=== PATIENT | male | born 1975 | race Caucasian/White ===

== ENCOUNTER 2020-03-13 11:15 | Outpatient (REF) | payer OTHER, SELFPAY ==
[2020-03-13 12:20] LABS: Estimated Average Glucose 298 mg/dL; Glucose Fasting 272 mg/dL (60-99)
== END 2020-03-13 11:16 | disposition home or self-care (01) ==
LOC: HO.LAB 11:15
PROVIDERS: PCP Internal Medicine; Visit Provider Internal Medicine
DX: E11.29 Type 2 diabetes mellitus with other diabetic kidney complication (principal)
CPT/HCPCS: 36415; 82947; 83036

== ENCOUNTER 2020-04-24 10:44 | Outpatient (REF) | payer OTHER, SELFPAY ==
[2020-04-24 11:50] LABS: MANUAL DIFF FLAG NO
[2020-04-24 12:09] LABS: Basophils Percent Auto 0.6 % (0-2); Eosinophils Absolute Auto 0.2 X10*3/uL (0.0-0.4); Eosinophils Percent Auto 3.1 % (0-4); Hematocrit 42.3 % (42-52); Imm Gran Abs Auto 0.04 X10*3/uL (0.00-0.03); Imm Gran Pct Auto 0.6 % (0.0-0.4); Lymphocytes Absolute Auto 2.4 X10*3/uL (1.2-4.9); Lymphocytes Percent Auto 34.5 % (20-40); Mean Corpuscular HGB Conc 33.1 g/dl (31.0-36.0); Mean Corpuscular Hemoglobin 29.4 pg (27.0-33.0); Mean Corpuscular Volume 88.9 fL (80-98); Mean Platelet Volume 11.9 fL (9.4-12.4); Monocytes Absolute Auto 0.5 X10*3/uL (0.1-1.2); Monocytes Percent Auto 7.2 % (2-11); Neutrophils Absolute Auto 3.7 X10*3/uL (2.0-8.3); Platelet Count 185 X10*3/uL (160-400); Red Blood Count 4.76 X10*6/uL (4.60-5.80); Red Cell Distribution Width 12.9 % (11.0-16.0); White Blood Count 6.8 X10*3/uL (4.8-10.8)
[2020-04-24 12:20] LABS: Glucose Urine UA >=1000 MG/DL (NEG); Leukocyte Esterase Urine NEG (NEG); Nitrite Urine NEG (NEG); Specific Gravity - Urine >= 1.030 (1.005-1.025); Urine Blood 1+ (NEG); Urine Ketones NEG (NEG); Urine Protein 2+ MG/DL (NEG-TRACE)
[2020-04-24 12:23] LABS: Appearance Urine CLEAR; Color Urine YELLOW
[2020-04-24 12:38] LABS: Mucus Urine TRACE /LPF; Squamous Epithelial Cell Urine TRACE /LPF; WBC Urine 0-2 /HPF (0-4)
[2020-04-24 12:47] LABS: Creatinine Urine 119.62 mg/dL
[2020-04-24 12:52] LABS: Alanine Aminotransferase 25 U/L (0-40); Alkaline Phosphatase 109 U/L (39-117); Anion Gap 12 (12-20); Aspartate Amino Transferase 19 U/L (5-37); Bilirubin Total 0.3 mg/dL (0.0-1.0); Blood Urea Nitrogen 25 mg/dL (9-16); Calcium 8.5 mg/dL (8.4-10.2); Carbon Dioxide 26 mmol/L (22-29); Chloride 104 mmol/L (96-108); Cholesterol 194 mg/dL; Estimated Glomerular Filt Rate > 60; Glucose Fasting 196 mg/dL (60-99); HDL Cholesterol 38 mg/dL; LDL Cholesterol Calculated 109 mg/dl; Potassium 4.1 mmol/L (3.3-5.1); Sodium 138 mmol/L (135-145); Triglycerides 239 mg/dL
[2020-04-24 13:02] LABS: Microalbum/Creatinine Ratio Ur 797.5 ug/mg cr
[2020-04-24 13:16] LABS: PSA,Total (Free>4and<10) 0.33 ng/mL (0.00-4.00); TSH reflex Free T4 16.88 uIU/mL (0.32-4.0)
[2020-04-24 13:24] LABS: Estimated Average Glucose 303 mg/dL; Hemoglobin A1c % 12.2 %
[2020-04-24 14:14] LABS: Free T4 (Free Thyroxine) 0.72 ng/dL (0.71-1.85)
[2020-04-24 15:06] LABS: Reflex LDLD? No
== END 2020-04-24 10:45 | disposition home or self-care (01) ==
LOC: HO.LNP 10:44
PROVIDERS: Visit Provider Internal Medicine
DX: E11.40 Type 2 diabetes mellitus with diabetic neuropathy, unspecified (principal); E78.2 Mixed hyperlipidemia; E03.9 Hypothyroidism, unspecified
CPT/HCPCS: 80053; 80061; 81001; 81003; 82043; 83036; 84153; 84439; 84443; 85025

== ENCOUNTER 2020-06-15 14:41 | Emergency (ER) | payer OTHER, SELFPAY ==
[2020-06-15 15:09] VITALS: BP 135/76; PULSE 90; RESP 18; TEMP 37; O2SAT 100; BMI 32.5
--- NOTE | 2020-06-15 16:07 | PC.NURSE ---
Pt calm and cooperative at this time denies SI but describes a recent SI episode with attempt at ending his life.
[2020-06-15 16:13] LABS: Amphetamine Screen Urine Not Detected (Not Detect); Barbiturates, Urine Not Detected (Not Detect); Benzodiazepines Screen Urine Not Detected (Not Detect); Cannabinoid Screen Urine Not Detected (Not Detect); Cocaine Screen Urine Not Detected (Not Detect); Opiate Screen Urine Not Detected (Not Detect); Phencyclidine Screen Urine Not Detected (Not Detect)
--- NOTE | 2020-06-15 17:20 | PC.NURSE ---
Pt tranbsferred from main ED to the unit, given brief orientation to unit. Pt alert, affect guarded, pt currently being seen by pharmacy to complete medication reconciliation.
[2020-06-15 17:57] LABS: MANUAL DIFF FLAG NO
[2020-06-15 17:59] LABS: Basophils Percent Auto 0.4 % (0-2); Eosinophils Absolute Auto 0.2 X10*3/uL (0.0-0.4); Eosinophils Percent Auto 2.5 % (0-4); Hematocrit 41.9 % (42-52); Hemoglobin 13.9 g/dl (14.0-18.0); Imm Gran Abs Auto 0.03 X10*3/uL (0.00-0.03); Imm Gran Pct Auto 0.4 % (0.0-0.4); Lymphocytes Absolute Auto 2.6 X10*3/uL (1.2-4.9); Lymphocytes Percent Auto 30.7 % (20-40); Mean Corpuscular HGB Conc 33.2 g/dl (31.0-36.0); Mean Corpuscular Hemoglobin 28.8 pg (27.0-33.0); Mean Corpuscular Volume 86.9 fL (80-98); Mean Platelet Volume 10.7 fL (9.4-12.4); Monocytes Absolute Auto 0.6 X10*3/uL (0.1-1.2); Monocytes Percent Auto 6.7 % (2-11); Neutrophils Percent Auto 59.3 % (45-73); Platelet Count 200 X10*3/uL (160-400); Red Blood Count 4.82 X10*6/uL (4.60-5.80); Red Cell Distribution Width 12.7 % (11.0-16.0); White Blood Count 8.4 X10*3/uL (4.8-10.8)
--- NOTE | 2020-06-15 18:10 | PC.NURSE ---
Pt labs drawn. Pt reports hx attempt to commit suicide approx 1 week ago, took extra insulin, POC in AM was 43, pt recognized that he was in trouble and ate some chocolate, called MD who encouraged him to seek help in ED. Pt recognizes that he needs help, reports hx depression, grieving over loss of father. Pt denies SI currently.
[2020-06-15 18:13] LABS: COVID-19 Test Negative (Negative); IDNOW Serial# 9DD0AD1C
[2020-06-15] MEDS: Nicotine 21 MG PATCH.TD24 TRANSDERMA (18:15)
[2020-06-15 18:30] LABS: Anion Gap 14 (12-20); Blood Urea Nitrogen 22 mg/dL (9-16); Calcium 9.3 mg/dL (8.4-10.2); Carbon Dioxide 25 mmol/L (22-29); Chloride 105 mmol/L (96-108); Creatinine Clr Calc Pharmacy 116.6; Estimated Glomerular Filt Rate > 60; Glucose Random 203 mg/dL (60-115); Potassium 4.3 mmol/L (3.3-5.1); Sodium 140 mmol/L (135-145)
[2020-06-15 18:32] LABS: Alanine Aminotransferase 20 U/L (0-40); Albumin Level 4.2 g/dL (3.5-5.0); Alkaline Phosphatase 109 U/L (39-117); Aspartate Amino Transferase 14 U/L (5-37); Bilirubin Direct < 0.2 mg/dL (0.0-0.5); Bilirubin Total 0.3 mg/dL (0.0-1.0); Total Protein 7.3 g/dL (6.5-8.0)
--- NOTE | 2020-06-15 18:47 | ED_ITS ---
HPI - Psych General Chief Complaint: Psychiatric Symptoms Stated Complaint: crisis Time Seen by Provider: 06/15/20 16:21 Source: patient Mode of arrival: ambulatory Limitations: no limitations History of Present Illness HPI Narrative: 44 yo male with past medical history of IDDM, HLD, hypothyroidism here with complaints of SI. Patient tells me he took 2 vials of insulin 2 weeks ago in an attempt to kill himself. No HI, hallucinations. Feeling depressed, no substance use. No physical complaints. Related Data Home Medications Medication Instructions Recorded Confirmed atorvastatin 1 tab PO DAILY 06/15/20 06/15/20 insulin glargine [Lantus Solostar 180 unit SUBCUT DAILY 06/15/20 06/15/20 U-100 Insulin] levothyroxine 1 tab PO QAM 06/15/20 06/15/20 sertraline 1 tab PO DAILY 06/15/20 06/15/20 Allergies Allergy/AdvReac Type Severity Reaction Status Date / Time No Known Allergies Allergy Unverified 11/17/19 17:58 [No Known Allergies*] Review of Systems Review of Systems: Yes all other systems are reviewed and are negative Constitutional: Constitutional: Reports no additional constitutional complaints, Denies body ache(s), Denies chills, Denies fever(s), Denies headache(s) and Denies weakness Eyes: Eyes: Reports no additional eye complaints and Denies change in vision ENT: Reports system reviewed and no additional complaints, except as documented, Denies dizziness, Denies headache(s), Denies nasal congestion, Denies nasal discharge and Denies neck pain Cardiovascular: Cardiovascular: Reports no additional cardiovascular complaint s, Denies chest pain, Denies leg edema and Denies dyspnea Respiratory: Respiratory: Reports no additional respiratory complaints, Denies cough and Denies dyspnea Gastrointestinal: Gastrointestinal: Reports no additional gastrointestinal complaints, Denies abdominal pain, Denies diarrhea, Denies nausea and Denies vomiting Genitourinary: Genitourinary: Denies urinary incontinence Musculoskeletal: Musculoskeletal: Reports no additional musculoskeletal complaints, Denies back pain, Denies arthralgias, Denies joint swelling, Denies neck pain, Denies numbness and Denies tingling Integumentary/Breasts: Skin/Breast: Reports system reviewed and no additional complaints, except as docu and Denies rash Neurologic: Reports system reviewed and no additional complaints, except as documented, Denies Abnormal speech present, Denies dizziness, Denies headache(s), Denies numbness, Denies tingling and Denies weakness PMFSH Past Medical History Medical History Anxiety Asthma Depression Diabetes HTN (hypertension) Surgical History H/O elbow surgery History of cholecystectomy Social History Social History Alcohol intake: never Smoking Status: Current every day smoker Use of substances other than those prescribed or required for medical reasons: No Advance Directives: No Advance Directives Information Provided: Yes Physical Exam Vital Signs: Vital Signs: Last Vital Signs Temp 98.6 F 06/15/20 15:09 Pulse 90 06/15/20 15:09 Resp 18 06/15/20 15:09 BP 135/76 06/15/20 15:09 Pulse Ox 100 06/15/20 15:09 Body Mass Index 32.5 Const: General: cooperative, healthy appearing, comfortable and no acute distress Orientation/consciousness: patient oriented x3 Limitations: no limitations HENMT: Head: Yes normal to inspection Ears: hearing grossly normal bilaterally General nose exam: Normal external nose present Face and sinus: Yes normal facial exam Mouth: Normal oral and palatal mucosa present Throat: Yes posterior oropharynx normal Eyes: General: appearance normal, both eyes and all related structures Pupils: Equal, round and reactive pupils present Neck: Neck: Yes normal visual inspection Chest: Chest palpation & inspection: normal inspection of the chest Resp: Effort & Inspection: normal respiratory effort Auscultation: clear to auscultation bilaterally Cardio: Rate: regular rate Rhythm: regular rhythm Peripheral pulses: Peripheral pulses 2+ throughout GI: Inspection: Yes normal to inspection Palpation (GI): Soft to palpation and nontender Auscultation: normal bowel sounds Back/Spine/Pelvis: Thoracic/Lumbar Spine: thoracic and lumbar spine normal to inspection Skin: General skin exam: no rashes or lesions noted Neuro: General: patient oriented x3, no focal motor deficits and normal sensation to monofilament Cranial nerves: Yes Equal, round and reactive pupils present Cognition (Neuro): normal cognition Speech: No Abnormal speech present Gait exam (Neuro): Normal gait present Motor exam (neuro): 5/5 motor strength present throughout Sensory Exam: Normal double simultaneous stimulation for sensation Extrem: General: Yes normal to inspection Course Course Course Narrative: 44 yo male here with SI, attempt 2 weeks ago. No physical complaints. Will need labs, LOPEZ, COVID screen and BHN evaluation. 2100-Confirmed with pharmacy that patient takes 180units of lantus daily. Pt pending BHN. At this time patient placed in physician observation pending a crisis evaluation. Sign out to night team pending above. MDM - Psych Medical Records Attestation: I reviewed the patient's medical records. Lab Data Attestation: I reviewed the patient's lab results. Result diagrams: 06/15/20 17:47 06/15/20 17:47 Labs: Lab Results 06/15/20 06/15/20 06/15/20 Range/Units 15:34 17:47 17:47 WBC 8.4 (4.8-10.8) X10*3/uL RBC 4.82 (4.60-5.80) X10*6/uL Hgb 13.9 L (14.0-18.0) g/dl Hct 41.9 L (42-52) % MCV 86.9 (80-98) fL MCH 28.8 (27.0-33.0) pg MCHC 33.2 (31.0-36.0) g/dl RDW 12.7 (11.0-16.0) % Plt Count 200 (160-400) X10*3/uL MPV 10.7 (9.4-12.4) fL Immature Gran % (Auto) 0.4 (0.0-0.4) % Neut % (Auto) 59.3 (45-73) % Lymph % (Auto) 30.7 (20-40) % [place] % (Auto) 6.7 (2-11) % Eos % (Auto) 2.5 (0-4) % Baso % (Auto) 0.4 (0-2) % Lymph # (Auto) 2.6 (1.2-4.9) X10*3/uL [place] # (Auto) 0.6 (0.1-1.2) X10*3/uL Eos # (Auto) 0.2 (0.0-0.4) X10*3/uL Baso # (Auto) 0.0 (0.0-0.2) X10*3/uL Abs Immat Gran (auto) 0.03 (0.00-0.03) X10*3/uL Absolute Neuts (auto) 5.0 (2.0-8.3) X10*3/uL Absolute Nucleated RBC 0.000 (0.0-0.012) X10*3/uL Nucleated RBC % (auto) 0.0 (0.0-0.2) /100WBC Sodium 140 (135-145) mmol/L Potassium 4.3 (3.3-5.1) mmol/L Chloride 105 (96-108) mmol/L Carbon Dioxide 25 (22-29) mmol/L Anion Gap 14 (12-20) BUN 22 H (9-16) mg/dL Creatinine 1.03 (0.5-1.4) mg/dL Estim Creat Clear Calc 116.6 Estimated GFR > 60 Random Glucose 203 H (60-115) mg/dL Calcium 9.3 D (8.4-10.2) mg/dL Total Bilirubin (0.0-1.0) mg/dL Direct Bilirubin (0.0-0.5) mg/dL AST (5-37) U/L ALT (0-40) U/L Alkaline Phosphatase (39-117) U/L Total Protein (6.5-8.0) g/dL Albumin (3.5-5.0) g/dL Urine Opiates Screen Not Detected (Not Detect) Ur Barbiturates Screen Not Detected (Not Detect) Ur Phencyclidine Scrn Not Detected (Not Detect) Ur Amphetamines Screen Not Detected (Not Detect) U Benzodiazepines Scrn Not Detected (Not Detect) Urine Cocaine Screen Not Detected (Not Detect) U Marijuana (THC) Screen Not Detected (Not Detect) COVID-19 (GEOVANNY) (Negative) COVID-19 Clin Com 06/15/20 06/15/20 Range/Units 17:47 17:47 WBC (4.8-10.8) X10*3/uL RBC (4.60-5.80) X10*6/uL Hgb (14.0-18.0) g/dl Hct (42-52) % MCV (80-98) fL MCH (27.0-33.0) pg MCHC (31.0-36.0) g/dl RDW (11.0-16.0) % Plt Count (160-400) X10*3/uL MPV (9.4-12.4) fL Immature Gran % (Auto) (0.0-0.4) % Neut % (Auto) (45-73) % Lymph % (Auto) (20-40) % [place] % (Auto) (2-11) % Eos % (Auto) (0-4) % Baso % (Auto) (0-2) % Lymph # (Auto) (1.2-4.9) X10*3/uL [place] # (Auto) (0.1-1.2) X10*3/uL Eos # (Auto) (0.0-0.4) X10*3/uL Baso # (Auto) (0.0-0.2) X10*3/uL Abs Immat Gran (auto) (0.00-0.03) X10*3/uL Absolute Neuts (auto) (2.0-8.3) X10*3/uL Absolute Nucleated RBC (0.0-0.012) X10*3/uL Nucleated RBC % (auto) (0.0-0.2) /100WBC Sodium (135-145) mmol/L Potassium (3.3-5.1) mmol/L Chloride (96-108) mmol/L Carbon Dioxide (22-29) mmol/L Anion Gap (12-20) BUN (9-16) mg/dL Creatinine (0.5-1.4) mg/dL Estim Creat Clear Calc Estimated GFR Random Glucose (60-115) mg/dL Calcium (8.4-10.2) mg/dL Total Bilirubin 0.3 (0.0-1.0) mg/dL Direct Bilirubin < 0.2 (0.0-0.5) mg/dL AST 14 (5-37) U/L ALT 20 (0-40) U/L Alkaline Phosphatase 109 (39-117) U/L Total Protein 7.3 (6.5-8.0) g/dL Albumin 4.2 (3.5-5.0) g/dL Urine Opiates Screen (Not Detect) Ur Barbiturates Screen (Not Detect) Ur Phencyclidine Scrn (Not Detect) Ur Amphetamines Screen (Not Detect) U Benzodiazepines Scrn (Not Detect) Urine Cocaine Screen (Not Detect) U Marijuana (THC) Screen (Not Detect) COVID-19 (GEOVANNY) Negative (Negative) COVID-19 Clin Com See Note Discharge Plan Discharge Clinical Impression: Suicidal ideation Prescriptions: No Action atorvastatin 40 mg tablet 1 tab PO DAILY RF: 0 levothyroxine 175 mcg tablet 1 tab PO QAM RF: 0 sertraline 50 mg tablet 1 tab PO DAILY RF: 0 Lantus Solostar U-100 Insulin 100 unit/mL (3 mL) insulin pen 180 unit subcut DAILY RF: 0
--- NOTE | 2020-06-15 19:05 | PC.NURSE ---
Report received. PT is resting quietly in bed. Calm and cooperative. PT is waiting for crisis consult.
--- NOTE | 2020-06-15 19:54 | PC.NURSE ---
DEANNA faxed and called.
--- NOTE | 2020-06-16 02:03 | MHC.CARE ---
CARE Team attempts to take over case from [facility] crisis services due to wait time. CARE Team and [facility] attempt to contact insurance without success. Plan is for [facility] crisis to see pt, and for CARE Team to again attempt to take over case/contact insurance tomorrow during the day if possible. [facility] [phone]. CARE Team checks in with pt, provides support, and explains the crisis process. Pt is anxious that his girlfriend will be worried about him, as he was not anticipating to spend the night. CARE Team supports pt in reaching out to girlfriend. Pt requests psych consult, as this is what his PCP directed pt to ED for. Devorah Auguste NP agrees to place psych consult.
[2020-06-16 02:15] VITALS: BP 138/96; PULSE 75; RESP 16; O2SAT 99
--- NOTE | 2020-06-16 07:11 | PC.NURSE ---
Report received. PT currently eating breakfast, calm and cooperative. Pt waiting to be seen by N.
[2020-06-16 07:42] LABS: Glucose, Whole Blood 112 mg/dL (60-115)
[2020-06-16] MEDS: Insulin Glargine,Hum.rec.anlog 100 UNIT/ML 10 ML VIAL 90 UNIT SUBCUT (08:21)
[2020-06-16] MEDS: Sertraline HCL 50 MG TABLET PO (08:42)
[2020-06-16] MEDS: Levothyroxine Sodium 175 MCG TABLET PO (08:42)
[2020-06-16 09:03] VITALS: BP 107/72; PULSE 79; RESP 16; TEMP 36.9; O2SAT 97
--- NOTE | 2020-06-16 09:47 | PC.NURSE ---
Care team at bedside for eval
== END 2020-06-16 11:33 | disposition home or self-care (01) ==
PROVIDERS: Nurse Practitioner Family; Emergency Provider Internal Medicine; PCP Internal Medicine
DX: F33.1 Major depressive disorder, recurrent, moderate (principal); R45.851 Suicidal ideations; E11.9 Type 2 diabetes mellitus without complications; Z20.822 Contact with and (suspected) exposure to COVID-19; Z79.899 Other long term (current) drug therapy; F17.200 Nicotine dependence, unspecified, uncomplicated; Z71.6 Tobacco abuse counseling; Z79.4 Long term (current) use of insulin
CPT/HCPCS: 36415; 80048; 80076; 80307; 82947; 85025; 87635; 99285

== ENCOUNTER 2020-07-03 09:00 | Outpatient (RCR) | payer OTHER, SELFPAY ==
[2020-06-22 11:57] VITALS: BMI 31.8
--- NOTE | 2020-06-22 12:27 | PC.ADMIT ---
Patient was referred to [facility] by [facility] Care Team who evaluated patient d/t depression, anxiety, and patient reports of intentional overdose with insulin 2 weeks prior. Patient has IDDM and reports that he took 200 units of Lantus insulin, instead of 180 units which he usually takes in the morning, and immediately regretted this decision thus texted his girlfriend afterwards and started eating chocolate to counteract the insulin. Patient also was continuously monitoring his blood sugars. Patient stated it was a, stupid thing I did . Reports stresses include his girlfriend whom he lives with along with her children and recently his girlfriends mother who has stage 4 cancer. Patient reports his girlfriends mother reminds him of his father who a few years ago. Patient denied current SI or thoughts to harm himself. Patient is alert and oriented x4. Calm and cooperative. Denied current SI or thoughts to harm himself. Regrets Suicide attempt few weeks ago. Patient gave verbal permission to email him a copy of his safety plan. Asked if he was feeling unsafe who could he call/contact and he stated the suicide prevention line, [facility] staff, or his close friend. Medication reconciled with patient and patient's pharmacy. Patient reports taking medication as prescribed however did not have time to take his Lantus this morning d/t new schedule and plans on taking today. Medication education provided.
--- NOTE | 2020-06-22 12:28 | P.HPPSP_ITS ---
HPI Chief Complaint: MDD Sources of Information: patient interviewed and chart reviewed HPI Narrative: The patient is a 44 year old male, single, with no children, living with his girlfriend, employed as a [employer] 20-22h per week, highly functional at baseline, with good social support. The pateitn was referred to PHP by the ED a few weeks ago, after he presented with the history of overdosing with INH in s auicidal attempt. He was assessed by crisis and since he was able to contract for safety and he was future oriented, he was referred to [facility]. The patient complaiend of depressive symptoms for the last year and half after his father after a cardioversion. He complained of depressed mood, anhedonia, lack of energy, feelings of hopelesness, feelings of worhtlesness and recently sucidal thoughts. He also compalined of poor sleep and poor appetite. During the intake interview, he reported a prior episode of depression 15 or 20 years ago after the of her mother and he was treated by his PCP with Zoloft with fair improvement. He has DM and he uses INH as part of his treatment. He admantly denies psychotic symptoms, lexie or other psychiatric sympotoms. We discussed his diagnosis, treatment options and prognosis and he agreed to increase Zoloft that was strarted by his [facility]. Past Psychiatric History: No prior admissions, he had a first depressive episode 15 or 20 years ago after the of his mother, succesfully treated with Zoloft. Medical Evaluation Reviewed: Yes [facility] Medical History Anxiety Asthma Depression Diabetes HTN (hypertension) Hypothyroidism Surgical History H/O elbow surgery History of cholecystectomy Family History: The patient is the youngest of 2 siblings, his milestones were achieved at expected age, he was raised by his parents, and he attended regular school. He had a good childhood and after graduation, he has always worked. Social History: Single, living with , no children, employed as a [employer], highly functional at baseline Substance History: Tobacco, 1 pack and a half a day Trauma History: Denies Diagnostics Vital Signs (24Hr): Body Mass Index 31.8 Meds/Allergies Allergies Allergies Allergy/AdvReac Type Severity Reaction Status Date / Time No Known Allergies Allergy Unverified 11/17/19 17:58 [No Known Allergies*] Mental Status Exam Mental Status Exam Patient Appearance: Well Grooomed Patient Orientation: Person, Place, Time and Situation Level of Consciousness: Awake and Appropriate Patient Behavior: Appropriate Mood Description: Calm and Withdrawn Affect Description: Appropriate and Constricted Patient Cognition Impaired: No Ability to Follow Directions: Good Speech Pattern: Clear Memory Description: Intact Hallucinations: None Delusions: Not Present Thought Process: Goal Oriented Thought Content: positive for Intact Judgement: Fair Assessment & Plan Assessment & Plan (1) Major depressive disorder: Status: Acute Code(s): F32.9 - Major depressive disorder, single episode, unspecified Assessment and Plan: The patient is an adult male with MDD, who nearly OD on INH in a sucidal attempt. He is highly functional at baseline and he is willing to continue treatment. Plan: 1. Increase Zoloft up to 100 mg po qhs. 2. Gather collateral information. 3. F/U next week. Certification I certify that partial hospital treatment is medically necessary due to the symptoms and problems resulting from the patient's mental illness and the failure to treat the patient at the partial hospital level of care would likely result in the patient requiring inpatient psychiatric care which could not be prevented at a less intensive level of care. Telehealth Telehealth Location of provider rendering services: practice address Location of patient: address on file Patient Identification confirmed using: Name, : No Telehealth method: video Patient verbally consented to treatment: Yes Patient verbally consented to billing insurance company: Yes Patient informed of any privacy concerns related to visit: No Time spent with patient (mins): 45
--- NOTE | 2020-06-26 14:21 | HO.PHPPROGNO ---
Subjective Subjective Date of Service: 06/26/20 Reason For Visit: MDD Interim History: The patient reported no side effects with the increase of Zoloft, no improve of his mood but it is day 3rd. No safety issues. Medication Compliance: Yes Side effects from medications: No Attending Groups: Yes Review of Systems Review of Systems Yes all other systems are reviewed and are negative Mental Status Exam Mental Status Exam Patient Appearance: Well Grooomed Patient Orientation: Person, Place, Time and Situation Level of Consciousness: Awake Patient Behavior: Appropriate Mood Description: Calm Affect Description: Withdrawn Patient Cognition Impaired: No Ability to Follow Directions: Good Speech Pattern: Clear Memory Description: Intact Hallucinations: None Delusions: Not Present Thought Process: Goal Oriented Thought Content: positive for Intact Judgement: Fair Diagnostics Vital Signs (24Hr): Body Mass Index 31.8 Assessment & Plan Assessment & Plan (1) Major depressive disorder: Status: Acute Code(s): F32.9 - Major depressive disorder, single episode, unspecified Assessment and Plan: The patient is an adult male with MDD, highly functional at baseline who had depressive symptoms that lead him to the ED. Currently, started on Zoloft, recently titrated up to 100mg with no major changes but no side effects. Plan: Keep same treatment Certification I certify that partial hospital treatment is medically necessary due to the symptoms and problems resulting from the patient's mental illness and the failure to treat the patient at the partial hospital level of care would likely result in the patient requiring inpatient psychiatric care which could not be prevented at a less intensive level of care. Greater than 50% of the session was spent on counseling and/or coordination of care Discharge Plan Discharge Attending provider: Sathish Todd Primary Care Provider: Arden Zamora Medications: New sertraline [Zoloft] 100 mg tablet 100 mg PO DAILY Qty: 14 RF: 0 Discontinued sertraline 50 mg tablet 1 tab PO DAILY RF: 0 No Action atorvastatin 40 mg tablet 1 tab PO DAILY RF: 0 levothyroxine 175 mcg tablet 1 tab PO QAM RF: 0 Lantus Solostar U-100 Insulin 100 unit/mL (3 mL) insulin pen 90 unit subcut BID RF: 0 Referrals: Arden Zamora MD [Primary Care Provider] - 1 Week Telehealth Telehealth Location of provider rendering services: practice address Location of patient: address on file Patient Identification confirmed using: Name, : Yes Telehealth method: video Patient verbally consented to treatment: Yes Patient verbally consented to billing insurance company: Yes Patient informed of any privacy concerns related to visit: No Time spent with patient (mins): 15
--- NOTE | 2020-06-28 14:29 | PC.NURSE ---
I called [facility] and made a referral for therapist and prescriber. Jennifer will get back to me with appointment times.
--- NOTE | 2020-07-02 13:51 | P.PNPSP_ITS ---
Subjective Subjective Date of Service: 07/02/20 Reason For Visit: MDD Interim History: The patient reported improvement of his mood, less dysphoria since his Zoloft was increased. Medication Compliance: Yes Side effects from medications: No Attending Groups: Yes Review of Systems Acute medical concerns: No Medical Review of Systems: unchanged Mental Status Exam Mental Status Exam Patient Appearance: Well Grooomed Patient Orientation: Person, Place, Time and Situation Level of Consciousness: Awake Patient Behavior: Appropriate and Cooperative Mood Description: Calm Affect Description: Appropriate Patient Cognition Impaired: No Ability to Follow Directions: Good Speech Pattern: Clear Memory Description: Intact Hallucinations: None Delusions: Not Present Thought Process: Goal Oriented Thought Content: positive for Intact Judgement: Fair Diagnostics Vital Signs (24Hr): Body Mass Index 31.8 Assessment & Plan Assessment & Plan (1) Major depressive disorder: Status: Acute Code(s): F32.9 - Major depressive disorder, single episode, unspecified Assessment and Plan: The julian is an adult Caucasina male with prior episodes of depression that now presented with a new episode with suicidal thoughts, referred to [facility] for continuation of treatment. So far, he has improved with the increase of Zoloft. Plan: Keep same treatment Certification I certify that partial hospital treatment is medically necessary due to the symptoms and problems resulting from the patient's mental illness and the failure to treat the patient at the partial hospital level of care would likely result in the patient requiring inpatient psychiatric care which could not be prevented at a less intensive level of care. Greater than 50% of the session was spent on counseling and/or coordination of care Discharge Plan Discharge Attending provider: Sathish Todd Primary Care Provider: Arden Zamora Medications: New sertraline [Zoloft] 100 mg tablet 100 mg PO DAILY Qty: 14 RF: 0 Discontinued sertraline 50 mg tablet 1 tab PO DAILY RF: 0 No Action atorvastatin 40 mg tablet 1 tab PO DAILY RF: 0 levothyroxine 175 mcg tablet 1 tab PO QAM RF: 0 Lantus Solostar U-100 Insulin 100 unit/mL (3 mL) insulin pen 90 unit subcut BID RF: 0 Referrals: Arden Zamora MD [Primary Care Provider] - 1 Week Telehealth Telehealth Location of provider rendering services: practice address Location of patient: address on file Patient Identification confirmed using: Name, : No Telehealth method: video Patient verbally consented to treatment: Yes Patient verbally consented to billing insurance company: Yes Patient informed of any privacy concerns related to visit: No Time spent with patient (mins): 15
--- NOTE | 2020-07-03 13:56 | PC.NURSE ---
Reviewed patient discharge medications with patient. Patient appeared to know what he is taking and what the medication is for.
== END 2020-07-04 09:04 | disposition home or self-care (01) ==
LOC: HO.PHPA 09:00
PROVIDERS: PCP Internal Medicine; Visit Provider Psychiatry & Neurology Psychiatry
DX: F32.9 Major depressive disorder, single episode, unspecified (principal); Z79.899 Other long term (current) drug therapy
CPT/HCPCS: 90791; 90853

== ENCOUNTER 2020-07-05 10:47 | Outpatient (REF) | payer OTHER, SELFPAY ==
[2020-07-05 12:30] LABS: Free T4 (Free Thyroxine) 0.91 ng/dL (0.71-1.85)
== END 2020-07-05 10:48 | disposition home or self-care (01) ==
LOC: HO.LNP 10:47
PROVIDERS: Visit Provider Internal Medicine
DX: E03.9 Hypothyroidism, unspecified (principal)
CPT/HCPCS: 84439; 84443

== ENCOUNTER 2020-10-23 15:13 | Outpatient (REF) | payer OTHER, SELFPAY ==
[2020-10-23 16:11] LABS: TSH reflex Free T4 1.81 uIU/mL (0.32-4.0)
== END 2020-10-23 15:14 | disposition home or self-care (01) ==
LOC: HO.LNP 15:13
PROVIDERS: Visit Provider Internal Medicine
DX: E03.9 Hypothyroidism, unspecified (principal)
CPT/HCPCS: 84443

== ENCOUNTER 2021-05-10 10:24 | Outpatient (REF) | payer OTHER, SELFPAY ==
[2021-05-10 10:28] LABS: MANUAL DIFF FLAG NO
[2021-05-10 10:52] LABS: Appearance Urine CLEAR; Color Urine YELLOW; Glucose Urine UA >=1000 MG/DL (NEG); Leukocyte Esterase Urine NEG (NEG); Nitrite Urine NEG (NEG); Specific Gravity - Urine 1.025 (1.005-1.025); Urine Blood 2+ (NEG); Urine Ketones NEG (NEG); Urine Protein 2+ MG/DL (NEG-TRACE)
[2021-05-10 10:59] LABS: Basophils Percent Auto 0.5 % (0-2); Eosinophils Absolute Auto 0.3 X10*3/uL (0.0-0.4); Eosinophils Percent Auto 3.3 % (0-4); Hematocrit 40.1 % (42.0-52.0); Hemoglobin 13.1 g/dl (14.0-18.0); Imm Gran Abs Auto 0.07 X10*3/uL (0.00-0.03); Imm Gran Pct Auto 0.9 % (0.0-0.4); Lymphocytes Absolute Auto 2.4 X10*3/uL (1.2-4.9); Lymphocytes Percent Auto 30.6 % (20-40); Mean Corpuscular HGB Conc 32.7 g/dl (31.0-36.0); Mean Corpuscular Hemoglobin 28.7 pg (27.0-33.0); Mean Corpuscular Volume 87.7 fL (80.0-98.0); Mean Platelet Volume 11.3 fL (9.4-12.4); Monocytes Absolute Auto 0.6 X10*3/uL (0.1-1.2); Monocytes Percent Auto 7.7 % (2-11); Neutrophils Absolute Auto 4.4 x10*3/uL (2.0-8.3); Platelet Count 201 X10*3/uL (160-400); Red Blood Count 4.57 X10*6/uL (4.60-5.80); Red Cell Distribution Width 13.6 % (11.0-16.0); White Blood Count 7.8 X10*3/uL (4.8-10.8)
[2021-05-10 11:18] LABS: Estimated Average Glucose 301 mg/dL; Hemoglobin A1c % 12.1 %; Squamous Epithelial Cell Urine 1+ /LPF
[2021-05-10 11:19] LABS: Bacteria Urine TRACE /LPF; WBC Urine 0-2 /HPF (0-4)
[2021-05-10 12:38] LABS: Alanine Aminotransferase 17 U/L (0-40); Albumin Level 3.9 g/dL (3.5-5.0); Alkaline Phosphatase 146 U/L (39-117); Anion Gap 13 (12-20); Aspartate Amino Transferase 15 U/L (5-37); Bilirubin Total 0.4 mg/dL (0.0-1.0); Blood Urea Nitrogen 25 mg/dL (9-16); Calcium 9.1 mg/dL (8.4-10.2); Carbon Dioxide 26 mmol/L (22-29); Chloride 102 mmol/L (96-108); Cholesterol 214 mg/dL; Estimated Glomerular Filt Rate > 60; Glucose Fasting 258 mg/dL (60-99); HDL Cholesterol 36 mg/dL; LDL Cholesterol Calculated 102 mg/dl; Potassium 4.2 mmol/L (3.3-5.1); Sodium 137 mmol/L (135-145); Triglycerides 380 mg/dL
[2021-05-10 12:42] LABS: PSA,Total (Free>4and<10) 0.26 ng/mL (0.00-4.00); TSH reflex Free T4 15.89 uIU/mL (0.32-4.0)
[2021-05-10 12:46] LABS: Creatinine Urine 68.39 mg/dL
[2021-05-10 13:22] LABS: Free T4 (Free Thyroxine) 0.77 ng/dL (0.71-1.85)
== END 2021-05-10 10:25 | disposition home or self-care (01) ==
LOC: HO.LNP 10:24
PROVIDERS: Visit Provider Internal Medicine
DX: Z00.00 Encounter for general adult medical examination without abnormal findings (principal); I10 Essential (primary) hypertension; E03.9 Hypothyroidism, unspecified; E11.40 Type 2 diabetes mellitus with diabetic neuropathy, unspecified; E78.2 Mixed hyperlipidemia
CPT/HCPCS: 80053; 80061; 81001; 82043; 83036; 84153; 84439; 84443; 85025

== ENCOUNTER 2021-08-18 23:38 | Emergency (ER) | payer OTHER, SELFPAY ==
[2021-08-18 23:49] VITALS: BP 162/94; PULSE 82; RESP 18; TEMP 36.7; O2SAT 97; BMI 32.8
--- NOTE | 2021-08-19 00:10 | ED_ITS ---
HPI - URI/Sore Throat General Chief Complaint: Upper Respiratory Symptoms Stated Complaint: sharp pain on R side of nose, congestion Time Seen by Provider: 08/18/21 23:59 Source: patient Mode of arrival: ambulatory Limitations: no limitations History of Present Illness HPI Narrative: Patient comes to the emergency room complaining of sinus pressure on his right side of the cheek. Patient states that the week prior, he had congestion, cough. Patient denies fever chills. No nasal drainage, no ear pain, no sore throat. Related Data Home Medications Medication Instructions Recorded Confirmed atorvastatin 40 mg tablet 1 tab PO DAILY 06/15/20 06/22/20 insulin glargine 100 unit/mL (3 90 unit subcut BID 06/15/20 06/22/20 mL) subcutaneous pen (Lantus Solostar U-100 Insulin) levothyroxine 175 mcg tablet 1 tab PO QAM 06/15/20 06/22/20 Previous Rx's Medication Instructions Recorded sertraline 100 mg tablet (Zoloft) 100 mg PO DAILY 30 days #30 tabs 07/05/20 doxycycline hyclate 100 mg capsule 100 mg PO BID #13 caps 08/19/21 fluticasone propionate 50 1 spray intranasal Q12H #16 grams 08/19/21 mcg/actuation nasal spray,suspension (Flonase Allergy Relief) Allergies Allergy/AdvReac Type Severity Reaction Status Date / Time No Known Allergies Allergy Unverified 11/17/19 17:58 [No Known Allergies*] Review of Systems Review of Systems: Constitutional : No Weight loss, No Fever, No Chills, No Night Sweats, No Fatigue, No Malaise ENT/Mouth : No Hearing loss, No Ear Pain, No Nasal Congestion, right maxillary Sinus Pain, No Hoarseness, No sore throat, No Rhinorrhea, No Swallowing Difficulty Eyes: No Eye Pain, No Swelling, No Redness, No Foreign Body, No Discharge, No Vision Changes Cardiovascular : No Chest Pain, No SOB, No Dyspnea on Exertion, No Orthopnea, No Edema, No Palpitations Respiratory : No Cough, No Sputum, No Wheezing, No Smoke Exposure, No Dyspnea Gastrointestinal : No Nausea, No Vomiting, No Diarrhea, No Constipation, No abdominal Pain, No Hematochezia, No Melena Genitourinary : no irregular bleeding, No Dysuria, No Urinary Frequency, No Hematuria, No Urinary Incontinence, No Urgency, No Flank Pain, No Urinary Flow Changes, No Hesitancy Musculoskeletal : No joint pain, No Myalgias, No Joint Swelling Skin : No Skin Lesions, No rash Neuro : No Weakness, No Numbness, No Paresthesias, No Loss of Consciousness, No Dizziness, No Headache Psych : No Anxiety/Panic, No Depression, No SI/HI/AH/VH, No Social Issues, Heme/Lymph: No Bruising, No Bleeding,No Lymphadenopathy Endocrine : No Polyuria, No Polydipsia, No Temperature Intolerance [facility] Past Medical History Medical History Anxiety Asthma Depression Diabetes HTN (hypertension) Hyperlipemia Hypothyroidism Neuropathy associated with endocrine disorder Surgical History H/O elbow surgery History of cholecystectomy Social History Social History Household Members: Significant Other and Children Household Members Other:: Mother and brother of girlfriend Alcohol intake: never Cigarette Packs Per Day: 1.5 Cigarettes Per Day: 30 Advance Directives: No Advance Directives Information Provided: Yes Physical Exam Vital Signs: Vital Signs: Last Vital Signs Temp 98.1 F 08/18/21 23:49 Pulse 82 08/18/21 23:49 Resp 18 08/18/21 23:49 BP 162/94 H 08/18/21 23:49 Pulse Ox 97 08/18/21 23:49 O2 Del Method 08/18/21 23:49 BMI result Body Mass Index 32.8 Const: Other: Appearance: Alert. Oriented X3. No acute distress. Eyes: Pupils equal, round and reactive to light. ENT: Pharynx normal. Seems congested, pain to palpation over the right maxillary sinus Neck: Normal inspection. Neck supple. No lymph nodes noted. No crepitus CVS: Normal heart rate and rhythm. Pulses normal. Normal S1 and S2 Respiratory: No respiratory distress. Breath sounds normal. No Wheezing. No rales Abdomen: Soft and nontender. No rigidity. No distention. Skin: Skin warm and dry. Normal skin color. Normal skin turgor. Extremities: No lower extremity edema. No Lacerations. No Rash Neuro: Oriented X 3. No motor deficit. No sensory deficit. Moving all extremities. No slurred speech. CN 2 through 12 grossly intact Psych: calm, cooperative, normal affect Course Course Course Narrative: Patient likely has sinusitis. It has been a week, not getting better. Patient was given the 1st dose of doxycycline in the emergency room. Discharge Plan Discharge Clinical Impression: Sinusitis Patient Disposition: Home, Self-Care Instructions: Sinusitis (ED) Additional Instructions: Please follow-up with your primary care physician tomorrow. If you have any worsening or new symptoms, please return to the emergency room or call 911 Prescriptions: New doxycycline hyclate 100 mg capsule 100 mg PO BID Qty: 13 0RF fluticasone propionate [Flonase Allergy Relief] 50 mcg/actuation spray,suspension 1 spray intranasal Q12H Qty: 16 0RF Rx Instructions: administer into each nostril No Action atorvastatin 40 mg tablet 1 tab PO DAILY levothyroxine 175 mcg tablet 1 tab PO QAM Lantus Solostar U-100 Insulin 100 unit/mL (3 mL) insulin pen 90 unit subcut BID Label Comments: Patient stated he forgets to take at HS so his doctor told him to take it all in the am. Patient also stated it also depends on his morning blood sugar. Medication is prescribed 90 units BID sertraline [Zoloft] 100 mg tablet 100 mg PO DAILY 30 Days Qty: 30 0RF
[2021-08-19 00:32] LABS: COVID-19 Test Negative (Negative); IDNOW Serial# 16C4AD1C; Influenza A Negative (Negative); Influenza B2 Negative (Negative)
== END 2021-08-19 00:21 | disposition home or self-care (01) ==
PROVIDERS: Emergency Provider Emergency Medicine; PCP Internal Medicine
DX: J01.90 Acute sinusitis, unspecified (principal); R09.81 Nasal congestion; Z20.822 Contact with and (suspected) exposure to COVID-19; Z79.899 Other long term (current) drug therapy
CPT/HCPCS: 87502; 87635; 99282

== ENCOUNTER 2021-09-03 10:51 | Outpatient (REF) | payer OTHER, SELFPAY ==
[2021-09-03 12:33] LABS: Blood Urea Nitrogen 26 mg/dL (9-16); Estimated Glomerular Filt Rate > 60
== END 2021-09-03 10:52 | disposition home or self-care (01) ==
LOC: HO.LNP 10:51
PROVIDERS: PCP Internal Medicine; Visit Provider Internal Medicine
DX: R79.9 Abnormal finding of blood chemistry, unspecified (principal)
CPT/HCPCS: 82565; 84520

== ENCOUNTER 2021-12-16 10:23 | Outpatient (REF) | payer OTHER, SELFPAY ==
[2021-12-16 11:15] LABS: Alanine Aminotransferase 13 U/L (0-40); Albumin Level 3.9 g/dL (3.5-5.0); Alkaline Phosphatase 127 U/L (39-117); Aspartate Amino Transferase 16 U/L (5-37); Bilirubin Direct < 0.2 mg/dL (0.0-0.5); Bilirubin Total 0.4 mg/dL (0.0-1.0); Blood Urea Nitrogen 18 mg/dL (9-16); Cholesterol 222 mg/dL; Estimated Glomerular Filt Rate > 60; Glucose Fasting 199 mg/dL (60-99); HDL Cholesterol 40 mg/dL; LDL Cholesterol Calculated 121 mg/dl; Total Protein 7.1 g/dL (6.5-8.0); Triglycerides 309 mg/dL
[2021-12-16 11:51] LABS: Reflex LDLD? No
== END 2021-12-16 10:24 | disposition home or self-care (01) ==
LOC: HO.LNP 10:23
PROVIDERS: Visit Provider Internal Medicine
DX: R79.9 Abnormal finding of blood chemistry, unspecified (principal); E11.40 Type 2 diabetes mellitus with diabetic neuropathy, unspecified; E78.2 Mixed hyperlipidemia
CPT/HCPCS: 80061; 80076; 82565; 82947; 84520

== ENCOUNTER 2022-01-13 09:28 | Day surgery (SDC) | payer OTHER, SELFPAY ==
--- NOTE | 2022-01-10 08:02 | HO.ANESPROP2 ---
Documented by User: Kathleen To NP 01/10/22 08:03 HPI - Anesthesia Eval Consult details Narrative: 46yo M for Colonoscopy PMFSH Active Problems Active Problems: All Active Problems (Updated 08/20/21 @ 00:01 by Background Daemon) Major depressive disorder (Acute) Past Medical History Medical History (Updated 08/20/21 @ 00:01 by Background Daemon) Anxiety Asthma Depression Diabetes HTN (hypertension) Hyperlipemia Hypothyroidism Neuropathy associated with endocrine disorder Surgical History Surgical History (Updated 01/10/22 @ 07:55 by Promise Ventura RN) H/O elbow surgery History of cholecystectomy Hx of umbilical hernia repair Social History Social History (Updated 01/13/22 @ 10:41 by Sherry Garcia MD) Household Members: Significant Other and Children Household Members Other:: Mother and brother of girlfriend Alcohol intake: never Patient Tobacco Use Status: Current everyday Tobacco user Tobacco use type: Cigarette Cigarette Packs Per Day: 1.5 Cigarettes Per Day: 30 Years Smoked: 30 Smoked in Last 30 Days: Yes Use of substances other than those prescribed or required for medical reasons: No Are you DNR?: No Advance Directives: No Advance Directives Information Provided: Yes Meds Allergies Allergy/AdvReac Type Severity Reaction Status Date / Time No Known Allergies Allergy Unverified 11/17/19 17:58 [No Known Allergies*] Home Medications Medication Instructions Recorded Confirmed Last Taken Type atorvastatin 40 mg tablet 1 tab PO DAILY 06/15/20 06/22/20 06/22/20 08:30 History insulin glargine 100 unit/mL (3 90 unit subcut BID 06/15/20 06/22/20 06/21/20 History mL) subcutaneous pen (Lantus Solostar U-100 Insulin) levothyroxine 175 mcg tablet 1 tab PO QAM 06/15/20 06/22/20 06/22/20 08:30 History Exam Exam Date and Time: January 10, [id number] Pertinent Lab Results Pertinent Lab Results: Laboratory Tests 05/10/21 05/10/21 12/16/21 07:30 07:30 07:15 WBC 7.8 Hgb 13.1 L Hct 40.1 L Plt Count 201 Sodium 137 Potassium 4.2 Chloride 102 Carbon Dioxide 26 BUN 18 H Creatinine 0.93 Assessment and Plan Assessment Anesthesia Assessment: Chart Reviewed Documented by User: Sherry Garcia MD 01/13/22 10:43 PMFSH Active Problems Active Problems: All Active Problems (Updated 08/20/21 @ 00:01 by Background Daemon) Major depressive disorder (Acute) DARREN. Never tested but has symptoms. No CPAP Past Medical History Medical History (Updated 08/20/21 @ 00:01 by Background Daemon) Anxiety Asthma Depression Diabetes HTN (hypertension) Hyperlipemia Hypothyroidism Neuropathy associated with endocrine disorder Family History Family history of problems with anesthesia: No Surgical History Surgical History (Updated 01/10/22 @ 07:55 by Promise Ventura RN) H/O elbow surgery History of cholecystectomy Hx of umbilical hernia repair History of Problems with Anesthesia: No Social History Social History (Updated 01/13/22 @ 10:41 by Sherry Garcia MD) Household Members: Significant Other and Children Household Members Other:: Mother and brother of girlfriend Alcohol intake: never Patient Tobacco Use Status: Current everyday Tobacco user Tobacco use type: Cigarette Cigarette Packs Per Day: 1.5 Cigarettes Per Day: 30 Years Smoked: 30 Smoked in Last 30 Days: Yes Use of substances other than those prescribed or required for medical reasons: No Are you DNR?: No Advance Directives: No Advance Directives Information Provided: Yes Meds Allergies Allergy/AdvReac Type Severity Reaction Status Date / Time No Known Allergies Allergy Unverified 11/17/19 17:58 [No Known Allergies*] Home Medications Medication Instructions Recorded Confirmed Last Taken Type atorvastatin 40 mg tablet 1 tab PO DAILY 06/15/20 06/22/20 06/22/20 08:30 History insulin glargine 100 unit/mL (3 90 unit subcut BID 06/15/20 06/22/20 06/21/20 History mL) subcutaneous pen (Lantus Solostar U-100 Insulin) levothyroxine 175 mcg tablet 1 tab PO QAM 06/15/20 06/22/20 06/22/20 08:30 History Exam Height,Weight and Vital Signs: Height 6 ft Weight 127.006 kg Vital Signs Temp Pulse Resp BP Pulse Ox O2 Del Method 01/13/22 09:53 97 F 81 18 133/93 H 100 Room Air Pertinent Lab Results Pertinent Lab Results: Laboratory Tests 05/10/21 05/10/21 12/16/21 07:30 07:30 07:15 WBC 7.8 Hgb 13.1 L Hct 40.1 L Plt Count 201 Sodium 137 Potassium 4.2 Chloride 102 Carbon Dioxide 26 BUN 18 H Creatinine 0.93 Lab Results 01/13/22 Range/Units 09:58 POC Glucose 108 (60-115) mg/dL Airway Mallampati Class: III TM Dist: >3cm Neck ROM: Full Loose/Missing/Broken Teeth: Yes (Many broken, missing. States none loose) Heart: RRR Lungs: CTAB Assessment and Plan Assessment Anesthesia Assessment: Anesthesia Plan Discussed Final Anesthetic Review Family History of Problems with Anesthesia: No History of Problems with Anesthesia: No NPO: Yes ASA Class: III Final Preanesthetic Review: No Changes in Pt Med Stat, Meds/Allgs Chart Reviewed, Consent Obtained/Reviewed and Anes Risks/Benef Reviewed Patient Risk: Intermediate Procedure Risk: Low Assessment/Block/Sedation in SS: Assess/Block/Sedation-SS Anesthetic Plan Anesthetic Plan: MAC: Disposition: Standard PACU
[2022-01-13 09:39] VITALS: BMI 38.0
[2022-01-13 09:53] VITALS: BP 133/93; PULSE 81; RESP 18; TEMP 36.1; O2SAT 100
[2022-01-13 10:01] LABS: Glucose, Whole Blood 108 mg/dL (60-115)
[2022-01-13] MEDS: Lactated Ringers 1,000 ML 100 ML IVCONT (10:16)
[2022-01-13 11:21] VITALS: BP 95/62; PULSE 80; RESP 16; TEMP 36.4; O2SAT 95
--- NOTE | 2022-01-13 11:24 | P.BOP_ITS ---
Brief Operative Note Date of Service: 01/13/22 Pre-op diagnosis: Screening Post-op diagnosis: other (Colon polyps) Procedure: Colonoscopy to the cecum with hot snare polypectomy x 5, and cold snare polypectomy x 1 Surgeon: Nicanor Conner Anesthesia: MAC Was an Quarantine Officer used for this Procedure?: No Estimated blood loss (mL): 2.0 Pathology: other (A. Polyps at 20cm B. Polyp at 60cm C. Rectal polyp) Condition: stable Disposition: PACU
[2022-01-13 11:36] VITALS: BP 109/70; PULSE 76; RESP 16; O2SAT 94
[2022-01-13 11:51] VITALS: BP 119/75; PULSE 77; RESP 16; TEMP 36.4; O2SAT 95
--- NOTE | 2022-01-13 22:12 | OP_ITS ---
SURGEON: Nicanor Conner MD INDICATIONS: The patient presents for evaluation of colorectal cancer screening. Full consent was obtained from him for this, including risks of bleeding and perforation. PREOPERATIVE DIAGNOSIS: Colorectal cancer screening. POSTOPERATIVE DIAGNOSIS: PROCEDURE PERFORMED: Colonoscopy to the cecum with hot snare polypectomy and cold snare polypectomy. ESTIMATED BLOOD LOSS: COMPLICATIONS: ANESTHESIA: Medication used; monitored anesthesia care. ASSISTANTS: SPECIMENS: POSTOPERATIVE DIAGNOSES: Colorectal cancer screening, colon polyps, internal hemorrhoids. DESCRIPTION OF PROCEDURE: The patient was placed in the left lateral decubitus position. The digital rectal exam revealed no abnormalities. The Olympus video pediatric colonoscope was entered into the rectum and advanced to the cecum. Advancement was somewhat difficult due to a somewhat limited prep with a lot of liquid stool. Once in the cecum, I did identify cecal pouch with appendiceal orifice and a normal-appearing ileocecal valve. The entire cecum was well visualized. In the cecum, was approximately 8-10 mm polyp, which was removed by hot snare polypectomy, but not recovered. The polypectomy site appeared clean, without any sign of residual polyp nor bleeding. The polyp appeared to be grossly adenomatous. The scope was then slowly withdrawn assessing all mucosal surfaces carefully. After copious irrigation and suction, the prep became quite good although there still remains some liquid stool. At 60 cm, were two approximately 8 mm polyps, which were each removed by hot snare polypectomy with 1 recovered by suction. The polypectomy sites appeared clean, without any sign of residual polyp nor bleeding. At 20 cm, were 2 polyps, one was approximately 4 mm in size and removed by cold snare polypectomy and recovered by suction. The polypectomy site appeared clean, without any sign of residual polyp nor significant bleeding. In the same area, was a larger approximately 10 mm polyp, which was removed by hot snare polypectomy and recovered by suction. The polypectomy site appeared clean, without any sign of residual polyp nor bleeding. In the rectum was an approximately 5 or 6 mm polyp, which was removed by hot snare polypectomy and recovered by suction. The polypectomy site appeared clean, without any sign of residual polyp nor bleeding. I did not visualize any other polyps, colitis, or angiodysplasia. There was a mild amount of sigmoid diverticulosis. In the rectum, scope was retroflexed visualizing internal hemorrhoids, but no other pathology. The rectal mucosa appeared normal. The scope was straightened and withdrawn from the patient. He tolerated the procedure well and was returned to recovery area in stable condition. IMPRESSION: 1. Colon polyps. 2. Occasional diverticulosis. 3. Internal hemorrhoids. PLAN: The results of the pathology will be checked. I would recommend a repeat colonoscopy in 1 year for further screening after a 2 day prep given today's somewhat limited prep in multiple polyps. He was advised not to use any aspirin and NSAIDs for 1 week. MD CHAVA Cole/BRENT / [id number]
== END 2022-01-13 12:12 | disposition home or self-care (01) ==
PROVIDERS: PCP Internal Medicine; Visit Provider Internal Medicine
PROC: 0DJD8ZZ Inspection of Lower Intestinal Tract, Via Natural or Artificial Opening Endoscopic (ICD-10-PCS; CPT 45378; principal; 2022-01-13 10:30)
DX: Z12.11 Encounter for screening for malignant neoplasm of colon (principal); D12.4 Benign neoplasm of descending colon; D12.5 Benign neoplasm of sigmoid colon; K62.1 Rectal polyp; K57.30 Diverticulosis of large intestine without perforation or abscess without bleeding; K59.00 Constipation, unspecified; I10 Essential (primary) hypertension; E78.5 Hyperlipidemia, unspecified; E03.9 Hypothyroidism, unspecified; F32.A Depression, unspecified; E11.9 Type 2 diabetes mellitus without complications; Z79.4 Long term (current) use of insulin; Z79.899 Other long term (current) drug therapy; F17.210 Nicotine dependence, cigarettes, uncomplicated
CPT/HCPCS: 45385; 82947; 88305

== ENCOUNTER 2022-03-21 15:49 | Outpatient (REF) | payer OTHER, SELFPAY ==
[2022-03-21 17:06] LABS: TSH reflex Free T4 4.17 uIU/mL (0.32-4.0)
[2022-03-21 17:44] LABS: Free T4 (Free Thyroxine) 0.96 ng/dL (0.71-1.85)
== END 2022-03-21 15:50 | disposition home or self-care (01) ==
LOC: HO.LNP 15:49
PROVIDERS: Visit Provider Internal Medicine
DX: E03.9 Hypothyroidism, unspecified (principal)
CPT/HCPCS: 84439; 84443

== ENCOUNTER 2022-06-05 10:32 | Outpatient (REF) | payer OTHER, SELFPAY ==
[2022-06-05 10:39] LABS: MANUAL DIFF FLAG NO
[2022-06-05 12:45] LABS: Basophils Absolute Auto 0.1 X10*3/uL (0.0-0.2); Basophils Percent Auto 0.9 % (0-2); Eosinophils Absolute Auto 0.3 X10*3/uL (0.0-0.4); Eosinophils Percent Auto 3.1 % (0-4); Hemoglobin 13.4 g/dl (14.0-18.0); Imm Gran Abs Auto 0.03 X10*3/uL (0.00-0.03); Imm Gran Pct Auto 0.4 % (0.0-0.4); Lymphocytes Absolute Auto 2.3 X10*3/uL (1.2-4.9); Lymphocytes Percent Auto 28.8 % (20-40); Mean Corpuscular HGB Conc 32.7 g/dl (31.0-36.0); Mean Corpuscular Hemoglobin 28.3 pg (27.0-33.0); Mean Corpuscular Volume 86.5 fL (80.0-98.0); Mean Platelet Volume 11.3 fL (9.4-12.4); Monocytes Absolute Auto 0.6 X10*3/uL (0.1-1.2); Monocytes Percent Auto 7.3 % (2-11); Neutrophils Absolute Auto 4.7 x10*3/uL (2.0-8.3); Neutrophils Percent Auto 59.5 % (45-73); Platelet Count 189 X10*3/uL (160-400); Red Blood Count 4.74 X10*6/uL (4.60-5.80); Red Cell Distribution Width 13.3 % (11.0-16.0)
[2022-06-05 13:05] LABS: Appearance Urine Clear; Color Urine Yellow; Glucose Urine UA 250 mg/dL (Negative); Leukocyte Esterase Urine Negative (Negative); Nitrite Urine Negative (Negative); Specific Gravity - Urine 1.015 (1.005-1.025); UMIC TRIGGER UACC YES; Urine Blood Small (1+) (Negative); Urine Ketones Negative (Negative); Urine Protein 300 (3+) mg/dL (Neg-Trace)
[2022-06-05 13:07] LABS: Estimated Average Glucose 186 mg/dL; Hemoglobin A1c % 8.1 %; Total Hemoglobin (HGBA1C) 3626.6132 umol/L
[2022-06-05 13:19] LABS: Alanine Aminotransferase 18 U/L (0-40); Albumin Level 3.8 g/dL (3.5-5.0); Alkaline Phosphatase 142 U/L (39-117); Anion Gap 13 (12-20); Aspartate Amino Transferase 18 U/L (5-37); Bilirubin Total 0.3 mg/dL (0.0-1.0); Blood Urea Nitrogen 27 mg/dL (9-16); Calcium 9.1 mg/dL (8.4-10.2); Carbon Dioxide 27 mmol/L (22-29); Chloride 104 mmol/L (96-108); Cholesterol 248 mg/dL; Estimated Glomerular Filt Rate > 60; Glucose Fasting 203 mg/dL (60-99); HDL Cholesterol 38 mg/dL; Potassium 4.5 mmol/L (3.3-5.1); Sodium 139 mmol/L (135-145); Triglycerides 453 mg/dL
[2022-06-05 13:24] LABS: Bacteria Urine None Seen (None Seen); Hyaline Casts Urine 0-2 /LPF (0-2); Squamous Epithelial Cell Urine 0-2 /HPF (0-2); WBC Urine 0-5 /HPF (0-5)
[2022-06-05 13:36] LABS: TSH reflex Free T4 11.52 uIU/mL (0.32-4.0)
[2022-06-05 13:45] LABS: Creatinine Urine 71.36 mg/dL; Microalbum/Creatinine Ratio Ur 1440.5 ug/mg cr
[2022-06-05 14:47] LABS: Free T4 (Free Thyroxine) 0.73 ng/dL (0.71-1.85)
[2022-06-07 02:34] LABS: LDL Cholesterol Direct 132 mg/dL (<100)
== END 2022-06-05 10:33 | disposition home or self-care (01) ==
LOC: HO.LNP 10:32
PROVIDERS: Visit Provider Internal Medicine
DX: Z00.00 Encounter for general adult medical examination without abnormal findings (principal); Z12.5 Encounter for screening for malignant neoplasm of prostate; E78.2 Mixed hyperlipidemia; I10 Essential (primary) hypertension; E03.9 Hypothyroidism, unspecified; E11.40 Type 2 diabetes mellitus with diabetic neuropathy, unspecified
CPT/HCPCS: 80053; 80061; 81001; 82043; 83036; 83721; 84153; 84439; 84443; 85025

== ENCOUNTER 2022-07-10 10:27 | Outpatient (REF) | payer OTHER, SELFPAY ==
[2022-07-10 11:24] LABS: Blood Urea Nitrogen 23 mg/dL (9-16)
== END 2022-07-10 10:28 | disposition home or self-care (01) ==
LOC: HO.LNP 10:27
PROVIDERS: Visit Provider Internal Medicine
DX: R79.9 Abnormal finding of blood chemistry, unspecified (principal)
CPT/HCPCS: 84520

== ENCOUNTER 2022-09-11 15:56 | Outpatient (REF) | payer OTHER, SELFPAY ==
[2022-09-11 16:48] LABS: TSH reflex Free T4 5.84 uIU/mL (0.32-4.0)
[2022-09-11 17:48] LABS: Free T4 (Free Thyroxine) 0.84 ng/dL (0.71-1.85)
== END 2022-09-11 15:57 | disposition home or self-care (01) ==
LOC: HO.LNP 15:56
PROVIDERS: Visit Provider Internal Medicine
DX: E03.9 Hypothyroidism, unspecified (principal)
CPT/HCPCS: 84439; 84443

== ENCOUNTER 2022-11-02 17:48 | Emergency (ER) | payer OTHER, SELFPAY ==
--- NOTE | ~2022-11-02 | CT_ITS ---
EXAMINATION: CT ABDOMEN AND PELVIS WITH CONTRAST CLINICAL INFORMATION: Perirectal abscess COMPARISON: CT scan abdomen and pelvis February 10, 2018 TECHNIQUE: Multidetector volumetric images were obtained from the superior aspect of the liver through the pubic symphysis following administration 85 mL of Omnipaque 350 intravenous contrast. Sagittal and coronal reformatted images were obtained on the technologist's workstation. Oral contrast: No This CT examination was performed using dose optimization techniques as appropriate, variously including the following: *Automated exposure control *Adjustment of mA and/or kV according to patient size (this includes techniques or standardized protocols for targeted exams where dose is matched to indication/reason for exam; i.e. extremities or head) *Use of iterative reconstruction technique DLP: 704 mGy-cm FINDINGS: LUNG BASES: The visualized lung bases are unremarkable. LIVER, GALLBLADDER, AND BILIARY TREE: The liver is normal in size, shape, and attenuation. No focal hepatic lesion or biliary ductal dilatation is present. Status post cholecystectomy PANCREAS: Unremarkable. SPLEEN: Spleen is mildly enlarged measuring 14.5 cm AP. ADRENAL GLANDS: Unremarkable. KIDNEYS AND URETERS: The kidneys are normal in size, shape, and attenuation. No hydronephrosis, hydroureter, or calculi seen. No perinephric stranding. BLADDER: Unremarkable. GASTROINTESTINAL TRACT: April There is a perirectal abscess to the perineum. This measures approximately 2.5 x 2.7 0.3 cm. There is surrounding induration. No acute abnormality.. There is no bowel obstruction. There is a moderate volume of stool in the colon. The appendix is normal . The small bowel loops are unremarkable. The stomach is normal. There is no hiatal hernia. ABDOMINAL WALL: Large ventral wall hernia containing fat. Defect of the wall measuring 4.5 cm superior-inferior. Herniated fat pocket measuring 9 x 5 x 6.5 cm. LYMPH NODES: Normal. VASCULAR: Vascular calcifications of aorta and iliac arteries. No aneurysm. PELVIC VISCERA: Unremarkable. OSSEOUS STRUCTURES: Multilevel degenerative spondylosis. CT/CT abdomen pelvis w IV con IMPRESSION: 1. Perirectal abscess. 2. Mild splenomegaly. 3. Large ventral wall hernia containing fat. 4. Status post cholecystectomy. Fleischner guidelines were followed.
--- NOTE | 2022-11-02 17:54 | ED.SKABFB ---
HPI - Skin/Abscess/Foreign Bdy General Chief complaint: Skin/Abscess/Foreign Body Stated complaint: cyst on buttocks Time Seen by Provider: 11/02/22 18:51 Source: patient, RN notes reviewed and old records reviewed Mode of arrival: ambulatory Limitations: no limitations History of Present Illness HPI narrative: 46-year-old male presents for evaluation of ?a cyst on my buttocks. ? Patient reports for the last 3 or 4 days he noticed a cyst on the left upper buttocks. The pain, redness and swelling is now spreading ?towards my rectum. ? He reports while in the shower earlier ?I checked and it felt like it went all way down into my rectum. He denies any subjective fevers or chills Patient is a diabetic and has a history of frequent abscesses in the area Related Data Home Medications Medication Instructions Recorded Confirmed atorvastatin 40 mg tablet 1 tab PO DAILY 06/15/20 06/22/20 insulin glargine 100 unit/mL (3 90 unit subcut BID 06/15/20 06/22/20 mL) subcutaneous pen (Lantus Solostar U-100 Insulin) levothyroxine 175 mcg tablet 1 tab PO QAM 06/15/20 06/22/20 Previous Rx's Medication Instructions Recorded sertraline 100 mg tablet (Zoloft) 100 mg PO DAILY 30 days #30 tabs 07/05/20 doxycycline hyclate 100 mg capsule 100 mg PO BID #13 caps 08/19/21 fluticasone propionate 50 1 spray intranasal Q12H #16 grams 08/19/21 mcg/actuation nasal spray,suspension (Flonase Allergy Relief) cephalexin 500 mg capsule 500 mg PO QID #28 caps 11/02/22 Allergies Allergy/AdvReac Type Severity Reaction Status Date / Time No Known Allergies Allergy Verified 11/02/22 17:54 [No Known Allergies*] Review of Systems Constitutional: Constitutional: Denies chills and Denies fever(s) Cardiovascular: Cardiovascular: Denies chest pain and Denies dyspnea Respiratory: Respiratory: Denies cough and Denies dyspnea Integumentary/Breasts: Skin/Breast: Reports erythema, Reports rash and Reports skin pain PMFSH Past Medical History Medical History (Updated 11/02/22 @ 23:37 by Rusty Warner) Anxiety Asthma Depression Diabetes HTN (hypertension) Hyperlipemia Hypothyroidism Neuropathy associated with endocrine disorder Surgical History (Updated 01/10/22 @ 07:55 by Promise Ventura RN) H/O elbow surgery History of cholecystectomy Hx of umbilical hernia repair Social History Social History (Updated 01/13/22 @ 10:41 by Sherry Garcia MD) Household Members: Significant Other and Children Household Members Other:: Mother and brother of girlfriend Alcohol intake: never Patient Tobacco Use Status: Current everyday Tobacco user Tobacco use type: Cigarette Cigarette Packs Per Day: 1.5 Cigarettes Per Day: 30 Years Smoked: 30 Smoked in Last 30 Days: Yes Use of substances other than those prescribed or required for medical reasons: No Advance Directives: No Advance Directives Information Provided: No Physical Exam Vital Signs: Vital Signs: Last Vital Signs Temp 99.6 F 11/02/22 19:41 Pulse 99 11/02/22 19:41 Resp 14 11/02/22 19:41 BP 120/79 11/02/22 19:41 Pulse Ox 98 11/02/22 17:55 O2 Del Method Room Air 11/02/22 17:55 BMI result Body Mass Index 31.1 Const: General: healthy appearing, comfortable, no acute distress, alert and awake Nutritional Appearance: well nourished Orientation/consciousness: patient oriented x3 HEENT: Head: Yes normocephalic and Yes atraumatic Eyes: Eyelids: Yes eyelids normal Conjunctivae: conjunctivae normal Sclerae: sclerae normal Corneas: corneas normal Pupils: Equal, round and reactive pupils present EOM: EOMs intact bilaterally Neck: Neck: Yes full ROM Skin: Other: The patient has an area of erythema to the left gluteal cleft and buttocks. There is induration, fluctuance erythema extending towards the rectum. This is still runner to palpation. It does not appear to extend towards the perineum General skin exam: elasticity normal Neuro: General: patient oriented x3 Cranial nerves: Yes Equal, round and reactive pupils present and Yes Bilaterally intact EOM present Cognition (Neuro): normal cognition Course Course Course Narrative: This is a rapid medical exam. Deferred additional HPI, ROS, PE to primary provider. 46 yo male with history of depression, IDDM here with complaints of abscess to the pilonidal area x 3-4 days. No fevers, chills. Unable to visualize in triage. VSS Reevaluation(s) Reevaluation #1: Patient's creatinine slightly elevated to 1.[address] scan will not injects with IV contrast. Will treat with IV fluids and reassess him level the feel the patient will benefit from IV contrast. We also addressed his elevated blood sugar with insulin in addition to the fluids Time: 20:59 Reevaluation #2: Patient's repeat creatinine was normal at 1.24. Blood sugar also coming down nicely. See procedure note for abscess incision and drainage Time: 23:35 Medications Administered Discontinued Medications Generic Name Dose Route Start Last Admin Trade Name Freq PRN Reason Stop Dose Admin Sodium Chloride 1,000 mls @ 999 mls/hr 11/02/22 20:00 11/02/22 21:22 Ns IV 11/02/22 21:00 Infused .Q1H1M LINDY Infusion Insulin Human Regular 10 unit 11/02/22 19:53 11/02/22 20:10 Insulin Regular, Human 100 Unit/Ml 3 Ml Vial IVPUSH 11/02/22 19:54 10 unit ONCE ONE Administration Iohexol 85 ml 11/02/22 22:40 11/02/22 22:40 Iohexol 350 Mg/Ml 75 Ml Infus..Btl IV 11/02/22 22:41 85 ml ONCE ONE Administration Medical Decision Making Medical Decision Making [facility] Narrative: 46-year-old male with history of diabetes presents for evaluation abscess is into his rectum. He denies any fevers or chills. However given that the abscess appears to be extending towards the rectum we will get a CT scan of the pelvis to see how deep it goes. Will check labs and blood cultures as well. Depending on imaging, we will consider bedside I&D versus surgical consultation Differential Diagnosis Differential Diagnoses: The differential diagnosis associated with the presentation includes Pilonidal abscess Pilonidal cyst Rectal abscess Sepsis Bacteremia Admission/Observation Consideration of admission/observation: Escalation of care including admission/observation considered Perirectal abscess, considered admission with surgical consult, however it did not appear to involve the sphincter was no 2.7 cm, so bedside I&D was done instead Lab Data [facility] Lab Attestation statement: I reviewed the patient's lab results. No leukocytosis, there is a mild anemia with a hemoglobin of 13.2 hematocrit 39.2. Platelet count of a 169 K. A pseudo hyponatremia of 134 which is normal when corrected for the elevated glucose of 456. Slight elevation of renal function with a creatinine of 1.65 and a BUN of 24. Lactic acid is within normal limits 11/02/22 19:28 11/02/22 19:28 Labs: Lab Results 11/02/22 11/02/22 11/02/22 Range/Units 19:28 19:28 19:28 WBC 10.7 (4.8-10.8) X10*3/uL RBC 4.61 (4.60-5.80) X10*6/uL Hgb 13.2 L (14.0-18.0) g/dl Hct 39.2 L (42.0-52.0) % MCV 85.0 (80.0-98.0) fL MCH 28.6 (27.0-33.0) pg MCHC 33.7 (31.0-36.0) g/dl RDW 12.5 (11.0-16.0) % Plt Count 169 (160-400) X10*3/uL MPV 11.5 (9.4-12.4) fL Immature Gran % (Auto) 0.5 H (0.0-0.4) % Neut % (Auto) 84.1 H (45-73) % Lymph % (Auto) 8.6 L (20-40) % [place] % (Auto) 5.8 (2-11) % Eos % (Auto) 0.8 (0-4) % Baso % (Auto) 0.2 (0-2) % Lymph # (Auto) 0.9 L (1.2-4.9) X10*3/uL [place] # (Auto) 0.6 (0.1-1.2) X10*3/uL Eos # (Auto) 0.1 (0.0-0.4) X10*3/uL Baso # (Auto) 0.0 (0.0-0.2) X10*3/uL Abs Immat Gran (auto) 0.05 H (0.00-0.03) X10*3/uL Absolute Neuts (auto) 9.0 H (2.0-8.3) x10*3/uL Absolute Nucleated RBC 0.000 (0.0-0.012) X10*3/uL Nucleated RBC % (auto) 0.0 (0.0-0.2) /100WBC Sodium 134 L (135-145) mmol/L Potassium 4.0 (3.3-5.1) mmol/L Chloride 99 (96-108) mmol/L Carbon Dioxide 23 (22-29) mmol/L Anion Gap 16 (12-20) BUN 24 H (9-16) mg/dL Creatinine 1.65 H (0.5-1.4) mg/dL Estim Creat Clear Calc 69.7 Estimated GFR 45 POC Glucose (60-115) mg/dL Random Glucose 456 H* (60-115) mg/dL Lactic Acid 1.8 (0.5-2.0) mmol/L Calcium 9.6 (8.4-10.2) mg/dL Total Bilirubin 0.4 (0.0-1.0) mg/dL AST 10 (5-37) U/L ALT 14 (0-40) U/L Alkaline Phosphatase 121 H (39-117) U/L Total Creatine Kinase 85 (38-174) U/L Total Protein 8.0 (6.5-8.0) g/dL Albumin 4.1 (3.5-5.0) g/dL 11/02/22 11/02/22 Range/Units 21:20 22:04 WBC (4.8-10.8) X10*3/uL RBC (4.60-5.80) X10*6/uL Hgb (14.0-18.0) g/dl Hct (42.0-52.0) % MCV (80.0-98.0) fL MCH (27.0-33.0) pg MCHC (31.0-36.0) g/dl RDW (11.0-16.0) % Plt Count (160-400) X10*3/uL MPV (9.4-12.4) fL Immature Gran % (Auto) (0.0-0.4) % Neut % (Auto) (45-73) % Lymph % (Auto) (20-40) % [place] % (Auto) (2-11) % Eos % (Auto) (0-4) % Baso % (Auto) (0-2) % Lymph # (Auto) (1.2-4.9) X10*3/uL [place] # (Auto) (0.1-1.2) X10*3/uL Eos # (Auto) (0.0-0.4) X10*3/uL Baso # (Auto) (0.0-0.2) X10*3/uL Abs Immat Gran (auto) (0.00-0.03) X10*3/uL Absolute Neuts (auto) (2.0-8.3) x10*3/uL Absolute Nucleated RBC (0.0-0.012) X10*3/uL Nucleated RBC % (auto) (0.0-0.2) /100WBC Sodium 138 (135-145) mmol/L Potassium 4.1 (3.3-5.1) mmol/L Chloride 105 (96-108) mmol/L Carbon Dioxide 25 (22-29) mmol/L Anion Gap 12 (12-20) BUN 22 H (9-16) mg/dL Creatinine 1.24 (0.5-1.4) mg/dL Estim Creat Clear Calc 92.7 Estimated GFR > 60 POC Glucose 244 H (60-115) mg/dL Random Glucose 243 H (60-115) mg/dL Lactic Acid (0.5-2.0) mmol/L Calcium 8.6 D (8.4-10.2) mg/dL Total Bilirubin (0.0-1.0) mg/dL AST (5-37) U/L ALT (0-40) U/L Alkaline Phosphatase (39-117) U/L Total Creatine Kinase (38-174) U/L Total Protein (6.5-8.0) g/dL Albumin (3.5-5.0) g/dL Radiology Impression Discussion of test interpretation with radiology: I have reviewed the radiologist's reading. Radiologist Impression: 2.7 cm perirectal abscess Chronic Conditions Patient?s care impacted by: Diabetes Procedures Abscess I/D Site: linus-rectal Side (if applicable): right Local Anesthetic: lidocaine 1% Amount of anesthesia used (mL): 4 Technique: incised with blade Amount of fluid expressed (mL): 6 Sent for culture/gram staining?: No Irrigation: Yes Packing used?: iodoform Complications: pain Discharge Plan Discharge Clinical Impression: Abscess, perirectal Patient Disposition: Home, Self-Care Instructions: Abscess (ED) Additional Instructions: It is important to take all of your antibiotics as prescribed. Return in 48-72 hours to have the gauze wick removed Use warm compresses every 4 hours to help facilitate drainage Follow-up with your primary doctor Return for new or worsening symptoms Prescriptions: New cephalexin 500 mg capsule 500 mg PO QID Qty: 28 0RF No Action atorvastatin 40 mg tablet 1 tab PO DAILY levothyroxine 175 mcg tablet 1 tab PO QAM Lantus Solostar U-100 Insulin 100 unit/mL (3 mL) insulin pen 90 unit subcut BID Patient Comments: Patient stated he forgets to take at HS so his doctor told him to take it all in the am. Patient also stated it also depends on his morning blood sugar. Medication is prescribed 90 units BID sertraline [Zoloft] 100 mg tablet 100 mg PO DAILY 30 Days Qty: 30 0RF doxycycline hyclate 100 mg capsule 100 mg PO BID Qty: 13 0RF fluticasone propionate [Flonase Allergy Relief] 50 mcg/actuation spray,suspension 1 spray intranasal Q12H Qty: 16 0RF Rx Instructions: administer into each nostril
[2022-11-02 17:55] VITALS: BP 118/73; PULSE 107; RESP 18; TEMP 36.6; O2SAT 98; BMI 31.1
[2022-11-02 19:34] LABS: MANUAL DIFF FLAG NO
[2022-11-02 19:35] LABS: Basophils Percent Auto 0.2 % (0-2); Eosinophils Absolute Auto 0.1 X10*3/uL (0.0-0.4); Eosinophils Percent Auto 0.8 % (0-4); Hematocrit 39.2 % (42.0-52.0); Hemoglobin 13.2 g/dl (14.0-18.0); Imm Gran Abs Auto 0.05 X10*3/uL (0.00-0.03); Imm Gran Pct Auto 0.5 % (0.0-0.4); Lymphocytes Absolute Auto 0.9 X10*3/uL (1.2-4.9); Lymphocytes Percent Auto 8.6 % (20-40); Mean Corpuscular HGB Conc 33.7 g/dl (31.0-36.0); Mean Corpuscular Hemoglobin 28.6 pg (27.0-33.0); Mean Platelet Volume 11.5 fL (9.4-12.4); Monocytes Absolute Auto 0.6 X10*3/uL (0.1-1.2); Monocytes Percent Auto 5.8 % (2-11); Neutrophils Percent Auto 84.1 % (45-73); Platelet Count 169 X10*3/uL (160-400); Red Blood Count 4.61 X10*6/uL (4.60-5.80); Red Cell Distribution Width 12.5 % (11.0-16.0); White Blood Count 10.7 X10*3/uL (4.8-10.8)
--- NOTE | 2022-11-02 19:36 | PC.NURSE ---
Pt aox4 resting at the bedside. 20G IV line placed on the L FA. Labs drawn and sent. Pending ct scan. Pt aware of plan of care.
[2022-11-02 19:41] VITALS: BP 120/79; PULSE 99; RESP 14; TEMP 37.6
[2022-11-02 19:45] LABS: Lactic Acid 1.8 mmol/L (0.5-2.0)
[2022-11-02 19:53] LABS: Alanine Aminotransferase 14 U/L (0-40); Albumin Level 4.1 g/dL (3.5-5.0); Alkaline Phosphatase 121 U/L (39-117); Anion Gap 16 (12-20); Aspartate Amino Transferase 10 U/L (5-37); Bilirubin Total 0.4 mg/dL (0.0-1.0); Blood Urea Nitrogen 24 mg/dL (9-16); Calcium 9.6 mg/dL (8.4-10.2); Carbon Dioxide 23 mmol/L (22-29); Chloride 99 mmol/L (96-108); Creatinine Clr Calc Pharmacy 69.7; Estimated Glomerular Filt Rate 45; Glucose Random 456 mg/dL (60-115); Sodium 134 mmol/L (135-145)
[2022-11-02] MEDS: Insulin Regular, Human 100 UNIT/ML 3 ML VIAL 10 UNIT IVPUSH (20:10)
[2022-11-02] MEDS: 0.9 % Sodium Chloride 1,000 ML 999 ML IV (20:12)
[2022-11-02 21:25] LABS: Glucose, Whole Blood 244 mg/dL (60-115)
[2022-11-02 22:22] LABS: Anion Gap 12 (12-20); Blood Urea Nitrogen 22 mg/dL (9-16); Calcium 8.6 mg/dL (8.4-10.2); Carbon Dioxide 25 mmol/L (22-29); Chloride 105 mmol/L (96-108); Creatinine Clr Calc Pharmacy 92.7; Estimated Glomerular Filt Rate > 60; Glucose Random 243 mg/dL (60-115); Potassium 4.1 mmol/L (3.3-5.1); Sodium 138 mmol/L (135-145)
[2022-11-02] MEDS: iohexoL 350 MG/ML 75 ML INFUS..BTL 85 ML IV (22:40)
[2022-11-02] MEDS: cephALEXin 500 MG CAPSULE PO (23:55)
[2022-11-03] VITALS: BP 117/70; PULSE 88; RESP 12
--- NOTE | 2022-11-03 00:01 | PC.NURSE ---
Dressing applied to the buttocks area. Pt tolerated well.
== END 2022-11-03 00:03 | disposition home or self-care (01) ==
PROVIDERS: Physician Assistant; Emergency Provider Internal Medicine; PCP Internal Medicine
DX: K61.1 Rectal abscess (principal); F17.210 Nicotine dependence, cigarettes, uncomplicated; Z71.6 Tobacco abuse counseling; Z79.899 Other long term (current) drug therapy
CPT/HCPCS: 36415; 46040; 74177; 80048; 80053; 82550; 82947; 83605; 85025; 87040; 96361; 96374; 99284; Q9967

== ENCOUNTER 2022-12-12 10:34 | Outpatient (REF) | payer OTHER, SELFPAY ==
[2022-12-12 11:31] LABS: Estimated Average Glucose 235 mg/dL; Hemoglobin A1c % 9.8 % (<6.0)
[2022-12-12 11:33] LABS: Cholesterol 193 mg/dL (<200); HDL Cholesterol 37 mg/dL (>40); LDL Cholesterol Calculated 100 mg/dL (<100); Triglycerides 281 mg/dL (<150)
[2022-12-12 11:41] LABS: Alanine Aminotransferase 11 U/L (0-40); Albumin Level 4.1 g/dL (3.5-5.0); Alkaline Phosphatase 122 U/L (39-117); Aspartate Amino Transferase 11 U/L (5-37); Bilirubin Direct 0.1 mg/dL (0.0-0.5); Bilirubin Total 0.3 mg/dL (0.0-1.0); Glucose Fasting 287 mg/dL (60-99); Total Protein 7.4 g/dL (6.5-8.0)
[2022-12-12 11:56] LABS: TSH reflex Free T4 1.06 uIU/mL (0.32-4.0)
[2022-12-12 14:58] LABS: Reflex LDLD? No
== END 2022-12-12 10:35 | disposition home or self-care (01) ==
LOC: HO.LNP 10:34
PROVIDERS: Visit Provider Internal Medicine
DX: E03.9 Hypothyroidism, unspecified (principal); E11.40 Type 2 diabetes mellitus with diabetic neuropathy, unspecified; E78.2 Mixed hyperlipidemia
CPT/HCPCS: 80061; 80076; 82947; 83036; 84443

== ENCOUNTER 2023-02-16 08:39 | Outpatient (REF) | payer OTHER, SELFPAY ==
--- NOTE | ~2023-02-16 | XR_ITS ---
EXAMINATION: XR TOES, RIGHT CLINICAL INFORMATION: Osteomyelitis, great toe, right. COMPARISON: None available. TECHNIQUE: 3 views of the right first toe were obtained. FINDINGS: Mild degenerative changes at the interphalangeal joint of the great toe. Mild degenerative changes at the first metatarsophalangeal joint with mild hypertrophic change. Faint soft tissue calcifications adjacent to the base of the first and second metatarsals are indeterminate, possibly vascular. Curvilinear soft tissue calcification along the lateral aspect of the great toe, possibly related to the toenail. XR/XR toe RT min 2V IMPRESSION: 1. Mild degenerative changes first metatarsophalangeal joint. 2. Faint soft tissue calcifications adjacent to the base of the first and second metatarsals are indeterminate, possibly vascular. Curvilinear soft tissue calcification along the lateral aspect of the great toe, possibly related to the toenail. Correlation with clinical exam recommended to determine further management. If there is concern for osteomyelitis, fracture or other underlying pathology, MRI could be obtained for further evaluation.
== END 2023-02-16 08:40 | disposition home or self-care (01) ==
LOC: HO.XRAY 08:39
PROVIDERS: PCP Internal Medicine; Visit Provider Internal Medicine
DX: M86.9 Osteomyelitis, unspecified (principal); E11.621 Type 2 diabetes mellitus with foot ulcer; L97.509 Non-pressure chronic ulcer of other part of unspecified foot with unspecified severity
CPT/HCPCS: 73660; 99202

== ENCOUNTER 2023-02-16 13:27 | Outpatient (AMB) | payer BC, OTHER, SELFPAY ==
--- NOTE | 2023-02-16 13:28 | MHC.OFFVIS ---
Intake Vital Signs 02/16/23 13:37 Height 6 ft BP 100/63 Blood Pressure Location Rt brachial Position Standing Pulse 92 Intake Visit Reasons: Ulcer of toe, infected *diabetic* Intake Note: This patient presents for an assessment for ulcer of toe, infected. *diabetic* Pt c/o; Onset 2 1/2 months, reports started off as a callus and he picked at it then it turned into a hole, reports occasional drainage, reports no redness at this time but did have redness a few weeks ago, reports completed one round of abx and was prescribed another round by PCP. [employer] Required: No Accompanied by: Self / Same As Patient Allergies No Known Allergies [No Known Allergies*] Allergy (Verified 02/16/23 13:40) Medication List - Last Reconciled 02/16/23 by Raza Ibarra MD atorvastatin 1 tab PO DAILY cephalexin 500 mg PO QID doxycycline hyclate 100 mg PO BID fluticasone propionate 50 mcg/actuation (Flonase Allergy Relief) 1 spray intranasal Q12H insulin glargine (Lantus Solostar U-100 Insulin) 90 units subcut BID levothyroxine 1 tab PO QAM sertraline (Zoloft) 100 mg PO DAILY 30 days HPI Ulcer of toe, infected *diabetic* HPI Details 47-year-old male referred for toe ulcer. He is a known diabetic. He had noticed this ulcer on the bottom of his right big toe for about 2-3 months now. He occasionally sees some scanty drainage He says he has history of an ulcer on a different toe in the past. He is hemoglobin A1c was 11. He denies any pain on the area. [facility] Medical History (Updated 02/16/23 @ 13:47 by Raza Ibarra MD) Diabetic ulcer of toe Toe ulcer, right Hyperlipemia Neuropathy associated with endocrine disorder Hypothyroidism HTN (hypertension) Diabetes Anxiety Asthma Depression Surgical History Hx of umbilical hernia repair History of cholecystectomy H/O elbow surgery Social History Household Members: Significant Other and Children Household Members Other:: Mother and brother of girlfriend Alcohol intake: never Patient Tobacco Use Status: Current everyday Tobacco user Tobacco use type: Cigarette Cigarette Packs Per Day: 1.5 Cigarettes Per Day: 30 Years Smoked: 30 Review of Systems Const Denies chills and Denies fever(s) Card Denies chest pain, Denies dyspnea and Denies dyspnea on exertion Resp Denies cough, Denies dyspnea and Denies dyspnea on exertion GI Denies hematochezia and Denies change in bowel habits Denies hematuria and Denies difficulty urinating Musc Denies back pain and Denies limited range of motion Neuro Denies focal weakness and Denies convulsions Psych Denies depression and Denies mood swings Physical Exam Vital Signs: Last Vital Signs Pulse 92 02/16/23 13:37 BP 100/63 02/16/23 13:37 Const General: comfortable and no acute distress Orientation/consciousness: patient oriented x3 Neck Neck: Yes no lymphadenopathy Resp Auscultation: clear to auscultation bilaterally Cardio Rhythm: regular rhythm GI Palpation (GI): Soft to palpation, nontender and no guarding Neuro General: patient oriented x3 Extrem Other: Right big toe, plantar aspect on the distal phalanx - ulcer, about 0.5 cm in diameter, deep and seems to be tunneling in the subcutaneous layer, no discharge at this time, no cellulitis Assessment & Plan Assessment & Plan (1) Diabetic ulcer of toe: Code(s): E11.621 - Type 2 diabetes mellitus with foot ulcer; L97.509 - Non-pressure chronic ulcer of other part of unspecified foot with unspecified severity Plan: He has a diabetic ulcer as described above. I have probed with a Q-tip. This seems to be tunnelingg deep in the subcutaneous layer. I bluntly debrided the tract with a Q-tip I will send him for a consultation with the [facility]ound [facility] for wound care. I emphasized to him the importance of control as his hemoglobin A1c is 11. In the meantime, I have told him to do dry dressings daily. I will see him in the office in about another month to see how is doing. Orders: Referrals Wound Care Referral L97.519 - Non-pressure chronic ulcer of other part of right foot with unspecified severity Coding Level of Care Code New Pt Level 3 (47150) Diagnoses Diabetic ulcer of toe E11.621; L97.509
[2023-02-16 13:37] VITALS: BP 100/63; PULSE 92
== END 2023-02-16 13:49 | disposition home or self-care (01) ==
PROVIDERS: PCP Internal Medicine; Visit Provider Surgery
DX: E11.621 Type 2 diabetes mellitus with foot ulcer (principal); L97.509 Non-pressure chronic ulcer of other part of unspecified foot with unspecified severity
CPT/HCPCS: 99203

== ENCOUNTER 2023-03-03 08:05 | Outpatient (RCR) | payer BC, OTHER, SELFPAY | END 2023-07-21 09:00 | disposition home or self-care (01) | LOC: HO.WCC 08:05 | PROVIDERS: PCP Internal Medicine; Visit Provider Physician Assistant | DX: E11.621 Type 2 diabetes mellitus with foot ulcer (principal); L97.512 Non-pressure chronic ulcer of other part of right foot with fat layer exposed; E11.40 Type 2 diabetes mellitus with diabetic neuropathy, unspecified; L08.89 Other specified local infections of the skin and subcutaneous tissue; L84 Corns and callosities; F17.210 Nicotine dependence, cigarettes, uncomplicated; Z79.84 Long term (current) use of oral hypoglycemic drugs; Z79.4 Long term (current) use of insulin; Z79.2 Long term (current) use of antibiotics; Z79.899 Other long term (current) drug therapy | CPT/HCPCS: 11042; 11055; 87070; 87073; 87077; 87147; 87186; 87205; 97597; 99212 ==

== ENCOUNTER 2023-03-23 14:31 | Outpatient (AMB) | payer BC, SELFPAY ==
--- NOTE | 2023-03-23 14:40 | A.OFFVIS_ITS ---
Intake Intake Visit Reasons: Ulcer of big toe right foot, 1 mo follow up Intake Note: This patient presents for a one month wound check for ulcer of big toe right foot. Patient c/o; reports non healing wound. [employer] Required: No Accompanied by: Self / Same As Patient Allergies No Known Allergies [No Known Allergies*] Allergy (Verified 03/23/23 14:58) Medication List - Last Reconciled 03/23/23 by Raza Ibarra MD atorvastatin 1 tab PO DAILY cephalexin 500 mg PO QID doxycycline hyclate 100 mg PO BID fluticasone propionate 50 mcg/actuation (Flonase Allergy Relief) 1 spray intranasal Q12H insulin glargine (Lantus Solostar U-100 Insulin) 90 units subcut BID levothyroxine 1 tab PO QAM sertraline (Zoloft) 100 mg PO DAILY 30 days HPI Ulcer of big toe right foot, 1 mo follow up HPI Details He is here for follow-up for his right big toe ulcer on the dorsum. I would seen him a month ago for it. I had sent him to the Wound Clinic. His hemoglobin A1c was 11 at that time He says that he had been undergoing alginate dressings as directed by the Wound Clinic He says that the ulcer seems to persist and he does not really notice any change. [facility] Medical History Diabetic ulcer of toe Toe ulcer, right Hyperlipemia Neuropathy associated with endocrine disorder Hypothyroidism HTN (hypertension) Diabetes Anxiety Asthma Depression Surgical History Hx of umbilical hernia repair History of cholecystectomy H/O elbow surgery Social History Household Members: Significant Other and Children Household Members Other:: Mother and brother of girlfriend Alcohol intake: never Patient Tobacco Use Status: Current everyday Tobacco user Tobacco use type: Cigarette Cigarette Packs Per Day: 1.5 Cigarettes Per Day: 30 Years Smoked: 30 Review of Systems Const Denies chills and Denies fever(s) Card Denies chest pain, Denies dyspnea and Denies dyspnea on exertion Resp Denies cough, Denies dyspnea and Denies dyspnea on exertion GI Denies hematochezia and Denies change in bowel habits Denies hematuria and Denies difficulty urinating Musc Denies back pain and Denies limited range of motion Neuro Denies focal weakness and Denies convulsions Psych Denies depression and Denies mood swings Physical Exam Const General: comfortable and no acute distress Resp Effort & Inspection: normal respiratory effort Cardio Rate: regular rate Extrem Other: Right big toe ulcer on the dorsum, swelling, otherwise clean, deep, no active discharge at this time Assessment & Plan Assessment & Plan (1) Diabetic ulcer of toe: Code(s): E11.621 - Type 2 diabetes mellitus with foot ulcer; L97.509 - Non-pressure chronic ulcer of other part of unspecified foot with unspecified severity Plan: He does not notice any change with the ulcer on the big toe. I am going to order for an MRI to rule out osteomyelitis. He says that he was told by the Wound Clinic that there is a good chance that he may need amputation for this down the line I emphasized the importance of good blood sugar control. I will see him again in the office after his MRI. He has follow-up visit scheduled with the Wound Clinic. Orders: Orders MR foot RT w con Today E11.621 - Type 2 diabetes mellitus with foot ulcer, L97.509 - Non-pressure chronic ulcer of other part of unspecified foot with unspecified severity Coding Level of Care Code Est Pt Level 3 (43618) Diagnoses Diabetic ulcer of toe E11.621; L97.509
== END 2023-03-23 15:13 | disposition home or self-care (01) ==
PROVIDERS: PCP Internal Medicine; Visit Provider Surgery
DX: E11.621 Type 2 diabetes mellitus with foot ulcer (principal); L97.509 Non-pressure chronic ulcer of other part of unspecified foot with unspecified severity
CPT/HCPCS: 99213

== ENCOUNTER → 2023-03-23 14:31 | Outpatient (BNVA) | payer OTHER, SELFPAY | PROVIDERS: PCP Internal Medicine; Visit Provider Surgery | DX: L97.519 Non-pressure chronic ulcer of other part of right foot with unspecified severity (principal) ==

== ENCOUNTER 2023-05-05 10:55 | Outpatient (REF) | payer BC, SELFPAY ==
--- NOTE | ~2023-05-05 | MR_ITS ---
EXAMINATION: MR FOOT WITHOUT AND WITH CONTRAST, RIGHT CLINICAL INFORMATION: Right foot wound plantar to the great toe. Nonhealing wound. Diabetic foot ulcer. COMPARISON: Right foot radiographs dated 02/16/2023. TECHNIQUE: MRI of the right foot was performed before and after the intravenous administration of 10 mL Gadavist on a high-field scanner. FINDINGS: Focal soft tissue defect/ulceration along the plantar aspect of the 1st interphalangeal joint measuring approximately 1.0 x 0.8 cm (AP x ML) with adjacent skin thickening and edema. Mild postcontrast enhancement. Findings are consistent with acute cellulitis. No organized fluid collection or abscess formation. No adjacent marrow edema, periosteal reaction, cortical erosion, or enhancement to suggest acute osteomyelitis. No metatarsal stress reaction or fracture. No concerning lytic or blastic osseous lesion. Intact articular cartilage. The visualized flexor and extensor tendons are intact. No transverse tendon tear or tendon retraction. Intact Lisfranc ligament. No soft tissue mass or fluid collection. MR/MR foot RT wo/w con IMPRESSION: Focal soft tissue defect/ulceration along the plantar aspect of the 1st interphalangeal joint with adjacent skin thickening and edema as well as postcontrast enhancement. Findings are consistent with acute cellulitis. No abscess formation. No evidence of acute osteomyelitis.
[2023-05-05] MEDS: gadobutroL 10 ML VIAL IVPUSH (12:16)
== END 2023-05-05 10:56 | disposition home or self-care (01) ==
LOC: HO.MRI 10:55
PROVIDERS: PCP Internal Medicine; Visit Provider Surgery
DX: E11.621 Type 2 diabetes mellitus with foot ulcer (principal); L97.501 Non-pressure chronic ulcer of other part of unspecified foot limited to breakdown of skin
CPT/HCPCS: 73720; A9585

== ENCOUNTER 2023-06-12 10:53 | Outpatient (REF) | payer BC, SELFPAY ==
[2023-06-12 10:58] LABS: MANUAL DIFF FLAG NO
[2023-06-12 11:35] LABS: Basophils Percent Auto 0.6 % (0-2); Eosinophils Absolute Auto 0.2 X10*3/uL (0.0-0.4); Eosinophils Percent Auto 2.7 % (0-4); Hematocrit 36.4 % (42.0-52.0); Hemoglobin 12.2 g/dl (14.0-18.0); Imm Gran Abs Auto 0.08 X10*3/uL (0.00-0.03); Imm Gran Pct Auto 1.1 % (0.0-0.4); Mean Corpuscular HGB Conc 33.5 g/dl (31.0-36.0); Mean Corpuscular Hemoglobin 28.7 pg (27.0-33.0); Mean Corpuscular Volume 85.6 fL (80.0-98.0); Mean Platelet Volume 11.8 fL (9.4-12.4); Monocytes Absolute Auto 0.6 X10*3/uL (0.1-1.2); Monocytes Percent Auto 8.5 % (2-11); Neutrophils Absolute Auto 4.1 x10*3/uL (2.0-8.3); Neutrophils Percent Auto 58.1 % (45-73); Platelet Count 225 X10*3/uL (160-400); Red Blood Count 4.25 X10*6/uL (4.60-5.80); Red Cell Distribution Width 13.1 % (11.0-16.0)
[2023-06-12 11:39] LABS: Appearance Urine Clear; Color Urine Yellow; Glucose Urine UA >=1000 mg/dL (Negative); Leukocyte Esterase Urine Negative (Negative); Nitrite Urine Negative (Negative); PH 6.5 (5.0-9.0); Specific Gravity - Urine >= 1.030 (1.005-1.025); UMIC TRIGGER UACC YES; Urine Blood Trace (Negative); Urine Ketones Negative (Negative); Urine Protein 300 (3+) mg/dL (Neg-Trace)
[2023-06-12 11:43] LABS: Bacteria Urine None Seen (None Seen); Hyaline Casts Urine 0-2 /LPF (0-2); Squamous Epithelial Cell Urine 0-2 /HPF (0-2); WBC Urine 0-5 /HPF (0-5)
[2023-06-12 12:10] LABS: PSA,Total (Free>4and<10) 0.27 ng/mL (0.00-4.00)
[2023-06-12 12:11] LABS: Alanine Aminotransferase 11 U/L (0-40); Albumin Level 3.4 g/dL (3.5-5.0); Alkaline Phosphatase 120 U/L (39-117); Anion Gap 13 (12-20); Aspartate Amino Transferase 10 U/L (5-37); Bilirubin Total 0.3 mg/dL (0.0-1.0); Blood Urea Nitrogen 22 mg/dL (9-16); Calcium 8.9 mg/dL (8.4-10.2); Carbon Dioxide 26 mmol/L (22-29); Chloride 102 mmol/L (96-108); Cholesterol 216 mg/dL (<200); Estimated Glomerular Filt Rate > 60; Glucose Fasting 294 mg/dL (60-99); HDL Cholesterol 42 mg/dL (>40); LDL Cholesterol Calculated 120 mg/dL (<100); Sodium 137 mmol/L (135-145); TSH reflex Free T4 22.07 uIU/mL (0.32-4.0); Triglycerides 271 mg/dL (<150)
[2023-06-12 12:40] LABS: Estimated Average Glucose 332 mg/dL; Hemoglobin A1c % 13.2 % (<6.0)
[2023-06-12 12:44] LABS: Creatinine Urine 86.44 mg/dL
[2023-06-12 13:26] LABS: Microalbum/Creatinine Ratio Ur 1542.1 ug/mg cr (<30)
[2023-06-12 14:00] LABS: Free T4 (Free Thyroxine) 0.66 ng/dL (0.71-1.85)
== END 2023-06-12 10:54 | disposition home or self-care (01) ==
LOC: HO.LNP 10:53
PROVIDERS: Visit Provider Internal Medicine
DX: Z00.00 Encounter for general adult medical examination without abnormal findings (principal); Z12.5 Encounter for screening for malignant neoplasm of prostate; E03.9 Hypothyroidism, unspecified; E11.40 Type 2 diabetes mellitus with diabetic neuropathy, unspecified; I10 Essential (primary) hypertension
CPT/HCPCS: 80053; 80061; 81001; 82043; 82570; 83036; 84153; 84439; 84443; 85025

== ENCOUNTER 2023-07-20 15:22 | Outpatient (AMB) | payer BC, SELFPAY ==
--- NOTE | 2023-07-20 15:29 | A.OFFVIS_ITS ---
Vital Signs 07/20/23 15:35 Height 6 ft Weight 229 lb BMI 31.1 Intake Visit Reasons: MRI results (05/05/2023) Intake Note: This patient presents for a follow-up assessment for MRI results.(05/05/23) Patient c/o; reports no complaints. [employer] Required: No Accompanied by: Self / Same As Patient Allergies No Known Allergies [No Known Allergies*] Allergy (Verified 07/20/23 15:29) Medication List - Last Reconciled 07/20/23 by Raza Ibarra MD atorvastatin 1 tab PO DAILY cephalexin 500 mg PO QID doxycycline hyclate 100 mg PO BID fluticasone propionate 50 mcg/actuation (Flonase Allergy Relief) 1 spray intranasal Q12H insulin glargine (Lantus Solostar U-100 Insulin) 90 units subcut BID levothyroxine 1 tab PO QAM sertraline (Zoloft) 100 mg PO DAILY 30 days HPI HPI MRI results (05/05/2023): Details: I had sent him for an MRI because of the persistent drainage from the big toe on the right. He actually says that these seems to have healed already. He denies any pe rsistent drainage now and says that the wound has healed over. He denies any pain or tenderness. [facility] Medical History Diabetic ulcer of toe Toe ulcer, right Hyperlipemia Neuropathy associated with endocrine disorder Hypothyroidism HTN (hypertension) Diabetes Anxiety Asthma Depression Surgical History Hx of umbilical hernia repair History of cholecystectomy H/O elbow surgery Social History Household Members: Significant Other and Children Household Members Other:: Mother and brother of girlfriend Alcohol intake: never Patient Tobacco Use Status: Current everyday Tobacco user Tobacco use type: Cigarette Cigarette Packs Per Day: 1.5 Cigarettes Per Day: 30 Years Smoked: 30 Review of Systems Const Denies chills and Denies fever(s) Card Denies chest pain, Denies dyspnea and Denies dyspnea on exertion Resp Denies cough, Denies dyspnea and Denies dyspnea on exertion GI Denies hematochezia and Denies change in bowel habits Denies hematuria and Denies difficulty urinating Musc Denies back pain and Denies limited range of motion Neuro Denies focal weakness and Denies convulsions Psych Denies depression and Denies mood swings Physical Exam Vital Signs: BMI result Body Mass Index 31.1 Const General: comfortable and no acute distress Resp Effort & Inspection: normal respiratory effort Cardio Rate: regular rate Extrem Other: Ulcer and big toe has healed and this is dry had any fluctuance, sinus, or induration Assessment & Plan Assessment & Plan (1) Diabetic ulcer of toe: Code(s): E11.621 - Type 2 diabetes mellitus with foot ulcer; L97.509 - Non-pressure chronic ulcer of other part of unspecified foot with unspecified severity Category: Medical Plan: The ulcer seems to have healed. This currently dry and has had no discharge. I have reviewed his MRI and this does not suggest any osteomyelitis We do not need to do any surgical intervention at this time. He can follow up on a p.r.n. basis. Coding Level of Care Code Est Pt Level 2 (84411) Diagnoses Diabetic ulcer of toe E11.621; L97.509
[2023-07-20 15:35] VITALS: BMI 31.1
== END 2023-07-20 15:55 | disposition home or self-care (01) ==
PROVIDERS: PCP Internal Medicine; Visit Provider Surgery
DX: E11.621 Type 2 diabetes mellitus with foot ulcer (principal); L97.509 Non-pressure chronic ulcer of other part of unspecified foot with unspecified severity
CPT/HCPCS: 99212

== ENCOUNTER → 2023-07-20 15:22 | Outpatient (BNVA) | payer BC, SELFPAY | PROVIDERS: PCP Internal Medicine; Visit Provider Surgery ==

== ENCOUNTER 2023-10-15 09:04 | Inpatient (IN) | payer BC, SELFPAY ==
--- NOTE | ~2023-10-15 | CT_ITS ---
EXAMINATION: CT SOFT TISSUE NECK WITH CONTRAST CLINICAL INFORMATION: Left-sided swelling. Redness and pain. COMPARISON: No relevant prior imaging. TECHNIQUE: Following the intravenous administration of 60 mL of Omnipaque 350 intravenous contrast, helical imaging was performed in the axial plane with generation of coronal and sagittal reformatted images. This CT examination was performed using dose optimization techniques as appropriate, variously including the following: *Automated exposure control *Adjustment of mA and/or kV according to patient size (this includes techniques or standardized protocols for targeted exams where dose is matched to indication/reason for exam; i.e. extremities or head) *Use of iterative reconstruction technique DLP: 602 mGy-cm FINDINGS: This asymmetric thickening of the left submandibular skin and extensive stranding within the subcutaneous soft tissues primarily located within the submandibular space and the anterior neck. Asymmetric thickening of the left platysma muscle. No evidence of a discrete drainable fluid collection. There are a few scattered asymmetrically distributed enhancing left cervical lymph nodes, none of which demonstrate worrisome enhancement characteristic to suggest central suppuration. No evidence of septic thrombophlebitis. Findings are most consistent with cellulitis. Pharyngeal mucosal spaces are symmetric. Parapharyngeal and retromaxillary fat is preserved. Director General spaces are symmetric. The parotid and submandibular glands are normal. The tongue base and epiglottis are normal. Preepiglottic fat is preserved. The subglottic airway is widely patent. The thyroid gland is unremarkable. The remainder of the visualized visceral soft tissues are normal. No mediastinal or axillary adenopathy is visualized within the [id number] of this examination. Lung apices are clear. Aortic arch apex is normal. Cervical carotid and vertebral arteries are patent. Internal jugular veins fill symmetrically. There is odontogenic disease with multiple carious or missing teeth. No evidence of a subperiosteal abscess. No worrisome lytic or blastic osseous lesion is visualized elsewhere within the [id number] of this examination. Grossly no spinal canal compromise. The skull base is intact. No mastoid or middle ear effusion. No active paranasal sinus disease. Limited visualization of the intracranial anatomy reveals no abnormal finding. CT/CT soft tissue neck w IV con IMPRESSION: Findings are most consistent with cellulitis of the anterior neck and left submandibular space, the source of which is not clearly evident on this examination. No evidence of a discrete drainable fluid collection. There is odontogenic disease with multiple carious or missing teeth. No evidence of a subperiosteal abscess. There are a few asymmetrically distributed enhancing left cervical lymph nodes that are likely reactive. No evidence of septic thrombophlebitis.
--- NOTE | ~2023-10-15 | CT_ITS ---
EXAMINATION: CT SOFT TISSUE NECK WITHOUT CONTRAST CLINICAL INFORMATION: Follow-up Cellulitis. Evaluate for abscess. COMPARISON: CT images of the neck performed with intravenous contrast from 10/15/2023. TECHNIQUE: Helical imaging was performed in the axial plane with generation of coronal and sagittal reformatted images. This CT examination was performed using dose optimization techniques as appropriate, variously including the following: *Automated exposure control *Adjustment of mA and/or kV according to patient size (this includes techniques or standardized protocols for targeted exams where dose is matched to indication/reason for exam; i.e. extremities or head) *Use of iterative reconstruction technique DLP: 566 mGy-cm FINDINGS: The current imaging abnormalities are similar to those seen on 10/15/2023. There is persistent soft tissue edema of the neck (left anterior and lateral neck worse than right neck), and there is persistent asymmetric thickening of - edema along - the left platysma muscle and no interval development of an organized measurable fluid collection or soft tissue gas. The findings include edema adjacent to the submandibular glands and tracking anterior to the left sternocleidomastoid muscle. The parotid and camp manager spaces are normal. The submandibular glands and thyroid gland are normal. No evidence of soft tissue mass. The nasopharynx, oral cavity, tongue base, and tonsillar pillars are unremarkable. No contour abnormality within the oral cavity or pharyngeal mucosal space. The parapharyngeal fat planes are preserved. The hypopharynx, epiglottis, and preepiglottic space are normal. Laryngeal structures normal. The visualized proximal esophagus is normal. The lymph nodes in the submandibular region are in the normal size range, although some of the left-sided lymph nodes are slightly larger than those seen on the right. The largest left submandibular lymph node is 0.7 cm short axis dimension. The largest left level 2 lymph nodes are 0.8 cm short axis dimension. The visualized lung apices are unremarkable. The partially visualized intracranial structures are normal. Mild amount mucus is present at the floor of each maxillary antrum. No air-fluid levels within paranasal sinuses. The partially visualized orbits and globes are normal. The temporomandibular joints are normal. As noted on prior exam, multiple dental caries are identified. CT/CT soft tissue neck wo IV con IMPRESSION: Imaging findings remain consistent with cellulitis involving subcutaneous tissues of the anterior neck without interval development of a discrete fluid collection. No abscess is seen. No soft tissue gas or other significant change compared to 10/15/2023.
--- NOTE | ~2023-10-15 | CT_ITS ---
EXAMINATION: CT SOFT TISSUE NECK WITHOUT CONTRAST CLINICAL INFORMATION: Cellulitis COMPARISON: CT neck October 17, 2023 TECHNIQUE: Noncontrast helical imaging was performed in the axial plane with generation of coronal and sagittal reformatted images. This CT examination was performed using dose optimization techniques as appropriate, variously including the following: *Automated exposure control. *Adjustment of mA and/or kV according to patient size (this includes techniques or standardized protocols for targeted exams where dose is matched to indication/reason for exam; i.e. extremities or head). *Use of iterative reconstruction technique. DLP: 414 mGycm FINDINGS: Redemonstrated numerous carious and absent maxillary and mandibular teeth. Worsening cellulitic changes within the left face and left neck with increased skin thickening, thickening of the left platysma and increased confluence of amorphous subcutaneous stranding/fluid in the left neck. Redemonstrated stranding marginating the inferior left parotid tail, left submandibular and anterior cervical triangles, left greater than right submental region, and marginating the infrahyoid strap and the left sternocleidomastoid musculature. The left subarticular gland remains asymmetrically enlarged and heterogeneous in density compatible with sialoadenitis. Lack of intravenous contrast limits assessment for drainable fluid collection/abscess. Milder cellulitic changes again noted along the left anterior chest wall. Redemonstrated several asymmetrically prominent left cervical chain lymph nodes without evidence of developing superficial change, presumably reactive. The fat planes of the skull base and soft tissues of the nasopharynx are unremarkable. Mild patchy paranasal sinus mucosal disease. Leftward nasal septal deviation with leftward bony spur contacting the floor of the left nasal cavity. The temporomandibular joints are normal. The oral cavity and pharyngeal mucosal space is unremarkable, noting calcified bilateral palatine tonsilloliths. The laryngeal structures are opposed, limiting assessment. The unenhanced thyroid gland is normal. The right parotid and submandibular glands are normal. The partially visualized lung apices are clear. Minimal cervical spondylosis. The imaged portions of the brain parenchyma are unremarkable. CT/CT soft tissue neck wo IV con IMPRESSION: Findings of worsening cellulitis within the left face and neck as discussed above. As before, the source of the infection is not clearly elucidated on this examination. Asymmetric enlargement and heterogeneous density of the left submandibular gland compatible with acute sialoadenitis, which may be primary or secondary to the infectious process. Multiple dental caries are again noted without definite odontogenic source identified. Similar reactive cervical chain lymph nodes. . Lack of intravenous contrast limits assessment for drainable fluid collection/abscess. Electronically signed by: Joslyn Woods MD 10/20/2023 04:15 PM EDT RP
[2023-10-15 09:07] VITALS: BP 137/85; PULSE 96; RESP 16; TEMP 36.1; O2SAT 99; BMI 30.3
--- NOTE | 2023-10-15 09:25 | ED_ITS ---
HPI - Skin/Abscess/Foreign Bdy General Chief complaint: Skin/Abscess/Foreign Body Stated complaint: insect bite-swelling Time Seen by Provider: 10/15/23 09:11 Source: patient and old records reviewed Mode of arrival: ambulatory Limitations: no limitations History of Present Illness ED Provider: ROSITA HPI narrative: 47 yo male with PMH of DM, HTN, depression, anxiety, neuropathy, HLD, prior diabetic toe ulcers notes he was working in the garden two days ago and then noted a bite or something injuring the L side of his neck. Since then it is swelled in size and become more painful and red. It is not itchy. He has no idea what started it. He did not drainage that was yellow in nature from the bite spot. He notes no change in voice, has some mild soreness while swallowing. No fevers. He has pain with ROM of the neck and cannot fully look to the right. He denies hx of MRSA. MD complaint: rash and insect bite/sting Onset (ago): day(s) (2) Tetanus up to date: yes Location: neck Severity: moderate Quality: aching Pain Consistency: intermittent Relieving factors: immobilization Exacerbating factors: palpation and movement Context: other (started after working in [employer]) Associated symptoms: other (pain with swallowing, difficulty turning neck) Treatments prior to arrival: none Related Data Home Medications ?Medication ?Instructions ?Recorded ?Confirmed atorvastatin 40 mg tablet 1 tab PO DAILY 06/15/20 07/20/23 insulin glargine 100 unit/mL (3 90 unit subcut BID 06/15/20 07/20/23 mL) subcutaneous pen (Lantus Solostar U-100 Insulin) levothyroxine 175 mcg tablet 1 tab PO QAM 06/15/20 07/20/23 Previous Rx's ?Medication ?Instructions ?Recorded sertraline 100 mg tablet (Zoloft) 100 mg PO DAILY 30 days #30 tabs 07/05/20 doxycycline hyclate 100 mg capsule 100 mg PO BID #13 caps 08/19/21 fluticasone propionate 50 1 spray intranasal Q12H #16 grams 08/19/21 mcg/actuation nasal spray,suspension (Flonase Allergy Relief) cephalexin 500 mg capsule 500 mg PO QID #28 caps 11/02/22 Allergies Allergy/AdvReac Type Severity Reaction Status Date / Time cat dander Allergy Sneezing Verified 10/15/23 09:09 Review of Systems 2 Review of Systems: Constitutional : No Fever, No Chills ENT/Mouth : pos sore throat, No Rhinorrhea Eyes: No Eye Pain, No Swelling, No Redness Cardiovascular : No Chest Pain, No SOB Respiratory : No Cough, No Sputum Gastrointestinal : No Nausea, No Vomiting, No Diarrhea, No abdominal Pain Genitourinary : No Dysuria, No Hematuria Musculoskeletal : No joint pain, No Myalgias, No Joint Swelling, pos neck pain Skin : No Skin Lesions, positive skin rash Neuro : No Weakness, No Numbness, No Headache Psych : No Anxiety, No Depression All other systems reviewed and are negative [facility] Past Medical History Attestation statement: The following information was validated with the patient. Source: old records reviewed Medical History Diabetic ulcer of toe Toe ulcer, right Hyperlipemia Neuropathy associated with endocrine disorder Hypothyroidism HTN (hypertension) Diabetes Anxiety Asthma Depression Surgical History Hx of umbilical hernia repair History of cholecystectomy H/O elbow surgery Social History Social History Household Members: Significant Other and Children Household Members Other:: Mother and brother of girlfriend Alcohol intake: never Patient Tobacco Use Status: Current everyday Tobacco user Tobacco use type: Cigarette Cigarette Packs Per Day: 1.5 Cigarettes Per Day: 30 Years Smoked: 30 Advance Directives: No Physical Exam 2 Vital Signs: Vital Signs: Last Vital Signs Temp 97.0 F 10/15/23 09:07 Pulse 96 10/15/23 09:07 Resp 16 10/15/23 09:07 BP 137/85 10/15/23 09:07 Pulse Ox 99 10/15/23 09:07 O2 Del Method Room Air 10/15/23 09:07 BMI result Body Mass Index 30.3 Appearance: Alert. Oriented X3. No acute distress. Eyes: Pupils equal, round and reactive to light. ENT: Pharynx normal. no inside swelling, no trismus voice normal no drooling, L side of neck under side tense swollen painful from clavicular area to mandible crosses midline there is a yellow punctate area noted but no drainage at this time. red hot and swollen SEE PICTURES BELOW Neck: Normal inspection. Neck supple. CVS: Normal heart rate and rhythm. Pulses normal. Respiratory: No respiratory distress. Breath sounds normal. Abdomen: Soft and nontender. Skin: Skin warm and dry. Normal skin color. Normal skin turgor. Extremities: No lower extremity edema. No calf ttp Neuro: Oriented X 3. No motor deficit. No sensory deficit. Medications Administered Discontinued Medications Generic Name Dose Route Start Last Admin Trade Name Freq PRN Reason Stop Dose Admin Piperacillin Sod/Tazobactam 50 mls @ 100 mls/hr 10/15/23 09:10 10/15/23 10:22 Sod 3.375 gm/ Sodium Chloride IV 10/15/23 09:39 Infused ONCE ONE Infusion Vancomycin HCl 2,000 mg/ 500 mls @ 250 mls/hr 10/15/23 09:16 10/15/23 10:32 Sodium Chloride IV 10/15/23 11:15 250 mls/hr ONCE ONE Administration Lactated Ringer's 1,000 mls @ 999 mls/hr 10/15/23 09:47 10/15/23 11:34 Lr IV 10/15/23 10:47 Infused .Q1H1M ONE Infusion Iohexol 100 ml 10/15/23 09:59 10/15/23 09:59 Iohexol 350 Mg/Ml 100 Ml Infus..Btl IV 10/15/23 10:00 60 ml ONCE ONE Administration Medical Decision Making Medical Decision Making [facility] Narrative: 47 yo male with PMH of DM, HTN, depression, anxiety, neuropathy, HLD, prior diabetic toe ulcers here with worsening L side of neck swelling after working in the garden at this time concern for cellulitis, abscess, deeper space infection, labs, CT scan for signs of deeper infection, IV zosyn and vancomycin. Airway is protected at this time. If deep neck infection will need transfer to tertiary center with ENT Differential Diagnosis Differential Diagnoses: The differential diagnosis associated with the presentation includes abscess, cellulitis, ludwigs Admission/Observation Consideration of admission/observation: Escalation of care including admission/observation considered admit for IV antibiotics Consult Healthcare Provider Management of the patient was discussed with: Hospitalist (admit for IV antibiotics) Lab Data [facility] Lab Attestation statement: I reviewed the patient's lab results. 10/15/23 09:22 08/15/24 09:22 Labs: Lab Results 10/15/23 Range/Units 09:22 WBC 14.3 H (4.8-10.8) X10*3/uL RBC 4.71 (4.60-5.80) X10*6/uL Hgb 13.5 L (14.0-18.0) g/dl Hct 39.4 L (42.0-52.0) % MCV 83.7 (80.0-98.0) fL MCH 28.7 (27.0-33.0) pg MCHC 34.3 (31.0-36.0) g/dl RDW 13.3 (11.0-16.0) % Plt Count 159 L D (160-400) X10*3/uL MPV 11.2 (9.4-12.4) fL Immature Gran % (Auto) 0.9 H (0.0-0.4) % Neut % (Auto) 82.3 H (45-73) % Lymph % (Auto) 9.9 L (20-40) % [place] % (Auto) 6.4 (2-11) % Eos % (Auto) 0.1 (0-4) % Baso % (Auto) 0.4 (0-2) % Lymph # (Auto) 1.4 (1.2-4.9) X10*3/uL [place] # (Auto) 0.9 (0.1-1.2) X10*3/uL Eos # (Auto) 0.0 (0.0-0.4) X10*3/uL Baso # (Auto) 0.1 (0.0-0.2) X10*3/uL Abs Immat Gran (auto) 0.13 H (0.00-0.03) X10*3/uL Absolute Neuts (auto) 11.7 H (2.0-8.3) x10*3/uL Absolute Nucleated RBC 0.000 (0.0-0.012) X10*3/uL Nucleated RBC % (auto) 0.0 (0.0-0.2) /100WBC Sodium 131 L (135-145) mmol/L Potassium 4.2 (3.3-5.1) mmol/L Chloride 99 (96-108) mmol/L Carbon Dioxide 21 L (22-29) mmol/L Anion Gap 15 (12-20) BUN 15 (9-16) mg/dL Creatinine 1.18 (0.5-1.4) mg/dL Estim Creat Clear Calc 95.3 Estimated GFR > 60 Random Glucose 310 H (60-115) mg/dL Lactic Acid 2.1 H* (0.5-2.0) mmol/L Calcium 8.5 (8.4-10.2) mg/dL Magnesium 2.0 (1.6-2.6) mg/dL Total Bilirubin 0.7 (0.0-1.0) mg/dL Direct Bilirubin 0.1 (0.0-0.5) mg/dL AST 15 (5-37) U/L ALT 11 (0-40) U/L Alkaline Phosphatase 92 (39-117) U/L Total Protein 8.0 (6.5-8.0) g/dL Albumin 4.0 (3.5-5.0) g/dL Independent Interpretation I performed an independent interpretation of an: CT Scan (no abscess) Radiology Impression Discussion of test interpretation with radiology: I have reviewed the radiologist's reading. External Record Review External record reviewed: Inpatient record Discharge Plan Discharge Clinical Impression: Cellulitis Qualifiers: Site of cellulitis: neck Qualified Code(s): L03.221 - Cellulitis of neck Patient Disposition: Admitted As Inpatient Print Language: Turkmen
[2023-10-15 09:28] LABS: Basophils Absolute Auto 0.1 X10*3/uL (0.0-0.2); Basophils Percent Auto 0.4 % (0-2); Eosinophils Percent Auto 0.1 % (0-4); Hematocrit 39.4 % (42.0-52.0); Hemoglobin 13.5 g/dl (14.0-18.0); Imm Gran Abs Auto 0.13 X10*3/uL (0.00-0.03); Imm Gran Pct Auto 0.9 % (0.0-0.4); Lymphocytes Absolute Auto 1.4 X10*3/uL (1.2-4.9); Lymphocytes Percent Auto 9.9 % (20-40); MANUAL DIFF FLAG NO; Mean Corpuscular HGB Conc 34.3 g/dl (31.0-36.0); Mean Corpuscular Hemoglobin 28.7 pg (27.0-33.0); Mean Corpuscular Volume 83.7 fL (80.0-98.0); Mean Platelet Volume 11.2 fL (9.4-12.4); Monocytes Absolute Auto 0.9 X10*3/uL (0.1-1.2); Monocytes Percent Auto 6.4 % (2-11); Neutrophils Absolute Auto 11.7 x10*3/uL (2.0-8.3); Neutrophils Percent Auto 82.3 % (45-73); Platelet Count 159 X10*3/uL (160-400); Red Blood Count 4.71 X10*6/uL (4.60-5.80); Red Cell Distribution Width 13.3 % (11.0-16.0); White Blood Count 14.3 X10*3/uL (4.8-10.8)
[2023-10-15] MEDS: Piperacillin Sodium/Tazobactam 3.375 GM in 0.9 % Sodium Chloride 50 ML IV ×3 (09:39→20:30)
[2023-10-15 09:42] LABS: Lactic Acid 2.1 mmol/L (0.5-2.0)
[2023-10-15 09:45] LABS: Alanine Aminotransferase 11 U/L (0-40); Alkaline Phosphatase 92 U/L (39-117); Anion Gap 15 (12-20); Aspartate Amino Transferase 15 U/L (5-37); Bilirubin Direct 0.1 mg/dL (0.0-0.5); Bilirubin Total 0.7 mg/dL (0.0-1.0); Blood Urea Nitrogen 15 mg/dL (9-16); Calcium 8.5 mg/dL (8.4-10.2); Carbon Dioxide 21 mmol/L (22-29); Chloride 99 mmol/L (96-108); Creatinine Clr Calc Pharmacy 95.3; Estimated Glomerular Filt Rate > 60; Glucose Random 310 mg/dL (60-115); Potassium 4.2 mmol/L (3.3-5.1); Sodium 131 mmol/L (135-145)
--- NOTE | 2023-10-15 09:46 | PC.NURSE ---
patient brought back t ED 20 with increased neck swelling x2days after possible bug bite. patient states he was working with some plants during the day and noticed bite during the evening. patient respirations equal and unlabored, patient states he feels as if his breathing ir normal but states that when he swallows he feels like his throat is sore. patient managing own secretions, airway patent, speaking in clear full sentences. patient is alert and oriented x4. IV placed in the left wrist #20, labs drawn and sent to lab. patient medicated per APR.
[2023-10-15] MEDS: iohexoL 350 MG/ML 100 ML INFUS..BTL IV (09:59)
[2023-10-15] MEDS: Lactated Ringers 1,000 ML 999 ML IV (10:27)
[2023-10-15 11:26] LABS: Reflex Lactate? Lactic Acid Added
--- NOTE | 2023-10-15 11:43 | PC.NURSE ---
Lactic acid drawn and sent as ordered.
[2023-10-15 11:44] VITALS: BP 138/86; PULSE 94; RESP 18; TEMP 37.8; O2SAT 96
--- NOTE | 2023-10-15 11:58 | PHA.MEDREC ---
Pharmacy Consult ? Medication Reconciliation Pharmacy has completed the medication reconciliation. Spoke with pt, pt confirmed 90 units BID of Lantus. He no longer is on Flonase, and has not taken any of his medications (including insulin) for over 2 weeks.
--- NOTE | 2023-10-15 12:01 | PHA.MEDREC ---
Pharmacy Consult ? Medication Reconciliation Pharmacy has completed the medication reconciliation. Spoke with patient to confirm meds, he confirmed 90 units BID of Lantus, when asked. Patient has not taken his medications for over 2 weeks, including Lantus.
[2023-10-15 12:03] LABS: ~Lactic Acid-LAB USE ONLY 1.7 mmol/L (0.5-2.0)
--- NOTE | 2023-10-15 12:22 | P.HPHOSP_ITS ---
History of Present Illness Date of Service: 10/15/23 Attending physician on admission: [facility] Chief Complaint: Neck pain, redness, and swelling Pt is a 47-year-old male with a PMH significant for?HLD, insulin-dependent type 2 diabetes, hypothyroidism, and depression who presents to the ED with neck swelling, redness, pain, and?uncomfortable swallowing x2 days. Patient states he was outside doing work in his yard on Thursday afternoon. Does not recall any incident of a bite or a sting, but later that evening noticed his neck was swollen with a bite-like lesion draining clear fluid. Next day swelling had increased and neck was red and painful. Also had chills but did not measure his temperature. Today swelling, pain, and redness had increased further and pt reports swallowing was uncomfortable which prompted his visit to the ED for further evaluation. Denies difficulty breathing or shortness of breath. No chest pain/pressure or palpitations. No nausea, vomiting, abdominal pain. In the ED pt with elevated temperature of 100.0 degrees and elevated HR of 96. Labs were significant for leukocytosis of 14.3, sodium 131, glucose 310, and lactic acid 2.1. CT?of neck soft tissue found findings most consistent with cellulitis of into her neck and left submandibular space. No evidence of discrete drainable fluid collection or subperiosteal abscess. Pt was treated with IVF, vancomycin, and Zosyn. Pt will be admitted to the hospital for treatment and further evaluation of left neck cellulitis with sepsis. Review of Systems 2 Review of Systems: Left neck swelling, redness, pain Uncomfortable swallowing Chills Denies SOB or difficulty breathing No mouth pain Denies chest pain/pressure, palpitations No nausea, vomiting, abdominal pain [facility] Medical History Diabetic ulcer of toe Toe ulcer, right Hyperlipemia Neuropathy associated with endocrine disorder Hypothyroidism HTN (hypertension) Diabetes Anxiety Asthma Depression Surgical History Hx of umbilical hernia repair History of cholecystectomy H/O elbow surgery Social History Household Members: Significant Other and Children Household Members Other:: Mother and brother of girlfriend Alcohol intake: never Patient Tobacco Use Status: Never used Tobacco Tobacco use type: Cigarette Cigarette Packs Per Day: 1.5 Cigarettes Per Day: 30 Years Smoked: 30 Advance Directives: No Nutrition Risks: No Nutritional Risk Meds Allergies Allergy/AdvReac Type Severity Reaction Status Date / Time cat dander Allergy Sneezing Verified 10/15/23 09:09 Home Medications ?Medication ?Instructions ?Recorded ?Confirmed ?Last Taken ?Type atorvastatin 40 mg tablet 1 tab PO DAILY 06/15/20 10/15/23 2 Weeks Ago History ~10/01/23 insulin glargine 100 unit/mL (3 90 unit subcut BID 06/15/20 10/15/23 2 Weeks Ago History mL) subcutaneous pen (Lantus ~10/01/23 Solostar U-100 Insulin) levothyroxine 175 mcg tablet 1 tab PO QAM 06/15/20 10/15/23 2 Weeks Ago History ~10/01/23 Physical Exam 2 Vital Signs and Narrative: Vital Signs: Last Vital Signs Temp 100.0 F 10/15/23 11:44 Pulse 94 10/15/23 11:44 Resp 18 10/15/23 11:44 BP 138/86 10/15/23 11:44 Pulse Ox 96 10/15/23 11:44 O2 Del Method Room Air 10/15/23 11:44 BMI result Body Mass Index 30.3 General: AOx3, no acute distress Resp: CTA bilaterally Neck: Small punctate lesion on left lateral neck with surrounding swelling, erythema, warmth, and tenderness. No fluctuance or induration noted. As pictured below. CVS: S1, S2, RRR GI: +BS, NT, no distention Skin: Warm, dry Neuro: Cranial nerves II-XII grossly intact bilaterally. Motor grossly intact bilaterally Extremities: No edema Psych: Appropriate affect Results Labs 10/16/23 05:13 10/16/23 05:13 Labs: Laboratory Results - last 24 hr 10/15/23 10/15/23 09:22 11:43 MCV 83.7 MCH 28.7 MCHC 34.3 RDW 13.3 Plt Count 159 L D MPV 11.2 Immature Gran % (Auto) 0.9 H Neut % (Auto) 82.3 H Lymph % (Auto) 9.9 L [place] % (Auto) 6.4 Eos % (Auto) 0.1 Baso % (Auto) 0.4 Lymph # (Auto) 1.4 [place] # (Auto) 0.9 Eos # (Auto) 0.0 Baso # (Auto) 0.1 Abs Immat Gran (auto) 0.13 H Absolute Neuts (auto) 11.7 H Absolute Nucleated RBC 0.000 Nucleated RBC % (auto) 0.0 Anion Gap 15 Estim Creat Clear Calc 95.3 Estimated GFR > 60 Random Glucose 310 H Lactic Acid 2.1 H* Lactic Acid F/U @ 2Hr 1.7 Calcium 8.5 Magnesium 2.0 Total Bilirubin 0.7 Direct Bilirubin 0.1 AST 15 ALT 11 Alkaline Phosphatase 92 Total Protein 8.0 Albumin 4.0 Imaging Radiologist's Impressions: Impressions Soft Tissue Neck CT 10/15/23 09:56 IMPRESSION: Findings are most consistent with cellulitis of the anterior neck and left submandibular space, the source of which is not clearly evident on this examination. No evidence of a discrete drainable fluid collection. There is odontogenic disease with multiple carious or missing teeth. No evidence of a subperiosteal abscess. There are a few asymmetrically distributed enhancing left cervical lymph nodes that are likely reactive. No evidence of septic thrombophlebitis. Assessment and Plan (1) Cellulitis: Qualifiers: Site of cellulitis: neck Qualified Code(s): L03.221 - Cellulitis of neck Status: Acute Plan Pt is a 47-year-old male with a PMH significant for?HLD, insulin-dependent type 2 diabetes, hypothyroidism, and depression who presents to the ED with neck swelling, redness, pain, and?uncomfortable swallowing x2 days. Pt will be admitted to the hospital for treatment and further evaluation of left neck cellulitis with sepsis. Cellulitis of left neck with sepsis Patient with erythema, swelling, pain, clear drainage, and uncomfortable swallowing x2 days Unclear etiology, possibly secondary to insect bite CT of soft tissue showing likely cellulitis of anterior neck and left submandibular space without discrete abscess Pt meets sepsis criteria: Tachycardia, leukocytosis; lactic acid 2.1 Patient received IVF and started on broad-spectrum antibiotics in the ED Will treat with vanc and Zosyn, started 10/15/2023 Benadryl 25 mg p.o. p.r.n. for swelling/pruritus Follow cultures Hyponatremia, mild Patient's sodium 131 at time of presentation Patient with previous episodes of mild hyponatremia in the past Possibly secondary to sertraline use Patient received IVF in the ED Follow BMP Insulin-dependent type 2 diabetes Sliding-scale insulin, Lantus Diabetic diet Hypothyroidism Continue levothyroxine Depression Continue sertraline Full Code Attending:?Dr. Medina DVT Prophylaxis: Lovenox Pt will require a hospitalization of at least two nights for treatment of?neck cellulitis with sepsis. Given that patient meets sepsis criteria, he will require hospitalization for IV antibiotics while awaiting blood cultures. Quality Stroke Does the patient have a stroke diagnosis?: No VTE Prior VTE?: No VTE Risk Level:: Medical - moderate - high VTE Device Contraindication: Treatment Not Indicated VTE Drug Contraindication: N/A - Med Ordered
--- NOTE | 2023-10-15 12:52 | PHA.PROG ---
Admission Date/Time: Indication: skin and skin structure Weight in k.4 kg Adjusted body weight in Kg: [place] body weight in Kg: Obesity Dosing Indication % IBW: BMI 30.3 Serum Creatinine - Last 168 Hours 10/15/23 09:22 Creatinine 1.18 Estimated CrCl and GFR - Last 168 Hours 10/15/23 09:22 Estim Creat Clear Calc 95.3 Estimated GFR > 60 Vancomycin Loading Dose: 2000mg X1 Current Vancomycin Dosing Regimen: 1000 mg Q12H Vancomycin Monitoring using AUC goal of 400 - 600 range with trough as surrogate marker: 469 Date and Time for next Vancomycin Level to be drawn: 10/15 @1999 Pharmacist Comments on Vancomycin Plan: Pt's BMI on higher end, starting with 1 gm Q12h to gauge clearance, to be adjusted per renal function and trough on 10/15 Vancomycin dosing will take advantage of [employer] as a clinical decision support tool that uses Bayesian modeling to calculate individual patient's pharmacokinetic parameters and forecast the patient's drug concentration time course with the target goal AUC 24 range of 400 - 600 mg/L/hr.
[2023-10-15] MEDS: Enoxaparin Sodium 40 MG/0.4 ML SYRINGE SUBCUT (13:44)
[2023-10-15 13:45] VITALS: BP 132/84; PULSE 93; RESP 16; O2SAT 96
[2023-10-15 16:45] LABS: Glucose, Whole Blood 247 mg/dL (60-115)
[2023-10-15] MEDS: 0.9 % Sodium Chloride Flush 3 ML SYRINGE IVFLUSH (17:21)
[2023-10-15] MEDS: Insulin Lispro 100 UNIT/ML 3 ML VIAL SUBCUT (17:22)
[2023-10-15 20:57] LABS: Glucose, Whole Blood 246 mg/dL (60-115)
[2023-10-15] MEDS: Acetaminophen 325 MG TABLET 650 MG PO (21:09)
[2023-10-15] MEDS: diphenhydrAMINE HCL 25 MG CAPSULE PO (21:09)
[2023-10-15] MEDS: vancomycin HCL 1,000 MG in 0.9 % Sodium Chloride 250 ML 270 MG IV (21:10)
[2023-10-16] MEDS: Piperacillin Sodium/Tazobactam 3.375 GM in 0.9 % Sodium Chloride 50 ML IV ×4 (02:58→21:03)
[2023-10-16 05:37] LABS: Hematocrit 38.1 % (42.0-52.0); Hemoglobin 13.2 g/dl (14.0-18.0); Mean Corpuscular HGB Conc 34.6 g/dl (31.0-36.0); Mean Corpuscular Hemoglobin 28.9 pg (27.0-33.0); Mean Corpuscular Volume 83.6 fL (80.0-98.0); Mean Platelet Volume 11.1 fL (9.4-12.4); Platelet Count 139 X10*3/uL (160-400); Red Blood Count 4.56 X10*6/uL (4.60-5.80); Red Cell Distribution Width 13.4 % (11.0-16.0); White Blood Count 11.2 X10*3/uL (4.8-10.8)
[2023-10-16 05:43] LABS: Anion Gap 15 (12-20); Blood Urea Nitrogen 14 mg/dL (9-16); Calcium 8.8 mg/dL (8.4-10.2); Carbon Dioxide 21 mmol/L (22-29); Chloride 101 mmol/L (96-108); Estimated Glomerular Filt Rate > 60; Glucose Random 253 mg/dL (60-115); Sodium 133 mmol/L (135-145)
[2023-10-16 07:53] LABS: Glucose, Whole Blood 233 mg/dL (60-115)
[2023-10-16] MEDS: Insulin Lispro 100 UNIT/ML 3 ML VIAL SUBCUT ×4 (07:56→21:02)
[2023-10-16] MEDS: 0.9 % Sodium Chloride Flush 3 ML SYRINGE IVFLUSH ×3 (07:58→21:02)
[2023-10-16 08:00] VITALS: BP 123/73; PULSE 97; RESP 18; TEMP 36.8; O2SAT 97
--- NOTE | 2023-10-16 09:47 | P.PNIM_ITS ---
Subjective Subjective Date of Service: 10/16/23 Interval History: f/u cellulitis of the neck interval: redness and pain better WBC down Physical Exam 2 Vital Signs: Vital Signs: Last Vital Signs Temp 98.3 F 10/16/23 08:00 Pulse 97 10/16/23 08:00 Resp 18 10/16/23 08:00 BP 123/73 10/16/23 08:00 Pulse Ox 97 10/16/23 08:00 O2 Del Method Room Air 10/16/23 08:00 BMI result Body Mass Index 30.3 Const: Other: General: AO X 3, no acute distress Resp: CTA bilateral CVS: S1,S2,RRR GI: +BS, NT, no distention Skin: 10/14 10/15 Neuro: motor grossly intact Psych: appropriate affect Objective Data Active Medications Acetaminophen (Acetaminophen 325 Mg Tablet) 650 mg PO Q6H PRN PRN Reason: Pain, Mild (Pain Scale 1-3), fever or headache Last Admin: 10/15/23 21:09 Dose: 650 mg Documented By: MARIANNE Benzonatate (Benzonatate 100 Mg Capsule) 100 mg PO TID PRN PRN Reason: Cough Calcium Carbonate (Calcium Carbonate 750 Mg Tab.Chew) 750 mg PO Q4H PRN PRN Reason: Heartburn Diphenhydramine HCl (Diphenhydramine Hcl 25 Mg Capsule) 25 mg PO Q4H PRN PRN Reason: Swelling and/or itching Last Admin: 10/15/23 21:09 Dose: 25 mg Documented By: MARIANNE Enoxaparin Sodium (Enoxaparin Sodium 40 Mg/0.4 Ml Syringe) 40 mg SUBCUT Q24H [facility] Last Admin: 10/15/23 13:44 Dose: 40 mg Documented By: MARILIN Glucose (Glucose Gel 15 Gm Gel..Gram.) 15 gm PO Q15M PRN; Protocol PRN Reason: per Hypoglycemia Standing Ord. Piperacillin Sod/Tazobactam (Sod 3.375 gm/ Sodium Chloride) 50 mls @ 100 mls/hr IV Q6H [facility] Last Infusion: 10/16/23 09:38 Dose: Infused Documented By: KEL Vancomycin HCl 1,000 mg/ (Sodium Chloride) 270 mls @ 270 mls/hr IV Q12H [facility] Last Infusion: 10/15/23 22:12 Dose: Infused Documented By: MARIANNE Dextrose (D10) 250 mls @ 750 mls/hr IV Q15M PRN; Protocol PRN Reason: per Hypoglycemia Standing Ord. Insulin Human Lispro (Insulin Lispro 100 Unit/Ml 3 Ml Vial) 0 unit SUBCUT QIDACHS [facility]; Protocol Last Admin: 10/16/23 07:56 Dose: 4 unit Documented By: KEL Magnesium Hydroxide (Milk Of Magnesia 30 Ml Oral.Susp) 30 ml PO DAILY PRN PRN Reason: Constipation Melatonin (Melatonin 3 Mg Tablet) 6 mg PO BEDTIME PRN PRN Reason: Insomnia Ondansetron HCl (Ondansetron Hcl 4 Mg/2 Ml Vial) 4 mg IVPUSH Q8H PRN PRN Reason: Nausea and Vomiting Pharmacy Consult (Consult Rx Vancomycin Dosing) 1 each MISCELLANE DAILY PRN PRN Reason: Consult order Sodium Chloride (0.9 % Sodium Chloride Flush 3 Ml Syringe) 3 ml IVFLUSH [facility] Last Admin: 10/16/23 07:58 Dose: 3 ml Documented By: KEL Labs 10/17/23 05:06 10/17/23 05:06 Labs: Laboratory Results - last 24 hr 10/15/23 10/15/23 10/15/23 11:43 16:42 20:53 MCV MCH MCHC RDW Plt Count MPV Absolute Nucleated RBC Nucleated RBC % (auto) Anion Gap Estim Creat Clear Calc Estimated GFR POC Glucose 247 H 246 H Random Glucose Lactic Acid F/U @ 2Hr 1.7 Calcium 10/16/23 10/16/23 05:13 07:49 MCV 83.6 MCH 28.9 MCHC 34.6 RDW 13.4 Plt Count 139 L MPV 11.1 Absolute Nucleated RBC 0.000 Nucleated RBC % (auto) 0.0 Anion Gap 15 Estim Creat Clear Calc 93.0 Estimated GFR > 60 POC Glucose 233 H Random Glucose 253 H Lactic Acid F/U @ 2Hr Calcium 8.8 Assessment and Plan (1) Cellulitis: Status: Acute Plan 47-year-old male with a PMH significant for?HLD, insulin-dependent type 2 diabetes, hypothyroidism, and depression who presents to the ED with neck swelling, redness, pain, and?uncomfortable swallowing x2 days. Pt will be admitted to the hospital for treatment and further evaluation of left neck cellulitis with sepsis. Sepsis, Cellulitis of left neck with sepsis, likely dental source no abscess on CT, redness looks better, less painful -continue Zosyn and Vanc 10/14 -ID consult -low threshold to repeat CT if worsening to exclude abscess, -monotor respiratory states -follow cultures, so far negative -outpatient dental folow HypOnatremia, mild, better, likely from SSRI, monitor Insulin-dependent type 2 diabetes Lantus 90 bid at home, reduce to 45 bid + SSI Diabetic diet Hypothyroidism Continue levothyroxine Depression Continue sertraline Full Code DVT Prophylaxis: Lovenox neeed for inpt: Cellulitis of the neck on iv Abx Quality Stroke Does the patient have a stroke diagnosis?: No VTE Prior VTE?: No VTE Risk Level:: Medical - moderate - high VTE Device Contraindication: Treatment Not Indicated VTE Drug Contraindication: N/A - Med Ordered
[2023-10-16] MEDS: Atorvastatin Calcium 40 MG TABLET PO (10:13)
[2023-10-16] MEDS: Sertraline HCL 100 MG TABLET PO (10:14)
[2023-10-16] MEDS: Levothyroxine Sodium 175 MCG TABLET PO (10:20)
[2023-10-16] MEDS: vancomycin HCL 1,000 MG in 0.9 % Sodium Chloride 250 ML 270 MG IV (10:21)
--- NOTE | 2023-10-16 11:09 | PC.NURSE ---
waiting for pharmacy to verify lantus before admin
[2023-10-16] MEDS: Insulin Glargine,Hum.rec.anlog 100 UNIT/ML 10 ML VIAL 45 UNIT SUBCUT ×2 (11:55→21:01)
[2023-10-16 11:57] LABS: Glucose, Whole Blood 314 mg/dL (60-115)
[2023-10-16 12:00] VITALS: BP 117/79; PULSE 86; RESP 16; TEMP 36.7; O2SAT 98
[2023-10-16 15:24] VITALS: BP 135/77; PULSE 91; RESP 18; TEMP 36.6; O2SAT 97
[2023-10-16 16:00] VITALS: BP 135/77; PULSE 87; RESP 18; TEMP 37.1; O2SAT 97
[2023-10-16] MEDS: Acetaminophen 325 MG TABLET 650 MG PO (16:11)
[2023-10-16 16:21] LABS: Glucose, Whole Blood 236 mg/dL (60-115)
[2023-10-16 18:51] VITALS: BP 109/63; PULSE 88; RESP 18; TEMP 36.4; O2SAT 96
[2023-10-16 20:16] LABS: Glucose, Whole Blood 384 mg/dL (60-115)
--- NOTE | 2023-10-16 20:41 | HE.PHANOTE ---
Re Vanco Trough came back at 10.0, low end of therapeutic for skin infection. AUC estimate is showing 357 mg/L now. Subtherapeutic. Will increase to 1250 mg q12h to aim for an AUC of 445 mg/L and trough of 13.1 mg/L. Ordered next level for 10/16 @1999.
[2023-10-16] MEDS: vancomycin HCL 1,250 MG in 0.9 % Sodium Chloride 250 ML 166.67 MG IV (21:42)
[2023-10-16 21:58] LABS: Glucose, Whole Blood 385 mg/dL (60-115)
[2023-10-16] MEDS: Insulin Glargine,Hum.rec.anlog 100 UNIT/ML 10 ML VIAL 20 UNIT SUBCUT (22:18)
--- NOTE | 2023-10-16 22:19 | PC.NURSE ---
2000 POC 384 10 units given per sliding scale, Dr. Acosta notified no additional insulin ordered at this time.
[2023-10-17] MEDS: Piperacillin Sodium/Tazobactam 3.375 GM in 0.9 % Sodium Chloride 50 ML IV ×4 (03:23→21:00)
[2023-10-17 03:31] LABS: Glucose, Whole Blood 278 mg/dL (60-115)
--- NOTE | 2023-10-17 03:40 | PC.NURSE ---
0325 poc-278 notified ordered to give insulin per sliding scale.Pt covered with 6 units lispro per sliding scale.
[2023-10-17] MEDS: Insulin Lispro 100 UNIT/ML 3 ML VIAL SUBCUT ×7 (03:44→20:59)
[2023-10-17 04:00] VITALS: BP 156/86; PULSE 84; RESP 18; TEMP 36.5; O2SAT 98
[2023-10-17] MEDS: Levothyroxine Sodium 175 MCG TABLET PO (05:22)
[2023-10-17 05:47] LABS: Hematocrit 35.3 % (42.0-52.0); Hemoglobin 11.9 g/dl (14.0-18.0); Mean Corpuscular HGB Conc 33.7 g/dl (31.0-36.0); Mean Corpuscular Hemoglobin 28.6 pg (27.0-33.0); Mean Corpuscular Volume 84.9 fL (80.0-98.0); Mean Platelet Volume 11.6 fL (9.4-12.4); Platelet Count 150 X10*3/uL (160-400); Red Blood Count 4.16 X10*6/uL (4.60-5.80); Red Cell Distribution Width 13.4 % (11.0-16.0); White Blood Count 9.5 X10*3/uL (4.8-10.8)
[2023-10-17 06:03] LABS: Anion Gap 16 (12-20); Blood Urea Nitrogen 18 mg/dL (9-16); Carbon Dioxide 20 mmol/L (22-29); Chloride 101 mmol/L (96-108); Creatinine Clr Calc Pharmacy 104.1; Estimated Glomerular Filt Rate > 60; Glucose Random 288 mg/dL (60-115); Potassium 3.7 mmol/L (3.3-5.1); Sodium 133 mmol/L (135-145)
[2023-10-17 07:38] LABS: Glucose, Whole Blood 253 mg/dL (60-115)
[2023-10-17 08:00] VITALS: BP 159/95; PULSE 78; RESP 18; TEMP 36.2; O2SAT 99
[2023-10-17] MEDS: Sertraline HCL 100 MG TABLET PO (08:07)
[2023-10-17] MEDS: Atorvastatin Calcium 40 MG TABLET PO (08:07)
[2023-10-17] MEDS: Acetaminophen 325 MG TABLET 650 MG PO ×2 (08:07→21:40)
[2023-10-17] MEDS: 0.9 % Sodium Chloride Flush 3 ML SYRINGE IVFLUSH ×3 (08:08→20:59)
[2023-10-17] MEDS: Insulin Glargine,Hum.rec.anlog 100 UNIT/ML 10 ML VIAL 70 UNIT SUBCUT ×2 (08:11→20:59)
[2023-10-17 08:30] VITALS: BP 117/67; PULSE 66; RESP 16; TEMP 36.3; O2SAT 97
--- NOTE | 2023-10-17 10:46 | P.PNIM_ITS ---
Subjective Subjective Date of Service: 10/17/23 Interval History: f/u cellulitis of the neck interval history: peristent swelling and redness but better, pain is better, and no more difficulty swallowing WBC down now normal Physical Exam 2 Vital Signs: Vital Signs: Last Vital Signs Temp 97.4 F 10/17/23 08:30 Pulse 66 10/17/23 08:30 Resp 16 10/17/23 08:30 BP 117/67 10/17/23 08:30 Pulse Ox 97 10/17/23 08:30 O2 Del Method Room Air 10/17/23 08:30 BMI result Body Mass Index 30.3 Const: Other: General: AO X 3, no acute distress Resp: CTA bilateral CVS: S1,S2,RRR GI: +BS, NT, no distention Skin: 10/14 10/15 10/16 Neuro: motor grossly intact Psych: appropriate affect Objective Data Active Medications Acetaminophen (Acetaminophen 325 Mg Tablet) 650 mg PO Q6H PRN PRN Reason: Pain, Mild (Pain Scale 1-3), fever or headache Last Admin: 10/17/23 08:07 Dose: 650 mg Documented By: NISHA Atorvastatin Calcium (Atorvastatin Calcium 40 Mg Tablet) 40 mg PO DAILY [facility] Last Admin: 10/17/23 08:07 Dose: 40 mg Documented By: NISHA Benzonatate (Benzonatate 100 Mg Capsule) 100 mg PO TID PRN PRN Reason: Cough Calcium Carbonate (Calcium Carbonate 750 Mg Tab.Chew) 750 mg PO Q4H PRN PRN Reason: Heartburn Diphenhydramine HCl (Diphenhydramine Hcl 25 Mg Capsule) 25 mg PO Q4H PRN PRN Reason: Swelling and/or itching Last Admin: 10/15/23 21:09 Dose: 25 mg Documented By: MARIANNE Enoxaparin Sodium (Enoxaparin Sodium 40 Mg/0.4 Ml Syringe) 40 mg SUBCUT Q24H [facility] Last Admin: 10/16/23 12:02 Dose: Not Given Documented By: KEL Non-Admin Reason: Patient Refused Glucose (Glucose Gel 15 Gm Gel..Gram.) 15 gm PO Q15M PRN; Protocol PRN Reason: per Hypoglycemia Standing Ord. Piperacillin Sod/Tazobactam (Sod 3.375 gm/ Sodium Chloride) 50 mls @ 100 mls/hr IV Q6H [facility] Last Admin: 10/17/23 10:37 Dose: 100 mls/hr Documented By: NISHA Dextrose (D10) 250 mls @ 750 mls/hr IV Q15M PRN; Protocol PRN Reason: per Hypoglycemia Standing Ord. Vancomycin HCl 1,250 mg/ (Sodium Chloride) 250 mls @ 166.667 mls/hr IV Q12H [facility] Last Infusion: 10/16/23 23:20 Dose: Infused Documented By: ROSEANNE Insulin Glargine (Insulin Glargine,Hum.Rec.Anlog 100 Unit/Ml 10 Ml Vial) 70 unit SUBCUT BID [facility] Last Admin: 10/17/23 08:11 Dose: 70 unit Documented By: NISHA Insulin Human Lispro (Insulin Lispro 100 Unit/Ml 3 Ml Vial) 0 unit SUBCUT QIDACHS [facility]; Protocol Last Admin: 10/17/23 08:10 Dose: 6 unit Documented By: NISHA Levothyroxine Sodium (Levothyroxine Sodium 175 Mcg Tablet) 175 mcg PO DAILY@0600 [facility] Last Admin: 10/17/23 05:22 Dose: 175 mcg Documented By: ROSEANNE Magnesium Hydroxide (Milk Of Magnesia 30 Ml Oral.Susp) 30 ml PO DAILY PRN PRN Reason: Constipation Melatonin (Melatonin 3 Mg Tablet) 6 mg PO BEDTIME PRN PRN Reason: Insomnia Ondansetron HCl (Ondansetron Hcl 4 Mg/2 Ml Vial) 4 mg IVPUSH Q8H PRN PRN Reason: Nausea and Vomiting Pharmacy Consult (Consult Rx Vancomycin Dosing) 1 each MISCELLANE DAILY PRN PRN Reason: Consult order Sertraline HCl (Sertraline Hcl 100 Mg Tablet) 100 mg PO DAILY [facility] Last Admin: 10/17/23 08:07 Dose: 100 mg Documented By: NISHA Sodium Chloride (0.9 % Sodium Chloride Flush 3 Ml Syringe) 3 ml IVFLUSH QSHIFT [facility] Last Admin: 10/17/23 08:08 Dose: 3 ml Documented By: NISHA Labs 10/17/23 05:06 10/17/23 05:06 Labs: Laboratory Results - last 24 hr 10/16/23 10/16/23 10/16/23 11:47 16:12 19:59 MCV MCH MCHC RDW Plt Count MPV Absolute Nucleated RBC Nucleated RBC % (auto) Anion Gap Estim Creat Clear Calc Estimated GFR POC Glucose 314 H 236 H Random Glucose Calcium Random Vancomycin 10.0 L 10/16/23 10/16/23 10/17/23 20:06 21:53 03:25 MCV MCH MCHC RDW Plt Count MPV Absolute Nucleated RBC Nucleated RBC % (auto) Anion Gap Estim Creat Clear Calc Estimated GFR POC Glucose 384 H* 385 H* 278 H Random Glucose Calcium Random Vancomycin 10/17/23 10/17/23 05:06 07:18 MCV 84.9 MCH 28.6 MCHC 33.7 RDW 13.4 Plt Count 150 L MPV 11.6 Absolute Nucleated RBC 0.000 Nucleated RBC % (auto) 0.0 Anion Gap 16 Estim Creat Clear Calc 104.1 Estimated GFR > 60 POC Glucose 253 H Random Glucose 288 H Calcium 9.0 Random Vancomycin Microbiology Microbiology Results: Microbiology 10/15/23 09:36 Blood Culture - Preliminary Blood - Venous No growth after 24 hours. 10/15/23 09:22 Blood Culture - Preliminary Blood - Venous No growth after 24 hours. Assessment and Plan (1) Cellulitis: Status: Acute Plan 47-year-old male with a PMH significant for?HLD, insulin-dependent type 2 diabetes, hypothyroidism, and depression who presents to the ED with neck swelling, redness, pain, and?uncomfortable swallowing x2 days. Pt will be admitted to the hospital for treatment and further evaluation of left neck cellulitis with sepsis. Sepsis, Cellulitis of left neck with sepsis, likely dental source no abscess on CT, redness looks better but persists, WBC down -repeat CT scan to rule abscess -continue Zosyn and Vanc 10/14. Add Clindamycin -ID consult -low threshold to repeat CT if worsening to exclude abscess, -monotor respiratory states -follow cultures, so far negative -outpatient dental folow HypOnatremia, mild, better, likely from SSRI, monitor Insulin-dependent type 2 diabetes -Suppose to be on lantus 90 bid, but takes 160 once in the morning. -Started on lantus 45 in the morning, and 65 last night, blood sugars still high -changed Lantus to 70 bid, pre-meal 5 untis if blood sugar > 220 and Sliding scale -Diabetic diet Hypothyroidism Continue levothyroxine Depression Continue sertraline Full Code DVT Prophylaxis: Lovenox neeed for inpt: Cellulitis of the neck on iv Abx Quality Stroke Does the patient have a stroke diagnosis?: No VTE Prior VTE?: No VTE Risk Level:: Medical - moderate - high VTE Device Contraindication: Treatment Not Indicated VTE Drug Contraindication: N/A - Med Ordered
[2023-10-17] MEDS: vancomycin HCL 1,250 MG in 0.9 % Sodium Chloride 250 ML 166.67 MG IV ×2 (11:18→21:54)
[2023-10-17 11:27] LABS: Glucose, Whole Blood 241 mg/dL (60-115)
[2023-10-17] MEDS: Clindamycin Phosphate/D5W 600 MG/50 ML PIGGYBACK 100 MG IV ×2 (13:08→18:22)
[2023-10-17] MEDS: Enoxaparin Sodium 40 MG/0.4 ML SYRINGE SUBCUT (13:15)
[2023-10-17 15:56] VITALS: BP 129/84; PULSE 75; RESP 16; TEMP 36.4; O2SAT 97
--- NOTE | 2023-10-17 16:12 | MHC.CM.PN ---
PT REPORTS HE LIVES WITH HIS S/O, AND HER MOTHER AND BROTHER PT IS INDEPENDENT WITH CARE, HE HAS NO DME AND NO SERVICES PT SAYS HE HAS A HCP, COPY REQUESTED PCP: NILAM LOVETT DCP: HOME NO SERVICES VIA SELF-TRANSPORT
[2023-10-17 16:45] LABS: Glucose, Whole Blood 253 mg/dL (60-115)
--- NOTE | 2023-10-17 17:37 | P.CNID_ITS ---
History of Present Illness Data of Consult Service Date: 10/17/23 Requesting physician: Rod Medina Primary Care Provider: Arden Zamora MD [facility] Reason for consult: neck swelling He presents with left swelling neck as well as sore throat initially. He woke up 3 days ago with swelling. He mentions picked at wound left side of neck. He denies dental pain. He denies MRSA or trouble swallowing. He does smoke Review of Systems 2 Review of Systems: Yes all other systems are reviewed and are negative PMFSH Past Medical History Medical History Diabetic ulcer of toe Toe ulcer, right Hyperlipemia Neuropathy associated with endocrine disorder Hypothyroidism HTN (hypertension) Diabetes Anxiety Asthma Depression Family History Family history: reviewed and not pertinent Surgical History Surgical History Hx of umbilical hernia repair History of cholecystectomy H/O elbow surgery Social History Social History Household Members: Significant Other Household Members Other:: Mother and brother of girlfriend Housing: House Do you presently have visiting nurse or other home services: No Alcohol intake: never Patient Tobacco Use Status: Current everyday Tobacco user Tobacco use type: Cigarette Cigarette Packs Per Day: 1 Cigarettes Per Day: 20.0 Years Smoked: 30 service: No Meds Allergies Allergy/AdvReac Type Severity Reaction Status Date / Time cat dander Allergy Sneezing Verified 10/15/23 09:09 Active Medications: Current Medications Acetaminophen (Acetaminophen 325 Mg Tablet) 650 mg PO Q6H PRN PRN Reason: Pain, Mild (Pain Scale 1-3), fever or headache Last Admin: 10/17/23 08:07 Dose: 650 mg Atorvastatin Calcium (Atorvastatin Calcium 40 Mg Tablet) 40 mg PO DAILY [facility] Last Admin: 10/17/23 08:07 Dose: 40 mg Benzonatate (Benzonatate 100 Mg Capsule) 100 mg PO TID PRN PRN Reason: Cough Calcium Carbonate (Calcium Carbonate 750 Mg Tab.Chew) 750 mg PO Q4H PRN PRN Reason: Heartburn Diphenhydramine HCl (Diphenhydramine Hcl 25 Mg Capsule) 25 mg PO Q4H PRN PRN Reason: Swelling and/or itching Last Admin: 10/15/23 21:09 Dose: 25 mg Enoxaparin Sodium (Enoxaparin Sodium 40 Mg/0.4 Ml Syringe) 40 mg SUBCUT Q24H [facility] Last Admin: 10/17/23 13:15 Dose: 40 mg Glucose (Glucose Gel 15 Gm Gel..Gram.) 15 gm PO Q15M PRN; Protocol PRN Reason: per Hypoglycemia Standing Ord. Piperacillin Sod/Tazobactam (Sod 3.375 gm/ Sodium Chloride) 50 mls @ 100 mls/hr IV Q6H [facility] Last Infusion: 10/17/23 16:43 Dose: Infused Dextrose (D10) 250 mls @ 750 mls/hr IV Q15M PRN; Protocol PRN Reason: per Hypoglycemia Standing Ord. Vancomycin HCl 1,250 mg/ (Sodium Chloride) 250 mls @ 166.667 mls/hr IV Q12H [facility] Last Infusion: 10/17/23 13:02 Dose: Infused Clindamycin Phosphate (Cleocin) 600 mg in 50 mls @ 100 mls/hr IV Q8H [facility] Last Infusion: 10/17/23 13:56 Dose: Infused Insulin Glargine (Insulin Glargine,Hum.Rec.Anlog 100 Unit/Ml 10 Ml Vial) 70 unit SUBCUT BID [facility] Last Admin: 10/17/23 08:11 Dose: 70 unit Insulin Human Lispro (Insulin Lispro 100 Unit/Ml 3 Ml Vial) 0 unit SUBCUT QIDACHS [facility]; Protocol Last Admin: 10/17/23 17:09 Dose: 6 unit Insulin Human Lispro (Insulin Lispro 100 Unit/Ml 3 Ml Vial) 5 unit SUBCUT QIDACHS [facility] Last Admin: 10/17/23 17:09 Dose: 5 unit Levothyroxine Sodium (Levothyroxine Sodium 175 Mcg Tablet) 175 mcg PO DAILY@0600 [facility] Last Admin: 10/17/23 05:22 Dose: 175 mcg Magnesium Hydroxide (Milk Of Magnesia 30 Ml Oral.Susp) 30 ml PO DAILY PRN PRN Reason: Constipation Melatonin (Melatonin 3 Mg Tablet) 6 mg PO BEDTIME PRN PRN Reason: Insomnia Ondansetron HCl (Ondansetron Hcl 4 Mg/2 Ml Vial) 4 mg IVPUSH Q8H PRN PRN Reason: Nausea and Vomiting Pharmacy Consult (Consult Rx Vancomycin Dosing) 1 each MISCELLANE DAILY PRN PRN Reason: Consult order Sertraline HCl (Sertraline Hcl 100 Mg Tablet) 100 mg PO DAILY [facility] Last Admin: 10/17/23 08:07 Dose: 100 mg Sodium Chloride (0.9 % Sodium Chloride Flush 3 Ml Syringe) 3 ml IVFLUSH QSHIFT [facility] Last Admin: 10/17/23 16:10 Dose: 3 ml Home Medications ?Medication ?Instructions ?Recorded ?Confirmed ?Last Taken ?Type atorvastatin 40 mg tablet 1 tab PO DAILY 06/15/20 10/15/23 2 Weeks Ago History ~10/01/23 insulin glargine 100 unit/mL (3 90 unit subcut BID 06/15/20 10/15/23 2 Weeks Ago History mL) subcutaneous pen (Lantus ~10/01/23 Solostar U-100 Insulin) levothyroxine 175 mcg tablet 1 tab PO QAM 06/15/20 10/15/23 2 Weeks Ago History ~10/01/23 Physical Exam 2 Vital Signs: Vital Signs: Last Vital Signs Temp 97.6 F 10/17/23 15:56 Pulse 75 10/17/23 15:56 Resp 16 10/17/23 15:56 BP 129/84 10/17/23 15:56 Pulse Ox 97 10/17/23 15:56 O2 Del Method Room Air 10/17/23 15:56 BMI result Body Mass Index 30.3 HEENT: Other: swollen left neck,minor soft lymphadenopathy redness extending to chest hard area Results Labs 10/17/23 05:06 10/17/23 05:06 Labs: Short CBC 10/17/23 Range/Units 05:06 WBC 9.5 (4.8-10.8) X10*3/uL Hgb 11.9 L (14.0-18.0) g/dl Hct 35.3 L (42.0-52.0) % Plt Count 150 L (160-400) X10*3/uL BMP 10/17/23 05:06 Sodium 133 L Potassium 3.7 Chloride 101 Carbon Dioxide 20 L BUN 18 H Creatinine 1.08 Calcium 9.0 Microbiology Microbiology Results: Microbiology 10/15/23 09:36 Blood - Venous Blood Culture - Preliminary No growth after 48 hours. 10/15/23 09:22 Blood - Venous Blood Culture - Preliminary No growth after 48 hours. Assessment and Plan (1) Cellulitis: Qualifiers: Site of cellulitis: neck Qualified Code(s): L03.221 - Cellulitis of neck Status: Acute This is concerning for unusual causes due to failure to respond quickly. Cat scratch lymphadenitis possible so add azithromycin even if dont have cat. Would give IV Zosyn and Vancomycin and Clindamycin now and for 2-3 d,transiition to oral Augmentin when better. Consider MRI neck with contrast. ENT eval ?outpatient if stablilizes. Would consider Oncology consult evaluate Burkitts lymphoma.
[2023-10-17] MEDS: Azithromycin 500 MG TABLET PO (17:56)
[2023-10-17 19:12] VITALS: BP 153/93; PULSE 79; RESP 18; TEMP 36.1; O2SAT 98
[2023-10-17 20:45] LABS: Glucose, Whole Blood 179 mg/dL (60-115)
[2023-10-17 20:50] LABS: Vancomycin Random 6.4 mcg/mL (15-20)
--- NOTE | 2023-10-17 20:56 | HE.PHANOTE ---
RE: VANCO Changing dose to 1250mg Q8H per subtherapeutic trough of 6.4. Pt's renal function improved and predicted trough = 14.6, predicted AUC 524. Next trough to be pulled 10/17 @1999.
[2023-10-18] MEDS: Clindamycin Phosphate/D5W 600 MG/50 ML PIGGYBACK 100 MG IV ×3 (02:49→18:28)
--- NOTE | 2023-10-18 03:07 | PC.NURSE ---
0300 poc 87, snack was given
[2023-10-18 03:08] LABS: Glucose, Whole Blood 86 mg/dL (60-115)
--- NOTE | 2023-10-18 03:10 | PC.NURSE ---
0304 poc 86, snack was given
[2023-10-18] MEDS: Piperacillin Sodium/Tazobactam 3.375 GM in 0.9 % Sodium Chloride 50 ML IV ×4 (03:23→21:16)
[2023-10-18 03:47] VITALS: BP 115/80; PULSE 71; RESP 18; TEMP 36; O2SAT 97
[2023-10-18] MEDS: vancomycin HCL 1,250 MG in 0.9 % Sodium Chloride 250 ML 166.7 MG IV (06:02)
[2023-10-18] MEDS: Levothyroxine Sodium 175 MCG TABLET PO (06:02)
[2023-10-18 07:07] LABS: Creatinine Clr Calc Pharmacy 113.6; Estimated Glomerular Filt Rate > 60
[2023-10-18 07:21] LABS: Glucose, Whole Blood 195 mg/dL (60-115)
[2023-10-18 07:50] VITALS: BP 138/94; PULSE 71; RESP 12; TEMP 36.1; O2SAT 97
[2023-10-18 08:10] LABS: Anion Gap 17 (12-20); Carbon Dioxide 22 mmol/L (22-29); Chloride 102 mmol/L (96-108); Potassium 3.7 mmol/L (3.3-5.1); Sodium 137 mmol/L (135-145)
[2023-10-18] MEDS: Insulin Lispro 100 UNIT/ML 3 ML VIAL SUBCUT ×6 (08:17→21:14)
[2023-10-18] MEDS: Sertraline HCL 100 MG TABLET PO (08:19)
[2023-10-18] MEDS: Atorvastatin Calcium 40 MG TABLET PO (08:19)
[2023-10-18] MEDS: 0.9 % Sodium Chloride Flush 3 ML SYRINGE IVFLUSH ×3 (08:19→21:23)
[2023-10-18] MEDS: Insulin Glargine,Hum.rec.anlog 100 UNIT/ML 10 ML VIAL 70 UNIT SUBCUT ×2 (08:21→21:15)
--- NOTE | 2023-10-18 09:00 | P.PNIM_ITS ---
Subjective Subjective Date of Service: 10/18/23 Interval History: f/u cellulitis of the neck interval history:swelling seems better, persistent swelling, CT neck 10/16 no abscess, soft tissue swelling c/w cellulitis Physical Exam 2 Vital Signs: Vital Signs: Last Vital Signs Temp 97 F 10/18/23 07:50 Pulse 71 10/18/23 07:50 Resp 12 10/18/23 07:50 BP 138/94 H 10/18/23 07:50 Pulse Ox 97 10/18/23 07:50 O2 Del Method Room Air 10/18/23 07:50 BMI result Body Mass Index 30.3 Const: Other: General: AO X 3, no acute distress Resp: CTA bilateral CVS: S1,S2,RRR GI: +BS, NT, no distention Skin: 10/14 10/15 10/16 10/17 Neuro: motor grossly intact Psych: appropriate affect Objective Data Active Medications Acetaminophen (Acetaminophen 325 Mg Tablet) 650 mg PO Q6H PRN PRN Reason: Pain, Mild (Pain Scale 1-3), fever or headache Last Admin: 10/17/23 21:40 Dose: 650 mg Documented By: ROSEANNE Atorvastatin Calcium (Atorvastatin Calcium 40 Mg Tablet) 40 mg PO DAILY [facility] Last Admin: 10/18/23 08:19 Dose: 40 mg Documented By: NISHA Azithromycin (Azithromycin 500 Mg Tablet) 500 mg PO Q24H [facility] Last Admin: 10/17/23 17:56 Dose: 500 mg Documented By: NISHA Benzonatate (Benzonatate 100 Mg Capsule) 100 mg PO TID PRN PRN Reason: Cough Calcium Carbonate (Calcium Carbonate 750 Mg Tab.Chew) 750 mg PO Q4H PRN PRN Reason: Heartburn Diphenhydramine HCl (Diphenhydramine Hcl 25 Mg Capsule) 25 mg PO Q4H PRN PRN Reason: Swelling and/or itching Last Admin: 10/15/23 21:09 Dose: 25 mg Documented By: MARIANNE Enoxaparin Sodium (Enoxaparin Sodium 40 Mg/0.4 Ml Syringe) 40 mg SUBCUT Q24H [facility] Last Admin: 10/17/23 13:15 Dose: 40 mg Documented By: NISHA Glucose (Glucose Gel 15 Gm Gel..Gram.) 15 gm PO Q15M PRN; Protocol PRN Reason: per Hypoglycemia Standing Ord. Piperacillin Sod/Tazobactam (Sod 3.375 gm/ Sodium Chloride) 50 mls @ 100 mls/hr IV Q6H [facility] Last Infusion: 10/18/23 04:00 Dose: Infused Documented By: ROSEANNE Dextrose (D10) 250 mls @ 750 mls/hr IV Q15M PRN; Protocol PRN Reason: per Hypoglycemia Standing Ord. Clindamycin Phosphate (Cleocin) 600 mg in 50 mls @ 100 mls/hr IV Q8H [facility] Last Infusion: 10/18/23 03:20 Dose: Infused Documented By: ROSEANNE Vancomycin HCl 1,250 mg/ (Sodium Chloride) 250 mls @ 166.667 mls/hr IV Q8H [facility] Last Infusion: 10/18/23 07:36 Dose: Infused Documented By: NISHA Insulin Glargine (Insulin Glargine,Hum.Rec.Anlog 100 Unit/Ml 10 Ml Vial) 70 unit SUBCUT BID [facility] Last Admin: 10/18/23 08:21 Dose: 70 unit Documented By: NISHA Insulin Human Lispro (Insulin Lispro 100 Unit/Ml 3 Ml Vial) 0 unit SUBCUT QIDACHS [facility]; Protocol Last Admin: 10/18/23 08:17 Dose: 2 unit Documented By: NISHA Insulin Human Lispro (Insulin Lispro 100 Unit/Ml 3 Ml Vial) 5 unit SUBCUT QIDACHS [facility] Last Admin: 10/18/23 08:17 Dose: 5 unit Documented By: NISHA Levothyroxine Sodium (Levothyroxine Sodium 175 Mcg Tablet) 175 mcg PO DAILY@0600 [facility] Last Admin: 10/18/23 06:02 Dose: 175 mcg Documented By: ROSEANNE Magnesium Hydroxide (Milk Of Magnesia 30 Ml Oral.Susp) 30 ml PO DAILY PRN PRN Reason: Constipation Melatonin (Melatonin 3 Mg Tablet) 6 mg PO BEDTIME PRN PRN Reason: Insomnia Ondansetron HCl (Ondansetron Hcl 4 Mg/2 Ml Vial) 4 mg IVPUSH Q8H PRN PRN Reason: Nausea and Vomiting Pharmacy Consult (Consult Rx Vancomycin Dosing) 1 each MISCELLANE DAILY PRN PRN Reason: Consult order Sertraline HCl (Sertraline Hcl 100 Mg Tablet) 100 mg PO DAILY [facility] Last Admin: 10/18/23 08:19 Dose: 100 mg Documented By: NISHA Sodium Chloride (0.9 % Sodium Chloride Flush 3 Ml Syringe) 3 ml IVFLUSH QSHIFT [facility] Last Admin: 10/18/23 08:19 Dose: 3 ml Documented By: NISHA Labs 10/17/23 05:06 10/18/23 06:02 Labs: Laboratory Results - last 24 hr 10/17/23 10/17/23 10/17/23 11:21 16:01 19:58 Anion Gap Estim Creat Clear Calc Estimated GFR POC Glucose 241 H 253 H Random Vancomycin 6.4 L 10/17/23 10/18/23 10/18/23 20:16 03:04 06:02 Anion Gap 17 Estim Creat Clear Calc 113.6 Estimated GFR > 60 POC Glucose 179 H 86 Random Vancomycin 10/18/23 07:13 Anion Gap Estim Creat Clear Calc Estimated GFR POC Glucose 195 H Random Vancomycin Microbiology Microbiology Results: Microbiology 10/15/23 09:36 Blood Culture - Preliminary Blood - Venous No growth after 48 hours. 10/15/23 09:22 Blood Culture - Preliminary Blood - Venous No growth after 48 hours. Assessment and Plan (1) Cellulitis: Status: Acute Plan 47-year-old male with a PMH significant for?HLD, insulin-dependent type 2 diabetes, hypothyroidism, and depression who presents to the ED with neck swelling, redness, pain, and?uncomfortable swallowing x2 days. Pt will be admitted to the hospital for treatment and further evaluation of left neck cellulitis with sepsis. Sepsis, Cellulitis of left neck with sepsis, possible dental source vs scratch (ie cat), persistent redness, WBC normal -repeat CT scan 10/16 no abscess, cellulitis -continue Zosyn 10/14, and Vanc 10/14. Added Clindamycin 10/16, Azithor 10/16 -ID consult input noted -low threshold to repeat CT if worsening to exclude abscess, -monotor respiratory states -follow cultures, so far negative -outpatient dental folow HypOnatremia, mild, resolved, likely from SSRI Insulin-dependent type 2 diabetes -Suppose to be on lantus 90 bid, but takes 160 once in the morning. -Lantus adjusted to 70 bid, Sliding scale -Diabetic diet Hypothyroidism -Continue levothyroxine Depression -Continue sertraline HLD -lipitor Full Code DVT Prophylaxis: Lovenox neeed for inpt: Cellulitis of the neck on iv Abx Quality Stroke Does the patient have a stroke diagnosis?: No VTE Prior VTE?: No VTE Risk Level:: Medical - moderate - high VTE Device Contraindication: Treatment Not Indicated VTE Drug Contraindication: N/A - Med Ordered
[2023-10-18 11:25] LABS: Glucose, Whole Blood 267 mg/dL (60-115)
[2023-10-18] MEDS: vancomycin HCL 1,250 MG in 0.9 % Sodium Chloride 250 ML 166.67 MG IV (13:44)
[2023-10-18] MEDS: Enoxaparin Sodium 40 MG/0.4 ML SYRINGE SUBCUT (13:44)
[2023-10-18 15:39] VITALS: BP 118/70; PULSE 91; RESP 14; TEMP 37.1; O2SAT 99
[2023-10-18 15:50] VITALS: BP 137/89; PULSE 76; RESP 18; TEMP 36.6; O2SAT 97
[2023-10-18 16:11] LABS: Glucose, Whole Blood 223 mg/dL (60-115)
[2023-10-18] MEDS: Azithromycin 500 MG TABLET PO (17:47)
[2023-10-18 19:40] VITALS: BP 135/85; PULSE 76; RESP 20; TEMP 36; O2SAT 97
[2023-10-18 20:23] LABS: Glucose, Whole Blood 261 mg/dL (60-115)
[2023-10-18 20:53] LABS: Vancomycin Random 27.4 mcg/mL (15-20)
[2023-10-18] MEDS: Acetaminophen 325 MG TABLET 650 MG PO (21:15)
[2023-10-19] MEDS: Clindamycin Phosphate/D5W 600 MG/50 ML PIGGYBACK 100 MG IV ×2 (03:19→12:16)
[2023-10-19] MEDS: Piperacillin Sodium/Tazobactam 3.375 GM in 0.9 % Sodium Chloride 50 ML IV ×4 (03:23→21:51)
[2023-10-19 03:50] VITALS: BP 132/88; PULSE 63; RESP 16; TEMP 36; O2SAT 98
[2023-10-19] MEDS: Levothyroxine Sodium 175 MCG TABLET PO (06:41)
[2023-10-19 07:25] LABS: Glucose, Whole Blood 88 mg/dL (60-115)
[2023-10-19] MEDS: 0.9 % Sodium Chloride Flush 3 ML SYRINGE IVFLUSH ×3 (07:34→22:36)
[2023-10-19] MEDS: Sertraline HCL 100 MG TABLET PO (07:35)
[2023-10-19] MEDS: Atorvastatin Calcium 40 MG TABLET PO (07:36)
[2023-10-19 07:46] VITALS: BP 140/90; PULSE 66; RESP 16; TEMP 36.1; O2SAT 97
[2023-10-19 08:46] LABS: Creatinine Clr Calc Pharmacy 126.4; Estimated Glomerular Filt Rate > 60
[2023-10-19 08:47] LABS: Vancomycin Random 12.5 mcg/mL (15-20)
[2023-10-19] MEDS: Insulin Glargine,Hum.rec.anlog 100 UNIT/ML 10 ML VIAL 70 UNIT SUBCUT (08:50)
--- NOTE | 2023-10-19 09:03 | HE.PHANOTE ---
RE: VANCO DOSING Random came back as 12.5 after dose being held for 18 hours. Dose is changed to 1250 mg q12h, next random is scheduled for 10/20/23 @0800.
--- NOTE | 2023-10-19 09:18 | P.PNIM_ITS ---
Subjective Subjective Date of Service: 10/19/23 Interval History: f/u cellulitis of the neck interval history: area of the neck is still red and swollen, but he feels that is smaller and less painful Physical Exam 2 Vital Signs: Vital Signs: Last Vital Signs Temp 96.9 F 10/19/23 07:46 Pulse 66 10/19/23 07:46 Resp 16 10/19/23 07:46 BP 140/90 H 10/19/23 07:46 Pulse Ox 97 10/19/23 07:46 O2 Del Method Room Air 10/19/23 07:46 BMI result Body Mass Index 30.3 Const: Other: General: AO X 3, no acute distress Resp: CTA bilateral CVS: S1,S2,RRR GI: +BS, NT, no distention Skin: 10/14 10/15 10/16 10/17 10/18 Neuro: motor grossly intact Psych: appropriate affect Objective Data Active Medications Acetaminophen (Acetaminophen 325 Mg Tablet) 650 mg PO Q6H PRN PRN Reason: Pain, Mild (Pain Scale 1-3), fever or headache Last Admin: 10/18/23 21:15 Dose: 650 mg Documented By: SONDRA Atorvastatin Calcium (Atorvastatin Calcium 40 Mg Tablet) 40 mg PO DAILY [facility] Last Admin: 10/19/23 07:36 Dose: 40 mg Documented By: BILL Azithromycin (Azithromycin 500 Mg Tablet) 500 mg PO Q24H [facility] Last Admin: 10/18/23 17:47 Dose: 500 mg Documented By: NISHA Benzonatate (Benzonatate 100 Mg Capsule) 100 mg PO TID PRN PRN Reason: Cough Calcium Carbonate (Calcium Carbonate 750 Mg Tab.Chew) 750 mg PO Q4H PRN PRN Reason: Heartburn Diphenhydramine HCl (Diphenhydramine Hcl 25 Mg Capsule) 25 mg PO Q4H PRN PRN Reason: Swelling and/or itching Last Admin: 10/15/23 21:09 Dose: 25 mg Documented By: MARIANNE Enoxaparin Sodium (Enoxaparin Sodium 40 Mg/0.4 Ml Syringe) 40 mg SUBCUT Q24H [facility] Last Admin: 10/18/23 13:44 Dose: 40 mg Documented By: NISHA Glucose (Glucose Gel 15 Gm Gel..Gram.) 15 gm PO Q15M PRN; Protocol PRN Reason: per Hypoglycemia Standing Ord. Piperacillin Sod/Tazobactam (Sod 3.375 gm/ Sodium Chloride) 50 mls @ 100 mls/hr IV Q6H [facility] Last Admin: 10/19/23 08:51 Dose: 100 mls/hr Documented By: BILL Dextrose (D10) 250 mls @ 750 mls/hr IV Q15M PRN; Protocol PRN Reason: per Hypoglycemia Standing Ord. Clindamycin Phosphate (Cleocin) 600 mg in 50 mls @ 100 mls/hr IV Q8H [facility] Last Infusion: 10/19/23 03:55 Dose: Infused Documented By: SONDRA Vancomycin HCl 1,250 mg/ (Sodium Chloride) 250 mls @ 166.667 mls/hr IV Q12H [facility] Insulin Glargine (Insulin Glargine,Hum.Rec.Anlog 100 Unit/Ml 10 Ml Vial) 70 unit SUBCUT BID [facility] Last Admin: 10/19/23 08:50 Dose: 70 unit Documented By: BILL Insulin Human Lispro (Insulin Lispro 100 Unit/Ml 3 Ml Vial) 0 unit SUBCUT QIDACHS [facility]; Protocol Last Admin: 10/19/23 07:26 Dose: Not Given Documented By: BILL Non-Admin Reason: No Insulin Coverage Insulin Human Lispro (Insulin Lispro 100 Unit/Ml 3 Ml Vial) 5 unit SUBCUT TIDAC [facility] Last Admin: 10/19/23 07:26 Dose: Not Given Documented By: BILL Non-Admin Reason: No Insulin Coverage Levothyroxine Sodium (Levothyroxine Sodium 175 Mcg Tablet) 175 mcg PO DAILY@0600 [facility] Last Admin: 10/19/23 06:41 Dose: 175 mcg Documented By: SONDRA Magnesium Hydroxide (Milk Of Magnesia 30 Ml Oral.Susp) 30 ml PO DAILY PRN PRN Reason: Constipation Melatonin (Melatonin 3 Mg Tablet) 6 mg PO BEDTIME PRN PRN Reason: Insomnia Ondansetron HCl (Ondansetron Hcl 4 Mg/2 Ml Vial) 4 mg IVPUSH Q8H PRN PRN Reason: Nausea and Vomiting Pharmacy Consult (Consult Rx Vancomycin Dosing) 1 each MISCELLANE DAILY PRN PRN Reason: Consult order Sertraline HCl (Sertraline Hcl 100 Mg Tablet) 100 mg PO DAILY [facility] Last Admin: 10/19/23 07:35 Dose: 100 mg Documented By: BILL Sodium Chloride (0.9 % Sodium Chloride Flush 3 Ml Syringe) 3 ml IVFLUSH QSHIFT [facility] Last Admin: 10/19/23 07:34 Dose: 3 ml Documented By: BILL Labs 10/17/23 05:06 10/19/23 07:50 Labs: Laboratory Results - last 24 hr 10/18/23 10/18/23 10/18/23 11:11 16:03 20:15 Estim Creat Clear Calc Estimated GFR POC Glucose 267 H 223 H 261 H Random Vancomycin 10/18/23 10/19/23 10/19/23 20:19 07:16 07:50 Estim Creat Clear Calc 126.4 Estimated GFR > 60 POC Glucose 88 Random Vancomycin 27.4 H* 10/19/23 08:00 Estim Creat Clear Calc Estimated GFR POC Glucose Random Vancomycin 12.5 L Assessment and Plan (1) Cellulitis: Status: Acute Plan 47-year-old male with a PMH significant for?HLD, insulin-dependent type 2 diabetes, hypothyroidism, and depression who presents to the ED with neck swelling, redness, pain, and?uncomfortable swallowing x2 days. Pt will be admitted to the hospital for treatment and further evaluation of left neck cellulitis with sepsis. Sepsis, Cellulitis of left neck with sepsis, possible dental source vs scratch , persistent redness, WBC normal -repeat CT scan 10/16 no abscess, cellulitis -continue Zosyn 10/14, and Vanc 10/14. Added Clindamycin 10/16, Azithor 10/16 -ID consult input noted, ID to reassess -low threshold to repeat CT if worsening to exclude abscess, -monotor respiratory states, swallowing status -follow cultures, so far negative -outpatient dental folow HypOnatremia, mild, resolved, likely from SSRI Insulin-dependent type 2 diabetes -Suppose to be on lantus 90 bid, but takes 160 once in the morning. -Lantus adjusted to 70 bid, Sliding scale, and pre meal, -FBS 88, might have to reduce night Lantus -Diabetic diet Hypothyroidism -Continue levothyroxine Depression -Continue sertraline HLD -lipitor Full Code DVT Prophylaxis: Lovenox neeed for inpt: Cellulitis of the neck on iv Abx home later if ok with ID to see if he can go later Quality Stroke Does the patient have a stroke diagnosis?: No VTE Prior VTE?: No VTE Risk Level:: Medical - moderate - high VTE Device Contraindication: Treatment Not Indicated VTE Drug Contraindication: N/A - Med Ordered
[2023-10-19 09:59] LABS: Anion Gap 14 (12-20); Blood Urea Nitrogen 9 mg/dL (9-16); Calcium 9.4 mg/dL (8.4-10.2); Chloride 100 mmol/L (96-108); Glucose Random 103 mg/dL (60-115); Potassium 3.6 mmol/L (3.3-5.1); Sodium 137 mmol/L (135-145)
[2023-10-19 10:07] LABS: Carbon Dioxide 27 mmol/L (22-29)
[2023-10-19] MEDS: vancomycin HCL 1,250 MG in 0.9 % Sodium Chloride 250 ML 166.67 MG IV ×2 (10:36→22:27)
--- NOTE | 2023-10-19 10:50 | MHC.CM.PN ---
Per MD rounds patient not medically cleared for dc. CM will continue to follow.
[2023-10-19 11:14] LABS: Glucose, Whole Blood 209 mg/dL (60-115)
[2023-10-19] MEDS: Insulin Lispro 100 UNIT/ML 3 ML VIAL SUBCUT ×2 (12:15→12:23)
[2023-10-19] MEDS: Enoxaparin Sodium 40 MG/0.4 ML SYRINGE SUBCUT (12:16)
[2023-10-19 15:30] VITALS: BP 154/89; PULSE 72; RESP 20; TEMP 36.1; O2SAT 94
--- NOTE | 2023-10-19 15:33 | HO.WOUND ---
Wound Consult: Initial 47yr old?male admitted to [facility] on 10/15/23 - See progress notes and H&P for detailed history.? Wound consult placed for Left neck cellulitis.? Patient agreeable to assessment and photo documentation.? Left Neck Etiology: ?Cellultits per chart review and patient interview - bug bite? Wound Bed: red erythema - with firm induration noted Drainage / Odor: None Edges: ? palpable Amanda wound: ?intact Pain: tender to touch Goals of Treatment: ? No topical interventions needed - continue with systemic treatment per providers orders. Of note the patient reports he has followed with the wound clinic in the past and has a small resurfacing wound to the right plantar side of the great toe. It appears significantly callused at this time. Patient informed he should continue to follow with outpt wound clinic at time of d/c. The site is 0.3cm x 0.3cm x 0.2cm dark black dry wound bed - dry thickened callused edges. No drainage noted. Cleanse with Betadine and dry gauze / bandaid to be applied. Recommendations: 1. When applicable maintain blood glucose levels per Providers order. 2. Neck - No topical interventions needed at this time. 3. Right Great Plantar Toe - Ceanse with Betadine, allow to dry. Cover with dry gauze dressing or bandaid per patient request. Change Daily. Re-consult wound care Nurse for wound deterioration or wound changes.
[2023-10-19 16:29] LABS: Glucose, Whole Blood 140 mg/dL (60-115)
--- NOTE | 2023-10-19 16:39 | P.PNID_ITS ---
Subjective Subjective Date of Service: 10/19/23 Critical Care Time (minutes): 15 Comment: he has improved left face swelling dramatically over last 24 hours there is a cat where he lives Objective Data Labs 10/17/23 05:06 10/19/23 07:50 Labs: Laboratory Results - last 24 hr 10/18/23 10/18/23 10/19/23 20:15 20:19 07:16 Sodium Potassium Chloride Carbon Dioxide Anion Gap BUN Creatinine Estim Creat Clear Calc Estimated GFR POC Glucose 261 H 88 Random Glucose Calcium Random Vancomycin 27.4 H* 10/19/23 10/19/23 10/19/23 07:50 08:00 11:09 Sodium 137 Potassium 3.6 Chloride 100 Carbon Dioxide 27 Anion Gap 14 BUN 9 Creatinine 0.89 Estim Creat Clear Calc 126.4 Estimated GFR > 60 POC Glucose 209 H Random Glucose 103 Calcium 9.4 Random Vancomycin 12.5 L 10/19/23 16:22 Sodium Potassium Chloride Carbon Dioxide Anion Gap BUN Creatinine Estim Creat Clear Calc Estimated GFR POC Glucose 140 H Random Glucose Calcium Random Vancomycin Microbiology Microbiology Results: Microbiology 10/15/23 09:36 Blood - Venous Blood Culture - Preliminary No growth after 48 hours. 10/15/23 09:22 Blood - Venous Blood Culture - Preliminary No growth after 48 hours. Physical Exam 2 Vital Signs: Vital Signs: Last Vital Signs Temp 97.0 F 10/19/23 15:30 Pulse 72 10/19/23 15:30 Resp 20 10/19/23 15:30 BP 154/89 H 10/19/23 15:30 Pulse Ox 94 10/19/23 15:30 O2 Del Method Room Air 10/19/23 15:30 BMI result Body Mass Index 30.3 Const: General: cooperative HEENT: Other: less swollen face Head: Yes normal to inspection Face and sinus: Yes normal facial exam Mouth: Normal oral and palatal mucosa present Teeth and gingiva: dentition normal Eyes: General: appearance normal, both eyes and all related structures P upils: Equal, round and reactive pupils present Resp: Effort & Inspection: normal respiratory effort Cardio: Rate: regular rate Rhythm: regular rhythm GI: Palpation (GI): Soft to palpation and nontender : General: Yes no CVA tenderness Back/Spine/Pelvis: Back: no CVA tenderness Skin: General skin exam: no rashes or lesions noted Neuro: General: moves all extremities Cranial nerves: Yes Equal, round and reactive pupils present Extrem: General: Yes normal to inspection Psych: Appearance: grossly normal Assessment and Plan Assessment and plan (1) Cellulitis: Status: Acute Assessment and Plan: Improved cellulitis left face Stop Vancomycin and Clindamycin Check cat scratch Continue azithromycin and zosyn When able po Augmentin and azithromycin for 10 d outpatient. Check HIV test Follow PCP. Time Spent With Patient Time: Total time managing care of this patient today ____ minutes.
[2023-10-19] MEDS: Azithromycin 500 MG TABLET PO (17:18)
[2023-10-19 19:05] VITALS: BP 146/91; PULSE 71; RESP 18; TEMP 36.6; O2SAT 98
[2023-10-19 20:02] LABS: Glucose, Whole Blood 137 mg/dL (60-115)
[2023-10-19] MEDS: diphenhydrAMINE HCL 25 MG CAPSULE PO (21:42)
[2023-10-19] MEDS: Acetaminophen 325 MG TABLET 650 MG PO (21:42)
[2023-10-19] MEDS: Insulin Glargine,Hum.rec.anlog 100 UNIT/ML 10 ML VIAL 45 UNIT SUBCUT (21:50)
[2023-10-20] MEDS: Piperacillin Sodium/Tazobactam 3.375 GM in 0.9 % Sodium Chloride 50 ML IV ×3 (03:13→14:55)
[2023-10-20 03:14] VITALS: BP 122/79; PULSE 66; RESP 18; TEMP 36.4; O2SAT 97
[2023-10-20 03:16] LABS: Glucose, Whole Blood 148 mg/dL (60-115)
[2023-10-20] MEDS: Levothyroxine Sodium 175 MCG TABLET PO (05:38)
[2023-10-20 06:54] LABS: Creatinine Clr Calc Pharmacy 108.2; Estimated Glomerular Filt Rate > 60
[2023-10-20 07:23] VITALS: BP 125/90; PULSE 70; RESP 14; TEMP 36; O2SAT 98
[2023-10-20 07:33] LABS: Glucose, Whole Blood 96 mg/dL (60-115)
[2023-10-20] MEDS: Insulin Glargine,Hum.rec.anlog 100 UNIT/ML 10 ML VIAL 45 UNIT SUBCUT (08:01)
[2023-10-20] MEDS: Atorvastatin Calcium 40 MG TABLET PO (08:01)
[2023-10-20] MEDS: Sertraline HCL 100 MG TABLET PO (08:01)
[2023-10-20] MEDS: 0.9 % Sodium Chloride Flush 3 ML SYRINGE IVFLUSH ×2 (08:02→14:58)
[2023-10-20 09:09] LABS: HIV AB/AG Nonreactive (Nonreactive); HIV Num 1 0.16 S/CO (0.00-0.99)
[2023-10-20 09:41] LABS: Vancomycin Random 17.4 mcg/mL (15-20)
--- NOTE | 2023-10-20 10:45 | P.DS_ITS ---
DS: Providers Provider Date of Service: 10/20/23 Date of admission: 10/15/23 12:50 Primary care physician: Arden Zamora MD Consults: 10/16/23 16:03 Consult to Wound Care Routine Reason for consultation: cellulitis to neck 10/17/23 10:44 Consult to Infectious Diseases Routine Consulting Provider: [facility] Reason for consultation: neck cellulitis DS: Diagnosis Discharge Diagnosis (1) Cellulitis: Status: Acute DS: Summary Hospital Course Hospital Course: admission hpi Chief Complaint: Neck pain, redness, and swelling Pt is a 47-year-old male with a PMH significant for?HLD, insulin-dependent type 2 diabetes, hypothyroidism, and depression who presents to the ED with neck swelling, redness, pain, and?uncomfortable swallowing x2 days. Patient states he was outside doing work in his yard on Thursday afternoon. Does not recall any incident of a bite or a sting, but later that evening noticed his neck was swollen with a bite-like lesion draining clear fluid. Next day swelling had increased and neck was red and painful. Also had chills but did not measure his temperature. Today swelling, pain, and redness had increased further and pt reports swallowing was uncomfortable which prompted his visit to the ED for further evaluation. Denies difficulty breathing or shortness of breath. No chest pain/pressure or palpitations. No nausea, vomiting, abdominal pain. In the ED pt with elevated temperature of 100.0 degrees and elevated HR of 96. Labs were significant for leukocytosis of 14.3, sodium 131, glucose 310, and lactic acid 2.1. CT?of neck soft tissue found findings most consistent with cellulitis of into her neck and left submandibular space. No evidence of discrete drainable fluid collection or subperiosteal abscess. Pt was treated wit h IVF, vancomycin, and Zosyn. Pt will be admitted to the hospital for treatment and further evaluation of left neck cellulitis with sepsis. hospital course: Sepsis, Cellulitis of left neck with sepsis. CT of the neck showed no fluid collection just soft tissue swelling, CT scan repeat twice with no change. Overall pain and swelling and redness has gone down. He has been treated with multiple antibiotics an Zosyn and Vanco 10/14 to 10/18. Added Clindamycin 10/16 to 10/17, Azithor 10/16 to present. ID recommend oral Doxy and Augmentin at discharge. Blood cultures have been negative. He has no dental pain. HypOnatremia, mild and resolved. Insulin-dependent type 2 diabetes -Suppose to be on lantus 90 bid, but takes 160 once in the morning. Insulin dose was reduced during hospitalization. initially starting at 40 bid and increasing to 70 bid, and again changed overnight to 45 bid, fasting blood sugar 96 this morning. Recent hemoglobin A1c was 11. He would like to resume his home regimen upon discharge. Instructed to adhere to instruction given by PCP Hypothyroidism -Continue levothyroxine Depression -Continue sertraline HLD -lipitor Dispo: to follow up with PCP in a week Time Attestation Discharge Coordination Time (in mins): 45 Quality: Safe Use of Opioids Does Pt have an Active Cancer Diagnosis on the Problem List?: No Quality: Stroke Does the patient have a stroke diagnosis?: No Physical Exam Vital Signs: Vital Signs: Last Vital Signs Temp 96.8 F 10/20/23 07:23 Pulse 70 10/20/23 07:23 Resp 14 10/20/23 07:23 BP 125/90 H 10/20/23 07:23 Pulse Ox 98 10/20/23 07:23 O2 Del Method Room Air 10/20/23 07:23 BMI result Body Mass Index 30.3 DS: Data Data Completed and Pending Labs on day of discharge: Laboratory Results - last 24 hr 10/19/23 10/19/23 10/19/23 11:09 16:22 19:34 Creatinine Estim Creat Clear Calc Estimated GFR POC Glucose 209 H 140 H Random Vancomycin HIV 1&2 Ab/P24 Ag 4thGn Nonreactive 10/19/23 10/20/23 10/20/23 19:58 03:12 05:29 Creatinine 1.04 Estim Creat Clear Calc 108.2 Estimated GFR > 60 POC Glucose 137 H 148 H Random Vancomycin HIV 1&2 Ab/P24 Ag 4thGn 10/20/23 10/20/23 07:30 08:49 Creatinine Estim Creat Clear Calc Estimated GFR POC Glucose 96 Random Vancomycin 17.4 HIV 1&2 Ab/P24 Ag 4thGn Preliminary micro results at discharge 10/15/23 09:36 Blood Culture - Preliminary Blood - Venous No growth after 48 hours. 10/15/23 09:22 Blood Culture - Preliminary Blood - Venous No growth after 48 hours. Discharge Plan Discharge Anticipated Discharge Date/Time: 10/20/23 10:48 Patient Disposition: Home, Self-Care Discharge Diagnosis: Cellulitis of the neck Referrals: Arden Zamora MD [Primary Care Provider] - 1 Week Discharge Medications: New azithromycin 500 mg Tablet 500 mg PO Q24H Qty: 7 0RF amoxicillin-pot clavulanate 875-125 mg tablet 1 tab PO BID Qty: 20 0RF Continued atorvastatin 40 mg tablet 1 tab PO DAILY levothyroxine 175 mcg tablet 1 tab PO QAM insulin glargine [Lantus Solostar U-100 Insulin] 100 unit/mL (3 mL) insulin pen 90 unit subcut BID Patient Comments: Patient stated he forgets to take at HS so his doctor told him to take it all in the am. Patient also stated it also depends on his morning blood sugar. Medication is prescribed 90 units BID sertraline [Zoloft] 100 mg tablet 100 mg PO DAILY 30 Days Qty: 30 0RF Diet: Advance to usual diet Activity on Discharge: As tolerated Stand Alone Forms: Patient Portal Discharge page Print Language: Portuguese Care Plan Goals: Recovery from cellulitis of the neck Health Concerns: cellulitis of the night Plan of Treatment: take Augmentin and Azithromycin as recommended and follow-up with your doctor within a week call for appointment. If you notice any worsening or increased pain difficulty breathing please call 911 or come back to the emergency department. Assessment: See above
[2023-10-20 11:12] LABS: Glucose, Whole Blood 218 mg/dL (60-115)
[2023-10-20] MEDS: Insulin Lispro 100 UNIT/ML 3 ML VIAL SUBCUT (11:46)
[2023-10-20] MEDS: Enoxaparin Sodium 40 MG/0.4 ML SYRINGE SUBCUT (12:33)
[2023-10-20 15:34] VITALS: BP 138/88; PULSE 76; RESP 20; TEMP 35.9; O2SAT 96
[2023-10-20 16:16] LABS: Glucose, Whole Blood 221 mg/dL (60-115)
[2023-10-20] MEDS: Azithromycin 500 MG TABLET PO (17:06)
== END 2023-10-20 17:38 | disposition home or self-care (01) | DRG 720 ==
LOC: HO.ED 11:35 → HO.EDOVER 13:06 → HO.S3 10-16 14:18
PROVIDERS: Internal Medicine; Admitting Provider Student in an Organized Health Care Education/Training Program; Emergency Provider Emergency Medicine; PCP Internal Medicine; Visit Provider Internal Medicine
DX: A41.9 Sepsis, unspecified organism (principal); E11.40 Type 2 diabetes mellitus with diabetic neuropathy, unspecified; E87.1 Hypo-osmolality and hyponatremia; L03.221 Cellulitis of neck; F17.210 Nicotine dependence, cigarettes, uncomplicated; E78.5 Hyperlipidemia, unspecified; F32.A Depression, unspecified; Z71.6 Tobacco abuse counseling; T43.225A Adverse effect of selective serotonin reuptake inhibitors, initial encounter; E03.9 Hypothyroidism, unspecified; Z91.148 Patient's other noncompliance with medication regimen for other reason; Z79.4 Long term (current) use of insulin; Z79.890 Hormone replacement therapy; Z79.899 Other long term (current) drug therapy
CPT/HCPCS: 36415; 70490; 70491; 80048; 80051; 80076; 80202; 82565; 82947; 83605; 83735; 85025; 85027; 86611; 87040; 87389; 99285; J0736; J1650; J2543; J3370; J3371; J7120; Q9967

== ENCOUNTER → 2023-10-15 12:50 | Outpatient (BNV) | payer BC, SELFPAY | PROVIDERS: Admitting Provider Student in an Organized Health Care Education/Training Program; Emergency Provider Emergency Medicine; PCP Internal Medicine; Visit Provider Internal Medicine | DX: L03.221 Cellulitis of neck (principal) | CPT/HCPCS: 99222; 99232 ==

== ENCOUNTER → 2023-10-15 12:50 | Outpatient (BNV) | payer BC, SELFPAY | PROVIDERS: Admitting Provider Student in an Organized Health Care Education/Training Program; Emergency Provider Emergency Medicine; PCP Internal Medicine; Visit Provider Student in an Organized Health Care Education/Training Program | DX: L03.221 Cellulitis of neck (principal) | CPT/HCPCS: 99223; 99231; 99232; 99239 ==

== ENCOUNTER 2023-10-28 09:03 | Outpatient (AMB) | payer BC, SELFPAY ==
--- NOTE | 2023-10-28 09:06 | MHC.OFFVIS ---
Vital Signs 10/28/23 09:12 Height 6 ft Weight 228 lb BMI 30.9 BP 173/102 H Blood Pressure Location Rt brachial Position Sitting Pulse 87 Intake Visit Reasons: abscess left neck Intake Note: Patient scheduled for abscess on Lt ant neck. On amoxicillin course. Was admitted to hospital on 10-15-23. Reports was placed on a ton of antibiotics. Patient c/o: tender lump. Has gotten smaller but still very uncomfortable. 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 This has been going on for proximally 2 weeks time. He presents here for further evaluation/follow-up. He states during his hospitalization did an extensive workup including CT scan with demonstrated no abscess just cellulitis. Lowest my 1st time seeing this on the patient, he states that the swelling and redness have both markedly decreased in size and receded. Chart was reviewed and patient evaluated [facility] Medical History Diabetic ulcer of toe Toe ulcer, right Hyperlipemia Neuropathy associated with endocrine disorder Hypothyroidism HTN (hypertension) Diabetes Anxiety Asthma Depression Surgical History Hx of umbilical hernia repair History of cholecystectomy H/O elbow surgery Social History Household Members: Significant Other Household Members Other:: Mother and brother of girlfriend Housing: House Do you presently have visiting nurse or other home services: No Alcohol intake: never Patient Tobacco Use Status: Current everyday Tobacco user Tobacco use type: Cigarette Cigarette Packs Per Day: 1 Cigarettes Per Day: 20.0 Years Smoked: 30 service: No Physical Exam Vital Signs: Last Vital Signs Pulse 87 10/28/23 09:12 BP 173/102 H 10/28/23 09:12 BMI result Body Mass Index 30.9 Neck Other: Patient presents with what appears to be resolving cellulitis process involving the left mid neck. This measures approximately 10 x 4 cm. Because of concern of underlying abscess, patient underwent fine-needle aspiration, under sterile technique which was a dry tap. Office Procedures FNA Biopsy FNA Biopsy Details: Risks, benefits, alternatives of fine-needle aspiration reviewed the patient included but not limited to bleeding, infection, recurrence, numbness, pain, scarring the patient wished to proceed. After appropriate positioning, under sterile technique with Betadine prep, patient underwent aspiration of this cellulitic phlegmonous process and it proved to be a dry tap. Dressing applied. Patient tolerated procedure well FNA Biopsy 1: [id number] Biopsy, 1st lesion w/o image All charges added?: Procedure code (CPT) selection complete Assessment & Plan Assessment & Plan (1) Cellulitis, neck: Code(s): L03.221 - Cellulitis of neck Category: Medical Plan At present, patient will be followed. He will see me proximal weeks time. He has completed antibiotic course which was renewed by his medical doctor, local instructions including warm compresses, and will see me as directed or p.r.n.. All questions answered Orders: Orders Biopsy - Fine needle aspiration Today L03.221 - Cellulitis of neck Coding Level of Care Code New Pt Level 4 (28595) Diagnoses Cellulitis, neck L03.221 CPT Codes FNA Biopsy - FNA Biopsy 1: [id number] Biopsy, 1st lesion w/o image ([id number])
[2023-10-28 09:12] VITALS: BP 173/102; PULSE 87; BMI 30.9
== END 2023-10-28 09:15 | disposition home or self-care (01) ==
PROVIDERS: PCP Internal Medicine; Referring Provider Internal Medicine; Visit Provider Surgery
DX: L03.221 Cellulitis of neck (principal)
CPT/HCPCS: 10160; 99204

== ENCOUNTER → 2023-10-28 09:03 | Outpatient (BNVA) | payer BC, SELFPAY | PROVIDERS: PCP Internal Medicine; Referring Provider Internal Medicine; Visit Provider Surgery | DX: L03.221 Cellulitis of neck (principal) | CPT/HCPCS: 10021; 10160 ==

== ENCOUNTER 2023-11-03 10:21 | Outpatient (AMB) | payer BC, SELFPAY ==
--- NOTE | 2023-11-03 10:25 | MHC.OFFVIS ---
Vital Signs 11/03/23 10:31 Height 6 ft Weight 225 lb BMI 30.5 BP 131/96 H Blood Pressure Location Rt brachial Position Sitting Pulse 86 Intake Visit Reasons: 1 week follow up abscess left neck Intake Note: Patient here for 1wk follow up abscess on left neck. Almost done w/ amox course. Pcp prescribed azithromycin. Patient c/o: site getting smaller, still red and inflamed. Tortilla Maker Required: No Accompanied by: Self / Same As Patient Allergies cat dander Allergy (Verified 11/03/23 10:29) Sneezing HPI Comments Details: Patient presents for follow-up status post left neck cellulitis/abscess. He continues to have marked improvement of his symptoms. No discharge or drainage. The area is very thickened which I assured him we will last 8-12 weeks because of the significant infection that he originally had. [facility] Medical History Diabetic ulcer of toe Toe ulcer, right Hyperlipemia Neuropathy associated with endocrine disorder Hypothyroidism HTN (hypertension) Diabetes Anxiety Asthma Depression Surgical History Hx of umbilical hernia repair History of cholecystectomy H/O elbow surgery Social History Household Members: Significant Other Household Members Other:: Mother and brother of girlfriend Housing: House Do you presently have visiting nurse or other home services: No Alcohol intake: never Patient Tobacco Use Status: Current everyday Tobacco user Tobacco use type: Cigarette Cigarette Packs Per Day: 1 Cigarettes Per Day: 20.0 Years Smoked: 30 service: No Physical Exam Neck Other: Resolving left neck cellulitis. Erythema has resolved. Just indurated area but no evidence of any fluctuance or abscess Assessment & Plan Assessment & Plan (1) Cellulitis, neck: Code(s): L03.221 - Cellulitis of neck Category: Surgical Plan Patient was prescribed renewal of the antibiotics by his medical doctor. In the meantime I have suggested local wound care in the form of warm compresses and avoid scratching and itching area. He will otherwise follow-up p.r.n.. All questions answered. Coding Level of Care Code Est Pt Level 3 (60322) Diagnoses Cellulitis, neck L03.221
[2023-11-03 10:31] VITALS: BP 131/96; PULSE 86; BMI 30.5
== END 2023-11-03 10:33 | disposition home or self-care (01) ==
PROVIDERS: PCP Internal Medicine; Visit Provider Surgery
DX: L03.221 Cellulitis of neck (principal)
CPT/HCPCS: 99024

== ENCOUNTER → 2023-11-03 10:21 | Outpatient (BNVA) | payer BC, SELFPAY | PROVIDERS: PCP Internal Medicine; Visit Provider Surgery ==

== ENCOUNTER 2023-12-07 11:04 | Outpatient (REF) | payer BC, SELFPAY ==
[2023-12-07 11:46] LABS: TSH reflex Free T4 29.24 uIU/mL (0.32-4.0)
[2023-12-07 12:59] LABS: Free T4 (Free Thyroxine) 0.58 ng/dL (0.71-1.85)
== END 2023-12-07 11:05 | disposition home or self-care (01) ==
LOC: HO.LNP 11:04
PROVIDERS: Visit Provider Internal Medicine
DX: E03.9 Hypothyroidism, unspecified (principal)
CPT/HCPCS: 84439; 84443

== ENCOUNTER 2024-03-08 10:48 | Outpatient (REF) | payer BC, SELFPAY ==
[2024-03-08 11:54] LABS: TSH reflex Free T4 71.54 uIU/mL (0.32-4.0)
--- OUTSIDE RECORDS SUMMARY | 2024-03-08 12:02 | XMS_ITS ---
Author Organization Arden Zamora MD Address [address] [place] [phone] Care Team Providers Care Net Developer Architect Name Role Phone Arden Zamora Primary Care Provider [phone] ALLERGIES No Known Allergies REASON FOR VISIT 6 week not taking meds. broke up with girlfriend. was cheating on him. MEDICATIONS Medication SIG (Take, Route, Frequency, Duration) Notes Start Date End Date Status Januvia 100 MG TAKE 1 TABLET BY CYDNEY TH EVERY DAY Not-Taking Levothyroxine Sodium 200 MCG TAKE 1 TABLET BY MOUTH ONCE EVERY DAY IN THE MORNING ON AN EMPTY STOMACH, FOR 90 DAYS Active Lantus SoloStar 100 UNIT/ML 80 units Subcutaneous bid Active Albuterol Sulfate HFA 108 (90 Base) MCG/ACT 1 puff as needed Inhalation every 4 hrs for 30 days 11/24/2023 Active FreeStyle Lite Test - USE TO TEST BLOOD SUGAR TWICE A DAY for 30 days Active Atorvastatin Calcium 40 MG TAKE 1 TABLET BY MOUTH ONCE A DAY Orally Once a day for 90 days Active Trulicity 0.75 MG/0.5ML one pen Subcutan eous weekly for 30 days Not-Taking Sertraline HCl 100 MG TAKE 1 TABLET BY M OUTH EVERY DAY Active BD Pen Needle Mini U/F 31G X 5 MM use with pen once a day for injection sq twice a day for 90 days Active Sildenafil Citrate 100 MG 1 tablet Orall y Once a day for 30 Not-Taking Nicotine Step 1 21 MG/24HR 1 patch to skin Transdermal Once a day for 30 day(s) Not-Taking Losartan Potassium 50 MG 1 tablet Orally Once a day for 30 day(s) 09/11/2022 Not-Taking Nicotine 21 MG/24HR APPLY 1 PATCH EVERY DAY DIRECTED for 28 Not-Taking VITAL SIGNS BMI 33.89 kg/m2 01/26/2024 Blood pressure systolic 130 mm Hg 01/26/20 24 Blood pressure diastolic 90 mm Hg 024 Height 71 in 01/26/2024 Weight 243 lbs 01/26/2024 Encounters Encounter Location Date Provider Diagnosis Arden Zamora MD [address] [place] [phone] 01/26/2024 Arden Zamora Type 2 diabetes, controlled, with neuropathy E11.40 and Acquired hypothyroidism E03.9 ASSESSMENTS Encounter Date Diagnosis Assessment Notes Treatment Notes Treatment Clinical Notes 01/26/2024 Type 2 diabetes, controlled, with neuropathy (ICD-10 - E11.40) not taking meds.needs to get back on them 01/26/2024 Acquired hypothyroidism (ICD-10 - E03.9) not taking thyroid meds. needs to get back on them PLAN OF TREATMENT Treatment Notes Assessment Notes Type 2 diabetes, controlled, with neurop athy not taking meds.needs to get back on them Acquired hypothyroidism not taking thyro id meds. needs to get back on them Next Appt Details Follow Up: 4 Weeks, Reason: Provider Name:Arden mae, 03/15/2024 09:15:00 AM, [address] [place] [address], [address], [phone], Provider Name:Arden mae, 09/13/2024 07:15:00 AM, [address] [place] [address], [address], [phone], Provider Name:Arden mae, 09/20/2024 09:30:00 AM, [address], [address], [place], [place], [phone], Progress Notes * Examination Category Sub-Category Detail Notes General Examination GENERAL APPEARANCE: alert, w ell hydrated, in no distress HEAD: normocephalic HEART: no murmurs, rubs, ga llops , regular rate and rhythm LUNGS: no wheezes, rales, r honchi , good air movement , clear to auscultation bilaterally SKIN: good turgor
--- OUTSIDE RECORDS SUMMARY | 2024-03-08 12:02 | XMS_ITS ---
Author Organization Arden Zamora MD Address [address] [place] [phone] Care Team Providers Care Director Of Kids Name Role Phone Arden Zamora Primary Care Provider [phone] RESULTS Component Value Reference Range Notes TSH reflex Free T4 (Not yet reviewed by provider) Interpretation: Performing Lab:[facility], [address] [place] [id number] Notes/Report: TSH reflex Free T4 71.54 0.32-4.0 uIU/mL REASON FOR VISIT TSh reflex free Encounters Encounter Location Date Provider Diagnosis Arden Zamora MD [address] [place] [phone] 03/08/2024 Arden Zamora Acquired hypothyroidism E03.9 ASSESSMENTS Encounter Date Diagnosis Assessment Notes Treatment Notes Treatment Clinical Notes 03/08/2024 Acquired hypothyroidism (ICD-10 - E03.9) PLAN OF TREATMENT Pending Test Test Name Order Date TSH reflex Free T4 03/08/2024 Next Appt Details Provider Name:Arden Wilcox ier, 03/15/2024 09:15:00 AM, [address] [place] [address], [address], [place], [phone], Provider Name:Arden mae, 09/13/2024 07:15:00 AM, [address] [place] [address], [address], [place], [phone], Provider Name:Arden mae, 09/20/2024 09:30:00 AM, [address] [place] [address], [address], [place], [phone],
--- OUTSIDE RECORDS SUMMARY | 2024-03-08 12:02 | XMS_ITS ---
Author Organization Arden Zamora MD Address [address] [place] [phone] Care Team Providers Care Print Operator Name Role Phone Arden Zamora Primary Care Provider [phone] ALLERGIES No Known Allergies RESULTS Component Value Reference Range Notes Glucose, finger stick Reviewed date:12/08/2023 09:51:17 AM Interpretation: Performing Lab: Notes/Report: Value 329 REASON FOR VISIT 3 month DM, CBACK TSH MEDICATIONS Medication SIG (Take, Route, Frequency, Duration) Notes Start Date End Date Status Nicotine 21 MG/24HR APPLY 1 PATCH EVERY DAY DIRECTED for 28 Not-Taking Sildenafil Citrate 100 MG 1 tablet Orall y Once a day for 30 Not-Taking Nicotine Step 1 21 MG/24HR 1 patch to skin Transdermal Once a day for 30 day(s) Not-Taking Lantus SoloStar 100 UNIT/ML 80 units Subcutaneous bid Active Trulicity 0.75 MG/0.5ML one pen Subcutan eous weekly for 30 days Not-Taking Losartan Potassium 50 MG 1 tablet Orally Once a day for 30 day(s) 09/11/2022 Not-Taking Levothyroxine Sodium 200 MCG TAKE 1 TABLET BY MOUTH ONCE EVERY DAY IN THE MORNING ON AN EMPTY STOMACH, FOR 90 DAYS Active FreeStyle Lite Test - USE TO TEST BLOOD SUGAR TWICE A DAY for 30 days Active Albuterol Sulfate HFA 108 (90 Base) MCG/ACT 1 puff as needed Inhalation every 4 hrs for 30 days 11/24/2023 Active Januvia 100 MG TAKE 1 TABLET BY CYDNEY TH EVERY DAY Not-Taking BD Pen Needle Mini U/F 31G X 5 MM use with pen once a day for injection sq twice a day for 90 days Active Sertraline HCl 100 MG TAKE 1 TABLET BY M OUTH EVERY DAY Active Atorvastatin Calcium 40 MG TAKE 1 TABLET BY MOUTH ONCE A DAY Orally Once a day for 90 days Active VITAL SIGNS BMI 32.63 kg/m2 12/08/2023 Blood pressure systolic 148 mm Hg 12/08/19 24 Blood pressure diastolic 90 mm Hg 024 Height 71 in 12/08/2023 Weight 234 lbs 12/08/2023 weight is up 6 pounds since 11-24-23 Encounters Encounter Location Date Provider Diagnosis Arden Zamora MD [address] [place] [address] [address] [place], [place] [phone] 12/08/2023 Arden Zamora Type 2 diabetes mellitus with other diabetic kidney complication E11.29 and Acquired hypothyroidism E03.9 ASSESSMENTS Encounter Date Diagnosis Assessment Notes Treatment Notes Treatment Clinical Notes 12/08/2023 Type 2 diabetes mellitus with other diabetic kidney complication (ICD-10 - E11.29) running high but is not always taking his insulin. toe is healing well/ is going to call in his cgm model and will call it in 12/08/2023 Acquired hypothyroidism (ICD-10 - E03.9) he started back on 200 mcg with no taper and is doing well since he has been on it for 2 weeks should be okay PLAN OF TREATMENT Medication Medication Name Sig Start Date Stop Date Notes Lantus SoloStar 100 UNIT/ML 80 units Subcutaneous bid Levothyroxine Sodium 200 MCG TAKE 1 TABL ET BY MOUTH ONCE EVERY DAY IN THE MORNING ON AN EMPTY STOMACH, FOR 90 DAYS Treatment Notes Assessment Notes Type 2 diabetes mellitus wit h other diabetic kidney complication running high but is not always taking his insulin. toe is healing well/ is going to call in his cgm model and will call it in Acquired hypothyroidism he started back on 200 mcg with no taper and is doing well since he has been on it for 2 weeks should be okay Next Appt Details Follow Up: 6 Weeks, Reason: Provider Name:Arden Villalba Jeri mae, 03/15/2024 09:15:00 AM, [address] [place] [address], [address], [place], [place], [phone], Provider Name:Arden mae, 09/13/2024 07:15:00 AM, [address] [place] [address], [address], [place], [place], [phone], Provider Name:Arden mae, 09/20/2024 09:30:00 AM, [address] [place] [address], [address], [place], [place], [phone], Progress Notes * Examination Category Sub-Category Detail Notes General Examination GENERAL APPEARANCE: alert, w ell hydrated, in no distress HEAD: normocephalic HEART: regular rate and rhy thm, no murmurs, rubs, gallops LUNGS: no wheezes, rales, r honchi, good air movement, clear to auscultation bilaterally SKIN: good turgor
--- OUTSIDE RECORDS SUMMARY | 2024-03-08 12:03 | XMS_ITS | Patient Health Record ---
Author Organization Arden Zamora MD Address [address] [place] [phone] Care Team Providers Care Hot Packer Name Role Phone Arden Zamora Primary Care Provider [phone] ALLERGIES No Known Allergies RESULTS Component Value Reference Range Notes Hemoglobin A1c Reviewed date:05/12/2023 10:01:17 AM Interpretation: Performing Lab: Notes/Report: Value Hemoglobin A1c 12.9 Hemoglobin A1c Reviewed date:09/17/2023 02:37:55 PM Interpretation: Performing Lab: Notes/Report: Value Hemoglobin A1c 13.4 Hemoglobin A1c Reviewed date:11/24/2023 09:49:53 AM Interpretation: Performing Lab: Notes/Report: Value Hemoglobin A1c 12.5 Gram stain Reviewed date:04/03/2023 12:15:24 PM Interpretation: Performing Lab:[facility], [address] [place] [phone] Notes/Report: Gram stain Gram stain results: Gram stain No polys Gram stain 2+ Gram-positive cocci in chains Routine Culture Reviewed date:04/03/2023 10:23:42 AM Interpretation: Performing Lab:[facility], [address] [place] [address] Notes/Report: O:STAAUR Staphylococcus aureus Routine Culture Quant Org ID Routine Culture 2+ O:STRAGA Strep agalactiae (Gr p B) Routine Culture Quant Org ID Routine Culture 3+ Routine Culture Susc N/A Routine Culture Susceptibility not routinely performed on this isolate. Clindamycin <=0.25 Erythromycin >=8 Levofloxacin 0.5 Oxacillin 0.5 Penicillin-G >=0.5 Tetracycline <=1 Trimethoprim/Sulfamethoxaz ole <=10 Glucose, finger stick Reviewed date:03/31/2023 09:50:36 AM Interpretation: Performing Lab: Notes/Report: Value 198 MR foot RT wo/w con Reviewed date:05/07/2023 02:14:32 PM Interpretation: Performing Lab: Notes/Report: [address] [address] Magnetic Resonance Report Signed Patient: Jeyson Evans MR#: [id number] 327 : 1975 Acct:[id number] Age/Sex: 47 / M ADM Date: 05/05/23 Loc: HO.MRI Attending Dr: Raza Ibarra MD Ordering Physician: Raza Ibarra MD Date of Service: 05/05/23 Procedure(s): MR foot RT wo/w con Accession Number(s): [id number] cc: Arden Zamora MD; Raza Ibarra MD EXAMINATION: MR FOOT WITHOUT AND WITH CONTRAST, RIGHT CLINICAL INFORMATION: Right foot wound plantar to the great toe. Nonhealing wound. Diabetic foot ulcer. COMPARISON: Right foot radiographs dated 02/16/2023. TECHNIQUE: MRI of the right foot was performed before and after the intravenous administration of 10 mL Gadavist on a high-field scanner. FINDINGS: Focal soft tissue defect/ulceration along the plantar aspect of the 1st interphalangeal joint measuring approximately 1.0 x 0.8 cm (AP x ML) with adjacent skin thickening and edema. Mild postcontrast enhancement. Findings are consistent with acute cellulitis. No organized fluid collection or abscess formation. No adjacent marrow edema, periosteal reaction, cortical erosion, or enhancement to suggest acute osteomyelitis. No metatarsal stress reaction or fracture. No concerning lytic or blastic osseous lesion. Intact articular cartilage. The visualized flexor and extensor tendons are intact. No transverse tendon tear or tendon retraction. Intact Lisfranc ligament. No soft tissue mass or fluid collection. MR/MR foot RT wo/w con IMPRESSION: Focal soft tissue defect/ulceration along the plantar aspect of the 1st interphalangeal joint with adjacent skin thickening and edema as well as postcontrast enhancement. Findings are consistent with acute cellulitis. No abscess formation. No evidence of acute osteomyelitis. Dictated By: Mikhail Patel MD Signed By: <Electronically signed by Mikhali Patel MD in [place]> 05/07/23 1403 DD/ 1205 TD/TT: R&D Lab Technician: Glucose, finger stick Reviewed date:05/12/2023 09:57:18 AM Interpretation: Performing Lab: Notes/Report: Value 322 Free T4 (Free Thyroxine) Reviewed date:06/12/2023 02:58:09 PM Interpretation: Performing Lab:[facility], [address] [place] [phone] Notes/Report: Free T4 (Free Thyroxine) 0.66 0.71-1.85 ng/dL Complete Blood Count Auto Di ff Reviewed date:06/12/2023 02:59:33 PM Interpretation: Performing Lab:[facility], [address] [place] [phone] Notes/Report: White Blood Count 7.0 4.8-10.8 X10*3/uL Red Blood Count 4.25 4.60-5.80 X10*6/uL Hemoglobin 12.2 14.0-18.0 g/dl Hematocrit 36.4 42.0-52.0 % Mean Corpuscular Volume 85.6 80.0-98.0 fL Mean Corpuscular Hemoglobin 28.7 27.0-33.0 pg Mean Corpuscular HGB Conc 33.5 31.0-36.0 g/dl Red Cell Distribution Width 13.1 11.0-16.0 % Platelet Count 225 160-400 X10*3/uL Mean Platelet Volume 11.8 9.4-12.4 fL Neutrophils Percent Auto 58.1 45-73 % Imm Gran Pct Auto 1.1 0.0-0.4 % Lymphocytes Percent Auto 29.0 20-40 % Monocytes Percent Auto 8.5 2-11 % Eosinophils Percent Auto 2.7 0-4 % Basophils Percent Auto 0.6 0-2 % NRBC Pct Auto 0.0 0.0-0.2 /100WBC Neutrophils Absolute Auto 4.1 2.0-8.3 x10*3/u L Imm Gran Abs Auto 0.08 0.00-0.03 X10*3/uL Lymphocytes Absolute Auto 2.0 1.2-4.9 X10*3/u L Monocytes Absolute Auto 0.6 0.1-1.2 X10*3/uL Eosinophils Absolute Auto 0.2 0.0-0.4 X10*3/u L Basophils Absolute Auto 0.0 0.0-0.2 X10*3/uL NRBC Abs Auto 0.000 0.0-0.012 X10*3/uL Comprehensive Strawn. Panel Fa st Reviewed date:06/12/2023 02:59:54 PM Interpretation: Performing Lab:[facility], [address] [place] [phone] Notes/Report: Sodium 137 135-145 mmol/L Potassium 4.0 3.3-5.1 mmol/L Chloride 102 96-108 mmol/L Carbon Dioxide 26 22-29 mmol/L Anion Gap 13 12-20 Blood Urea Nitrogen 22 9-16 mg/dL Creatinine 1.14 0.5-1.4 mg/dL Estimated Glomerular Filt Rate > 60 NOTE: For -Latvian individuals, multiply the result by 1.210. Chronic Kidney Disease: Estimated GFR < 60 mL/min/1.73m2 Severe Kidney Disease: Estimated GFR < 15 mL/min/1.73m2 Glucose Fasting 294 60-99 mg/dL A fasting glucose of 126 mg/dl or greater on more than one occasion is considered diagnostic of diabetes. Calcium 8.9 8.4-10.2 mg/dL Bilirubin Total 0.3 0.0-1.0 mg/dL Aspartate Amino Transferase 10 5-37 U/L Alanine Aminotransferase 11 0-40 U/L Total Protein 7.0 6.5-8.0 g/dL Albumin Level 3.4 3.5-5.0 g/dL Alkaline Phosphatase 120 39-117 U/L Lipid Panel Reviewed date:06/12/2023 02:57:26 PM Interpretation: Performing Lab:[facility], [address] [place] [phone] Notes/Report: Triglycerides 271 <150 mg/dL Desirable Triglyceride: less than 150 mg/dL Borderline High Triglyceride 150-199 mg/dL High Triglyceride: 200-499 mg/dL Very High Triglyceride: greater than or equal to 5OO mg/dL Cholesterol 216 <200 mg/dL Desirable Cholesterol: less than 200 mg/dL Borderline High Cholesterol: 200-239 mg/dL High Cholesterol: greater than 239 mg/dL LDL Cholesterol Calculated 120 <100 mg/dL Desirable LDL: less than 100 mg/dL Near Optimal/Above Optimal LDL: 110-129 mg/dL Borderline High LDL: 130-159 mg/dL High LDL: 160-189 mg/dL Very High LDL: greater than or equal to 190 mg/dL HDL Cholesterol 42 >40 mg/dL Desirable HDL: greater than 40 mg/dL Note: This HDL assay may give artificially low results in patients with liver disease. PSA,Total (Free>4and<10) Reviewed date:06/12/2023 02:58:19 PM Interpretation: Performing Lab:[facility], [address] [place] [phone] Notes/Report: PSA,Total (Free>4and<10) 0.27 0.00-4.00 ng/mL A Free PSA was not performed: The percentage of Free PSA can be used to enhance the differentiation of prostate cancer from benign prostatic disease in subjects whose PSA levels are between 4.0 and 10.0 ng/mL. For subjects whose PSA levels are below 4.0 or above 10.0 ng/mL, the risk of prostate cancer is determined on the basis of the PSA alone. Therefore the % Free PSA is recommended only for those subjects whose PSA levels are between 4.0 and 10.0 ng/mL. PSA methodology: [place] Alinity i Chemiluminescent Microparticle Immunoassay (CMIA) TSH reflex Free T4 Reviewed date:09/17/2023 02:41:15 PM Interpretation:see back 09-17-2023 Performing Lab:[facility], [address] [place] [phone] Notes/Report: TSH reflex Free T4 22.07 0.32-4.0 uIU/mL Microalbumin, Random Reviewed date:06/12/2023 02:58:30 PM Interpretation: Performing Lab:[facility], [address] [place] [phone] Notes/Report: Creatinine Urine 86.44 Microalbumin Urine 1333.0 Microalbum/Creatinine Ratio Ur 1542.1 <30 ug/mg cr Albumin/Creatinine Ratio Reference Ranges: Normal: < 30 ug/mg creatinine Microalbuminuria: 30 - 300 ug/mg creatinine Clinical Albuminuria: > 300 ug/mg creatinine Hemoglobin A1c Reviewed date:06/12/2023 02:09:07 PM Interpretation: Performing Lab:[facility], [address] [place] [phone] Notes/Report: Hemoglobin A1c % 13.2 <6.0 % Hemoglobin A1C Reference Range Adults: 4.8 - 6.0 % Non diabetic: < 6.0 % Goal: < 7.0 % Additional Action Suggested: > 8.0 % Note: Hemoglobin A1c results are invalid for patients with abnormal amounts of HbF. Blood transfusions may impact the HbA1c concentration in the patient sample. Estimated Average Glucose 332 eAG = Estimated average glucose which is %A1C expressed as average glucose, using the formula of the [id number] Average Glucose study (ADAG), Diabetes Care, Vol.31,#8, Sep. 2007 UA ClnCatch+Micro w/rflx Cul t Reviewed date:06/12/2023 02:59:12 PM Interpretation: Performing Lab:[facility], [address] [place] [phone] Notes/Report: Urine, Clean Catch Color Urine Yellow Appearance Urine Clear PH 6.5 5.0-9.0 Glucose Urine UA >=1000 Negative mg/dL Urine Blood Trace Negative Specific Monroe - Urine >= 1.030 1.005-1.025 Urine Protein 300 (3+) Neg-Trace mg/dL Urine Ketones Negative Negative mg/dL Nitrite Urine Negative Negative Leukocyte Esterase Urine Negative Negative RBC Urine 3-5 0-2 /HPF WBC Urine 0-5 0-5 /HPF Squamous Epithelial Cell Urine 0-2 0-2 /HPF Bacteria Urine None Seen None Seen Hyaline Casts Urine 0-2 0-2 /LPF Occult Blood, Stool, Guaiac Reviewed date:09/17/2023 03:10:14 PM Interpretation:Negative Performing Lab: Notes/Report: Negative Occult Blood, Stool, Guaiac Neg Glucose, finger stick Reviewed date:09/28/2023 09:27:53 AM Interpretation: Performing Lab: Notes/Report: Value 503 Glucose, Whole Blood Reviewed date:10/15/2023 04:51:40 PM Interpretation: Performing Lab:[facility], [address] [place] [phone] Notes/Report: Glucose, Whole Blood 247 60-115 mg/dL METER # : [id number] Lactic Acid-LAB USE ONLY Reviewed date:10/15/2023 12:23:19 PM Interpretation: Performing Lab:[facility], [address] [place] [phone] Notes/Report: Lactic Acid-LAB USE ONLY 1.7 0.5-2.0 mmol/L CT soft tissue neck w con Reviewed date:10/15/2023 12:24:53 PM Interpretation: Performing Lab: Notes/Report: [address] [address] [address] Scan Report Signed Patient: Jeyson Evans MR#: [id number] 327 : 1975 Acct:[id number] Age/Sex: 47 / M ADM Date: 10/15/23 Loc: HO.ED Attending Dr: Ordering Physician: Carol Villareal DO Date of Service: 10/15/23 Procedure(s): CT soft tissue neck w IV con Accession Number(s): [id number] cc: Arden Zamora MD; Carol Villareal DO EXAMINATION: CT SOFT TISSUE NECK WITH CONTRAST CLINICAL INFORMATION: Left-sided swelling. Redness and pain. COMPARISON: No relevant prior imaging. TECHNIQUE: Following the intravenous administration of 60 mL of Omnipaque 350 intravenous contrast, helical imaging was performed in the axial plane with generation of coronal and sagittal reformatted images. This CT examination was performed using dose optimization techniques as appropriate, variously including the following: *Automated exposure control *Adjustment of mA and/or kV according to patient size (this includes techniques or standardized protocols for targeted exams where dose is matched to indication/reason for exam; i.e. extremities or head) *Use of iterative reconstruction technique DLP: 602 mGy-cm FINDINGS: This asymmetric thickening of the left submandibular skin and extensive stranding within the subcutaneous soft tissues primarily located within the submandibular space and the anterior neck. Asymmetric thickening of the left platysma muscle. No evidence of a discrete drainable fluid collection. There are a few scattered asymmetrically distributed enhancing left cervical lymph nodes, none of which demonstrate worrisome enhancement characteristic to suggest central suppuration. No evidence of septic thrombophlebitis. Findings are most consistent with cellulitis. Pharyngeal mucosal spaces are symmetric. Parapharyngeal and retromaxillary fat is preserved. Distribution Systems Serviceperson spaces are symmetric. The parotid and submandibular glands are normal. The tongue base and epiglottis are normal. Preepiglottic fat is preserved. The subglottic airway is widely patent. The thyroid gland is unremarkable. The remainder of the visualized visceral soft tissues are normal. No mediastinal or axillary adenopathy is visualized within the bsvog-kv-ekly of this examination. Lung apices are clear. Aortic arch apex is normal. Cervical carotid and vertebral arteries are patent. Internal jugular veins fill symmetrically. There is odontogenic disease with multiple carious or missing teeth. No evidence of a subperiosteal abscess. No worrisome lytic or blastic osseous lesion is visualized elsewhere within the ybttl-do-ngeu of this examination. Grossly no spinal canal compromise. The skull base is intact. No mastoid or middle ear effusion. No active paranasal sinus disease. Limited visualization of the intracranial anatomy reveals no abnormal finding. CT/CT soft tissue neck w IV con IMPRESSION: Findings are most consistent with cellulitis of the anterior neck and left submandibular space, the source of which is not clearly evident on this examination. No evidence of a discrete drainable fluid collection. There is odontogenic disease with multiple carious or missing teeth. No evidence of a subperiosteal abscess. There are a few asymmetrically distributed enhancing left cervical lymph nodes that are likely reactive. No evidence of septic thrombophlebitis. Dictated By: Nicanor Valverde MD Signed By: <Electronically signed by Nicanor Valverde MD in OV> 10/15/23 1111 DD/ 0956 TD/TT: R&D Lab Technician: CARIDAD Hunt, Whole Blood Reviewed date:10/16/2023 12:14:31 PM Interpretation: Performing Lab:[facility], [address] [place] [phone] Notes/Report: Glucose, Whole Blood 246 60-115 mg/dL METER # : [id number] Complete Blood Count no Diff Reviewed date:10/16/2023 12:14:30 PM Interpretation: Performing Lab:[facility], [address] [place] [phone] Notes/Report: White Blood Count 11.2 4.8-10.8 X10*3/uL Red Blood Count 4.56 4.60-5.80 X10*6/uL Hemoglobin 13.2 14.0-18.0 g/dl Hematocrit 38.1 42.0-52.0 % Mean Corpuscular Volume 83.6 80.0-98.0 fL Mean Corpuscular Hemoglobin 28.9 27.0-33.0 pg Mean Corpuscular HGB Conc 34.6 31.0-36.0 g/dl Red Cell Distribution Width 13.4 11.0-16.0 % Platelet Count 139 160-400 X10*3/uL Mean Platelet Volume 11.1 9.4-12.4 fL NRBC Pct Auto 0.0 0.0-0.2 /100WBC NRBC Abs Auto 0.000 0.0-0.012 X10*3/uL Basic Metabolic Panel Reviewed date:10/16/2023 12:14:31 PM Interpretation: Performing Lab:[facility], [address] [place] [phone] Notes/Report: Sodium 133 135-145 mmol/L Potassium 4.0 3.3-5.1 mmol/L Chloride 101 96-108 mmol/L Carbon Dioxide 21 22-29 mmol/L Anion Gap 15 12-20 Blood Urea Nitrogen 14 9-16 mg/dL Creatinine 1.21 0.5-1.4 mg/dL Creatinine Clr Calc Pharmacy 93.0 eGFR (calculated from the MDRD study equation) and eCrCl (calculated from the Cockcroft-Gault equation) are based on different parameters and may not yield comparable results. If eCrCl result is absurd, please check patient's height/weight. Estimated Glomerular Filt Rate > 60 NOTE: For -Latvian individuals, multiply the result by 1.210. Chronic Kidney Disease: Estimated GFR < 60 mL/min/1.73m2 Severe Kidney Disease: Estimated GFR < 15 mL/min/1.73m2 Glucose Random 253 60-115 mg/dL Calcium 8.8 8.4-10.2 mg/dL Glucose, Whole Blood Reviewed date:10/16/2023 11:40:35 AM Interpretation: Performing Lab:[facility], [address] [place] [phone] Notes/Report: Glucose, Whole Blood 233 60-115 mg/dL METER # : [id number] Vancomycin Random Reviewed date:10/18/2023 06:25:49 PM Interpretation: Performing Lab:[facility], [address] [place] [phone] Notes/Report: Vancomycin Random 10.0 15-20 mcg/mL Glucose, Whole Blood Reviewed date:10/16/2023 12:09:31 PM Interpretation: Performing Lab:[facility], [address] [place] [phone] Notes/Report: Glucose, Whole Blood 314 60-115 mg/dL METER # : [id number] Glucose, Whole Blood Reviewed date:10/18/2023 06:25:49 PM Interpretation: Performing Lab:[facility], [address] [place] [phone] Notes/Report: Glucose, Whole Blood 236 60-115 mg/dL METER # : [id number] Glucose, Whole Blood Reviewed date:10/18/2023 06:25:49 PM Interpretation: Performing Lab:[facility], [address] [place] [phone] Notes/Report: Glucose, Whole Blood 384 60-115 mg/dL METER # : [id number] Glucose, Whole Blood Reviewed date:10/18/2023 06:25:49 PM Interpretation: Performing Lab:[facility], [address] [place] [phone] Notes/Report: Glucose, Whole Blood 385 60-115 mg/dL METER # : [id number] Complete Blood Count no Diff Reviewed date:10/18/2023 06:25:49 PM Interpretation: Performing Lab:[facility], [address] [place] [phone] Notes/Report: White Blood Count 9.5 4.8-10.8 X10*3/uL Red Blood Count 4.16 4.60-5.80 X10*6/uL Hemoglobin 11.9 14.0-18.0 g/dl Hematocrit 35.3 42.0-52.0 % Mean Corpuscular Volume 84.9 80.0-98.0 fL Mean Corpuscular Hemoglobin 28.6 27.0-33.0 pg Mean Corpuscular HGB Conc 33.7 31.0-36.0 g/dl Red Cell Distribution Width 13.4 11.0-16.0 % Platelet Count 150 160-400 X10*3/uL Mean Platelet Volume 11.6 9.4-12.4 fL NRBC Pct Auto 0.0 0.0-0.2 /100WBC NRBC Abs Auto 0.000 0.0-0.012 X10*3/uL Basic Metabolic Panel Reviewed date:10/18/2023 06:25:49 PM Interpretation: Performing Lab:[facility], [address] [place] [phone] Notes/Report: Sodium 133 135-145 mmol/L Potassium 3.7 3.3-5.1 mmol/L Chloride 101 96-108 mmol/L Carbon Dioxide 20 22-29 mmol/L Anion Gap 16 12-20 Blood Urea Nitrogen 18 9-16 mg/dL Creatinine 1.08 0.5-1.4 mg/dL Creatinine Clr Calc Pharmacy 104.1 eGFR (calculated from the MDRD study equation) and eCrCl (calculated from the Cockcroft-Gault equation) are based on different parameters and may not yield comparable results. If eCrCl result is absurd, please check patient's height/weight. Estimated Glomerular Filt Rate > 60 NOTE: For -Latvian individuals, multiply the result by 1.210. Chronic Kidney Disease: Estimated GFR < 60 mL/min/1.73m2 Severe Kidney Disease: Estimated GFR < 15 mL/min/1.73m2 Glucose Random 288 60-115 mg/dL Calcium 9.0 8.4-10.2 mg/dL Glucose, Whole Blood Reviewed date:10/18/2023 06:25:49 PM Interpretation: Performing Lab:[facility], [address] [place] [phone] Notes/Report: Glucose, Whole Blood 278 60-115 mg/dL METER # : [id number] Vancomycin Random Reviewed date:10/18/2023 06:25:49 PM Interpretation: Performing Lab:[facility], [address] [place] [phone] Notes/Report: Vancomycin Random 6.4 15-20 mcg/mL CT soft tissue neck wo con Reviewed date:10/18/2023 06:25:49 PM Interpretation: Performing Lab: Notes/Report: [address] [address] [address] Scan Report Signed Patient: Jeyson Evans MR#: [id number] 327 : 1975 Acct:[id number] Age/Sex: 47 / M ADM Date: 10/15/23 Loc: [facility] 372-[address]: Rod Medina MD Ordering Physician: Rod Medina MD Date of Service: 10/17/23 Procedure(s): CT soft tissue neck wo IV con Accession Number(s): [id number] cc: Arden Zamora MD; Rod Medina MD EXAMINATION: CT SOFT TISSUE NECK WITHOUT CONTRAST CLINICAL INFORMATION: Follow-up Cellulitis. Evaluate for abscess. COMPARISON: CT images of the neck performed with intravenous contrast from 10/15/2023. TECHNIQUE: Helical imaging was performed in the axial plane with generation of coronal and sagittal reformatted images. This CT examination was performed using dose optimization techniques as appropriate, variously including the following: *Automated exposure control *Adjustment of mA and/or kV according to patient size (this includes techniques or standardized protocols for targeted exams where dose is matched to indication/reason for exam; i.e. extremities or head) *Use of iterative reconstruction technique DLP: 566 mGy-cm FINDINGS: The current imaging abnormalities are similar to those seen on 10/15/2023. There is persistent soft tissue edema of the neck (left anterior and lateral neck worse than right neck), and there is persistent asymmetric thickening of - edema along - the left platysma muscle and no interval development of an organized measurable fluid collection or soft tissue gas. The findings include edema adjacent to the submandibular glands and tracking anterior to the left sternocleidomastoid muscle. The parotid and human performance professor spaces are normal. The submandibular glands and thyroid gland are normal. No evidence of soft tissue mass. The nasopharynx, oral cavity, tongue base, and tonsillar pillars are unremarkable. No contour abnormality within the oral cavity or pharyngeal mucosal space. The parapharyngeal fat planes are preserved. The hypopharynx, epiglottis, and preepiglottic space are normal. Laryngeal structures normal. The visualized proximal esophagus is normal. The lymph nodes in the submandibular region are in the normal size range, although some of the left-sided lymph nodes are slightly larger than those seen on the right. The largest left submandibular lymph node is 0.7 cm short axis dimension. The largest left level 2 lymph nodes are 0.8 cm short axis dimension. The visualized lung apices are unremarkable. The partially visualized intracranial structures are normal. Mild amount mucus is present at the floor of each maxillary antrum. No air-fluid levels within paranasal sinuses. The partially visualized orbits and globes are normal. The temporomandibular joints are normal. As noted on prior exam, multiple dental caries are identified. CT/CT soft tissue neck wo IV con IMPRESSION: Imaging findings remain consistent with cellulitis involving subcutaneous tissues of the anterior neck without interval development of a discrete fluid collection. No abscess is seen. No soft tissue gas or other significant change compared to 10/15/2023. Dictated By: Stalin Roberts MD Signed By: <Electronically signed by Stalin Roberts MD in OV> 10/17/23 1207 DD/ 1108 TD/TT: R&D Lab Technician: PD Glucose, Whole Blood Reviewed date:10/18/2023 06:25:49 PM Interpretation: Performing Lab:[facility], [address] [place] [phone] Notes/Report: Glucose, Whole Blood 253 60-115 mg/dL METER # : [id number] Glucose, Whole Blood Reviewed date:10/18/2023 06:25:49 PM Interpretation: Performing Lab:[facility], [address] [place] [phone] Notes/Report: Glucose, Whole Blood 241 60-115 mg/dL METER # : [id number] Glucose, Whole Blood Reviewed date:10/18/2023 06:25:49 PM Interpretation: Performing Lab:[facility], [address] [place] [phone] Notes/Report: Glucose, Whole Blood 253 60-115 mg/dL METER # : [id number] Glucose, Whole Blood Reviewed date:10/18/2023 06:25:49 PM Interpretation: Performing Lab:[facility], [address] [place] [phone] Notes/Report: Glucose, Whole Blood 179 60-115 mg/dL METER # : [id number] Electrolytes Reviewed date:10/18/2023 06:25:49 PM Interpretation: Performing Lab:[facility], [address] [place] [phone] Notes/Report: Sodium 137 135-145 mmol/L Potassium 3.7 3.3-5.1 mmol/L Chloride 102 96-108 mmol/L Carbon Dioxide 22 22-29 mmol/L Anion Gap 17 12-20 Creatinine Reviewed date:10/18/2023 06:25:49 PM Interpretation: Performing Lab:[facility], [address] [place] [phone] Notes/Report: Creatinine 0.99 0.5-1.4 mg/dL Creatinine Clr Calc Pharmacy 113.6 eGFR (calculated from the MDRD study equation) and eCrCl (calculated from the Cockcroft-Gault equation) are based on different parameters and may not yield comparable results. If eCrCl result is absurd, please check patient's height/weight. Estimated Glomerular Filt Rate > 60 NOTE: For -Latvian individuals, multiply the result by 1.210. Chronic Kidney Disease: Estimated GFR < 60 mL/min/1.73m2 Severe Kidney Disease: Estimated GFR < 15 mL/min/1.73m2 Glucose, Whole Blood Reviewed date:10/18/2023 06:25:49 PM Interpretation: Performing Lab:[facility], [address] [place] [phone] Notes/Report: Glucose, Whole Blood 86 60-115 mg/dL METER # : [id number] Vancomycin Random Reviewed date:10/19/2023 11:00:25 AM Interpretation: Performing Lab:[facility], [address] [place] [phone] Notes/Report: Vancomycin Random 27.4 15-20 mcg/mL Critical VANCR sent by a secure message and confirmed by ALON POLLARD [id number] Tech:ALFREDITO Glucose, Whole Blood Reviewed date:10/18/2023 06:25:49 PM Interpretation: Performing Lab:[facility], [address] [place] [phone] Notes/Report: Glucose, Whole Blood 195 60-115 mg/dL METER # : [id number] Glucose, Whole Blood Reviewed date:10/18/2023 06:25:49 PM Interpretation: Performing Lab:[facility], [address] [place] [phone] Notes/Report: Glucose, Whole Blood 267 60-115 mg/dL METER # : [id number] Glucose, Whole Blood Reviewed date:10/18/2023 06:25:49 PM Interpretation: Performing Lab:[facility], [address] [place] [phone] Notes/Report: Glucose, Whole Blood 223 60-115 mg/dL METER # : [id number] Glucose, Whole Blood Reviewed date:10/19/2023 11:00:25 AM Interpretation: Performing Lab:[facility], [address] [place] [phone] Notes/Report: Glucose, Whole Blood 261 60-115 mg/dL METER # : [id number] Basic Metabolic Panel Reviewed date:10/19/2023 11:00:25 AM Interpretation: Performing Lab:[facility], [address] [place] [phone] Notes/Report: Sodium 137 135-145 mmol/L Potassium 3.6 3.3-5.1 mmol/L Chloride 100 96-108 mmol/L Carbon Dioxide 27 22-29 mmol/L Anion Gap 14 12-20 Blood Urea Nitrogen 9 9-16 mg/dL Creatinine 0.89 0.5-1.4 mg/dL Creatinine Clr Calc Pharmacy 126.4 eGFR (calculated from the MDRD study equation) and eCrCl (calculated from the Cockcroft-Gault equation) are based on different parameters and may not yield comparable results. If eCrCl result is absurd, please check patient's height/weight. Estimated Glomerular Filt Rate > 60 NOTE: For -Latvian individuals, multiply the result by 1.210. Chronic Kidney Disease: Estimated GFR < 60 mL/min/1.73m2 Severe Kidney Disease: Estimated GFR < 15 mL/min/1.73m2 Glucose Random 103 60-115 mg/dL Calcium 9.4 8.4-10.2 mg/dL Creatinine Reviewed date:10/19/2023 11:00:25 AM Interpretation: Performing Lab:[address] [phone] Notes/Report: Creatinine 0.89 0.5-1.4 mg/dL Creatinine Clr Calc Pharmacy 126.4 eGFR (calculated from the MDRD study equation) and eCrCl (calculated from the Cockcroft-Gault equation) are based on different parameters and may not yield comparable results. If eCrCl result is absurd, please check patient's height/weight. Estimated Glomerular Filt Rate > 60 NOTE: For -Latvian individuals, multiply the result by 1.210. Chronic Kidney Disease: Estimated GFR < 60 mL/min/1.73m2 Severe Kidney Disease: Estimated GFR < 15 mL/min/1.73m2 Glucose, Whole Blood Reviewed date:10/19/2023 11:00:25 AM Interpretation: Performing Lab:[address] [phone] Notes/Report: Glucose, Whole Blood 88 60-115 mg/dL METER # : [id number] Cat Scratch Titer Reviewed date:10/26/2023 12:22:39 PM Interpretation: Performing Lab:[address] [phone] Notes/Report: Bartonella Henselae IgG Screen Negative Bartonella Henselae IgG Titer TNP Bartonella Henselae IgM Screen Negative Reference Range: Negative Whereas sera from 10% of healthy controls exhibit Bartonella henselae IgG titers of 1:64-1:128, none show titers of 1:256 or above. Sera from 95% of patients with clinically defined cat scratch disease show IgG titers of 1:64 and above; 79% exhibit titers of 1:256 and above. IgM titers at 1:20 or higher have not been detected in the normal adult population. Individuals infected with B. henselae may not have initial IgG titers greater than or equal to 1:64; confirmation of infection may therefore require testing of serial specimens to detect increasing IgG titers or the presence of IgM. This test was developed and its analytical performance characteristics have been determined by [facility] [place], [place]. It has not been cleared or approved by the U.S. Food and Drug Administration. This assay has been validated pursuant to the CLIA regulations and is used for clinical purposes. THIS TEST WAS PERFORMED AT: [facility]/[address] [phone] ADRIEL MELGAR MD,PHD Bartonella Henselae IgM Titer TNP Vancomycin Random Reviewed date:10/19/2023 11:00:25 AM Interpretation: Performing Lab:[address] [phone] Notes/Report: Vancomycin Random 12.5 15-20 mcg/mL HIV Ab/Ag Reviewed date:10/20/2023 11:01:54 AM Interpretation: Performing Lab:[address] [phone] Notes/Report: HIV AB/AG Nonreactive Nonreactive HIV-1 p24 Ag and/or HIV-1/HIV-2 Ab not detected. A test result that is nonreactive does not exclude the possibility of exposure to or infection with HIV-1 and/or HIV-2. Nonreactive results in this assay for individuals with prior exposure to HIV-1 and/or HIV-2 may be due to antigen and antibody levels that are below the limit of detection of this assay. The [employer] HIV Ag/Ab Combo assay result and supplemental assay results should be interpreted in conjunction with the patient's clinical presentation, history and other laboratory results. If the results are inconsistent with clinical evidence, additional testing is suggested to confirm the result. Glucose, Whole Blood Reviewed date:10/19/2023 12:33:30 PM Interpretation: Performing Lab:[address] [phone] Notes/Report: Glucose, Whole Blood 209 60-115 mg/dL METER # : [id number] Glucose, Whole Blood Reviewed date:10/20/2023 08:36:29 AM Interpretation: Performing Lab:[facility], [address] [place] [phone] Notes/Report: Glucose, Whole Blood 140 60-115 mg/dL METER # : [id number] Glucose, Whole Blood Reviewed date:10/20/2023 08:36:29 AM Interpretation: Performing Lab:[facility], [address] [place] [phone] Notes/Report: Glucose, Whole Blood 137 60-115 mg/dL METER # : [id number] Creatinine Reviewed date:10/20/2023 08:36:29 AM Interpretation: Performing Lab:[facility], [address] [place] [phone] Notes/Report: Creatinine 1.04 0.5-1.4 mg/dL Creatinine Clr Calc Pharmacy 108.2 eGFR (calculated from the MDRD study equation) and eCrCl (calculated from the Cockcroft-Gault equation) are based on different parameters and may not yield comparable results. If eCrCl result is absurd, please check patient's height/weight. Estimated Glomerular Filt Rate > 60 NOTE: For -Latvian individuals, multiply the result by 1.210. Chronic Kidney Disease: Estimated GFR < 60 mL/min/1.73m2 Severe Kidney Disease: Estimated GFR < 15 mL/min/1.73m2 Glucose, Whole Blood Reviewed date:10/20/2023 08:36:29 AM Interpretation: Performing Lab:[facility], [address] [place] [phone] Notes/Report: Glucose, Whole Blood 148 60-115 mg/dL METER # : [id number] Vancomycin Random Reviewed date:10/20/2023 11:58:33 AM Interpretation: Performing Lab:[facility], [address] [place] [phone] Notes/Report: Vancomycin Random 17.4 15-20 mcg/mL CT soft tissue neck wo con Reviewed date:10/21/2023 04:30:35 PM Interpretation: Performing Lab: Notes/Report: [address] [place] [address] CT Scan Report Signed Patient: Jeyson Evans MR#: [id number] 327 : 1975 Acct:[id number] Age/Sex: 47 / M ADM Date: 10/15/23 Loc: .S3 372-[address]: Rod Medina MD Ordering Physician: Rod Medina MD Date of Service: 10/20/23 Procedure(s): CT soft tissue neck wo IV con Accession Number(s): [id number] cc: Arden Zamora MD; Rod Medina MD EXAMINATION: CT SOFT TISSUE NECK WITHOUT CONTRAST CLINICAL INFORMATION: Cellulitis COMPARISON: CT neck October 17, 2023 TECHNIQUE: Noncontrast helical imaging was performed in the axial plane with generation of coronal and sagittal reformatted images. This CT examination was performed using dose optimization techniques as appropriate, variously including the following: *Automated exposure control. *Adjustment of mA and/or kV according to patient size (this includes techniques or standardized protocols for targeted exams where dose is matched to indication/reason for exam; i.e. extremities or head). *Use of iterative reconstruction technique. DLP: 414 mGycm FINDINGS: Redemonstrated numerous carious and absent maxillary and mandibular teeth. Worsening cellulitic changes within the left face and left neck with increased skin thickening, thickening of the left platysma and increased confluence of amorphous subcutaneous stranding/fluid in the left neck. Redemonstrated stranding marginating the inferior left parotid tail, left submandibular and anterior cervical triangles, left greater than right submental region, and marginating the infrahyoid strap and the left sternocleidomastoid musculature. The left subarticular gland remains asymmetrically enlarged and heterogeneous in density compatible with sialoadenitis. Lack of intravenous contrast limits assessment for drainable fluid collection/abscess. Milder cellulitic changes again noted along the left anterior chest wall. Redemonstrated several asymmetrically prominent left cervical chain lymph nodes without evidence of developing superficial change, presumably reactive. The fat planes of the skull base and soft tissues of the nasopharynx are unremarkable. Mild patchy paranasal sinus mucosal disease. Leftward nasal septal deviation with leftward bony spur contacting the floor of the left nasal cavity. The temporomandibular joints are normal. The oral cavity and pharyngeal mucosal space is unremarkable, noting calcified bilateral palatine tonsilloliths. The laryngeal structures are opposed, limiting assessment. The unenhanced thyroid gland is normal. The right parotid and submandibular glands are normal. The partially visualized lung apices are clear. Minimal cervical spondylosis. The imaged portions of the brain parenchyma are unremarkable. CT/CT soft tissue neck wo IV con IMPRESSION: Findings of worsening cellulitis within the left face and neck as discussed above. As before, the source of the infection is not clearly elucidated on this examination. Asymmetric enlargement and heterogeneous density of the left submandibular gland compatible with acute sialoadenitis, which may be primary or secondary to the infectious process. Multiple dental caries are again noted without definite odontogenic source identified. Similar reactive cervical chain lymph nodes. . Lack of intravenous contrast limits assessment for drainable fluid collection/abscess. Electronically signed by: Joslyn Woods MD 10/20/2023 04:15 PM EDT Dictated By: Joslyn Woods Signed By: <Electronically signed by Joslyn Woods in OV> 10/20/23 1615 DD/ 0934 TD/TT: 10/20/23 1005 R&D Lab Technician: Glucose, Whole Blood Reviewed date:10/20/2023 08:36:29 AM Interpretation: Performing Lab:[facility], [address] [place] [phone] Notes/Report: Glucose, Whole Blood 96 60-115 mg/dL METER # : [id number] Glucose, Whole Blood Reviewed date:10/20/2023 11:56:38 AM Interpretation: Performing Lab:[facility], [address] [place] [phone] Notes/Report: Glucose, Whole Blood 218 60-115 mg/dL METER # : [id number] Glucose, Whole Blood Reviewed date:10/20/2023 04:38:08 PM Interpretation: Performing Lab:[facility], [address] [place] [phone] Notes/Report: Glucose, Whole Blood 221 60-115 mg/dL METER # : [id number] Glucose, finger stick Reviewed date:10/27/2023 11:18:38 AM Interpretation: Performing Lab: Notes/Report: Value 336 Glucose, finger stick Reviewed date:11/24/2023 09:42:25 AM Interpretation: Performing Lab: Notes/Report: Value 332 Free T4 (Free Thyroxine) Reviewed date:12/07/2023 02:19:34 PM Interpretation: Performing Lab:[facility], [address] [place] [phone] Notes/Report: Free T4 (Free Thyroxine) 0.58 0.71-1.85 ng/dL Hold Gold Reviewed date:12/07/2023 11:57:59 AM Interpretation: Performing Lab:[facility], [address] [place] [phone] Notes/Report: Hold Gold See Note Specimen held untested for 24 hours; Call to request Chemistry testing. TSH reflex Free T4 Reviewed date:12/10/2023 09:14:37 AM Interpretation:CBACK 12/07 TSH Performing Lab:[facility], [address] [place] [phone] Notes/Report: TSH reflex Free T4 29.24 0.32-4.0 uIU/mL Glucose, finger stick Reviewed date:12/08/2023 09:51:17 AM Interpretation: Performing Lab: Notes/Report: Value 329 colonoscopy Reviewed date:12/09/2023 01:04:18 PM Interpretation:Normal Performing Lab: Notes/Report: Normal Hold Gold (Not yet reviewed by provider) Interpretation: Performing Lab:[address] [phone] Notes/Report: Hold Gold See Note Specimen held untested for 24 hours; Call to request Chemistry testing. TSH reflex Free T4 (Not yet reviewed by provider) Interpretation: Performing Lab:[facility], [address] [place] [phone] Notes/Report: TSH reflex Free T4 71.54 0.32-4.0 uIU/mL REASON FOR REFERRAL Reason acute abscess neck Diagnosis 1 Acute abscess (L02.9 1) Referral Organization Arden Zamora MD Referring Provider First Name Arden Referring Provider Last Name Sera Referring Provider Speciality Internal M edicine Referred Provider Raza Ibarra Referred Provider Specialty Surgery General Notes Oksana Rico 11:44:21 AM EDT > appt with Jacky Clark Annette 10/27/2023 12:13:17 PM EDT > patient is aware of appt Referral Priority Routine Referral Appointment Date 10/28/2023 MEDICATIONS Medication SIG (Take, Route, Frequency, Duration) [...] TABLET BY M OUTH EVERY DAY Active Nicotine Step 1 21 MG/24HR 1 patch to skin Transdermal Once a day for 30 day(s) Not-Taking BD Pen Needle Mini U/F 31G X 5 MM use with pen once a day for injection sq twice a day for 90 days Active Sildenafil Citrate 100 MG 1 tablet Orall y Once a day for 30 Not-Taking Losartan Potassium 50 MG 1 tablet Orally Once a day for 30 day(s) 09/11/2022 Not-Taking Nicotine 21 MG/24HR APPLY 1 PATCH EVERY DAY DIRECTED for 28 Not-Taking IMMUNIZATIONS Vaccine Route Administration Date Status Comme nts Covid Vaccine Unknown 12/04/2020 Administered Dat [place] Fluarix Quadrivalent Unknown 12/01/2017 Refused Fluarix Quadrivalent Unknown 11/23/2018 Refused PPSV23 (Pnemovax) Unknown 04/25/2019 Refused Fluarix Quadrivalent Unknown 12/09/2019 Refused Covid Vaccine Unknown 07/23/2020 Refused Fluarix Quadrivalent Unknown 11/30/2020 Refused Fluarix Quadrivalent Unknown 12/12/2022 Refused Fluarix Quadrivalent - 150 Unknown 11/24/2023 Refused SOCIAL HISTORY Tobacco Use: Social History Observation Description Date Details (start date - stop date) Current Smoker NA - NA Sex Assigned At : Social History Observation Description Sex Assigned At Unknown Tobacco Use/Smoking Question Answer Notes Patient is a current smoker How often do you smoke cigarettes? every day How many cigarettes a day do you smoke? 31 or mo re How soon after you wake up d o you smoke your first cigarette? within 5 minutes Additional Findings: Tobacco User Daisy t cigarette smoker, not currently using another form of tobacco Alcohol Screen Question Answer Notes Did you have a drink containing alcohol in the p ast year? 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) Active confirmed 325049967 Problem Smoker (F17.200) Active confirmed 08632 002 Problem Essential hypertension (I10) Active confirmed 37382866 Problem Acquired hypothyroidism (E03.9) Active confirmed 710071675 Problem Type 2 diabetes, controlled, with neuropathy (E11.40) Active confirmed 69407050 Problem Elevated triglycerides with high cholesterol (E78.2) Active confirmed 026185433 Problem COPD exacerbation (J44.1) Active confirmed 968051184 Problem Dysthymia (F34.1) Active confirmed 7866 7006 Problem Severe episode of recurrent major depressive disorder, without psychotic features (F33.2) Active confirmed 10912728 Problem DARREN (obstructive sleep apnea) (G47.33) Active confirmed 72817735 Problem Smoker unmotivated to quit (F17.200) Active confirmed 52616513 Problem Toe osteomyelitis, 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) Active confirmed 562698602 Problem Chronic ulcer of toe of right foot with fat layer exposed (L97.512) Active confirmed 02132841779335036 VITAL SIGNS Blood pressure diastolic 90 mm Hg 01/26/2024 Height 71 in 01/26/2024 Blood pressure systolic 130 mm Hg 01/26/2024 Weight 243 lbs 01/26/2024 BMI 33.89 kg/m2 01/26/2024 Encounters Encounter Location Date Provider Diagnosis Arden Zamora MD [address] [place] [address] [address] [place] [id number] 06/19/2023 Arden Zamora Type 2 diabetes, controlled, with neuropathy E11.40 Arden Zamora MD [address] [place] [address] [address] [place] [id number] 09/17/2023 Arden Zamora Type 2 diabetes, controlled, with neuropathy E11.40 ; Annual physical exam Z00.00 ; Smoker F17.200 ; Acquired hypothyroidism E03.9 ; Chronic ulcer of toe of right foot with fat layer exposed L97.512 ; Essential hypertension I10 ; Dysthymia F34.1 ; Colon cancer screening Z12.11 and Encounter for screening for depression Z13.31 Arden Zamora MD [address] [place] [id number] 06/12/2023 Arden Zamora Blood tests for routine general physical examination Z00.00 ; Essential hypertension I10 ; Acquired hypothyroidism E03.9 and Type 2 diabetes, controlled, with neuropathy E11.40 Arden Zamora MD [address] [place] [id number] 12/07/2023 Arden Zamora Acquired hypothyroidism E03.9 Arden Zamora MD [address] [place] [address] [id number] 03/08/2024 Arden Zamora Acquired hypothyroidism E03.9 Arden Zamora MD [address] [place] [address] [id number] 03/31/2023 Arden Zamora Type 2 diabetes, controlled, with neuropathy E11.40 and Chronic ulcer of toe of right foot with fat layer exposed L97.512 Arden Zamora MD [address] [place] [id number] 05/12/2023 Arden Zamora Type 2 diabetes, controlled, with neuropathy E11.40 and Diarrhea, unspecified type R19.7 Arden Zamora MD [address] [place] [id number] 12/08/2023 Arden Zamora Type 2 diabetes mellitus with other diabetic kidney complication E11.29 and Acquired hypothyroidism E03.9 Arden Zamora MD [address] [place] [address] [id number] 11/03/2023 Arden Zamora Acute abscess L02.91 and Type 2 diabetes, controlled, with neuropathy E11.40 Arden Zamora MD [address] [place] [address] [id number] 11/24/2023 Arden Zamora Type 2 diabetes, controlled, with neuropathy E11.40 ; Smoker unmotivated to quit F17.200 ; Essential hypertension I10 ; Type 2 diabetes mellitus with other diabetic kidney complication E11.29 ; COPD exacerbation J44.1 and Acute abscess L02.91 Arden Zamora MD [address] [place] [address] [id number] 01/26/2024 Arden Zamora Type 2 diabetes, controlled, with neuropathy E11.40 and Acquired hypothyroidism E03.9 Arden Zamora MD [address] [place] [address] [id number] 10/27/2023 Arden Zamora Type 2 diabetes, controlled, with neuropathy E11.40 and Acute abscess L02.91 Arden Zamora MD [address] [place] [address] [id number] 04/03/2023 Arden Zamora Type 2 diabetes, controlled, with neuropathy E11.40 Arden Zamora MD [address] [place] [address] [id number] 04/10/2023 Arden Zamora Elevated triglycerid es with high cholesterol E78.2 Arden Zamora MD [address] [place] [address] [id number] 08/27/2023 Arden Zamora MD [address] [place] [address] [id number] 10/22/2023 Arden Zamora MD [address] [place] [address] [id number] 11/30/2023 Arden Zamora ASSESSMENTS Encounter Date Diagnosis Assessment Notes Treatment Notes Treatment Clinical Notes 06/19/2023 Type 2 diabetes, controlled, with neuropathy (ICD-10 - E11.40) 09/17/2023 Annual physical exam (ICD-10 - Z00.00) labs reviewed and discussed with patient 09/17/2023 Type 2 diabetes, controlled, with neuropathy (ICD-10 - E11.40) 1 hour pp. not taking meds as directed 06/12/2023 Essential hypertension (ICD-10 - I10) 06/12/2023 Blood tests for routine general physical examination (ICD-10 - Z00.00) 12/07/2023 Acquired hypothyroidism (ICD-10 - E03.9) 03/08/2024 Acquired hypothyroidism (ICD-10 - E03.9) 03/31/2023 Type 2 diabetes, controlled, with neuropathy (ICD-10 - E11.40) has been working on diet and is getting better sugars, will continue current regiment 03/31/2023 Chronic ulcer of toe of right foot with fat layer exposed (ICD-10 - L97.512) Patient/Caregiver verbalizes understanding of medications side effects, interactions and warnings. 05/12/2023 Type 2 diabetes, controlled, with neuropathy (ICD-10 - E11.40) needs prior authorization for michelle. is not able to take metformin for diarrhea. not eating well. mostly eating fast food Paperwork faxed for P-A for Michelle. 05/12/2023 Diarrhea, unspecified type (ICD-10 - R19.7) will monitor, is improving 12/08/2023 Type 2 diabetes mellitus with other [...] it for 2 weeks should be okay 11/03/2023 Type 2 diabetes, controlled, with neuropathy (ICD-10 - E11.40) has not been taking insulin as precribed, advised to get sugar under control he must take medication as prescribed, advised it won't heal otherwise 11/03/2023 Acute abscess (ICD-10 - L02.91) contiue to improve, seeing surgeoin today. he attempted to drain it and there was no pus, will continue to monitor 11/24/2023 Type 2 diabetes, controlled, with neuropathy (ICD-10 - E11.40) not taking any pills or insulin. have re emphasized the need to take medicines as directed. his sugars will never be safe if he doesn't take his meds 01/26/2024 Acquired hypothyroidism (ICD-10 - E03.9) not taking thyroid meds. needs to get back on them 01/26/2024 Type 2 diabetes, controlled, with neuropathy (ICD-10 - E11.40) not taking meds.needs to get back on them 10/27/2023 Type 2 diabetes, controlled, with neuropathy (ICD-10 - E11.40) will cntnue current regiment 10/27/2023 Acute abscess (ICD-10 - L02.91) referral to dr ibarra. 04/03/2023 Type 2 diabetes, controlled, with neuropathy (ICD-10 - E11.40) 04/10/2023 Elevated triglycerides with high cholesterol (ICD-10 - E78.2) 09/17/2023 Smoker (ICD-10 - F17.200) not will to quit 06/12/2023 Acquired hypothyroidism (ICD-10 - E03.9) 11/24/2023 Smoker unmotivated to quit (ICD-10 - F17.200) 09/17/2023 Acquired hypothyroidism (ICD-10 - E03.9) not taking meds as directed so don't want to increase meds 06/12/2023 Type 2 diabetes, controlled, with neuropathy (ICD-10 - E11.40) 11/24/2023 Essential hypertension (ICD-10 - I10) well controlled, at goal, will continue to monitor 09/17/2023 Chronic ulcer of toe of right foot with fat layer exposed (ICD-10 - L97.512) needs to get off loading shoes which helped 11/24/2023 Type 2 diabetes mellitus with other diabetic kidney complication (ICD-10 - E11.29) 09/17/2023 Essential hypertension (ICD-10 - I10) stable, will continue current regiment 11/24/2023 COPD exacerbation (ICD-10 - J44.1) 09/17/2023 Dysthymia (ICD-10 - F34.1) stable, will continue current regiment 11/24/2023 Acute abscess (ICD-10 - L02.91) is improving, no warmth of tendernes in the neck 09/17/2023 Colon cancer screening (ICD-10 - Z12.11) guaiac negative 09/17/2023 Encounter for screening for depression (ICD-10 - Z13.31) negative screen PLAN OF TREATMENT Pending Test Test Name Order Date Hemoglobin A1c 03/15/2024 Glucose, finger stick 03/15/2024 TSH reflex Free T4 03/08/2024 Hold Gold 03/08/2024 Next Appt Details Provider Name:Arden mae, 03/15/2024 09:15:00 AM, [address] [place] [address], [address], [place], [place], [phone], Provider Name:Arden mae, 09/13/2024 07:15:00 AM, [address], [address], [place], [place], [phone], Provider Name:Arden Wilcox carmelita, 09/20/2024 09:30:00 AM, [address], [address], [place], [place], [phone], Insurance Providers Payer Name Payer Address Payer Phone Subscriber Number Group Number Insured Name Patient Relationship to Insured Coverage Start Date Coverage End Date [facility] [address] [place], [place] [id number] Jeyson Evans Self - patient is the insured MEDICAL (GENERAL) HISTORY Medical History History ICD Code got diarrhea on metformin 01/13/22 Colonoscopy repeat one year
--- OUTSIDE RECORDS SUMMARY | 2024-03-08 12:03 | XMS_ITS | Patient Health Record ---
Author Organization [facility] Address [address] [place] [address] Care Team Providers Care Ad Trafficker Name Role Phone Arden Zamora MD Primary Care Provider Nicanor Garcia Unavailable [phone] ALLERGIES Allergen (clinical drug ingredient) Drug/Non Drug Allergy documented on EMR Reaction Allergy Type Onset Date Status Cat dander cats (uncoded) Unknown Allergy Acti ve REASON FOR REFERRAL No Information MEDICATIONS Medication SIG (Take, Route, Frequency, Duration) Notes Start Date End Date Status Atorvastatin Calcium 40 MG TAKE 1 TABLET BY MOUTH EVERY DAY Oral for 90 Active Levothyroxine Sodium 175 MCG Oral for 90 Active Lantus SoloStar 100 UNIT/ML Subcutaneous for 41 Active Sertraline HCl 100 MG TAKE 1 TABLET BY M OUTH EVERY DAY Oral for 90 Active IMMUNIZATIONS Vaccine Route Administration Date Status Comme nts Influenza Unknown 11/26/2021 Refused SOCIAL HISTORY Tobacco Use: Social History Observation Description Date Details (start date - stop date) Current Smoker NA - NA Sex Assigned At : Social History Observation Description Sex Assigned At Unknown Tobacco Use/Smoking Question Answer Notes Patient is a current smoker How often do you smoke cigarettes? every day How many cigarettes a day do you smoke? 21-30 Alcohol Screen Question Answer Notes Did you have a drink containing alcohol in the p ast year? No Points 0 Interpretation Negative PROBLEMS Problem Type ICD Code Onset Dates Problem Status W/U Status Risk SNOMED Code Notes Problem Constipation (K59.00) Active confirmed Constipation (36660267) Problem Colon cancer screening (Z12.11) Active confirmed Colon cancer screening (692588670) Problem Diverticulosis of sigmoid colon (K57.30) Active confirmed Diverticulosis of sigmoid colon (606742807) PLAN OF TREATMENT Pending Test Test Name Order Date Pathology 01/13/2022 Future Test Test Name Order Date COLONOSCOPY 11/26/2021 Insurance Providers Payer Name Payer Address Payer Phone Subscriber Number Group Number Insured Name Patient Relationship to Insured Coverage Start Date Coverage End Date [facility] [address] [place] [address] [id number] JAJA CALVO Self - patient is the insured MEDICAL (GENERAL) HISTORY Medical History History ICD Code IDDM Denies [place],CVA,Lung disease,renal disease HTN-previously on meds Hyperlipidemia Hypothyroidism Depression Surgical History Surgery Date(Month/Year) Broken elbow- right CCY-done open Umbilical hernia
[2024-03-08 13:54] LABS: Free T4 (Free Thyroxine) < 0.42 ng/dL (0.71-1.85)
== END 2024-03-08 10:49 | disposition home or self-care (01) ==
LOC: HO.LNP 10:48
PROVIDERS: Visit Provider Internal Medicine
DX: E03.9 Hypothyroidism, unspecified (principal)
CPT/HCPCS: 84439; 84443

== ENCOUNTER 2024-05-13 10:45 | Outpatient (REF) | payer BC, SELFPAY ==
[2024-05-13 11:50] LABS: TSH reflex Free T4 24.28 uIU/mL (0.32-4.0)
--- OUTSIDE RECORDS SUMMARY | 2024-05-13 12:19 | XMS_ITS ---
Author Organization Arden Zamora MD Address [address] [place] [phone] Care Team Providers Care Compotype Operator Name Role Phone Arden Zamora Primary Care Provider Allergies No Known Allergies Results Component Value Reference Range Notes Hemoglobin A1c Reviewed date:03/15/2024 09:22:37 AM Interpretation: Performing Lab: Notes/Report: Hemoglobin A1c 13.2 Glucose, finger stick Reviewed date:03/15/2024 09:15:45 AM Interpretation: Performing Lab: Notes/Report: Value 310 REASON FOR VISIT 1 month, CBACK TSH Medications Medication SIG (Take, Route, Frequency, Duration) Notes Start Date End Date Status Losartan Potassium 50 MG 1 tablet Orally Once a day for 30 day(s) 09/11/2022 Not-Taking Nicotine 21 MG/24HR APPLY 1 PATCH EVERY DAY DIRECTED for 28 Not-Taking Sildenafil Citrate 100 MG 1 tablet Orall y Once a day for 30 Not-Taking Trulicity 0.75 MG/0.5ML one pen Subcutan eous weekly for 30 days Not-Taking Nicotine Step 1 21 MG/24HR 1 patch to skin Transdermal Once a day for 30 day(s) Not-Taking FreeStyle Lite Test - USE TO TEST BLOOD SUGAR TWICE A DAY for 30 days Active Levothyroxine Sodium 200 MCG TAKE 1 TABLET BY MOUTH ONCE EVERY DAY IN THE MORNING ON AN EMPTY STOMACH, FOR 90 DAYS Active Lantus SoloStar 100 UNIT/ML 80 units Subcutaneous bid Active Januvia 100 MG TAKE 1 TABLET BY CYDNEY TH EVERY DAY Not-Taking Albuterol Sulfate HFA 108 (90 Base) MCG/ACT 1 puff as needed Inhalation every 4 hrs for 30 days 11/24/2023 Active BD Pen Needle Mini U/F 31G X 5 MM use with pen once a day for injection sq twice a day for 90 days Active Atorvastatin Calcium 40 MG TAKE 1 TABLET BY MOUTH ONCE A DAY Orally Once a day for 90 days Active Sertraline HCl 100 MG TAKE 1 TABLET BY M OUTH EVERY DAY Active Vital Signs Blood pressure systolic 138 mm Hg 03/15/19 25 Blood pressure diastolic 86 mm Hg 025 Height 71 in 03/15/2024 Weight 251 lbs 03/15/2024 BMI 35.00 kg/m2 03/15/2024 weight is up 8 pounds since 01-26-24 Encounters Encounter Location Date Provider Diagnosis Arden Zamora MD [address] [place] [address] [place] [phone] 03/15/2024 Arden Zamora Type 2 diabetes mellitus with other diabetic kidney complication E11.29 and Acquired hypothyroidism E03.9 Assessments Encounter Date Diagnosis (ICD Code) Assessment Notes Treatment Notes Treatment Clinical Notes Section Notes 03/15/2024 Type 2 diabetes mellitus with other diabetic kidney complication (ICD-10 - E11.29) not even taking insulin or atorvastatin or his anti depressant 03/15/2024 Acquired hypothyroidism (ICD-10 - E03.9) should start to take meds one half at a time. has not taken it for months. after month to go back up to full dose Plan Of Treatment Treatment Notes Assessment Notes Type 2 diabetes mellitus wit h other diabetic kidney complication not even taking insulin or atorvastatin or his anti depressant Acquired hypothyroidism should start to take meds one half at a time. has not taken it for months. after month to go back up to full dose Future Test Test Name Order Date TSH reflex Free T4 05/13/2024 Next Appt Details Follow Up: 2 Months, Reason: Provider Name:Arden Wilcox ier, 07/05/2024 10:00:00 AM, [address], [address], [place], [phone], Provider Name:Arden mae, 09/13/2024 07:15:00 AM, [address], [address], [place], [phone], Provider Name:Arden sorianor, 09/20/2024 09:30:00 AM, [address], [address], [place], [phone], Progress Notes * CALVOJonathanManuelOB:1975 (48 yo M)Acc No.[id number]:03/15/2024 Progress Notes Patient:?NathanGregoriown Provider:?Arden Zamora MD :1975???Age:48 Y???Sex:Male Rafa e:03/15/2024 Address:[address] [place], [place] [phone] Subjective: * Chief Complaints: * ???1 monthCBACK TSH * HPI: ???Symptom(s):? patient is a 48 yo male here for one month follow up visit, eating a lot more. * ROS:?General/Constitutional:?Denies?Chills.?Denies?Fatigue.?Denies?Fever.?Denies?Headache.?ENT:?Patient denies?decreased sense of smell , any loss of taste , sore throat.?Denies?Sore throat.?Respiratory:?Denies?Cough.?Denies?Shortness of breath at rest.?Denies?Shortness of breath with exertion.?Gastrointestinal:?Denies?Diarrhea.?Denies?Nausea.?Musculoskeletal:?Patient denies?muscle aches.?Peripheral Vascular:?Patient denies?red and blue toes.? * Medical History:? * Surgical History:? * Hospitalization/Major Diagno stic Procedure:? * Medications:?TakingBD Pen Ne edle Mini U/F 31G X 5 MM Miscellaneous use with pen once a day for injection sq twice a dayAtorvastatin Calcium 40 MG Tablet TAKE 1 TABLET BY MOUTH ONCE A DAY Orally Once a daySertraline HCl 100 MG Tablet TAKE 1 TABLET BY MOUTH EVERY DAY Albuterol Sulfate HFA 108 (90 Base) MCG/ACT Aerosol Solution 1 puff as needed Inhalation every 4 hrsFreeStyle Lite Test - Strip USE TO TEST BLOOD SUGAR TWICE A DAY Levothyroxine Sodium 200 MCG Tablet TAKE 1 TABLET BY MOUTH ONCE EVERY DAY IN THE MORNING ON AN EMPTY STOMACH, FOR 90 DAYS Lantus SoloStar 100 UNIT/ML Solution Pen-injector 80 units Subcutaneous bidTaking BD Pen Needle Mini U/F 31G X 5 MM Miscellaneous use with pen once a day for injection sq twice a dayTaking Atorvastatin Calcium 40 MG Tablet TAKE 1 TABLET BY MOUTH ONCE A DAY Orally Once a dayTaking Sertraline HCl 100 MG Tablet TAKE 1 TABLET BY MOUTH EVERY DAY Taking Albuterol Sulfate HFA 108 (90 Base) MCG/ACT Aerosol Solution 1 puff as needed Inhalation every 4 hrsTaking FreeStyle Lite Test - Strip USE TO TEST BLOOD SUGAR TWICE A DAY Taking Levothyroxine Sodium 200 MCG Tablet TAKE 1 TABLET BY MOUTH ONCE EVERY DAY IN THE MORNING ON AN EMPTY STOMACH, FOR 90 DAYS Taking Lantus SoloStar 100 UNIT/ML Solution Pen-injector 80 units Subcutaneous bidNot-Taking/PRNJanuvia 100 MG Tablet TAKE 1 TABLET BY MOUTH EVERY DAY Losartan Potassium 50 MG Tablet 1 tablet Orally Once a dayNicotine 21 MG/24HR Patch 24 Hour APPLY 1 PATCH EVERY DAY DIRECTED Nicotine Step 1 21 MG/24HR Patch 24 Hour 1 patch to skin Transdermal Once a daySildenafil Citrate 100 MG Tablet 1 tablet Orally Once a dayTrulicity 0.75 MG/0.5ML Solution Pen-injector one pen Subcutaneous weeklyMedication List reviewed and reconciled with the patientNot-Taking/PRN Januvia 100 MG Tablet TAKE 1 TABLET BY MOUTH EVERY DAY Not-Taking/PRN Losartan Potassium 50 MG Tablet 1 tablet Orally Once a dayNot-Taking/PRN Nicotine 21 MG/24HR Patch 24 Hour APPLY 1 PATCH EVERY DAY DIRECTED Not-Taking/PRN Nicotine Step 1 21 MG/24HR Patch 24 Hour 1 patch to skin Transdermal Once a dayNot-Taking/PRN Sildenafil Citrate 100 MG Tablet 1 tablet Orally Once a dayNot-Taking/PRN Trulicity 0.75 MG/0.5ML Solution Pen-injector one pen Subcutaneous weeklyMedication List reviewed and reconciled with the patient * Allergies:?N.K.D.A.yes[Aller gies Verified] Objective: * Vitals:?Ht: 71, Wt:251, BMI: 35.00, BP:138/86 weight is up 8 pounds since 01-26-24. * ???Past Orders: ???Lab:Free T4 (Free Thyroxi ne) (Order Date - 03/08/2024) (Collection Date - 03/08/2024) ? Value Reference Range ?Free T4 (Free Thyroxine) < 0.42 L 0.71-1.85 - ng/dL * Examination: ???General Examination: ?GENERAL APPEARANCE:?alert, well hydrated, in no distress.?HEAD:?normocephalic.?HEART:?no murmurs, rubs, gallops.?LUNGS:?no wheezes, rales, rhonchi , good air movement , clear to auscultation bilaterally.? Assessment: * Assessment: 1.?Type 2 diabetes mellitus with other diabetic kidney complication - E11.29?2.?Acquired hypothyroidism - E03.9? Plan: * Treatment: ? Value Reference Range ?Hemoglobin A1c 13.2 * Araseli Mott 5 09:22:35 AM EST > ?LAB: Glucose, finger stick* ? Value Reference Range ?Value 310 * Araseli Mott 5 09:15:44 AM EST > ?LAB: TSH reflex Free T4 (Ordered for 05/13/2024) Notes: not even taking insulin or atorvastatin or his anti depressant?? 2.?Acquired hypothyroidism? Notes: should start to take meds one half at a time. has not taken it for months. after month to goback up to full dose?? * Procedure Codes:?64100 ASSAY , GLUCOSE, BLOOD QUANT, Modifiers: QW 73110 GLYCATED HEMOGLOBIN TEST, Modifiers: QW * Follow Up:?2 Months * * Sign off status: Completed true * Provider:?Arden Zamora MD Date:?0 03/15/2024 Generated for Ulises garcia/Jarvis/Loriitting on:?05/13/2024 12:19 PM EDT History and Physical Notes * HPI (History of Present Illness) Category Sub-Category Detail Notes Category Not es Symptom(s) patient is a 48 yo male here for one month follow up visit, eating a lot more. Examination Category Sub-Category Detail Notes Category Not es General Examination GENERAL APPEARANCE: alert, w ell hydrated, in no distress HEAD: normocephalic HEART: no murmurs, rubs, ga llops LUNGS: no wheezes, rales, r honchi , good air movement , clear to auscultation bilaterally
--- OUTSIDE RECORDS SUMMARY | 2024-05-13 12:20 | XMS_ITS ---
Author Organization Arden Zamora MD Address [address] [place] [phone] Care Team Providers Care Technical Illustrations Map Inker Name Role Phone Arden Zamora Primary Care Provider Results Component Value Reference Range Notes TSH reflex Free T4 (Not yet reviewed by provider) Interpretation: Performing Lab:[facility], [address] [place] [phone] Notes/Report: TSH reflex Free T4 24.28 0.32-4.0 uIU/mL REASON FOR VISIT TSH Encounters Encounter Location Date Provider Diagnosis Arden Zamora MD [address] [place] [phone] 05/13/2024 Arden Zamora Acquired hypothyroidism E03.9 Assessments Encounter Date Diagnosis (ICD Code) Assessment Notes Treatment Notes Treatment Clinical Notes Section Notes 05/13/2024 Acquired hypothyroidism (ICD-10 - E03.9) Plan Of Treatment Pending Test Test Name Order Date TSH reflex Free T4 05/13/2024 Next Appt Details Provider Name:Arden Wilcox ier, 07/05/2024 10:00:00 AM, [address], [address], [place], [place], [phone], Provider Name:Arden Wilcox ier, 09/13/2024 07:15:00 AM, [address], [address], [place], [place], [phone], Provider Name:Arden Wilcox ier, 09/20/2024 09:30:00 AM, [address], [address], [place], [place], [phone], Progress Notes * Jonathan CALVOnDOB:1975 (48 yo M)Acc No.[id number]:05/13/2024 Progress Note Patient:?Jeyson CALVO Provider:?Arden Zamora MD :1975???Age:48 Y???Sex:Male Rafa e:05/13/2024 Address:[address] [place], [place] [phone] Subjective: * Chief Complaints: * ???1. TSH. * Medical History:? Objective: * Vitals:? Assessment: * Assessment: 1.?Acquired hypothyroidism - E03.9 (Primary)??? Plan: * Treatment: * Procedure Codes:?72633 VENIP UNCT, ROUTINE* * * The named appointment provid er may or may not be the originator of this progress note, and it is not deemed complete until electronically signed by the appointment provider. Sign off status: Pending * Provider:?Arden Zamora MD Date:?0 05/13/2024 Generated for Ulises garcia/Jarvis/eTransmitting on:?05/13/2024 12:19 PM EDT
--- OUTSIDE RECORDS SUMMARY | 2024-05-13 12:20 | XMS_ITS ---
Author Organization Arden Zamora MD Address [address] [place] [phone] Care Team Providers Care Flower Stripper Name Role Phone Arden Zamora Primary Care Provider Allergies No Known Allergies Results Component Value Reference Range Notes Glucose, finger stick (Not y et reviewed by provider) Interpretation: Performing Lab: Notes/Report: Value 297 REASON FOR VISIT 2 month Medications Medication SIG (Take, Route, Frequency, Duration) Notes Start Date End Date Status Levothyroxine Sodium 200 MCG TAKE 1 TABLET BY MOUTH ONCE EVERY DAY IN THE MORNING ON AN EMPTY STOMACH, FOR 90 DAYS Active Lantus SoloStar 100 UNIT/ML 80 units Subcutaneous bid Active FreeStyle Lite Test - USE TO TEST BLOOD SUGAR TWICE A DAY for 30 days Active Sildenafil Citrate 100 MG 1 tablet Orall y Once a day for 30 Not-Taking Atorvastatin Calcium 40 MG TAKE 1 TABLET BY MOUTH EVERY DAY for 90 Active Sertraline HCl 100 MG TAKE 1 TABLET BY M OUTH EVERY DAY Active Albuterol Sulfate HFA 108 (90 Base) MCG/ACT 1 puff as needed Inhalation every 4 hrs for 30 days 11/24/2023 Active BD Pen Needle Mini U/F 31G X 5 MM use with pen once a day for injection sq twice a day for 90 days Active Vital Signs Blood pressure systolic 144 mm Hg 05/04/19 25 Blood pressure diastolic 90 mm Hg 025 Height 71 in 05/03/2024 Weight 239 lbs 05/03/2024 BMI 33.33 kg/m2 05/03/2024 weight is down 12 pounds sin 03-15-24 Encounters Encounter Location Date Provider Diagnosis Arden Zamora MD [address] [place] [address] [place] [phone] 05/03/2024 Arden Zamora Type 2 diabetes, controlled, with neuropathy E11.40 and Acquired hypothyroidism E03.9 Assessments Encounter Date Diagnosis (ICD Code) Assessment Notes Treatment Notes Treatment Clinical Notes Section Notes 05/03/2024 Type 2 diabetes, controlled, with neuropathy (ICD-10 - E11.40) encouraged him to take his insulin 05/03/2024 Acquired hypothyroidism (ICD-10 - E03.9) stable, will continue current regiment Plan Of Treatment Medication Medication Name Sig Start Date Stop Date Notes Levothyroxine Sodium 200 MCG TAKE 1 TABL ET BY MOUTH ONCE EVERY DAY IN THE MORNING ON AN EMPTY STOMACH, FOR 90 DAYS Lantus SoloStar 100 UNIT/ML 80 units Subcutaneous bid Treatment Notes Assessment Notes Type 2 diabetes, controlled, with neurop athy encouraged him to take his insulin Acquired hypothyroidism stable, will con tinue current regiment Pending Test Test Name Order Date Glucose, finger stick 05/03/2024 Next Appt Details Follow Up: 2 Months, Reason: Provider Name:Arden mae, 07/05/2024 10:00:00 AM, [address] [place] [address], [place] [address], [place], [place], [phone], Provider Name:Arden mae, 09/13/2024 07:15:00 AM, [address] [place] [address], [place] [address], [place], [place], [phone], Provider Name:Arden mae, 09/20/2024 09:30:00 AM, [address] [place] [address], [place] [address], [place], [place], [phone], Progress Notes * Geronimo CALVOOB:1975 (48 yo M)Acc No.[id number]:05/03/2024 Progress Notes Patient:?Jeyson CALVO Provider:?Arden Zamora MD :1975???Age:48 Y???Sex:Male Rafa e:05/03/2024 Address:[address] [place], [place] [phone] Subjective: * Chief Complaints: * ???2 month * HPI: ???Symptom(s):?patient is a 48 yo male here for 2 month follow up visit.? has restarted meds except lantus.has been feeling better. head is clearer. * ROS:?General/Constitutional:?Denies?Chills.?Denies?Fatigue.?Denies?Fever.?Denies?Headache.?ENT:?Patient denies?decreased sense of smell, any loss of taste, sore throat.?Denies?Sore throat.?Endocrine:?Admits?Difficulty sleeping.?Denies?Dizziness.?Denies?Excessive sweating.?Admits?Excessive thirst.?Admits?Frequent urination.?Respiratory:?Denies?Cough.?Denies?Shortness of breath at rest.?Denies?Shortness of breath with exertion.?Gastrointestinal:?Denies?Diarrhea.?Denies?Nausea.?Musculoskeletal:?Patient denies?muscle aches.?Peripheral Vascular:?Patient denies?red and blue toes.? * Medical History:? * Surgical History:? * Hospitalization/Major Diagno stic Procedure:? * Medications:?TakingBD Pen Ne edle Mini U/F 31G X 5 MM Miscellaneous use with pen once a day for injection sq twice a day Sertraline HCl 100 MG Tablet TAKE 1 TABLET BY MOUTH EVERY DAY Albuterol Sulfate HFA 108 (90 Base) MCG/ACT Aerosol Solution 1 puff as needed Inhalation every 4 hrs FreeStyle Lite Test - Strip USE TO TEST BLOOD SUGAR TWICE A DAY Levothyroxine Sodium 200 MCG Tablet TAKE 1 TABLET BY MOUTH ONCE EVERY DAY IN THE MORNING ON AN EMPTY STOMACH, FOR 90 DAYS Lantus SoloStar 100 UNIT/ML Solution Pen-injector 80 units Subcutaneous bid Atorvastatin Calcium 40 MG Tablet TAKE 1 TABLET BY MOUTH EVERY DAY Taking BD Pen Needle Mini U/F 31G X 5 MM Miscellaneous use with pen once a day for injection sq twice a day Taking Sertraline HCl 100 MG Tablet TAKE 1 TABLET BY MOUTH EVERY DAY Taking Albuterol Sulfate HFA 108 (90 Base) MCG/ACT Aerosol Solution 1 puff as needed Inhalation every 4 hrs Taking FreeStyle Lite Test - Strip USE TO TEST BLOOD SUGAR TWICE A DAY Taking Levothyroxine Sodium 200 MCG Tablet TAKE 1 TABLET BY MOUTH ONCE EVERY DAY IN THE MORNING ON AN EMPTY STOMACH, FOR 90 DAYS Taking Lantus SoloStar 100 UNIT/ML Solution Pen-injector 80 units Subcutaneous bid Taking Atorvastatin Calcium 40 MG Tablet TAKE 1 TABLET BY MOUTH EVERY DAY Not-Taking/PRNSildenafil Citrate 100 MG Tablet 1 tablet Orally Once a day Medication List reviewed and reconciled with the patientNot-Taking/PRN Sildenafil Citrate 100 MG Tablet 1 tablet Orally Once a day Medication List reviewed and reconciled with the patient * Allergies:?N.K.D.A.yes[Aller gies Verified] Objective: * Vitals:?Ht: 71, Wt: 239, BMI :33.33, BP:144/90, Repeat BP:130/90, Wt-k.41. weight is down 12 pounds since 03-15-24. * Examination: ???General Examination: ?GENERAL APPEARANCE:?alert, well hydrated, in no distress.?SKIN:?good turgor.?HEART:?regular rate and rhythm, no murmurs, rubs, gallops.?LUNGS:?no wheezes, rales, rhonchi, good air movement.? Assessment: * Assessment: 1.?Type 2 diabetes, control ed, with neuropathy - E11.40 (Primary)???2.?Acquired hypothyroidism - E03.9??? Plan: * Treatment: ? Value Reference Range ?Value 297 Notes: encouraged him to take his insulin??2.?Acquired hypothyroidism? Continue Levothyroxine Sodium Tablet, 200 MCG, TAKE 1 TABLET BY MOUTH ONCE EVERY DAY IN THE MORNINGON AN EMPTY STOMACH, FOR 90 DAYS.?? Notes: stable, will continue current regiment?? * Procedure Codes:?51698 ASSAY , GLUCOSE, BLOOD QUANT, Modifiers: QW * Follow Up:?2 Months * * Sign off status: Completed true * Provider:?Arden Zamora MD Date:?0 05/03/2024 Generated for Ulises garcia/Jarvis/eTransmitting on:?05/13/2024 12:19 PM EDT History and Physical Notes * HPI (History of Present Illness) Category Sub-Category Detail Notes Category Not es Symptom(s) patient is a 48 yo male here for 2 month follow up visit. has restarted meds except lantus.has been feeling better. head is clearer Examination Category Sub-Category Detail Notes Category Not es General Examination GENERAL APPEARANCE: alert, w ell hydrated, in no distress HEART: regular rate and rhy thm, no murmurs, rubs, gallops LUNGS: no wheezes, rales, r honchi, good air movement SKIN: good turgor
[2024-05-13 13:53] LABS: Free T4 (Free Thyroxine) 0.79 ng/dL (0.71-1.85)
== END 2024-05-13 10:46 | disposition home or self-care (01) ==
LOC: HO.LNP 10:45
PROVIDERS: Visit Provider Internal Medicine
DX: E03.9 Hypothyroidism, unspecified (principal)
CPT/HCPCS: 84439; 84443

== ENCOUNTER 2024-06-13 07:30 | Outpatient (REF) | payer BC, SELFPAY ==
[2024-06-13 11:10] LABS: TSH reflex Free T4 29.59 uIU/mL (0.32-4.0)
--- OUTSIDE RECORDS SUMMARY | 2024-06-13 11:18 | XMS_ITS ---
Author Organization Arden Zamora MD Address [address] [place] [phone] Care Team Providers Care Auto Painter Name Role Phone Arden Zamora Primary Care [...] Location Date Provider Diagnosis Arden Zamora MD [address] [place] [address] [place] [phone] 05/03/2024 Arden Zamora Type 2 diabetes, controlled, [...] Reason: Provider Name:Arden mae, 07/05/2024 10:00:00 AM, [address] [place] [address], [place] [address], [place], [place], [phone], Provider Name:Arden mae, 09/13/2024 07:15:00 AM, [address] [place] [address], [place] [address], [place], [place], [phone], Provider Name:Arden mae, 09/20/2024 09:30:00 AM, [address] [place] [address], [place] [address], [place], [place], [phone], Progress Notes * Geronimo CALVOOB:1975 (48 yo M)Acc No.[id number]:05/03/2024 Progress Notes Patient:?Jeyson CALVO Provider:?Arden Zamora MD :1975???Age:48 Y???Sex:Male Rafa e:05/03/2024 Address:[address] [place], [place] [phone] Subjective: * Chief Complaints: * ???2 month [...] stable, will continue current regiment?? * Procedure Codes:?36634 ASSAY , GLUCOSE, BLOOD QUANT, Modifiers: QW * Follow Up:?2 Months * * Sign off status: Completed true * Provider:?Arden Zamora MD Date:?0 05/03/2024 Generated for Ulises garcia/Jarvis/eTransmitting on:?06/13/2024 11:18 AM EDT History and Physical Notes * HPI [...]
--- OUTSIDE RECORDS SUMMARY | 2024-06-13 11:18 | XMS_ITS ---
Author Organization Arden Zamora MD Address [address] [place] [phone] Care Team Providers Care Recruiting Internship Name Role Phone Arden Zamora Primary Care Provider [phone] Results Component Value Reference Range Notes TSH reflex Free T4 (Not yet reviewed by provider) Interpretation: Performing Lab:[facility], [address] [place] [phone] Notes/Report: TSH reflex Free T4 29.59 0.32-4.0 uIU/mL REASON FOR VISIT TSH Encounters Encounter Location Date Provider Diagnosis Arden Zamora MD [address] [place] [phone] 06/13/2024 Arden Zamora Type 2 diabetes mellitus with other diabetic kidney complication E11.29 Assessments Encounter Date Diagnosis (ICD Code) Assessment Notes Treatment Notes Treatment Clinical Notes Section Notes 06/13/2024 Type 2 diabetes mellitus with other diabetic kidney complication (ICD-10 - E11.29) Plan Of Treatment Pending Test Test Name Order Date TSH reflex Free T4 06/13/2024 Next Appt Details Provider Name:Arden Wilcox christier, 07/05/2024 10:00:00 AM, [address], [address], [place], [phone], Provider Name:Arden Wilcox christier, 09/13/2024 07:15:00 AM, [address], [address], [place], [phone], Provider Name:Arden Wilcox ier, 09/20/2024 09:30:00 AM, [address], [address], [place], [phone], Progress Notes * Geronimo CALVOOB:1975 (48 yo M)Acc No.[id number]:06/13/2024 Progress Note Patient:Jeyosn SCHUMACHER Provider:?Arden Zamora MD :1975???Age:48 Y???Sex:Male Rafa e:06/13/2024 Address:[address] [place], [place] [phone] Subjective: * Chief Complaints: * ???1. TSH. * Medical History:? Objective: * Vitals:? Assessment: * Assessment: 1.?Type 2 diabetes mellitus with other diabetic kidney complication - E11.29??? Plan: * Treatment: * Procedure Codes:?29933 VENIP UNCT, ROUTINE* * * The named appointment provid er may or may not be the originator of this progress note, and it is not deemed complete until electronically signed by the appointment provider. Sign off status: Pending * Provider:?Arden Zamora MD Date:?0 06/13/2024 Generated for Ulises garcia/Jarvis/eTransmitting on:?06/13/2024 11:18 AM EDT
--- OUTSIDE RECORDS SUMMARY | 2024-06-13 11:19 | XMS_ITS ---
Author Organization Arden Zamora MD Address [address] [place] [phone] Care Team Providers Care Director Mission Name Role Phone Arden Zamora Primary Care Provider Results Component Value Reference Range Notes TSH reflex Free T4 Reviewed date:05/13/2024 05:05:01 PM Interpretation: Performing Lab:[facility], [address] [place] [phone] Notes/Report: TSH reflex Free T4 24.28 0.32-4.0 uIU/mL REASON FOR VISIT TSH Encounters Encounter Location Date Provider Diagnosis Arden Zamora MD [address] [place] [address] [place] [phone] 05/13/2024 Arden Zamora Acquired hypothyroidism E03.9 Assessments Encounter Date Diagnosis (ICD Code) Assessment Notes Treatment Notes Treatment Clinical Notes Section Notes 05/13/2024 Acquired hypothyroidism (ICD-10 - E03.9) Plan Of Treatment Next Appt Details Provider Name:Arden mae, 07/05/2024 10:00:00 AM, [address], [address], [place], [place], [phone], Provider Name:Arden Deejay Reedjairo carmelita, 09/13/2024 07:15:00 AM, [address] [facility], [address], [place], [phone], Provider Name:Arden Wilcox carmelita, 09/20/2024 09:30:00 AM, [address] [facility], [address], [place], [phone], Progress Notes * Jonathan CALVOnDOB:1975 (48 yo M)Acc No.[id number]:05/13/2024 Progress Note Patient:?Jeyson CALVO Provider:?Arden Zamora MD :1975???Age:48 Y???Sex:Male Rafa e:05/13/2024 Address:[address] [place], [place] [phone] Subjective: * Chief Complaints: * ???1. TSH. * Medical History:? Objective: * Vitals:? Assessment: * Assessment: 1.?Acquired hypothyroidism - E03.9 (Primary)??? Plan: * Treatment: * Procedure Codes:?73447 VENIP UNCT, ROUTINE* * * The named appointment provid er may or may not be the originator of this progress note, and it is not deemed complete until electronically signed by the appointment provider. Sign off status: Pending * Provider:?Arden Zamora MD Date:?0 05/13/2024 Generated for Ulises garcia/Jarvis/eTransmitting on:?06/13/2024 11:18 AM EDT
--- OUTSIDE RECORDS SUMMARY | 2024-06-13 11:19 | XMS_ITS | Patient Health Record ---
Author Organization Arden Zamora MD Address [address] [place] [phone] Care Team Providers Care Client Analyst Name Role Phone Arden Zamora Primary Care Provider Allergies No Known Allergies Results Component Value Reference Range Notes Hemoglobin A1c Reviewed date:09/17/2023 02:37:55 PM Interpretation: Performing Lab: Notes/Report: Hemoglobin A1c 13.4 Hemoglobin A1c Reviewed date:11/24/2023 09:49:53 AM Interpretation: Performing Lab: Notes/Report: Hemoglobin A1c 12.5 Hemoglobin A1c Reviewed date:03/15/2024 09:22:37 AM Interpretation: Performing Lab: Notes/Report: Hemoglobin A1c 13.2 TSH reflex Free T4 Reviewed date:12/10/2023 09:14:37 AM Interpretation:ARUNA 12/07 TSH Performing Lab:[facility], [address] [place] [phone] Notes/Report: TSH reflex Free T4 29.24 0.32-4.0 uIU/mL TSH reflex Free T4 Reviewed date:03/17/2024 01:08:42 PM Interpretation:MOHITCK 03/15 Performing Lab:[facility], [address] [place] [phone] Notes/Report: TSH reflex Free T4 71.54 0.32-4.0 uIU/mL TSH reflex Free T4 Reviewed date:05/13/2024 05:05:01 PM Interpretation: Performing Lab:[facility], [address] [place] [phone] Notes/Report: TSH reflex Free T4 24.28 0.32-4.0 uIU/mL TSH reflex Free T4 (Not yet reviewed by provider) Interpretation: Performing Lab:[facility], [address] [place] [phone] Notes/Report: TSH reflex Free T4 29.59 0.32-4.0 uIU/mL Occult Blood, Stool, Guaiac Reviewed date:09/17/2023 03:10:14 PM Interpretation:Negative Performing Lab: Notes/Report: Negative Occult Blood, Stool, Guaiac Neg Glucose, finger stick Reviewed date:09/28/2023 09:27:53 AM Interpretation: Performing Lab: Notes/Report: Value 503 Glucose, finger stick Reviewed date:10/27/2023 11:18:38 AM Interpretation: Performing Lab: Notes/Report: Value 336 Glucose, finger stick Reviewed date:11/24/2023 09:42:25 AM Interpretation: Performing Lab: Notes/Report: Value 332 Glucose, finger stick Reviewed date:12/08/2023 09:51:17 AM Interpretation: Performing Lab: Notes/Report: Value 329 Glucose, finger stick Reviewed date:03/15/2024 09:15:45 AM Interpretation: Performing Lab: Notes/Report: Value 310 Glucose, finger stick (Not y et reviewed by provider) Interpretation: Performing Lab: Notes/Report: Value 297 Glucose, Whole Blood Reviewed date:10/15/2023 04:51:40 PM Interpretation: Performing Lab:[facility], [address] [place] [phone] Notes/Report: Glucose, Whole Blood 247 60-115 mg/dL METER # : [id number] Lactic Acid-LAB USE ONLY Reviewed date:10/15/2023 12:23:19 PM Interpretation: Performing Lab:[facility], [address] [place] [phone] Notes/Report: Lactic Acid-LAB USE ONLY 1.7 0.5-2.0 mmol/L CT soft tissue neck w con Reviewed date:10/15/2023 12:24:53 PM Interpretation: Performing Lab: Notes/Report: [address] [place] [address] CT Scan Report Signed Patient: Jeyson Evans MR#: [id number] 327 : 1975 Acct:[id number] Age/Sex: 47 / M ADM Date: 10/15/23 Loc: HO.ED Attending Dr: Ordering Physician: Carol Villareal DO Date of Service: 10/15/23 Procedure(s): CT soft tissue neck w IV con Accession Number(s): [id number] cc: Arden Zamora MD; Carol Villareal DO [...] symmetric. Parapharyngeal and retromaxillary fat is preserved. Chiropractic Practice Manager spaces are symmetric. The parotid and submandibular glands are normal. The tongue base and epiglottis are normal. Preepiglottic fat is preserved. The subglottic airway is widely patent. The thyroid gland is unremarkable. The remainder of the visualized visceral soft tissues are normal. No mediastinal or axillary adenopathy is visualized within the tjkqf-xo-hzdm of this examination. Lung apices are clear. Aortic arch apex is normal. Cervical carotid and vertebral arteries are patent. Internal jugular veins fill symmetrically. There is odontogenic disease with multiple carious or missing teeth. No evidence of a subperiosteal abscess. No worrisome lytic or blastic osseous lesion is visualized elsewhere within the gyzjb-kz-lgiz of this examination. Grossly no spinal canal [...] in OV> 10/15/23 1111 DD/ 0956 TD/TT: Quality Improvement Coordinator: [place] [address] CT Scan Report Signed Patient: Gregorio Evans MR#: [id number] 327 : 1975 Acct:[id number] Age/Sex: 47 / M ADM Date: 10/15/23 Loc: HO.ED Attending Dr: Ordering Physician: Carol Villareal DO Date of Service: 10/15/23 Procedure(s): CT sof t tissue neck w IV con Accession Number(s): [id number] cc: Arden Zamora MD; Carol Villareal DO EXAMINATION: CT SOFT TISSUE NECK WITH CONTRAST CLINICAL INFORMATION: Left-sided swelling. Redness and pain. COMPARISON: No relevant prior imaging. TECHNIQUE: Following the intravenous administration of 60 mL of Omnipaque 350 intravenous contrast , helical imaging was performed in the axial plane with generation of coronal and sagittal reformatted images. This CT examination was performed using dose optimization techniques as appropriate, various ly including the following: *Automated exposure control *Adjustment of mA an d/or kV according to patient size (this includes techniques or standardized protocols for targeted exams where dose is matched to indication/reason for exam; i.e. extremities or head) *Use of iterative reconstruction technique DLP: 602 mGy-cm FINDINGS: This asymmetric thickening of the left submandibular skin and extensive stranding within the subcutaneous soft tissues primarily located within the submandibular sp armando and the anterior neck. Asymmetric thickening of the left platysma muscle. No evidence of a discrete drainable fluid collection. There ar e a few scattered asymmetrically distributed enhancing left cervi nixon lymph nodes, none of which demonstrate worrisome enhancemen t characteristic to suggest central suppuration. No evidence of septic thrombophlebitis. Findings are most consistent with cellulitis. Pharyngeal mucosal spaces are symmetric. Parapharyngeal and retromaxillary fat i s preserved. Chiropractic Practice Manager spaces are symmetric. The parotid and submandibular glands are normal. The tongue base and epiglottis are manish l. Preepiglottic fat is preserved. The subglottic airway is widely pat ent. The thyroid gland is unremarkable. The remainder of the visualized visceral soft tissues are normal. No mediastinal or axillary adenopathy is visualized within the gzxnx-vo-kzzm of thi s examination. Lung apices are clear. Aortic arch apex is normal. Cerv ical carotid and vertebral arteries are patent. Internal jugular vei ns fill symmetrically. There is odontogenic disease with multiple cariou s or missing teeth. No evidence of a subperiosteal abscess. No worrisom e lytic or blastic osseous lesion is visualized elsewhere within the fjmrv-lc-bxue of this examination. Grossly no spinal canal comprom ise. The skull base is intact. No mastoid or middle ear effusion. No act edu paranasal sinus disease. Limited visualization of the intracranial anatomy reveals no abnormal finding. C T/CT soft tissue neck w IV con IMPRESSION: Findings are most consistent with cellulitis of the anterior neck and left submandibular space, the source of which is not clearly evident on this examination. No evidence of a discrete drainable fluid collection. There is odontogenic disease with multiple carious or missing teeth. No evidence of a subperiosteal abscess. There are a few asymmetrically distributed enhancin g left cervical lymph nodes that are likely reactive. No evidenc e of septic thrombophlebitis. Dictated By: Nicanor Valverde MD Signed By: <Electronically signed by Nicanor Valverde MD in OV> 10/15/23 1111 DD/ 0956 TD/TT: Professional Model ist: Glucose, Whole Blood Reviewed date:10/16/2023 12:14:31 PM Interpretation: Performing Lab:[facility], [address] [place] [phone] Notes/Report: Glucose, Whole Blood 246 60-115 mg/dL METER # : [id number] Complete Blood Count no Diff Reviewed date:10/16/2023 12:14:30 PM Interpretation: Performing Lab:[facility], [address] [place] [phone] Notes/Report: White Blood Count 11.2 4.8-10.8 X10*3/uL [...] Panel Reviewed date:10/16/2023 12:14:31 PM Interpretation: Performing Lab:[address] [phone] Notes/Report: Sodium 133 135-145 mmol/L Potassium 4.0 [...] Glomerular Filt Rate > 60 NOTE: For -[place] individuals, multiply the result by 1.210. Chronic Kidney Disease: Estimated GFR < 60 mL/min/1.73m2 Severe Kidney Disease: Estimated GFR < 15 mL/min/1.73m2 Glucose Random 253 60-115 mg/dL Calcium 8.8 8.4-10.2 mg/dL Glucose, Whole Blood Reviewed date:10/16/2023 11:40:35 AM Interpretation: Performing Lab:[facility], [address] [place] [phone] Notes/Report: Glucose, Whole Blood 233 60-115 mg/dL METER # : [id number] Vancomycin Random Reviewed date:10/18/2023 06:25:49 PM Interpretation: Performing Lab:[facility], [address] [place] [phone] Notes/Report: Vancomycin Random 10.0 15-20 mcg/mL Glucose, Whole Blood Reviewed date:10/16/2023 12:09:31 PM Interpretation: Performing Lab:[facility], [address] [place] [phone] Notes/Report: Glucose, Whole Blood 314 60-115 mg/dL METER # : [id number] Glucose, Whole Blood Reviewed date:10/18/2023 06:25:49 PM Interpretation: Performing Lab:[facility], [address] [place] [phone] Notes/Report: Glucose, Whole Blood 236 60-115 mg/dL METER # : [id number] Glucose, Whole Blood Reviewed date:10/18/2023 06:25:49 PM Interpretation: Performing Lab:[facility], [address] [place] [phone] Notes/Report: Glucose, Whole Blood 384 60-115 mg/dL METER # : [id number] Glucose, Whole Blood Reviewed date:10/18/2023 06:25:49 PM Interpretation: Performing Lab:[address] [phone] Notes/Report: Glucose, Whole Blood 385 60-115 mg/dL METER # : [id number] Complete Blood Count no Diff Reviewed date:10/18/2023 06:25:49 PM Interpretation: Performing Lab:[address] [phone] Notes/Report: White Blood Count 9.5 4.8-10.8 X10*3/uL [...] Panel Reviewed date:10/18/2023 06:25:49 PM Interpretation: Performing Lab:[address] [address] Notes/Report: Sodium 133 135-145 mmol/L Potassium 3.7 [...] Glomerular Filt Rate > 60 NOTE: For -[place] individuals, multiply the result by 1.210. Chronic Kidney Disease: Estimated GFR < 60 mL/min/1.73m2 Severe Kidney Disease: Estimated GFR < 15 mL/min/1.73m2 Glucose Random 288 60-115 mg/dL Calcium 9.0 8.4-10.2 mg/dL Glucose, Whole Blood Reviewed date:10/18/2023 06:25:49 PM Interpretation: Performing Lab:[facility], [address] [place] [phone] Notes/Report: Glucose, Whole Blood 278 60-115 mg/dL METER # : [id number] Vancomycin Random Reviewed date:10/18/2023 06:25:49 PM Interpretation: Performing Lab:[facility], [address] [place] [phone] Notes/Report: Vancomycin Random 6.4 15-20 mcg/mL CT soft tissue neck wo con Reviewed date:10/18/2023 06:25:49 PM Interpretation: Performing Lab: Notes/Report: [address] [place] [address] CT Scan Report Signed Patient: Jeyson Evans MR#: [id number] 327 : 1975 Acct:[id number] Age/Sex: 47 / M ADM Date: 10/15/23 Loc: HO.S3 372-[address]: Rod Medina MD Ordering Physician: Rod Medina MD Date of Service: 10/17/23 Procedure(s): CT soft tissue neck wo IV con Accession Number(s): [id number] cc: Arden Zamora MD; Rod Medina MD [...] left sternocleidomastoid muscle. The parotid and human resources support specialist spaces are normal. The submandibular glands and [...] in OV> 10/17/23 1207 DD/ 1108 TD/TT: Quality Improvement Coordinator: [facility] [address] [address] Scan Report Signed Patient: Gregorio Evans MR#: [id number] 327 : 1975 Acct:[id number] Age/Sex: 47 / M ADM Date: 10/15/23 Loc: .S3 372-[address]: Jaleesa Medina MD Ordering Physician: Rod Medina MD Date of Service: 10/17/23 Procedure(s): CT sof t tissue neck wo IV con Accession Number(s): [id number] cc: Arden Zamora MD; Rod Medina MD EXAMINATION: CT SOFT TISSUE NECK WITHOUT CONTRAST CLINICAL INFORMATION: Follow-up Cellulitis. Evaluate for abscess. COMPARISON: CT images of the [facility] performed with intravenous contrast from 10/15/2023. TECHNIQUE: Helical imaging was performed in the axial plane with generation of coronal and sagittal reformatted images. This CT examination was performed using dose optimization techniques as appropriate, various ly including the following: *Automated exposure control *Adjustment of mA an d/or kV according to patient size (this includes techniques or standardized protocols for targeted exams where dose is matched to indication/reason for exam; i.e. extremities or head) *Use of iterative reconstruction technique DLP: 566 mGy-cm FINDINGS: The current imaging abnormalities are similar to those seen on 10/15/2023. There is persistent soft tissue edema of the neck (left anterior and lateral neck worse t lópez right neck), and there is persistent asymmetric thickening of - sharon a along - the left platysma muscle and no interval development of an organized measurable fluid collection or soft tissue gas. The findings include edema adjacent to the submandibular glands and tracking anterio r to the left sternocleidomastoid muscle. The parotid and human resources support specialist spaces are normal. The submandibular glands and thyroid gland ar e normal. No evidence of soft tissue mass. The nasopharynx, oral cavity, tongue base, and tonsillar pillars are unremarkable. No con tour abnormality within the oral cavity or pharyngeal mucosal space. The parapharyngeal fat planes are preserved. The hypopharynx, epiglottis, and preepiglottic space are normal. Laryngeal structures normal. The visualized proximal esophagus is normal. The lymph no klye in the submandibular region are in the normal size range, although some of the left-sided lymph nodes are slightly larger than those se en on the right. The largest left submandibular lymph node is 0.7 cm short axis dimension. The largest left level 2 lymph nodes are 0.8 cm short axis dimension. The visualized lung apices are unremarkable. The partially visual ized intracranial structures are normal. Mild amount mucus is present at the floor of each maxillary antrum. No air-fluid levels wit hin paranasal sinuses. The partially visualized orbits and globes ar e normal. The temporomandibular joints are normal. As noted on prior ex am, multiple dental caries are identified. C T/CT soft tissue neck wo IV con IMPRESSION: Imaging findings rem ain consistent with cellulitis involving subcutaneous tissues of the anterior neck without interval development of a discrete fluid collection. No abscess is seen. No soft tissue gas or other significant change compared to 10/15/2023. Dictated By: Stalin Roberts MD Signed By: <Electronically signed by Stalin Roberts MD in OV> 10/17/23 1207 DD/ 1108 TD/TT: Professional Model ist: PD Glucose, Whole Blood Reviewed date:10/18/2023 06:25:49 PM Interpretation: Performing Lab:[address] [phone] Notes/Report: Glucose, Whole Blood 253 60-115 mg/dL METER # : [id number] Glucose, Whole Blood Reviewed date:10/18/2023 06:25:49 PM Interpretation: Performing Lab:[facility], [address] [place] [phone] Notes/Report: Glucose, Whole Blood 241 60-115 mg/dL METER # : [id number] Glucose, Whole Blood Reviewed date:10/18/2023 06:25:49 PM Interpretation: Performing Lab:[address] [phone] Notes/Report: Glucose, Whole Blood 253 60-115 mg/dL METER # : [id number] Glucose, Whole Blood Reviewed date:10/18/2023 06:25:49 PM Interpretation: Performing Lab:[address] [phone] Notes/Report: Glucose, Whole Blood 179 60-115 mg/dL METER # : [id number] Electrolytes Reviewed date:10/18/2023 06:25:49 PM Interpretation: Performing Lab:[facility], [address] [place] [phone] Notes/Report: Sodium 137 135-145 mmol/L Potassium 3.7 3.3-5.1 mmol/L Chloride 102 96-108 mmol/L Carbon Dioxide 22 22-29 mmol/L Anion Gap 17 12-20 Creatinine Reviewed date:10/18/2023 06:25:49 PM Interpretation: Performing Lab:[facility], [address] [place] [phone] Notes/Report: Creatinine 0.99 0.5-1.4 mg/dL Creatinine Clr Calc Pharmacy 113.6 eGFR (calculated from the MDRD study equation) and eCrCl (calculated from the Cockcroft-Gault equation) are based on different parameters and may not yield comparable results. If eCrCl result is absurd, please check patient's height/weight. Estimated Glomerular Filt Rate > 60 NOTE: For -[place] individuals, multiply the result by 1.210. Chronic Kidney Disease: Estimated GFR < 60 mL/min/1.73m2 Severe Kidney Disease: Estimated GFR < 15 mL/min/1.73m2 Glucose, Whole Blood Reviewed date:10/18/2023 06:25:49 PM Interpretation: Performing Lab:[facility], [address] [place] [phone] Notes/Report: Glucose, Whole Blood 86 60-115 mg/dL METER # : [id number] Vancomycin Random Reviewed date:10/19/2023 11:00:25 AM Interpretation: Performing Lab:[facility], [address] [place] [phone] Notes/Report: Vancomycin Random 27.4 15-20 mcg/mL Critical VANCR sent by a secure message and confirmed by ALON POLLARD 10-18-232046 Tech:ALFREDITO Glucose, Whole Blood Reviewed date:10/18/2023 06:25:49 PM Interpretation: Performing Lab:[facility], [address] [place] [phone] Notes/Report: Glucose, Whole Blood 195 60-115 mg/dL METER # : [id number] Glucose, Whole Blood Reviewed date:10/18/2023 06:25:49 PM Interpretation: Performing Lab:[facility], [address] [place] [phone] Notes/Report: Glucose, Whole Blood 267 60-115 mg/dL METER # : [id number] Glucose, Whole Blood Reviewed date:10/18/2023 06:25:49 PM Interpretation: Performing Lab:[facility], [address] [place] [phone] Notes/Report: Glucose, Whole Blood 223 60-115 mg/dL METER # : [id number] Glucose, Whole Blood Reviewed date:10/19/2023 11:00:25 AM Interpretation: Performing Lab:[facility], [address] [place] [phone] Notes/Report: Glucose, Whole Blood 261 60-115 mg/dL METER # : [id number] Basic Metabolic Panel Reviewed date:10/19/2023 11:00:25 AM Interpretation: Performing Lab:[facility], [address] [place] [phone] Notes/Report: Sodium 137 135-145 mmol/L Potassium 3.6 [...] Glomerular Filt Rate > 60 NOTE: For -[place] individuals, multiply the result by 1.210. Chronic Kidney Disease: Estimated GFR < 60 mL/min/1.73m2 Severe Kidney Disease: Estimated GFR < 15 mL/min/1.73m2 Glucose Random 103 60-115 mg/dL Calcium 9.4 8.4-10.2 mg/dL Creatinine Reviewed date:10/19/2023 11:00:25 AM Interpretation: Performing Lab:[facility], [address] [place] [phone] Notes/Report: Creatinine 0.89 0.5-1.4 mg/dL Creatinine Clr Calc Pharmacy 126.4 eGFR (calculated from the MDRD study equation) and eCrCl (calculated from the Cockcroft-Gault equation) are based on different parameters and may not yield comparable results. If eCrCl result is absurd, please check patient's height/weight. Estimated Glomerular Filt Rate > 60 NOTE: For -[place] individuals, multiply the result by 1.210. Chronic Kidney Disease: Estimated GFR < 60 mL/min/1.73m2 Severe Kidney Disease: Estimated GFR < 15 mL/min/1.73m2 Glucose, Whole Blood Reviewed date:10/19/2023 11:00:25 AM Interpretation: Performing Lab:[facility], [address] [place] [phone] Notes/Report: Glucose, Whole Blood 88 60-115 mg/dL METER # : [id number] Cat Scratch Titer Reviewed date:10/26/2023 12:22:39 PM Interpretation: Performing Lab:[facility], [address] [place] [phone] Notes/Report: Bartonella Henselae IgG Screen Negative Bartonella [...] analytical performance characteristics have been determined by [facility], [place], [place]. It has not been cleared or approved by the U.S. Food and Drug Administration. This assay has been validated pursuant to the CLIA regulations and is used for clinical purposes. THIS TEST WAS PERFORMED AT: [facility]/[address] [address] ADRIEL MELGAR MD,PHD Bartonella Henselae IgM Titer TNP Vancomycin Random Reviewed date:10/19/2023 11:00:25 AM Interpretation: Performing Lab:[address] [address] Notes/Report: Vancomycin Random 12.5 15-20 mcg/mL HIV Ab/Ag Reviewed date:10/20/2023 11:01:54 AM Interpretation: Performing Lab:[address] [phone] Notes/Report: HIV AB/AG Nonreactive Nonreactive HIV-1 p24 [...] limit of detection of this assay. The [employer] HIV Ag/Ab Combo assay result and supplemental assay results should be interpreted in conjunction with the patient's clinical presentation, history and other laboratory results. If the results are inconsistent with clinical evidence, additional testing is suggested to confirm the result. Glucose, Whole Blood Reviewed date:10/19/2023 12:33:30 PM Interpretation: Performing Lab:[address] [phone] Notes/Report: Glucose, Whole Blood 209 60-115 mg/dL METER # : [id number] Glucose, Whole Blood Reviewed date:10/20/2023 08:36:29 AM Interpretation: Performing Lab:[address] [phone] Notes/Report: Glucose, Whole Blood 140 60-115 mg/dL METER # : [id number] Glucose, Whole Blood Reviewed date:10/20/2023 08:36:29 AM Interpretation: Performing Lab:[address] [place] [address] Notes/Report: Glucose, Whole Blood 137 60-115 mg/dL METER # : [id number] Creatinine Reviewed date:10/20/2023 08:36:29 AM Interpretation: Performing Lab:[facility], [address] [place] [phone] Notes/Report: Creatinine 1.04 0.5-1.4 mg/dL Creatinine Clr Calc Pharmacy 108.2 eGFR (calculated from the MDRD study equation) and eCrCl (calculated from the Cockcroft-Gault equation) are based on different parameters and may not yield comparable results. If eCrCl result is absurd, please check patient's height/weight. Estimated Glomerular Filt Rate > 60 NOTE: For -[place] individuals, multiply the result by 1.210. Chronic Kidney Disease: Estimated GFR < 60 mL/min/1.73m2 Severe Kidney Disease: Estimated GFR < 15 mL/min/1.73m2 Glucose, Whole Blood Reviewed date:10/20/2023 08:36:29 AM Interpretation: Performing Lab:[facility], [address] [place] [phone] Notes/Report: Glucose, Whole Blood 148 60-115 mg/dL METER # : [id number] Vancomycin Random Reviewed date:10/20/2023 11:58:33 AM Interpretation: Performing Lab:[facility], [address] [place] [phone] Notes/Report: Vancomycin Random 17.4 15-20 mcg/mL CT soft tissue neck wo con Reviewed date:10/21/2023 04:30:35 PM Interpretation: Performing Lab: Notes/Report: [address] [address] [address] Scan Report Signed Patient: Jeyson Evans MR#: [id number] 327 : 1975 Acct:[id number] Age/Sex: 47 / M ADM Date: 10/15/23 Loc: HO.S3 372-[address]: Rod Medina MD Ordering Physician: Rod Medina MD Date of Service: 10/20/23 Procedure(s): CT soft tissue neck wo IV con Accession Number(s): [id number] cc: Arden Zamora MD; Rod Medina MD [...] Joslyn Woods MD 10/20/2023 04:15 PM EDT RP Dictated By: Joslyn Woods Signed By: <Electronically signed by Joslyn Woods in OV> 10/20/23 1615 DD/ 0934 TD/TT: 10/20/23 1005 Quality Improvement Coordinator: [place] [address] CT Scan Report Signed Patient: Gregorio Evans MR#: [id number] 327 : 1975 Acct:[id number] Age/Sex: 47 / M ADM Date: 10/15/23 Loc: [facility] 372-[address]: Jaleesa Medina MD Ordering Physician: Rod Medina MD Date of Service: 10/20/23 Procedure(s): CT sof t tissue neck wo IV con Accession Number(s): [id number] cc: Arden Zamora MD; Rod Medina MD EXAMINATION: CT SOFT TISSUE NECK WITHOUT CONTRAST CLINICAL INFORMATION: Cellulitis COMPARISON: CT neck October 17, 2023 TECHNIQUE: Noncontrast helical imaging was performed in the axial plane with generation of fofana l and sagittal reformatted images. This CT examination was performed using dose optimization techniques as appropriate, various ly including the following: *Automated exposure control. *Adjustment of mA an d/or kV according to patient size (this includes techniques or standardized protocols for targeted exams where dose is matched to indication/reason for exam; i.e. extremities or head). *Use of iterative reconstruction technique. DLP: 414 mGycm FINDINGS: Redemonstrated numer ous carious and absent maxillary and mandibular teeth. [...] asymmetrically enlarged and heterogeneous in density compatible w ith sialoadenitis. Lack of intravenous contrast limits assessment fo r drainable fluid collection/abscess. Milder cellulitic changes a gain noted along the left anterior chest wall. Redemonstrated sever al asymmetrically prominent left cervical chain lymph nodes without evidence of developing superficial change, presumably reactive. The fat planes of th e skull base and soft tissues of the nasopharynx are unremarkable. Mi ld patchy paranasal sinus mucosal disease. Leftward nasal septa l deviation with leftward bony spur contacting the floor of the left na trisha cavity. The temporomandibular joints are normal. The oral cav ity and pharyngeal mucosal space is unremarkable, noting calcified bilateral palatine tonsilloliths. The laryngeal structures are oppos ed, limiting assessment. The unenhanced thyroid gland is normal. The right parotid and submandibular glands are normal. The partially visual ized lung apices are clear. Minimal cervical spondylosis. The ean ged portions of the brain parenchyma are unremarkable. C T/CT soft tissue neck wo IV con IMPRESSION: Findings of worsenin g cellulitis within the left face and neck as discussed above. As before, the source of the infection is not clearly elucidated on this examination. Asymmetric enlargement and heterogeneous densit y of the left submandibular gland compatible with acute sialoadenitis, which may be primary or secondary to the infectious process. Multiple dental caries are again noted without definite odontogenic source identified. Similar reactive cervical chain lymph nodes. . Lack of intravenous contrast limits assessment for drainable fluid collection/abscess. Electronically april d by: Joslyn Woods MD 10/20/2023 04:15 PM EDT Dictated By: Joslyn Woods Signed By: <Electronically signed by Joslyn Woods in OV> 10/20/23 1615 DD/ 0934 TD/TT: 10/20/23 1005 Quality Improvement Coordinator: Glucose, Whole Blood Reviewed date:10/20/2023 08:36:29 AM Interpretation: Performing Lab:[facility], [address] [place] [phone] Notes/Report: Glucose, Whole Blood 96 60-115 mg/dL METER # : [id number] Glucose, Whole Blood Reviewed date:10/20/2023 11:56:38 AM Interpretation: Performing Lab:[facility], [address] [place] [phone] Notes/Report: Glucose, Whole Blood 218 60-115 mg/dL METER # : [id number] Glucose, Whole Blood Reviewed date:10/20/2023 04:38:08 PM Interpretation: Performing Lab:[facility], [address] [place] [phone] Notes/Report: Glucose, Whole Blood 221 60-115 mg/dL METER # : [id number] Free T4 (Free Thyroxine) Reviewed date:12/07/2023 02:19:34 PM Interpretation: Performing Lab:[facility], [address] [place] [phone] Notes/Report: Free T4 (Free Thyroxine) 0.58 0.71-1.85 ng/dL Maximiliano Alvarez Reviewed date:12/07/2023 11:57:59 AM Interpretation: Performing Lab:[facility], [address] [place] [phone] Notes/Report: Hold Gold See Note Specimen held untested for 24 hours; Call to request Chemistry testing. colonoscopy Reviewed date:12/09/2023 01:04:18 PM Interpretation:Normal Performing Lab: Notes/Report: Normal Free T4 (Free Thyroxine) Reviewed date:03/08/2024 04:24:12 PM Interpretation: Performing Lab:[facility], [address] [place] [phone] Notes/Report: Free T4 (Free Thyroxine) < 0.42 0.71-1.85 ng/dL Hold Gold Reviewed date:03/08/2024 12:43:13 PM Interpretation: Performing Lab:[facility], [address] [place] [phone] Notes/Report: Hold Gold See Note Specimen held untested for 24 hours; Call to request Chemistry testing. Free T4 (Free Thyroxine) Reviewed date:05/13/2024 05:03:18 PM Interpretation: Performing Lab:[facility], [address] [place] [phone] Notes/Report: Free T4 (Free Thyroxine) 0.79 0.71-1.85 ng/dL Maximiliano Antonio Reviewed date:05/13/2024 05:03:26 PM Interpretation: Performing Lab:[facility], [address] [place] [phone] Notes/Report: Maximiliano Alvarez See Note Specimen held untested for 24 hours; Call to request Chemistry testing. Maximiliano Antonio Reviewed date:06/13/2024 11:05:01 AM Interpretation: Performing Lab:[facility], [address] [place] [phone] Notes/Report: Maximiliano Alvarez See Note Specimen held untested for 24 hours; Call to request Chemistry testing. Reason For Referral Reason acute abscess neck Diagnosis 1 Acute [...] Referral Priority Routine Referral Appointment Date 10/28/2023 Medications Medication SIG (Take, Route, Frequency, Duration) Notes Start Date End Date Status Levothyroxine Sodium 200 MCG TAKE 1 TABLET BY MOUTH ONCE EVERY DAY IN THE MORNING ON AN EMPTY STOMACH, FOR 90 DAYS Active Lantus SoloStar 100 UNIT/ML 80 units Subcutaneous bid Active Sertraline HCl 100 MG TAKE 1 TABLET BY M OUTH EVERY DAY for 30 Active FreeStyle Lite Test - USE TO TEST BLOOD SUGAR TWICE A DAY for 30 days Active Albuterol Sulfate HFA 108 (90 Base) MCG/ACT 1 puff as needed Inhalation every 4 hrs for 30 days 11/24/2023 Active Sildenafil Citrate 100 MG 1 tablet Orall y Once a day for 30 Not-Taking Atorvastatin Calcium 40 MG TAKE 1 TABLET BY MOUTH EVERY DAY for 90 Active BD Pen Needle Mini U/F 31G X 5 MM use with pen once a day for injection sq twice a day for 90 days Active Immunizations Vaccine Route Administration Date Status Comme nts Covid Vaccine Unknown 12/04/2020 Administered Dat karan oj Daugherty Fluarix Quadrivalent Unknown 12/01/2017 Refused Fluarix Quadrivalent Unknown 11/23/2018 Refused PPSV23 (Pnemovax) Unknown 04/25/2019 Refused Fluarix Quadrivalent Unknown 12/09/2019 Refused Covid Vaccine Unknown 07/23/2020 Refused Fluarix Quadrivalent Unknown 11/30/2020 Refused Fluarix Quadrivalent Unknown 12/12/2022 Refused Fluarix Quadrivalent - 150 Unknown 11/24/2023 Refused Social History Tobacco Use: Social History Observation Description Date Details (start date - stop date) Current Smoker NA - NA Tobacco Use/Smoking Question Answer Notes Patient is a current smoker How often do you smoke cigarettes? every day How many cigarettes a day do you smoke? 31 or mo re How soon after you wake up d o you smoke your first cigarette? within 5 minutes Additional Findings: Tobacco User Curren t cigarette smoker, not currently using another form of tobacco Alcohol Screen Question Answer Notes Did you have a drink containing alcohol in the p ast year? No Points 0 Interpretation Negative Section Notes: Patient smokes 2 packs a day Patient smokes 2 packs a day Patient smokes 2 packs a day Patient smokes 2 packs a day Patient smokes 2 packs a day Patient smokes 2 packs a day Patient smokes 2 packs a day Patient smokes 2 packs a day Patient smokes 2 packs a day Patient smokes 2 packs a day Patient smokes 2 packs a day Patient smokes 2 packs a day Problems Problem Type SNOMED Code ICD Code Onset Dates Problem Status W/U Status Risk Notes Problem 00757381 Type 2 diabetes mellitus with other diabetic kidney complication (E11.29) Active confirmed Problem 346325302 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) Active confirmed Problem 34952829 Smoker (F17.200) Active confirmed Problem 43297611 Essential hypertension (I10) Active confirmed Problem 817565186 Acquired hypothyroidism (E03.9) Active confirmed Problem 69949924 Type 2 diabetes, controlled, with neuropathy (E11.40) Active confirmed Problem 895751629 Elevated triglycerides with high cholesterol (E78.2) Active confirmed Problem 119914049 COPD exacerbatio n (J44.1) Active confirmed Problem 01390783 Dysthymia (F34.1) Active confirmed Problem 00415358 Severe episode o f recurrent major depressive disorder, without psychotic features (F33.2) Active confirmed Problem 68359101 DARREN (obstructive sleep apnea) (G47.33) Active confirmed Problem 54322979 Smoker unmotivated to quit (F17.200) Active confirmed Problem 133918007 Toe osteomyelitis, 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) Active confirmed Problem 74583351900974944 Chronic ulcer of toe of right foot with fat layer exposed (L97.512) Active confirmed Vital Signs Blood pressure diastolic 90 mm Hg 05/03/2024 yoly ght is down 12 pounds since 03-15-24 Height 71 in 05/03/2024 weight is down 12 pounds since 03-15-24 Blood pressure systolic 144 mm Hg 05/03/2024 weig ht is down 12 pounds since 03-15-24 Weight 239 lbs 05/03/2024 weight is down 12 pounds since 03-15-24 BMI 33.33 kg/m2 05/03/2024 weight is down 12 pounds since 03-15-24 Encounters Encounter Location Date Provider Diagnosis Arden Zamora MD [address] [place] [address] [id number] 12/07/2023 Arden Zamora Acquired hypothyroidism E03.9 Arden Zamora MD [address] [place] [address] [id number] 03/08/2024 Arden Zamora Acquired hypothyroidism E03.9 Arden Zamora MD [address] [place] [address] [id number] 05/13/2024 Arden Zamora Acquired hypothyroidism E03.9 Arden Zamora MD [address] [place] [address] [id number] 06/13/2024 Arden Zamora Type 2 diabetes mellitus with other diabetic kidney complication E11.29 Arden Zamora MD [address] [place] [address] [id number] 09/17/2023 Arden Zamora Type 2 diabetes, controlled, with neuropathy E11.40 ; Annual physical exam Z00.00 ; Smoker F17.200 ; Acquired hypothyroidism E03.9 ; Chronic ulcer of toe of right foot with fat layer exposed L97.512 ; Essential hypertension I10 ; Dysthymia F34.1 ; Colon cancer screening Z12.11 and Encounter for screening for depression Z13.31 Arden Zamora MD [address] [place] [address] [id number] 10/27/2023 Arden Zamora Type 2 diabetes, controlled, with neuropathy E11.40 and Acute abscess L02.91 Arden Zamora MD [address] [place] [address] [id number] 11/03/2023 Arden Zamora Acute abscess L02.91 and Type 2 diabetes, controlled, with neuropathy E11.40 Arden Zamora MD [address] [place] [address] [id number] 11/24/2023 Aredn Zamora Type 2 diabetes, controlled, with neuropathy E11.40 ; Smoker unmotivated to quit F17.200 ; Essential hypertension I10 ; Type 2 diabetes mellitus with other diabetic kidney complication E11.29 ; COPD exacerbation J44.1 and Acute abscess L02.91 Arden Zamora MD [address] [place] [address] [id number] 12/08/2023 Arden Zamora Type 2 diabetes mellitus with other diabetic kidney complication E11.29 and Acquired hypothyroidism E03.9 Arden Zamora MD [address] [place] [address] [id number] 01/26/2024 Arden Zamora Type 2 diabetes, controlled, with neuropathy E11.40 and Acquired hypothyroidism E03.9 Arden Zamora MD [address] [place] [address] [id number] 03/15/2024 Arden Zamora Type 2 diabetes mellitus with other diabetic kidney complication E11.29 and Acquired hypothyroidism E03.9 Arden Zamora MD [address] [place] [address] [id number] 05/03/2024 Arden Zamora Type 2 diabetes, controlled, with neuropathy E11.40 and Acquired hypothyroidism E03.9 Arden Zamora MD [address] [place] [address] [id number] 08/27/2023 Arden Zamora MD [address] [place] [address] [id number] 10/22/2023 Arden Zamora MD [address] [place] [address] [id number] 11/30/2023 Arden Bombardier Assessments Encounter Date Diagnosis (ICD Code) Assessment Notes Treatment Notes Treatment Clinical Notes Section Notes 12/07/2023 Acquired hypothyroidism (ICD-10 - E03.9) 03/08/2024 Acquired hypothyroidism (ICD-10 - E03.9) 05/13/2024 Acquired hypothyroidism (ICD-10 - E03.9) 06/13/2024 Type 2 diabetes mellitus with other diabetic kidney complication (ICD-10 - E11.29) 09/17/2023 Type 2 diabetes, controlled, with neuropathy (ICD-10 - E11.40) 1 hour pp. not taking meds as directed 09/17/2023 Annual physical exam (ICD-10 - Z00.00) labs reviewed and discussed with patient 10/27/2023 Type 2 diabetes, controlled, with neuropathy (ICD-10 - E11.40) will cntnue current regiment 10/27/2023 Acute abscess (ICD-10 - L02.91) referral to dr ibarra. 11/03/2023 Acute abscess (ICD-10 - L02.91) contiue to improve, seeing surgeoin today. he attempted to drain it and there was no pus, will continue to monitor 11/03/2023 Type 2 diabetes, controlled, with neuropathy (ICD-10 - E11.40) has not been taking insulin as precribed, advised to get sugar under control he must take medication as prescribed, advised it won't heal otherwise 11/24/2023 Type 2 diabetes, controlled, with neuropathy (ICD-10 - E11.40) not taking any pills or insulin. have re emphasized the need to take medicines as directed. his sugars will never be safe if he doesn't take his meds 12/08/2023 Type 2 diabetes mellitus with other [...] it for 2 weeks should be okay 01/26/2024 Type 2 diabetes, controlled, with neuropathy (ICD-10 - E11.40) not taking meds.needs to get back on them 01/26/2024 Acquired hypothyroidism (ICD-10 - E03.9) not taking thyroid meds. needs to get back on them 03/15/2024 Type 2 diabetes mellitus with other diabetic kidney complication (ICD-10 - E11.29) not even taking insulin or atorvastatin or his anti depressant 03/15/2024 Acquired hypothyroidism (ICD-10 - E03.9) should start to take meds one half at a time. has not taken it for months. after month to go back up to full dose 05/03/2024 Type 2 diabetes, controlled, with neuropathy (ICD-10 - E11.40) encouraged him to take his insulin 09/17/2023 Smoker (ICD-10 - F17.200) not will to quit 11/24/2023 Smoker unmotivated to quit (ICD-10 - F17.200) 05/03/2024 Acquired hypothyroidism (ICD-10 - E03.9) stable, will continue current regiment 09/17/2023 Acquired hypothyroidism (ICD-10 - E03.9) not taking meds as directed so don't want to increase meds 11/24/2023 Essential hypertension (ICD-10 - I10) well [...] for depression (ICD-10 - Z13.31) negative screen Plan Of Treatment Pending Test Test Name Order Date Glucose, finger stick 05/03/2024 TSH reflex Free T4 06/13/2024 Next Appt Details Provider Name:Arden mae, 07/05/2024 10:00:00 AM, [address] [facility], [address], [place], [place], [phone], Provider Name:Arden Wilcox iebaldomero, 09/13/2024 07:15:00 AM, [address] [place] [address], [address], [place], [place], [phone], Provider Name:Arden Villalba Derekjairo ier, 09/20/2024 09:30:00 AM, [address] [place] [address], Suite [facility], [place], [place], [phone], Insurance Providers Payer Name Payer Address Payer Phone Subscriber Number Group Number Insured Name Patient Relationship to Insured Coverage Start Date Coverage End Date [facility] [address] [place], [place] [id number] Jeyson Evans Self - patient is the insured Medical (General) History Medical History History ICD Code got diarrhea on metformin 01/13/22 Colonoscopy repeat one year
[2024-06-13 11:55] LABS: Free T4 (Free Thyroxine) 0.72 ng/dL (0.71-1.85)
== END 2024-06-13 07:31 | disposition home or self-care (01) ==
LOC: HO.LNP 07:30
PROVIDERS: Visit Provider Internal Medicine
DX: E11.29 Type 2 diabetes mellitus with other diabetic kidney complication (principal)
CPT/HCPCS: 84439; 84443

== ENCOUNTER 2024-09-05 10:11 | Outpatient (REF) | payer BC, SELFPAY ==
--- OUTSIDE RECORDS SUMMARY | 2024-07-05 06:00 | XMS_ITS ---
Author Organization Arden Zamora MD Address [address] [place] [phone] Care Team Providers Care Intermodal Owner Operator Truck Driver Name Role Phone Arden Zamora Primary Care [...] kg/m2 07/05/2024 weight is down 6 pounds [facility] e 05-03-24 Encounters Encounter Location Date Provider Diagnosis Arden Zamora MD [address] [place] [address] [address] [place], [place] [phone] 07/05/2024 Arden Zamora Type 2 diabetes mellitus [...] take his meds, will continue to monitor Pending Test Test Name Order Date TSH reflex Free T4 07/05/2024 Hemoglobin A1c 07/05/2024 Next Appt Details Follow Up: 2 Months, Reason: Provider Name:Arden mae, 09/13/2024 07:15:00 AM, [address], [address], [place], [place], [phone], Provider Name:Arden Wilcox ier, 09/20/2024 09:30:00 AM, [address], [address], [place], [place], [phone], Progress Notes * Geronimo CALVOOB:1975 (48 yo M)Acc No.[id number]:07/05/2024 Patient: Jeyson ANDERSON Provider: Reinaldo Zamora MD :1975 A ge:48 Y S ex:Male Date:07/05/2024 Address:[address] [place] [address], [id number] Subjective: * Chief Complaints: * 2 monthCBACK [...] MD Date: 0 07/05/2024 Generated for Ulises garcia/Jarvis/Loriitting on: 0 09/05/2024 10:56 AM EDT History and Physical Notes * [...]
[2024-09-05 10:13] LABS: MANUAL DIFF FLAG NO
[2024-09-05 11:15] LABS: Hematocrit 40.9 % (42.0-52.0); Hemoglobin 13.8 g/dl (14.0-18.0); Imm Gran Abs Auto 0.05 X10*3/uL (0.00-0.03); Imm Gran Pct Auto 0.6 % (0.0-0.4); Lymphocytes Absolute Auto 2.4 X10*3/uL (1.2-4.9); Mean Corpuscular HGB Conc 33.7 g/dl (31.0-36.0); Mean Corpuscular Hemoglobin 28.9 pg (27.0-33.0); Mean Corpuscular Volume 85.6 fL (80.0-98.0); NRBC Abs Auto 0.000 X10*3/uL (0.0-0.012); NRBC Pct Auto 0.0 /100WBC (0.0-0.2); Platelet Count 189 X10*3/uL (160-400); Red Blood Count 4.78 X10*6/uL (4.60-5.80); White Blood Count 7.8 X10*3/uL (4.8-10.8)
[2024-09-05 11:22] LABS: Hemoglobin A1C 380.7705 umol/L; Total Hemoglobin (HGBA1C) 3572.3984 umol/L
[2024-09-05 11:48] LABS: PSA,Total (Free>4and<10) 0.41 ng/mL (0.00-4.00)
[2024-09-05 12:51] LABS: Free T4 (Free Thyroxine) 0.85 ng/dL (0.71-1.85)
[2024-09-05 13:01] LABS: Anion Gap 12 (12-20)
[2024-09-05 13:06] LABS: Alanine Aminotransferase 30 U/L (0-40); Albumin Level 3.9 g/dL (3.5-5.0); Alkaline Phosphatase 117 U/L (39-117); Aspartate Amino Transferase 25 U/L (5-37); Blood Urea Nitrogen 19 mg/dL (9-16); Calcium 8.2 mg/dL (8.4-10.2); Carbon Dioxide 23 mmol/L (22-29); Chloride 109 mmol/L (96-108); Estimated Glomerular Filt Rate > 60; Potassium 4.4 mmol/L (3.3-5.1); Sodium 140 mmol/L (135-145); Total Protein 6.8 g/dL (6.5-8.0)
== END 2024-09-05 10:12 | disposition home or self-care (01) ==
LOC: HO.LNP 10:11
PROVIDERS: Visit Provider Internal Medicine
DX: Z00.00 Encounter for general adult medical examination without abnormal findings (principal); E11.29 Type 2 diabetes mellitus with other diabetic kidney complication; E03.9 Hypothyroidism, unspecified; I10 Essential (primary) hypertension; Z12.5 Encounter for screening for malignant neoplasm of prostate
CPT/HCPCS: 80053; 83036; 84153; 84439; 84443; 85025

== ENCOUNTER 2024-09-20 13:49 | Outpatient (REF) | payer BC, SELFPAY ==
--- OUTSIDE RECORDS SUMMARY | 2024-09-12 12:00 | XMS_ITS ---
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 Assessments Encounter Date Diagnosis (ICD Code) Assessment Notes Treatment Notes Treatment Clinical Notes Section Notes 09/12/2024 Type 2 diabetes, controlled, with neuropathy (ICD-10 - E11.40) Plan Of Treatment Pending Test Test Name Order Date Glucose, finger stick 09/12/2024 Next Appt Details Provider Name:Arden mae, 12/20/2024 10:00:00 AM, [address] [facility], Suite [facility], [place], [place], [phone], Provider Name:Arden mae, 03/14/2025 07:30:00 AM, [address], [address], [place], [place], [phone], Provider Name:Arden Wilcox ier, 03/21/2025 10:00:00 AM, [address], [address] [place], [place], [phone], Provider Name:Arden Wilcox ier, 09/19/2025 07:00:00 AM, [address], [address], [place], [phone], Provider Name:Arden Wilcox ier, 09/26/2025 09:30:00 AM, [address], [address] [place], [place], [phone], Progress Notes * Jonathan CALVOManuelOB:1975 (48 yo M)Acc No.[id number]:09/12/2024 Progress Notes Patient: Jeyson ANDERSON Provider: Reinaldo Zamora MD :1975 A ge:48 Y S ex:Male Date:09/12/2024 Address:[address] [place] [address], [place] Subjective: * Chief Complaints: * 1 . [...] Pending * Provider: Reinaldo Zamora MD Date: 09/12/2024 Generated for Ulises garcia/Jarvis/Mary Jane on: 09/20/2024 03:03 PM EDT
[2024-09-20 13:58] LABS: Appearance Urine Clear; Glucose Urine UA >=1000 mg/dL (Negative); PH 6.0 (5.0-9.0); Specific Gravity - Urine 1.025 (1.005-1.025); UMIC TRIGGER UACC YES
[2024-09-20 14:59] LABS: Microalbum/Creatinine Ratio Ur 4059.6 ug/mg cr (<30)
--- OUTSIDE RECORDS SUMMARY | 2024-09-20 15:03 | XMS_ITS | Clinical Summary ---
Author Organization [facility] Address [address] [address] Phone Care Team Providers Care Community Relations Liaison Name Role Phone Arden Zamora MD Primary Care Provider Allergies No known active allergies Medications atorvastatin (LIPITOR) 40 MG tablet Take 1 tablet by mouth every morning. 4 Active LANTUS SOLOSTAR U-100 INSULIN 100 unit/mL (3 mL) InPn injection pen INJECT 90 UNITS SUBCUTANEOUSLY TWICE DAILY. 4 Active levothyroxine (SYNTHROID, LEVOTHROID) 200 MCG tablet TAKE 1 TABLET BY MOUTH ONCE EVERY DAY IN THE MORNING ON AN EMPTY STOMACH, FOR 90 DAYS 4 Active sertraline (ZOLOFT) 100 MG tablet Take 1 tablet by mouth every morning. 4 Active Immunizations Immunization Administration Dates Next Due COVID-19 (Pre-12/22) Pfizer Vaccine, mRNA, PF Social History Tobacco Use Types Packs/Day Years Used Date Smoking Tobacco: Never Smokeless Tobacco: Never Education Answer Date Recorded Are you interested in more education? Not on low e 10/15/2023 Are you concerned about learning? Not on file 10/15/2023 No 10/15/2023 No 10/15/2023 Digital Access Answer Date Recorded No 10/15/2023 No 10/15/2023 Reliable internet access at home? Not on file 10/15/2023 Device with a working camera? Not on file Sex and Gender Information Value Date Recorded Sex Assigned at Not on file Legal Sex Male 8:24 AM EDT Gender Identity Not on file Sexual Orientation Not on file Last Filed Vital Signs Vital Sign Reading Time Taken Comments Blood Pressure 126/85 10/15/2023 8:32 AM EDT Pulse 93 10/15/2023 8:32 AM EDT Temperature 36.6 C (97.9 F) 10/15/2023 8:32 AM EDT Respiratory Rate 18 10/15/2023 8:32 AM EDT Oxygen Saturation 100% 10/15/2023 8:32 AM EDT Inhaled Oxygen Concentration - - Weight - - Height - - Body Mass Index - - Plan of Treatment Health Maintenance Due Date Last Done Comments Adult Td,Tdap Booster 1975 LIPID PANEL 1975 TSH LEVEL 1975 DEPRESSION SCREENING 1987 HEPATITIS C SCREENING 11/18/1993 HIV ONE-TIME SCREENING (18-6 5 YEARS) 11/18/1993 COLOGUARD 11/18/2020 COLONOSCOPY 11/18/2020 COLORECTAL CANCER SCREENING 11/18/2020 FIT TEST 11/18/2020 FOBT 11/18/2020 SIGMOIDOSCOPY 11/18/2020 VIRTUAL COLONOSCOPY 11/18/2020 COVID-19 VACCINE (3 - 2023-2 5 season) 2023 12/04/2020, 12/04/2020 SMOKING STATUS SCREENING (On ce After 26 Yrs) Completed 10/15/2023 HEPATITIS A VACCINES Aged Out No long er eligible based on patient's age to complete this topic HIB VACCINES Aged Out No longer eligi ble based on patient's age to complete this topic MENINGOCOCCAL VACCINES (ACWY) Aged Out No longer eligible based on patient's age to complete this topic MENINGOCOCCAL VACCINES (B) Aged Out N o longer eligible based on patient's age to complete this topic PNEUMOCOCCAL VACCINES (0-49 years) Aged Out No longer eligible b ased on patient's age to complete this topic Medical Devices Not on file Insurance [facility] OUT [facility] PPO BLUE CROSS OUT OF STATE PPO BLUE CROSS OUT OF STATE PPO BLUE CROSS OUT OF STATE PPO BLUE CROSS OUT OF STATE PPO BLUE CROSS OUT OF STATE PPO Care Teams Community Relations Liaison Relationship Specialty Start Date End Date Arden Zamora MD [address] [place] [address] [place] [address] PCP - General Internal Medicine 10/15/23 Additional Source Comments The information contained in this document represents components of the legal health record. It is not the complete legal health record.[facility]
== END 2024-09-20 13:50 | disposition home or self-care (01) ==
LOC: HO.LNP 13:49
PROVIDERS: Visit Provider Internal Medicine
DX: Z00.00 Encounter for general adult medical examination without abnormal findings (principal); E11.40 Type 2 diabetes mellitus with diabetic neuropathy, unspecified
CPT/HCPCS: 81001; 82043; 82570

== ENCOUNTER 2024-11-15 16:04 | Outpatient (AMB) | payer BC, SELFPAY ==
--- OUTSIDE RECORDS SUMMARY | 2024-09-05 03:45 | XMS_ITS ---
Author Organization Arden Zamora MD Address [address] [place] [phone] Care Team Providers Care Supervisor Finishing Name Role Phone Arden Zamora Primary Care Provider Results Component Value Reference Range Notes Complete Blood Count Auto Di ff Reviewed date:09/06/2024 12:45:34 PM Interpretation: Performing Lab:[facility], [address] [place] [phone] Notes/Report: White Blood Count 7.8 4.8-10.8 X10*3/uL [...] NRBC Abs Auto 0.000 0.0-0.012 X10*3/uL Comprehensive [place]. Panel Fa st Reviewed date:09/06/2024 12:42:48 PM Interpretation: Performing Lab:[facility], [address] [place] [phone] Notes/Report: Sodium 140 135-145 mmol/L Potassium 4.4 [...] (Free>4and<10) Reviewed date:09/05/2024 12:39:35 PM Interpretation: Performing Lab:[address] [phone] Notes/Report: PSA,Total (Free>4and<10) 0.41 0.00-4.00 ng/mL A [...] T4 Reviewed date:09/05/2024 03:18:59 PM Interpretation: Performing Lab:[facility], [address] [place] [phone] Notes/Report: TSH reflex Free T4 4.10 0.32-4.0 uIU/mL Hemoglobin A1c Reviewed date:09/05/2024 12:40:04 PM Interpretation: Performing Lab:[facility], [address] [place] [phone] Notes/Report: Hemoglobin A1c % 11.9 <6.0 % [...] average glucose, using the formula of the E2D-Abskpsf Average Glucose study (ADAG), Diabetes Care, Vol.31,#8, [...] Date Provider Diagnosis Arden Zamora MD [address] [place] [address] [place] [phone] 09/05/2024 Arden Zamora Type 2 diabetes mellitus [...] Details Provider Name:Arden mae, 12/20/2024 10:00:00 AM, [address] [place] [address], Suite [facility], [place], [place], [phone], Provider Name:Arden mae, 03/14/2025 07:30:00 AM, [address] [place] [address], Suite [facility], [place], [place], [phone], Provider Name:Arden Wilcox ier, 03/21/2025 10:00:00 AM, [address], [address], [place], [phone], Provider Name:Arden Wilcox ier, 09/19/2025 07:00:00 AM, [address], [address], [place], [phone], Provider Name:Arden Wilcox ier, 09/26/2025 09:30:00 AM, [address], [address], [place], [phone], Progress Notes * Jonathan CALVOManuelOB:1975 (48 yo M)Acc No.[id number]:09/05/2024 Progress Note Patient: Jeyson ANDERSON Provider: Reinaldo Zamora MD :1975 A ge:48 Y S ex:Male Date:09/05/2024 Address:[address] [place] [address], [facility] Subjective: * Chief Complaints: * 1 . [...] - 09/05/2024 07:45 AM) L AB: Comprehensive [place]. Panel Fast (Collection Date & Time - [...] - 09/05/2024 07:45 AM) L AB: Comprehensive [place]. Panel Fast (Collection Date & Time - 09/05/2024 07:45 AM) L AB: PSA,Total (Free>4and<10) (Collection Date & Time - 09/05/2024 07:45 AM) 5. A nnual physical exam L AB: Microalbumin, Random L AB: UA ClnCatch+Micro w/rflx Cult L AB: Complete Blood Count Auto Diff (Collection Date & Time - 09/05/2024 07:45 AM) L AB: Comprehensive [place]. Panel Fast (Collection Date & Time - [...] MD Date: 0 09/05/2024 Generated for Ulises garcia/Jarvis/Loriitting on: 0 11/15/2024 07:02 PM EDT
--- OUTSIDE RECORDS SUMMARY | 2024-09-12 12:00 | XMS_ITS ---
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 Assessments Encounter Date Diagnosis (ICD Code) Assessment Notes Treatment Notes Treatment Clinical Notes Section Notes 09/12/2024 Type 2 diabetes, controlled, with neuropathy (ICD-10 - E11.40) Plan Of Treatment Pending Test Test Name Order Date Glucose, finger stick 09/12/2024 Next Appt Details Provider Name:Arden mae, 12/20/2024 10:00:00 AM, [address] [facility], Suite [facility], [place], [place], [phone], Provider Name:Arden mae, 03/14/2025 07:30:00 AM, [address], [address], [place], [place], [phone], Provider Name:Arden Wilcox ier, 03/21/2025 10:00:00 AM, [address], [address] [place], [place], [phone], Provider Name:Arden Wilcox ier, 09/19/2025 07:00:00 AM, [address], [address], [place], [phone], Provider Name:Arden Wilcox ier, 09/26/2025 09:30:00 AM, [address], [address] [place], [place], [phone], Progress Notes * Jonathan CALVOManuelOB:1975 (48 yo M)Acc No.[id number]:09/12/2024 Progress Notes Patient: Jeyson ANDERSON Provider: Reinaldo Zamora MD :1975 A ge:48 Y S ex:Male Date:09/12/2024 Address:[address] [place] [address], [place] Subjective: * Chief Complaints: * 1 . [...] 09/12/2024 Generated for Ulises garcia/Jarvis/Mary Jane on: 0 11/15/2024 07:02 PM EDT
--- OUTSIDE RECORDS SUMMARY | 2024-09-13 03:15 | XMS_ITS ---
Author Organization Arden Zamora MD Address [address] [place] [phone] Care Team Providers Care Rug Dry Room Attendant Name Role Phone Arden Zamora Primary Care Provider REASON FOR VISIT yearly fasting labs Encounters Encounter Location Date Provider Diagnosis Arden Zamora MD [address] [place] [phone] 09/13/2024 Arden Zamora Blood tests for routine [...] Order Date Complete Blood Count Auto Diff Comprehensive [place]. Panel Fast Lipid Panel 09/13/2024 PSA,Total (Free>4and<10) 09/13/2024 TSH reflex Free T4 09/13/2024 Microalbumin, Random 09/13/2024 Hemoglobin A1c 09/13/2024 UA ClnCatch+Micro w/rflx Cult 09/13/2024 Next Appt Details Provider Name:Ardenelias Wilcox ier, 12/20/2024 10:00:00 AM, [address] [place] [address], [address] [place] [address], [phone], Provider Name:Arden Villalba Jeri ier, 03/14/2025 07:30:00 AM, [address] [place] [address], [address], [phone], Provider Name:Arden Villalba Jeri ier, 03/21/2025 10:00:00 AM, [address] [place] [address], [address] [place] [address], [phone], Provider Name:Arden Villalba Derekjairo ier, 09/19/2025 07:00:00 AM, [address] [place] [address], [address] [place] [address], [phone], Provider Name:Arden Wilcox ier, 09/26/2025 09:30:00 AM, [address] [place] [address], [address], [phone], Progress Notes * Geronimo CALVOOB:1975 (48 yo M)Acc No.[id number]:09/13/2024 Progress Note Patient: Jonathan ANDERSONn Provider: Reinaldo Zamora MD :1975 A ge:48 Y S ex:Male Date:09/13/2024 Address:[address] [place] [address], [id number] Subjective: * Chief Complaints: * 1 . [...] Blood Count Auto Diff L AB: Comprehensive [place]. Panel Fast L AB: Lipid Panel L AB: PSA,Total (Free>4and<10) L AB: TSH reflex Free T4 L AB: Microalbumin, Random L AB: Hemoglobin A1c L AB: UA ClnCatch+Micro w/rflx Cult 3. A cquired hypothyroidism L AB: Complete Blood Count Auto Diff L AB: Comprehensive [place]. Panel Fast L AB: Lipid Panel L AB: PSA,Total (Free>4and<10) L AB: TSH reflex Free T4 L AB: Microalbumin, Random L AB: Hemoglobin A1c L AB: UA ClnCatch+Micro w/rflx Cult 4. T ype 2 diabetes, controlled, with neuropathy L AB: Complete Blood Count Auto Diff L AB: Comprehensive [place]. Panel Fast L AB: Lipid Panel L AB: PSA,Total (Free>4and<10) L AB: TSH reflex Free T4 L AB: Microalbumin, Random L AB: Hemoglobin A1c L AB: UA ClnCatch+Micro w/rflx Cult 5. E levated triglycerides with high cholesterol L AB: Complete Blood Count Auto Diff L AB: Comprehensive [place]. Panel Fast L AB: Lipid Panel L [...] 09/13/2024 Generated for Ulises garcia/Jarvis/Mary Jane on: 0 11/15/2024 07:02 PM EDT
--- OUTSIDE RECORDS SUMMARY | 2024-09-20 05:30 | XMS_ITS ---
Author Organization Arden Zamora MD Address [address] [place], [place] [phone] Care Team Providers Care Bight Maker Name Role Phone Arden Zamora Primary Care Provider Allergies No Known Allergies Results Component Value Reference Range Notes Microalbumin, Random Reviewed date:09/20/2024 04:58:27 PM Interpretation: Performing Lab:[facility], [address] [place] [phone] Notes/Report: Creatinine Urine 43.23 Microalbumin Urine 1755.0 Microalbum/Creatinine Ratio Ur 4059.6 <30 ug/mg cr Albumin/Creatinine Ratio Reference Ranges: Normal: < 30 ug/mg creatinine Microalbuminuria: 30 - 300 ug/mg creatinine Clinical Albuminuria: > 300 ug/mg creatinine UA ClnCatch+Micro w/rflx Cul t Reviewed date:10/28/2024 08:41:34 AM Interpretation:10-21-2024 Performing Lab:[facility], [address] [place] [phone] Notes/Report: Urine, Clean Catch Color Urine Yellow Appearance Urine Clear PH 6.0 5.0-9.0 Glucose Urine UA >=1000 Negative mg/dL Urine Blood Small (1+) Negative Specific [place] - Urine 1.025 1.005-1.025 Urine Protein 300 [...] Active Cephalexin 750 MG 1 capsule Orally thda ry 8 hrs for 10 day(s) 09/20/2024 [...] kg/m2 09/20/2024 weight is down 5 pounds [facility] e 07-05-24 Encounters Encounter Location Date Provider Diagnosis Arden Zamora MD [address] [facility] [address] [place], [place] [phone] 09/20/2024 Arden Zamora Annual physical exam Z00.00 [...] 10:00:00 AM, [address], [address], [place], [place], [phone], Provider Name:Arden Wilcox ier, 03/14/2025 07:30:00 AM, [address], [address], [place], [place], [phone], Provider Name:Arden Wilcox ier, 03/21/2025 10:00:00 AM, [address] [facility] [address], [address], [place], [place], [phone], Provider Name:Arden Wilcox ier, 09/19/2025 07:00:00 AM, [address] [place] [address] Drive, Suite [facility], [place], [phone], Provider Name:Arden Wilcox ier, 09/26/2025 09:30:00 AM, [address] [place] [address], Suite [facility], [place], [phone], Progress Notes * Geronimo CALVOOB:1975 (48 yo M)Acc No.[id number]:09/20/2024 Progress Notes Patient: Jeyson ANDERSON Provider: Reinaldo Zamora MD :1975 A ge:48 Y S ex:Male Date:09/20/2024 Address:[address] [place] [address], [place], [place] Subjective: * Chief Complaints: * A nnual [...] part-time. Pets: none. Travel outside of the [place]: no. P atient smokes 2 packs [...] 07-05-24. * P ast Orders: L ab:Comprehensive [place]. Panel Fast (Order Date - 09/05/2024) (Collection [...] MD Date: 0 09/20/2024 Generated for Ngoci ng/Famoyg/eTransmitting on: 0 11/15/2024 07:02 PM EDT History and Physical Notes * [...]
--- OUTSIDE RECORDS SUMMARY | 2024-10-21 06:45 | XMS_ITS ---
Author Organization Arden Zamora MD Address [address] [place], [place] [phone] Care Team Providers Care Infantry Unit Leader Name Role Phone Sera Arden Primary Care Provider [phone] Allergies No Known Allergies Reason For Referral [...] Date Provider Diagnosis Arden Zamora MD [address] [place] [address] [place] [phone] 10/21/2024 Arden Zamora Proteinuria R80.9 and Hematuria R31.9 Assessments Encounter Date Diagnosis (ICD Code) Assessment Notes Treatment Notes Treatment Clinical Notes Section Notes 10/21/2024 Proteinuria (ICD-10 - R80.9) referral to experience planning strategist 10/21/2024 Hematuria (ICD-10 - R31.9) had some [...] Next Appt Details Provider Name:Arden Wilcox ier, 12/20/2024 10:00:00 AM, [address], [address], [place], [place], [phone], Provider Name:Arden Wilcox ier, 03/14/2025 07:30:00 AM, [address], [address], [place], [place], [phone], Provider Name:Arden Wilcox ier, 03/21/2025 10:00:00 AM, [address] [place] [address] Drive, Suite [facility], [place], [place], [phone], Provider Name:Arden Wilcox ier, 09/19/2025 07:00:00 AM, [address] [place] [address], Suite [facility], [place], [place], [phone], Provider Name:Arden Wilcox ier, 09/26/2025 09:30:00 AM, [address] [place] [address] Drive, [address], [place], [place], [phone], Progress Notes * Geronimo CALVOOB:1975 (48 yo M)Acc No.[id number]:10/21/2024 Patient: Khari MARCOSGregoriown Provider: Reinaldo Zamora MD :1975 A ge:48 Y S ex:Male Date:10/21/2024 Address:[address] [place] [address], [place] Subjective: * Chief Complaints: * M ust [...] true * Provider: Reinaldo Zamora MD Date: 10/21/2024 Generated for Ulises garcia/Jarvis/eTransmitting on: 0 11/15/2024 07:02 PM EDT History [...] hematur ia 10/21/2024 Arden Zamora Balaji :Protein uria
[2024-11-15 16:05] VITALS: BP 128/86; PULSE 88; O2SAT 96; BMI 32.3
--- NOTE | 2024-11-15 16:05 | HO.NEPHOV_ITS ---
Vital Signs 11/15/24 16:05 Height 6 ft Weight 238 lb BMI 32.3 BP 128/86 Blood Pressure Location Lt brachial Position Sitting Pulse 88 Pulse Source Pulse Oximeter Pulse Oximetry (%) 96 Oxygen Delivery Method Room Air Intake Visit Reasons: ENP: Proteinuria-Conf Manufacturing Test Technician Required: No Accompanied by: Self / Same As Patient Allergies cat dander Allergy (Verified 11/15/24 16:07) Sneezing Medication List - Last Reconciled 11/15/24 by Wander Machuca MD atorvastatin 1 tab PO DAILY insulin glargine (Lantus Solostar U-100 Insulin) 90 units subcut BID levothyroxine 1 tab PO QAM sertraline (Zoloft) 100 mg PO DAILY 30 days PFSH Medical History Diabetic ulcer of toe Toe ulcer, right Hyperlipemia Neuropathy associated with endocrine disorder Hypothyroidism HTN (hypertension) Diabetes Anxiety Asthma Depression Surgical History Hx of umbilical hernia repair History of cholecystectomy H/O elbow surgery Social History Household Members: Significant Other Household Members Other:: Mother and brother of girlfriend Housing: House Do you presently have visiting nurse or other home services: No Alcohol intake: never Patient Tobacco Use Status: Current everyday Tobacco user Tobacco use type: Cigarette Cigarette Packs Per Day: 1 Cigarettes Per Day: 20.0 Years Smoked: 30 service: No Review of Systems Const Denies anorexia, Denies fever(s) and Denies weakness Eyes Denies blurry vision Card Denies no additional complaints and Denies dyspnea Resp Reports no additional complaints, Reports cough and Denies dyspnea GI Denies melena and Denies diarrhea Denies hematuria Musc Denies tingling Skin/Breast Denies rash Neuro Denies focal weakness, Denies tingling, Denies tremor(s) and Denies weakness Physical Exam Vital Signs: Last Vital Signs Pulse 88 11/15/24 16:05 BP 128/86 11/15/24 16:05 Pulse Ox 96 11/15/24 16:05 Oxygen Delivery Method Room Air 11/15/24 16:05 BMI result Body Mass Index 32.3 Results Reviewed Nephrology Results: Hgb, (14.0-18.0) 13.8 g/dl L 09/05/24 WBC, (4.8-10.8) 7.8 X10*3/uL 09/05/24 Plt Count, (160-400) 189 X10*3/uL Δ 09/05/24 Sodium, (135-145) 140 mmol/L 09/05/24 Potassium, (3.3-5.1) 4.4 mmol/L Δ 09/05/24 Chloride, (96-108) 109 mmol/L H 09/05/24 Carbon Dioxide, (22-29) 23 mmol/L 09/05/24 BUN, (9-16) 19 mg/dL H 09/05/24 Creatinine, (0.5-1.4) 1.04 mg/dL 09/05/24 Calcium, (8.4-10.2) 8.2 mg/dL L Δ 09/05/24 Urine Protein, (Neg-Trace) 300 (3+) mg/dL H 09/20/24 Urine Creatinine 43.23 mg/dL 09/20/24 Assessment & Plan Assessment & Plan (1) Asymptomatic proteinuria: Code(s): R80.9 - Proteinuria, unspecified Category: Medical Plan History of Present Illness The patient is a 48-year-old male presenting with concerns about kidney health due to elevated protein levels in the urine. He has a history of diabetes mellitus for over 10 years, with poor glycemic control as indicated by a hemoglobin A1c of 11.9% in August. The patient experienced hematuria three months ago, lasting a couple of days, with associated urinary difficulty, suggesting a possible kidney stone. He has a significant history of smoking, consuming up to two packs per day, increasing his health risks. The patient denies hypertension and is currently on medications including atorvastatin, insulin, levothyroxine, and sertraline. He discontinued glimepiride due to insurance issues. Medical History: - Diabetes Mellitus for over 10 years - History of hematuria Medications: - Atorvastatin - Insulin - Levothyroxine - Sertraline Social History: - Tobacco use: Smokes up to two packs per day Family History: - Father had diabetes and kidney disease Diagnostic Results: - Labs: Hemoglobin A1c 11.9% in August Physical Exam General: Awake. Comfortable. HENT: Neck supple. Mucosa moist. Pulmonary: Lungs aeration equal. No rales. Cardiology: Heart S1-S2 heard. No gallop. Abdomen: Soft. Non tender. Bowel sounds normal. Neurologic: No involuntary movements. No myoclonus. Extremities: No edema. No rash. PLAN 1. Proteinuria - Start losartan 25 mg daily. - Schedule renal ultrasound. - Follow-up in four weeks with blood tests. 2. Diabetes Mellitus - Stress glycemic control importance. - Encourage smoking cessation. 3. Hematuria - Investigate with renal ultrasound. 4. Tobacco Use Disorder - Advise smoking cessation. Patient Instructions - Take losartan 25 mg daily as prescribed. - Attend scheduled renal ultrasound appointment. - Follow-up in four weeks for blood tests. - Work on controlling blood sugar levels. - Reduce smoking to lower health risks. Orders: Orders Basic Metabolic Panel 4 Weeks R80.9 - Proteinuria, unspecified Total Protein Urine Random 4 Weeks R80.9 - Proteinuria, unspecified UA and rflx microscopic 4 Weeks R80.9 - Proteinuria, unspecified Protein Electrophoresis, Serum 4 Weeks R80.9 - Proteinuria, unspecified US renal BI 11/15/24 R31.9 - Hematuria, unspecified Creatinine Urine 4 Weeks R80.9 - Proteinuria, unspecified Medications: New losartan 25 mg PO DAILY 90 tabs 1RF Coding Level of Care Code New Pt Level 4 (80896) Diagnoses Asymptomatic proteinuria R80.9
--- OUTSIDE RECORDS SUMMARY | 2024-11-15 19:02 | XMS_ITS | Patient Health Record ---
Author Organization Arden Zamora MD Address [address] [place], [place] [id number] Care Team Providers Care Bobbin Doffer Name Role Phone Arden Zamora Primary Care Provider Allergies No Known Allergies Results Component Value Reference Range Notes Hemoglobin A1c Reviewed date:11/24/2023 09:49:53 AM Interpretation: Performing Lab: Notes/Report: Hemoglobin A1c 12.5 Hemoglobin A1c Reviewed date:03/15/2024 09:22:37 AM Interpretation: Performing Lab: Notes/Report: Hemoglobin A1c 13.2 Hemoglobin A1c Reviewed date:07/05/2024 09:57:43 AM Interpretation: Performing Lab: Notes/Report: Hemoglobin A1c >14.0 TSH reflex Free T4 Reviewed date:12/10/2023 09:14:37 AM Interpretation:ARUNA 12/07 TSH Performing Lab:[facility], [address] [place] [phone] Notes/Report: TSH reflex Free T4 29.24 0.32-4.0 uIU/mL TSH reflex Free T4 Reviewed date:03/17/2024 01:08:42 PM Interpretation:ARUNA 03/15 Performing Lab:[facility], [address] [place] [phone] Notes/Report: TSH reflex Free T4 71.54 0.32-4.0 uIU/mL TSH reflex Free T4 Reviewed date:05/13/2024 05:05:01 PM Interpretation: Performing Lab:[facility], [address] [place] [phone] Notes/Report: TSH reflex Free T4 24.28 0.32-4.0 uIU/mL TSH reflex Free T4 Reviewed date:07/07/2024 07:52:47 AM Interpretation:ARUNA 07/05 TSH Performing Lab:[facility], [address] [place] [phone] Notes/Report: TSH reflex Free T4 29.59 0.32-4.0 uIU/mL Complete Blood Count Auto Di ff Reviewed date:09/06/2024 12:45:34 PM Interpretation: Performing Lab:[facility], [address] [place] [phone] Notes/Report: White Blood Count 7.8 4.8-10.8 X10*3/uL [...] NRBC Abs Auto 0.000 0.0-0.012 X10*3/uL Comprehensive [place]. Panel Fa st Reviewed date:09/06/2024 12:42:48 PM Interpretation: Performing Lab:[address] [phone] Notes/Report: Sodium 140 135-145 mmol/L Potassium 4.4 [...] (Free>4and<10) Reviewed date:09/05/2024 12:39:35 PM Interpretation: Performing Lab:[facility], [address] [place] [phone] Notes/Report: PSA,Total (Free>4and<10) 0.41 0.00-4.00 ng/mL A [...] T4 Reviewed date:09/05/2024 03:18:59 PM Interpretation: Performing Lab:[facility], [address] [place] [phone] Notes/Report: TSH reflex Free T4 4.10 0.32-4.0 uIU/mL Hemoglobin A1c Reviewed date:09/05/2024 12:40:04 PM Interpretation: Performing Lab:[address] [phone] Notes/Report: Hemoglobin A1c % 11.9 <6.0 % [...] average glucose, using the formula of the [id number]-[id number] Average Glucose study (ADAG), Diabetes Care, Vol.31,#8, 2007 Glucose, finger stick Reviewed date:11/24/2023 09:42:25 AM Interpretation: Performing Lab: Notes/Report: Value 332 Glucose, finger stick Reviewed date:12/08/2023 09:51:17 AM Interpretation: Performing Lab: Notes/Report: Value 329 Glucose, finger stick Reviewed date:03/15/2024 09:15:45 AM Interpretation: Performing Lab: Notes/Report: Value 310 Glucose, finger stick (Not y et reviewed by provider) Interpretation: Performing Lab: Notes/Report: Value 297 Microalbumin, Random Reviewed date:09/20/2024 04:58:27 PM Interpretation: Performing Lab:[facility], [address] [place] [phone] Notes/Report: Creatinine Urine 43.23 Microalbumin Urine 1755.0 Microalbum/Creatinine Ratio Ur 4059.6 <30 ug/mg cr Albumin/Creatinine Ratio Reference Ranges: Normal: < 30 ug/mg creatinine Microalbuminuria: 30 - 300 ug/mg creatinine Clinical Albuminuria: > 300 ug/mg creatinine UA ClnCatch+Micro w/rflx Cul t Reviewed date:10/28/2024 08:41:34 AM Interpretation:10-21-2024 Performing Lab:[facility], [address] [place] [phone] Notes/Report: Urine, Clean Catch Color Urine Yellow Appearance Urine Clear PH 6.0 5.0-9.0 Glucose Urine UA >=1000 Negative mg/dL Urine Blood Small (1+) Negative Specific [place] - Urine 1.025 1.005-1.025 Urine Protein 300 (3+) Neg-Trace mg/dL Urine Ketones Negative Negative mg/dL Nitrite Urine Negative Negative Leukocyte Esterase Urine Negative Negative RBC Urine 6-10 0-2 /HPF WBC Urine 0-5 0-5 /HPF Squamous Epithelial Cell Urine 0-2 0-2 /HPF Bacteria Urine None Seen None Seen Hyaline Casts Urine 0-2 0-2 /LPF Free T4 (Free Thyroxine) Reviewed date:12/07/2023 02:19:34 PM Interpretation: Performing Lab:[facility], [address] [place] [phone] Notes/Report: Free T4 (Free Thyroxine) 0.58 0.71-1.85 ng/dL Maximiliano Alvarez Reviewed date:12/07/2023 11:57:59 AM Interpretation: Performing Lab:[facility], [address] [place] [phone] Notes/Report: Maximiliano Alvarez See Note Specimen held untested for 24 hours; Call to request Chemistry testing. colonoscopy Reviewed date:12/09/2023 01:04:18 PM Interpretation:Normal Performing Lab: Notes/Report: Normal Free T4 (Free Thyroxine) Reviewed date:03/08/2024 04:24:12 PM Interpretation: Performing Lab:[facility], [address] [place] [phone] Notes/Report: Free T4 (Free Thyroxine) < 0.42 0.71-1.85 ng/dL Hold Gold Reviewed date:03/08/2024 12:43:13 PM Interpretation: Performing Lab:[facility], [address] [place] [phone] Notes/Report: Hold Antonio See Note Specimen held untested for 24 hours; Call to request Chemistry testing. Free T4 (Free Thyroxine) Reviewed date:05/13/2024 05:03:18 PM Interpretation: Performing Lab:[facility], [address] [place] [phone] Notes/Report: Free T4 (Free Thyroxine) 0.79 0.71-1.85 ng/dL Hold Gold Reviewed date:05/13/2024 05:03:26 PM Interpretation: Performing Lab:[facility], [address] [place] [phone] Notes/Report: Hold Antonio See Note Specimen held untested for 24 hours; Call to request Chemistry testing. Free T4 (Free Thyroxine) Reviewed date:06/13/2024 06:25:45 PM Interpretation: Performing Lab:[facility], [address] [place] [phone] Notes/Report: Free T4 (Free Thyroxine) 0.72 0.71-1.85 ng/dL Maximiliano Antonio Reviewed date:06/13/2024 11:05:01 AM Interpretation: Performing Lab:[facility], [address] [place] [phone] Notes/Report: Hold Antonio See Note Specimen held untested for 24 hours; Call to request Chemistry testing. Free T4 (Free Thyroxine) Reviewed date:09/05/2024 03:20:45 PM Interpretation: Performing Lab:[facility], [address] [place] [phone] Notes/Report: Free T4 (Free Thyroxine) 0.85 0.71-1.85 ng/dL Reason For Referral Reason hematuria Diagnosis 1 Hematuria (R31.9) Referral Organization Arden Zamora MD Referring Provider First Name Arden Referring Provider Last Name Sera Referring Provider Speciality Internal M edicine Referred Provider Aron Peres Referred Provider Specialty Urology General Notes Oksana Rico 0 10/21/2024 11:57:41 AM > referral info faxed, Jacky, Oksana 11/04/2024 03:06:30 PM >was told patient is aware of appt Referral Priority Routine Referral Appointment Date 01/03/2025 Reason :Proteinuria Diagnosis 1 Proteinuria (R80.9) Referral Organization Arden Zamora MD Referring Provider First Name Arden Referring Provider Last Name Sera Referring Provider Speciality Internal M edicine Referred Provider Wander Machuca Referred Provider Specialty Nephrology General Notes Oksana Rico 0 10/21/2024 12:01:04 PM >referral info Jacky ortega Annette 10/28/2024 11:25:12 AM > was told patient is aware of appt Referral Priority Routine Referral Appointment Date 11/15/2024 Medications Medication SIG (Take, Route, Frequency, Duration) Notes Start Date End Date Status Albuterol Sulfate HFA 108 (90 Base) MCG/ACT 1 puff as needed Inhalation every 4 hrs for 30 days 11/24/2023 Not-Taking Levothyroxine Sodium 200 MCG TAKE 1 TABLET BY MOUTH ONCE EVERY DAY IN THE MORNING ON AN EMPTY STOMACH, FOR 90 DAYS for 90 Active Atorvastatin Calcium 40 MG TAKE 1 [...] M OUTH EVERY DAY for 30 Active BD Pen Needle Mini U/F 31G X 5 MM use with pen once a day for injection sq twice a day for 90 days Active Sildenafil Citrate 100 MG 1 tablet Orally Once a day for 30 Not-Taking Immunizations Vaccine Route Administration Date Status Comme [...] 5 minutes Additional Findings: Tobacco User Daisy elias cigarette smoker, not currently using another form [...] Problem Status W/U Status Risk Notes Problem 54942104 Type 2 diabetes mellitus with other diabetic kidney complication (E11.29) Active confirmed Problem 393315253 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) Active confirmed Problem 97515685 Smoker (F17.200) Active confirmed Problem 91379787 Essential hypertension (I10) Active confirmed Problem 748574335 Acquired hypothyroidism (E03.9) Active confirmed Problem 61016794 Type 2 diabetes, controlled, with neuropathy (E11.40) Active confirmed Problem 687956688 Elevated triglycerides with high cholesterol (E78.2) Active confirmed Problem 156804682 COPD exacerbatio n (J44.1) Active confirmed Problem 44980101 Dysthymia (F34.1) Active confirmed Problem 87593400 Severe episode o f recurrent major depressive disorder, without psychotic features (F33.2) Active confirmed Problem 59617794 DARREN (obstructive sleep apnea) (G47.33) Active confirmed Problem 06783526 Smoker unmotivated to quit (F17.200) Active confirmed Problem 034970665 Toe osteomyelitis, 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) Active confirmed Problem 85176005583834970 Chronic ulcer of toe of right foot with fat layer exposed (L97.512) Active confirmed Vital Signs Blood pressure diastolic 86 mm Hg 10/21/2024 yoly ght is up 5 pounds since 09-20-24 Height 71 in 10/21/2024 weight is up 5 pounds since 09-20-24 Blood pressure systolic 132 mm Hg 10/21/2024 weig ht is up 5 pounds since 09-20-24 Weight 233 lbs 10/21/2024 weight is up 5 pounds since 09-20-24 BMI 32.49 kg/m2 10/21/2024 weight is up 5 pounds since 09-20-24 Encounters Encounter Location Date Provider Diagnosis Arden Zamora MD [address] [place] [id number] 12/07/2023 Arden Zamora Acquired hypothyroidism E03.9 Arden Zamora MD [address] [place] [id number] 03/08/2024 Ardne Zamora Acquired hypothyroidism E03.9 Arden Zamora MD [address] [place] [id number] 05/13/2024 Arden Zamora Acquired hypothyroidism E03.9 Arden Zamora MD [address] [place] [id number] 06/13/2024 Arden Zamora Type 2 diabetes mellitus with other diabetic kidney complication E11.29 Arden Zamora MD [address] [place] [id number] 09/05/2024 Arden Zamora Type 2 diabetes mellitus with other diabetic kidney complication E11.29 ; Acquired hypothyroidism E03.9 ; Type 2 diabetes, controlled, with neuropathy E11.40 ; Essential hypertension I10 and Annual physical exam Z00.00 Arden Zamora MD [address] [place] [address] [id number] 11/24/2023 Arden Zamora Type 2 diabetes, controlled, with neuropathy E11.40 ; Smoker unmotivated to quit F17.200 ; Essential hypertension I10 ; Type 2 diabetes mellitus with other diabetic kidney complication E11.29 ; COPD exacerbation J44.1 and Acute abscess L02.91 Arden Zamora MD [address] [place] [id number] 12/08/2023 Arden Zamora Type 2 diabetes mellitus with other diabetic kidney complication E11.29 and Acquired hypothyroidism E03.9 Arden Zamora MD [address] [place] [address] [id number] 01/26/2024 Arden Zamora Type 2 diabetes, controlled, with neuropathy E11.40 and Acquired hypothyroidism E03.9 Arden Zamora MD [address] [id number] 03/15/2024 Arden Zamora Type 2 diabetes mellitus with other diabetic kidney complication E11.29 and Acquired hypothyroidism E03.9 Arden Zamora MD [address] [place] [address] [address] [place] [address] [id number] 05/03/2024 Arden Zamora Type 2 diabetes, controlled, with neuropathy E11.40 and Acquired hypothyroidism E03.9 Arden Zamora MD [address] [place] [address] [address] [id number] 07/05/2024 Arden Zamora Type 2 diabetes mellitus with other diabetic kidney complication E11.29 ; Essential hypertension I10 ; Acquired hypothyroidism E03.9 and Type 2 diabetes, controlled, with neuropathy E11.40 Arden Zamora MD [address] [place] [address] [address] [id number] 09/20/2024 Arden Zamora Annual physical exam Z00.00 ; Type 2 diabetes, controlled, with neuropathy E11.40 ; Essential hypertension I10 ; Smoker unmotivated to quit F17.200 ; Acquired hypothyroidism E03.9 and Abscess L02.91 Arden Zamora MD [address] [place] [address] [address] [id number] 10/21/2024 Arden Zamora Proteinuria R80.9 an d Hematuria R31.9 Arden Zamora MD [address] [place] [id number] 11/30/2023 Arden Zamora MD [address] [place] [address] [address] [id number] 07/15/2024 Arden Zamora Elevated triglycerid es with high cholesterol E78.2 Assessments Encounter Date Diagnosis (ICD Code) Assessment Notes Treatment Notes Treatment Clinical Notes Section Notes 12/07/2023 Acquired hypothyroidism (ICD-10 - E03.9) 03/08/2024 Acquired hypothyroidism (ICD-10 - E03.9) 05/13/2024 Acquired hypothyroidism (ICD-10 - E03.9) 06/13/2024 Type 2 diabetes mellitus with other diabetic kidney complication (ICD-10 - E11.29) 09/05/2024 Type 2 diabetes mellitus with other diabetic kidney complication (ICD-10 - E11.29) 09/05/2024 Acquired hypothyroidism (ICD-10 - E03.9) 11/24/2023 Type 2 diabetes, controlled, with neuropathy [...] E11.40) encouraged him to take his insulin 07/05/2024 Type 2 diabetes mellitus with other diabetic kidney complication (ICD-10 - E11.29) 09/20/2024 Annual physical exam (ICD-10 - Z00.00) labs reviewed and discussed with patient 09/20/2024 Type 2 diabetes, controlled, with neuropathy (ICD-10 - E11.40) stable, will continue current regiment 10/21/2024 Proteinuria (ICD-10 - R80.9) referral to on awake counselor 10/21/2024 Hematuria (ICD-10 - R31.9) had some gross painful urine in early september/ needs referral to urology dr peres 07/15/2024 Elevated triglycerides with high cholesterol (ICD-10 - E78.2) 09/05/2024 Type 2 diabetes, controlled, with neuropathy (ICD-10 - E11.40) 11/24/2023 Smoker unmotivated to quit (ICD-10 - F17.200) 05/03/2024 Acquired hypothyroidism (ICD-10 - E03.9) stable, will continue current regiment 07/05/2024 Essential hypertension (ICD-10 - I10) doing well 09/20/2024 Essential hypertension (ICD-10 - I10) stable, will cpntinue current regiment 09/05/2024 Essential hypertension (ICD-10 - I10) 11/24/2023 Essential hypertension (ICD-10 - I10) well controlled, at goal, will continue to monitor 07/05/2024 Acquired hypothyroidism (ICD-10 - E03.9) is on 200 mcg for one month. started it after the last draw, will continue to monitor 09/20/2024 Smoker unmotivated to quit (ICD-10 - F17.200) advised to quit 09/05/2024 Annual physical exam (ICD-10 - Z00.00) 11/24/2023 Type 2 diabetes mellitus with other diabetic kidney complication (ICD-10 - E11.29) 07/05/2024 Type 2 diabetes, controlled, with neuropathy (ICD-10 - E11.40) starting to take his meds, will continue to monitor 09/20/2024 Acquired hypothyroidism (ICD-10 - E03.9) stable, will continue current regiment 11/24/2023 COPD exacerbation (ICD-10 - J44.1) 09/20/2024 Abscess (ICD-10 - L02.91) is draining and he says that once it drains it gets better. will put on ab and if not better will get surgery 11/24/2023 Acute abscess (ICD-10 - L02.91) is improving, no warmth of tendernes in the neck Plan Of Treatment Pending Test Test Name Order Date Glucose, finger stick 05/03/2024 Microalbumin, Random 09/05/2024 UA ClnCatch+Micro w/rflx Cult 09/05/2024 Next Appt Details Provider Name:Arden Wilcox ier, 12/20/2024 10:00:00 AM, [address] [place] [address], Suite [facility], [place], [place], [phone], Provider Name:Arden Wilcox ier, 03/14/2025 07:30:00 AM, [address] [place] [address], Suite [facility], [place], [place], [phone], Provider Name:Arden Wilcox ier, 03/21/2025 10:00:00 AM, [address] [place] [address], Suite [facility], [place], [place], [phone], Provider Name:Arden Wilcox ier, 09/19/2025 07:00:00 AM, [address] [place] [address], Suite [facility], [place], [place], [phone], Provider Name:Arden Wilcox ier, 09/26/2025 09:30:00 AM, [address] [place] [address], [place] [address], [place], [place], [phone], Insurance Providers Payer Name Payer Address Payer Phone Subscriber Number Group Number Insured Name Patient Relationship to Insured Coverage Start Date Coverage End Date [employer] [address] [place], [place] [phone] [id number] Jeyson Evans Self - patient is the insured Medical (General) History Medical History History ICD Code got diarrhea on metformin 01/13/22 Colonoscopy repeat one year
--- OUTSIDE RECORDS SUMMARY | 2024-11-15 19:03 | XMS_ITS | Clinical Summary ---
Author Organization [facility] Address [address] [address] Phone Care Team Providers Care Cell Phone Repair Technician Name Role Phone Arden Zamora MD Primary [...] FOBT 11/18/2020 SIGMOIDOSCOPY 11/18/2020 VIRTUAL COLONOSCOPY 11/18/2020 INFLUENZA VACCINE (#1) 2024 COVID-19 VACCINE (3 - 2024-2 6 season) 2024 12/04/2020, 12/04/2020 SMOKING STATUS SCREENING (On ce [...] topic Medical Devices Not on file Insurance [facility] OUT OF STATE PPO BLUE CROSS OUT OF STATE PPO BLUE CROSS OUT OF STATE PPO BLUE CROSS OUT OF STATE PPO BLUE CROSS OUT OF STATE PPO BLUE CROSS OUT OF STATE PPO Care Teams Cell Phone Repair Technician Relationship Specialty Start Date End Date Arden Zamora MD [address] [place] [address] [place] [address] PCP - General Internal Medicine 10/15/23 Additional Source Comments The information contained in this document represents components of the legal health record. It is not the complete legal health record.[facility]
== END 2024-11-15 16:23 | disposition home or self-care (01) ==
LOC: HO.HKA 16:04
PROVIDERS: PCP Internal Medicine; Visit Provider Internal Medicine Hypertension Specialist
DX: R80.9 Proteinuria, unspecified (principal)
CPT/HCPCS: 99204

== ENCOUNTER 2024-12-16 13:14 | Outpatient (REF) | payer BC, SELFPAY ==
--- OUTSIDE RECORDS SUMMARY | 2024-05-13 03:00 | XMS_ITS ---
Author Organization Arden Zamora MD Address [address] [place] [phone] Care Team Providers Care Customer Solutions Representative Name Role Phone Arden Zamora Primary Care Provider Results Component Value Reference Range Notes TSH reflex Free T4 Reviewed date:05/13/2024 05:05:01 PM Interpretation: Performing Lab:[facility], [address] [place] [phone] Notes/Report: TSH reflex Free T4 24.28 0.32-4.0 uIU/mL REASON FOR VISIT TSH Encounters Encounter Location Date Provider Diagnosis Arden Zamora MD [address] [facility] [address] [place] [phone] 05/13/2024 Arden Zamora Acquired hypothyroidism E03.9 Assessments Encounter Date Diagnosis (ICD Code) Assessment Notes Treatment Notes Treatment Clinical Notes Section Notes 05/13/2024 Acquired hypothyroidism (ICD-10 - E03.9) Plan Of Treatment Next Appt Details Provider Name:Arden mae, 12/20/2024 10:00:00 AM, [address], [address], [place], [place], [phone], Provider Name:Arden Wilcox ier, 03/14/2025 07:30:00 AM, [address], [address], [place], [phone], Provider Name:Arden Wilcox ier, 03/21/2025 10:00:00 AM, [address], [address], [place], [phone], Provider Name:Arden Wilcox ier, 09/19/2025 07:00:00 AM, [address], [address], [place], [phone], Provider Name:Arden Wilcox ier, 09/26/2025 09:30:00 AM, [address], [address], [place], [place], [phone], Progress Notes * Geronimo CALVOOB:1975 (49 yo M)Acc No.[id number]:05/13/2024 Progress Note Patient: Jonathan ANDERSONn Provider: Reinaldo Zamora MD :1975 A ge:48 Y S ex:Male Date:05/13/2024 Address:[address] [place] [address], [facility] Subjective: * Chief Complaints: * 1 . TSH. * Medical History: Objective: * Vitals: Assessment: * Assessment: 1. A cquired hypothyroidism - E03.9 (Primary) Plan: * Treatment: * Procedure Codes: 3 6415 VENIPUNCT, ROUTINE* * * The named appointment provid er may or may not be the originator of this progress note, and it is not deemed complete until electronically signed by the appointment provider. Sign off status: Pending * Provider: Reinaldo Zamora MD Date: 0 05/13/2024 Generated for Ngoci radha/Jarvis/eTransmitting on: 1 03:52 PM EDT
--- OUTSIDE RECORDS SUMMARY | 2024-06-13 03:30 | XMS_ITS ---
Author Organization Arden Zamora MD Address [address] [place] [phone] Care Team Providers Care Middleware Systems Architect Name Role Phone Arden Zamora Primary Care Provider [phone] Results Component Value Reference Range Notes TSH reflex Free T4 Reviewed date:07/07/2024 07:52:47 AM Interpretation:CBACK 5/6 TSH Performing Lab:[facility], [address] [place] [phone] Notes/Report: TSH reflex Free T4 29.59 0.32-4.0 uIU/mL REASON FOR VISIT TSH Encounters Encounter Location Date Provider Diagnosis Arden Zamora MD [address] [place] [phone] 06/13/2024 Arden Zamora Type 2 diabetes mellitus with other diabetic kidney complication E11.29 Assessments Encounter Date Diagnosis (ICD Code) Assessment Notes Treatment Notes Treatment Clinical Notes Section Notes 06/13/2024 Type 2 diabetes mellitus with other diabetic kidney complication (ICD-10 - E11.29) Plan Of Treatment Next Appt Details Provider Name:Arden mae 12/20/2024 10:00:00 AM, [address], [address], [place], [phone], Provider Name:Arden sorianor, 03/14/2025 07:30:00 AM, [address], [address], [place], [phone], Provider Name:Arden Wilcox ier, 03/21/2025 10:00:00 AM, [address], [address], [place], [phone], Provider Name:Arden Wilcox ier, 09/19/2025 07:00:00 AM, [address], [address], [place], [phone], Provider Name:Arden sorianor, 09/26/2025 09:30:00 AM, [address] [place] [address], Suite [facility], [place], [place], [phone], Progress Notes * Geronimo CALVOOB:1975 (49 yo M)Acc No.[id number]:06/13/2024 Progress Note Patient: Jeyson ANDERSON Provider: Reinaldo Zamora MD :1975 A ge:48 Y S ex:Male Date:06/13/2024 Address:[address] [place] [address], [id number] Subjective: * Chief Complaints: * 1 . [...] MD Date: 0 06/13/2024 Generated for Ulises garcia/Jarvis/eTransmitting on: 1 03:51 PM EDT
--- OUTSIDE RECORDS SUMMARY | 2024-07-05 06:00 | XMS_ITS ---
Author Organization Arden Zamora MD Address [address] [place] [phone] Care Team Providers Care Technology Trainer Name Role Phone Arden Zamora Primary Care [...] kg/m2 07/05/2024 weight is down 6 pounds [facility] e 05-03-24 Encounters Encounter Location Date Provider Diagnosis Arden Zamora MD [address] [place], [place] [phone] 07/05/2024 Arden Zamora Type 2 diabetes mellitus [...] Up: 2 Months, Reason: Provider Name:Arden mae, 12/20/2024 10:00:00 AM, [address], [address], [place], [place], [phone], Provider Name:Arden Wilcox ier, 03/14/2025 07:30:00 AM, [address], [address], [place], [phone], Provider Name:Arden Wilcox ier, 03/21/2025 10:00:00 AM, [address], [address], [place], [phone], Provider Name:Arden Wilcox ier, 09/19/2025 07:00:00 AM, [address], [address], [place], [phone], Provider Name:Arden Wilcox ier, 09/26/2025 09:30:00 AM, [address], [address], [place], [phone], Progress Notes * Geronimo CALVOOB:1975 (48 yo M)Acc No.[id number]:07/05/2024 Patient: Jonathan ANDERSONn Provider: Reinaldo Zamora MD :1975 A ge:48 Y S ex:Male Date:07/05/2024 Address:[address] [place] [address], [id number] Subjective: * Chief Complaints: * 2 monthCBACK [...] 0 07/05/2024 Generated for Ulises garcia/Jarvis/Loriitting on: 1 03:53 PM EDT History and Physical Notes * [...]
--- OUTSIDE RECORDS SUMMARY | 2024-07-15 11:18 | XMS_ITS ---
Author Organization Arden Zamora MD Address [address] [place] [phone] Care Team Providers Care Dock Hand Name Role Phone Arden Zamora Primary Care Provider [phone] Medications Medication SIG (Take, Route, Frequency, Duration) Notes Start Date End Date Status Atorvastatin Calcium 40 MG TAKE 1 TABLET BY MOUTH EVERY DAY Orally Once a day for 90 days Active Encounters Encounter Location Date Provider Diagnosis Arden Zamora MD [address] [place] [address] Drive [address] [place] [phone] 07/15/2024 Arden Zamora Elevated triglycerides with high [...] days Next Appt Details Provider Name:Arden mae, 12/20/2024 10:00:00 AM, [address] [place] [address], [address], [place], [place], [phone], Provider Name:Arden Wilcox ier, 03/14/2025 07:30:00 AM, [address], [address], [place], [phone], Provider Name:Arden Wilcox ier, 03/21/2025 10:00:00 AM, [address], [address], [place], [phone], Provider Name:Arden Wilcox ier, 09/19/2025 07:00:00 AM, [address], [address], [place], [phone], Provider Name:Arden Wilcox ier, 09/26/2025 09:30:00 AM, [address] [place] [address], [address], [place], [phone], Progress Notes * Geronimo CALVOOB:1975 (48 yo M)Acc No.[id number]:07/15/2024 Patient: Khari Jeyson RODRÍGUEZ :1975 A ge:48 Y S ex:Male Address: [address], [place], [address] * Refills Refill Atorvastatin Calcium Tablet, 40 MG, Orally, 90, TAKE 1 TABLET BY MOUTH EVERY DAY, Once a day, 90 days, Refills=3 * true * Date: Generated for Ulises garcia/Jarvis/eTransmitting on: 1 03:53 PM EDT
--- OUTSIDE RECORDS SUMMARY | 2024-09-05 03:45 | XMS_ITS ---
Author Organization Arden Zamora MD Address [address] [place] [phone] Care Team Providers Care Legal Secretary Receptionist Name Role Phone Arden Zamora Primary Care Provider [phone] Results Component Value Reference Range Notes Complete Blood Count Auto Di ff Reviewed date:09/06/2024 12:45:34 PM Interpretation: Performing Lab:[facility], [address] [place] [phone] Notes/Report: White Blood Count 7.8 4.8-10.8 X10*3/uL [...] NRBC Abs Auto 0.000 0.0-0.012 X10*3/uL Comprehensive [place]. Panel Fa st Reviewed date:09/06/2024 12:42:48 PM Interpretation: Performing Lab:[facility], [address] [place] [phone] Notes/Report: Sodium 140 135-145 mmol/L Potassium 4.4 [...] (Free>4and<10) Reviewed date:09/05/2024 12:39:35 PM Interpretation: Performing Lab:[address] [phone] Notes/Report: PSA,Total (Free>4and<10) 0.41 0.00-4.00 ng/mL A [...] T4 Reviewed date:09/05/2024 03:18:59 PM Interpretation: Performing Lab:[facility], [address] [place] [phone] Notes/Report: TSH reflex Free T4 4.10 0.32-4.0 uIU/mL Hemoglobin A1c Reviewed date:09/05/2024 12:40:04 PM Interpretation: Performing Lab:[facility], [address] [place] [phone] Notes/Report: Hemoglobin A1c % 11.9 <6.0 % [...] average glucose, using the formula of the W7O-Plqwper Average Glucose study (ADAG), Diabetes Care, Vol.31,#8, [...] Location Date Provider Diagnosis Arden Zamora MD [address] [place] [address] [place] [phone] 09/05/2024 Arden Zamora Type 2 diabetes mellitus [...] 09/05/2024 Next Appt Details Provider Name:Arden mae, 12/20/2024 10:00:00 AM, [address] [place] [address], Suite [facility], [place], [place], [phone], Provider Name:Arden mae, 03/14/2025 07:30:00 AM, [address] [place] [address], Suite [facility], [place], [place], [phone], Provider Name:Arden Wilcox ier, 03/21/2025 10:00:00 AM, [address], [address], [place], [phone], Provider Name:Arden Wilcox ier, 09/19/2025 07:00:00 AM, [address], [address], [place], [phone], Provider Name:Arden Wilcox ier, 09/26/2025 09:30:00 AM, [address], [address], [place], [phone], Progress Notes * Jonathan CALVOManuelOB:1975 (49 yo M)Acc No.[id number]:09/05/2024 Progress Note Patient: Jeyson ANDERSON Provider: Reinaldo Zamora MD :1975 A ge:48 Y S ex:Male Date:09/05/2024 Address:[address] [place] [address], [facility] Subjective: * Chief Complaints: * 1 . [...] - 09/05/2024 07:45 AM) L AB: Comprehensive [place]. Panel Fast (Collection Date & Time - [...] - 09/05/2024 07:45 AM) L AB: Comprehensive [place]. Panel Fast (Collection Date & Time - 09/05/2024 07:45 AM) L AB: PSA,Total (Free>4and<10) (Collection Date & Time - 09/05/2024 07:45 AM) 5. A nnual physical exam L AB: Microalbumin, Random L AB: UA ClnCatch+Micro w/rflx Cult L AB: Complete Blood Count Auto Diff (Collection Date & Time - 09/05/2024 07:45 AM) L AB: Comprehensive [place]. Panel Fast (Collection Date & Time - [...] Zamora MD Date: 0 09/05/2024 Generated for Ulises garcia/Jarvis/Mary Jane on: 1 03:53 PM EDT
--- OUTSIDE RECORDS SUMMARY | 2024-09-12 12:00 | XMS_ITS ---
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 Assessments Encounter Date Diagnosis (ICD Code) Assessment Notes Treatment Notes Treatment Clinical Notes Section Notes 09/12/2024 Type 2 diabetes, controlled, with neuropathy (ICD-10 - E11.40) Plan Of Treatment Pending Test Test Name Order Date Glucose, finger stick 09/12/2024 Next Appt Details Provider Name:Arden mae, 12/20/2024 10:00:00 AM, [address] [facility], Suite [facility], [place], [place], [phone], Provider Name:Arden mae, 03/14/2025 07:30:00 AM, [address], [address], [place], [place], [phone], Provider Name:Arden Wilcox ier, 03/21/2025 10:00:00 AM, [address], [address], [place], [phone], Provider Name:Arden Wilcox ier, 09/19/2025 07:00:00 AM, [address], [address], [place], [phone], Provider Name:Arden Wilcox ier, 09/26/2025 09:30:00 AM, [address], [address], [place], [phone], Progress Notes * Jonathan CALVOManuelOB:1975 (49 yo M)Acc No.[id number]:09/12/2024 Progress Notes Patient: Jeyson ANDERSON Provider: Reinaldo Zamora MD :1975 A ge:48 Y S ex:Male Date:09/12/2024 Address:[address] [place] [address], [place] Subjective: * Chief Complaints: * 1 . [...] Zamora MD Date: 0 09/12/2024 Generated for Uilses garcia/Jarvis/Mary Jane on: 1 03:52 PM EDT
--- OUTSIDE RECORDS SUMMARY | 2024-09-13 03:15 | XMS_ITS ---
Author Organization Arden Zamora MD Address [address] [place] [phone] Care Team Providers Care Supervisor Grips Name Role Phone Arden Zamora Primary Care Provider REASON FOR VISIT yearly fasting labs Encounters Encounter Location Date Provider Diagnosis Arden Zamora MD [address] [place] [phone] 09/13/2024 Arden Zamora Blood tests for routine [...] Date Complete Blood Count Auto Diff [facility] [place]. Panel Fast Lipid Panel 09/13/2024 PSA,Total (Free>4and<10) 09/13/2024 TSH reflex Free T4 09/13/2024 Microalbumin, Random 09/13/2024 Hemoglobin A1c 09/13/2024 UA ClnCatch+Micro w/rflx Cult 09/13/2024 Next Appt Details Provider Name:Ardenelias Wilcox ier, 12/20/2024 10:00:00 AM, [address] [place] [address], [address] [place] [address], [phone], Provider Name:Arden Villalba Jeri ier, 03/14/2025 07:30:00 AM, [address] [place] [address], [address], [phone], Provider Name:Arden Villalba Jeri ier, 03/21/2025 10:00:00 AM, [address] [place] [address], [address] [place] [address], [phone], Provider Name:Arden Villalba Derekjairo ier, 09/19/2025 07:00:00 AM, [address] [place] [address], [address] [place] [address], [phone], Provider Name:Arden Wilcox ier, 09/26/2025 09:30:00 AM, [address] [place] [address], [address], [phone], Progress Notes * Geronimo CALVOOB:1975 (49 yo M)Acc No.[id number]:09/13/2024 Progress Note Patient: Jonathan ANDERSONn Provider: Reinaldo Zamora MD :1975 A ge:48 Y S ex:Male Date:09/13/2024 Address:[address] [place] [address], [id number] Subjective: * Chief Complaints: * 1 . [...] Blood Count Auto Diff L AB: [facility] [place]. Panel Fast L AB: Lipid Panel L AB: PSA,Total (Free>4and<10) L AB: TSH reflex Free T4 L AB: Microalbumin, Random L AB: Hemoglobin A1c L AB: UA ClnCatch+Micro w/rflx Cult 3. A cquired hypothyroidism L AB: Complete Blood Count Auto Diff L AB: [facility] [place]. Panel Fast L AB: Lipid Panel L AB: PSA,Total (Free>4and<10) L AB: TSH reflex Free T4 L AB: Microalbumin, Random L AB: Hemoglobin A1c L AB: UA ClnCatch+Micro w/rflx Cult 4. T ype 2 diabetes, controlled, with neuropathy L AB: Complete Blood Count Auto Diff L AB: [facility] [place]. Panel Fast L AB: Lipid Panel L AB: PSA,Total (Free>4and<10) L AB: TSH reflex Free T4 L AB: Microalbumin, Random L AB: Hemoglobin A1c L AB: UA ClnCatch+Micro w/rflx Cult 5. E levated triglycerides with high cholesterol L AB: Complete Blood Count Auto Diff L AB: Comprehensive [place]. Panel Fast L AB: Lipid Panel L [...]
--- OUTSIDE RECORDS SUMMARY | 2024-09-20 05:30 | XMS_ITS ---
Author Organization Arden Zamora MD Address [address] [place] [phone] Care Team Providers Care Material Man Name Role Phone Arden Zamora Primary Care Provider Allergies No Known Allergies Results Component Value Reference Range Notes Microalbumin, Random Reviewed date:09/20/2024 04:58:27 PM Interpretation: Performing Lab:[facility], [address] [place] [phone] Notes/Report: Creatinine Urine 43.23 Microalbumin Urine 1755.0 Microalbum/Creatinine Ratio Ur 4059.6 <30 ug/mg cr Albumin/Creatinine Ratio Reference Ranges: Normal: < 30 ug/mg creatinine Microalbuminuria: 30 - 300 ug/mg creatinine Clinical Albuminuria: > 300 ug/mg creatinine UA ClnCatch+Micro w/rflx Cul t Reviewed date:10/28/2024 08:41:34 AM Interpretation:10-21-2024 Performing Lab:[facility], [address] [place] [phone] Notes/Report: Urine, Clean Catch Color Urine Yellow Appearance Urine Clear PH 6.0 5.0-9.0 Glucose Urine UA >=1000 Negative mg/dL Urine Blood Small (1+) Negative Specific [place] - Urine 1.025 1.005-1.025 Urine Protein 300 [...] kg/m2 09/20/2024 weight is down 5 pounds [facility] e 07-05-24 Encounters Encounter Location Date Provider Diagnosis Arden Zamora MD [address] [facility] [address] [place], [place] [phone] 09/20/2024 Arden Zamora Annual physical exam Z00.00 [...] Up: 3 Months, Reason: Provider Name:Arden mae, 12/20/2024 10:00:00 AM, [address], [address], [place], [place], [phone], Provider Name:Arden Wilcox ier, 03/14/2025 07:30:00 AM, [address], [address], [place], [place], [phone], Provider Name:Arden Wilcox ier, 03/21/2025 10:00:00 AM, [address], [address], [place], [place], [phone], Provider Name:Arden Wilcox ier, 09/19/2025 07:00:00 AM, [address] [place] [address] Drive, Suite [facility], [place], [phone], Provider Name:Arden Wilcox ier, 09/26/2025 09:30:00 AM, [address] [place] [address], Suite [facility], [place], [phone], Progress Notes * Geronimo CALVOOB:1975 (48 yo M)Acc No.[id number]:09/20/2024 Progress Notes Patient: Jeyson ANDERSON Provider: Reinaldo Zamora MD :1975 A ge:48 Y S ex:Male Date:09/20/2024 Address:[address] [place] [address], [place], [place] Subjective: * Chief Complaints: * A nnual [...] T obacco Use: T obacco Use/Smoking P atient is a c urrent smoker, H ow [...] part-time. Pets: none. Travel outside of the [place]: no. P atient smokes 2 packs [...] 07-05-24. * P ast Orders: L ab:Comprehensive [place]. Panel Fast (Order Date - 09/05/2024) (Collection [...] - mg/dL L ab:PSA,Total (Free>4and<10) (Order Date - 09/05/2024) (Collection Date & Time - 09/05/2024 07:45 AM) Value Reference Range PSA,Total (Free>4and<10) 0.41 0.00-4.00 - ng/ mL L ab:TSH reflex Free T4 (Order Date - 09/05/2024) (Collection Date & Time - 09/05/2024 07:45 AM) Value Reference Range TSH reflex Free T4 4.10 H 0.32-4.0 - uIU/mL L ab:Hemoglobin A1c (Order Date - 09/05/2024) (Collection Date & [...] ab:Complete Blood Count Auto Diff (Order Date - 09/05/2024) (Collection Date & Time - 09/05/2024 07:45 AM) Value Reference Range White [...] stable, will cpntinue current regiment 4. S moker unmotivated to quit Notes: advised to quit [...] Zamora MD Date: 0 09/20/2024 Generated for Ngoci radha/Gregg/eTransmitting on: 1 03:52 PM EDT History and Physical Notes * [...]
--- OUTSIDE RECORDS SUMMARY | 2024-10-21 06:45 | XMS_ITS ---
Author Organization Arden Zamora MD Address [address] [place], [place] [phone] Care Team Providers Care Leather Goods I Assembler Name Role Phone Sera Arden Primary Care [...] Location Date Provider Diagnosis Arden Zamora MD [address] [place] [address] [place] [phone] 10/21/2024 Arden Zamora Proteinuria R80.9 and Hematuria R31.9 Assessments Encounter Date Diagnosis (ICD Code) Assessment Notes Treatment Notes Treatment Clinical Notes Section Notes 10/21/2024 Proteinuria (ICD-10 - R80.9) referral to service desk team lead 10/21/2024 Hematuria (ICD-10 - R31.9) had some [...] 10:00:00 AM, [address], [address], [place], [place], [phone], Provider Name:Arden Wilcox ier, 03/14/2025 07:30:00 AM, [address], [address], [place], [place], [phone], Provider Name:Arden Wilcox ier, 03/21/2025 10:00:00 AM, [address] [place] [address] Drive, Suite [facility], [place], [place], [phone], Provider Name:Arden Wilcox ier, 09/19/2025 07:00:00 AM, [address] [place] [address], [address] [facility], [place], [place], [phone], Provider Name:Arden Wilcox ier, 09/26/2025 09:30:00 AM, [address] [place] [address] Drive, [address], [place], [place], [phone], Progress Notes * Geronimo CALVOOB:1975 (48 yo M)Acc No.[id number]:10/21/2024 Patient: Khari MARCOSGregoriown Provider: Reinaldo Zamora MD :1975 A ge:48 Y S ex:Male Date:10/21/2024 Address:[address] [place] [address], [place] Subjective: * Chief Complaints: * M ust [...] 10/21/2024 Generated for Ulises garcia/Jarvis/eTransmitting on: 1 03:52 PM EDT History and [...]
--- OUTSIDE RECORDS SUMMARY | 2024-12-02 04:58 | XMS_ITS ---
Author Organization Arden Zamora MD Address [address] [facility] [address] [place] [phone] Care Team Providers Care Auctioneer Tobacco Name Role Phone Arden Zamora Primary Care Provider REASON FOR VISIT refill Encounters Encounter Location Date Provider Diagnosis Arden Zamora MD [address] [place] [address] [address] [place] [phone] 12/02/2024 Arden Zamora Plan Of Treatment Next Appt Details Provider Name:Arden mae, 12/20/2024 10:00:00 AM, [address] [place] [address], [address], [phone], Provider Name:Arden mae, 03/14/2025 07:30:00 AM, [address] [place] [address], [address], [phone], Provider Name:Arden mae, 03/21/2025 10:00:00 AM, [address] [place] [address], [address], [phone], Provider Name:Arden Wilcox ier, 09/19/2025 07:00:00 AM, [address], [address], [place], [phone], Provider Name:Arden Wilcox ier, 09/26/2025 09:30:00 AM, [address], [address], [place], [phone], Progress Notes * Geronimo CALVOOB:1975 (49 yo M)Acc No.[id number]:12/02/2024 Patient: Khari Jeyson RODRÍGUEZ :1975 A ge:49 Y S ex:Male Address:[facility] [address], [place], [address] * true * Date: Generated for Ulises garcia/Jarvis/Sandrasmitting on: 03:52 PM EDT
[2024-12-16 15:19] LABS: Appearance Urine Clear; Glucose Urine UA >=1000 mg/dL (Negative); PH 6.0 (5.0-9.0); Specific Gravity - Urine >= 1.030 (1.005-1.025); UMIC TRIGGER UA YES
--- OUTSIDE RECORDS SUMMARY | 2024-12-16 15:52 | XMS_ITS ---
Author Name [facility] Organization Unknown History of Medication Use Medication Directions Dispensed Refills Start Date End Date Stat us erythromycin 12/01/2024 active losartan potassium 11/17/2024 ac tive Lantus U-100 Insulin act edu sertraline active levothyroxine active atorvastatin active Allergies Allergen Reaction Severity Comment Documented Date Source Statu s CAT [facility] Encounters Encounter Type Encounter Reason Primary Diagnosis Location Date Ambulatory TBE Foreign body on external eye, part unspecified, left eye, [facility] encounter [facility] 12/01/2024 Care Team Organization Name Specialty Phone Email Start Date End Da te [facility] 12/02/2024 [facility] 12/01/2024
--- OUTSIDE RECORDS SUMMARY | 2024-12-16 15:53 | XMS_ITS | Patient Health Record ---
Author Organization Arden Zamora MD Address [address] [place], [place] [phone] Care Team Providers Care Breakfast Bar Attendant Name Role Phone Arden Zamora Primary Care Provider Allergies No Known Allergies Results Component Value Reference Range Notes Hemoglobin A1c Reviewed date:03/15/2024 09:22:37 AM Interpretation: Performing Lab: Notes/Report: Hemoglobin A1c 13.2 Hemoglobin A1c Reviewed date:07/05/2024 09:57:43 AM Interpretation: Performing Lab: Notes/Report: Hemoglobin A1c >14.0 TSH reflex Free T4 Reviewed date:03/17/2024 01:08:42 PM Interpretation:CBACK 03/15 Performing Lab:[facility], [address] [place] [phone] Notes/Report: TSH reflex Free T4 71.54 0.32-4.0 uIU/mL TSH reflex Free T4 Reviewed date:05/13/2024 05:05:01 PM Interpretation: Performing Lab:[facility], [address] [place] [phone] Notes/Report: TSH reflex Free T4 24.28 0.32-4.0 uIU/mL TSH reflex Free T4 Reviewed date:07/07/2024 07:52:47 AM Interpretation:CBACK 5/6 TSH Performing Lab:[facility], [address] [place] [phone] Notes/Report: TSH reflex Free T4 29.59 0.32-4.0 uIU/mL Complete Blood Count Auto Di ff Reviewed date:09/06/2024 12:45:34 PM Interpretation: Performing Lab:[facility], [address] [place] [phone] Notes/Report: White Blood Count 7.8 4.8-10.8 X10*3/uL [...] NRBC Abs Auto 0.000 0.0-0.012 X10*3/uL Comprehensive [place] Reviewed date:09/06/2024 12:42:48 PM Interpretation: Performing Lab:[facility], [address] [place] [phone] Notes/Report: Sodium 140 135-145 mmol/L Potassium 4.4 [...] (Free>4and<10) Reviewed date:09/05/2024 12:39:35 PM Interpretation: Performing Lab:[facility], [address] [place] [phone] Notes/Report: PSA,Total (Free>4and<10) 0.41 0.00-4.00 ng/mL A [...] between 4.0 and 10.0 ng/mL. PSA methodology: [employer] Chemiluminescent Microparticle Immunoassay (CMIA) TSH reflex Free T4 Reviewed date:09/05/2024 03:18:59 PM Interpretation: Performing Lab:[facility], [address] [place] [phone] Notes/Report: TSH reflex Free T4 4.10 0.32-4.0 uIU/mL Hemoglobin A1c Reviewed date:09/05/2024 12:40:04 PM Interpretation: Performing Lab:[facility], [address] [place] [phone] Notes/Report: Hemoglobin A1c % 11.9 <6.0 % [...] average glucose, using the formula of the E2N-Ehawseu Average Glucose study (ADAG), Diabetes Care, Vol.31,#8, Sep. 2007 Glucose, finger stick Reviewed date:03/15/2024 09:15:45 AM Interpretation: Performing Lab: Notes/Report: Value 310 Glucose, finger stick (Not y et reviewed by provider) Interpretation: Performing Lab: Notes/Report: Value 297 Microalbumin, Random Reviewed date:09/20/2024 04:58:27 PM Interpretation: Performing Lab:[facility], [address] [place] [phone] Notes/Report: Creatinine Urine 43.23 Microalbumin Urine 1755.0 Microalbum/Creatinine Ratio Ur 4059.6 <30 ug/mg cr Albumin/Creatinine Ratio Reference Ranges: Normal: < 30 ug/mg creatinine Microalbuminuria: 30 - 300 ug/mg creatinine Clinical Albuminuria: > 300 ug/mg creatinine UA ClnCatch+Micro w/rflx Cul t Reviewed date:10/28/2024 08:41:34 AM Interpretation:10-21-2024 Performing Lab:[facility], [address] [place] [phone] Notes/Report: Urine, Clean Catch Color Urine Yellow Appearance Urine Clear PH 6.0 5.0-9.0 Glucose Urine UA >=1000 Negative mg/dL Urine Blood Small (1+) Negative Specific [place] - Urine 1.025 1.005-1.025 Urine Protein 300 (3+) Neg-Trace mg/dL Urine Ketones Negative Negative mg/dL Nitrite Urine Negative Negative Leukocyte Esterase Urine Negative Negative RBC Urine 6-10 0-2 /HPF WBC Urine 0-5 0-5 /HPF Squamous Epithelial Cell Urine 0-2 0-2 /HPF Bacteria Urine None Seen None Seen Hyaline Casts Urine 0-2 0-2 /LPF Free T4 (Free Thyroxine) Reviewed date:03/08/2024 04:24:12 PM Interpretation: Performing Lab:[facility], [address] [place] [phone] Notes/Report: Free T4 (Free Thyroxine) < 0.42 0.71-1.85 ng/dL Maximiliano Alvarez Reviewed date:03/08/2024 12:43:13 PM Interpretation: Performing Lab:[facility], [address] [place] [phone] Notes/Report: Maximiliano Alvarez See Note Specimen held untested for 24 hours; Call to request Chemistry testing. Free T4 (Free Thyroxine) Reviewed date:05/13/2024 05:03:18 PM Interpretation: Performing Lab:[facility], [address] [place] [phone] Notes/Report: Free T4 (Free Thyroxine) 0.79 0.71-1.85 ng/dL Maximiliano Alvarez Reviewed date:05/13/2024 05:03:26 PM Interpretation: Performing Lab:[facility], [address] [place] [phone] Notes/Report: Maximiliano Alvarez See Note Specimen held untested for 24 hours; Call to request Chemistry testing. Free T4 (Free Thyroxine) Reviewed date:06/13/2024 06:25:45 PM Interpretation: Performing Lab:[facility], [address] [place] [phone] Notes/Report: Free T4 (Free Thyroxine) 0.72 0.71-1.85 ng/dL Maximiliano Alvarez Reviewed date:06/13/2024 11:05:01 AM Interpretation: Performing Lab:[facility], [address] [place] [phone] Notes/Report: Hold Gold See Note Specimen held untested for 24 hours; Call to request Chemistry testing. Free T4 (Free Thyroxine) Reviewed date:09/05/2024 03:20:45 PM Interpretation: Performing Lab:[facility], [address] [place] [phone] Notes/Report: Free T4 (Free Thyroxine) 0.85 0.71-1.85 ng/dL Urinalysis and Microscopic Reviewed date:12/16/2024 03:43:16 PM Interpretation: Performing Lab:[facility], [address] [place] [phone] Notes/Report: Color Urine Yellow Appearance Urine Clear PH 6.0 5.0-9.0 Glucose Urine UA >=1000 Negative mg/dL Urine Blood Moderate (2+) Negative Specific [place] - Urine >= 1.030 1.005-1.025 Urine Protein >=1000 (4+) Neg-Trace mg/dL Urine Ketones Negative Negative mg/dL Nitrite Urine Negative Negative Leukocyte Esterase Urine Negative Negative Reason For Referral Reason hematuria Diagnosis 1 Hematuria (R31.9) Referral Organization Arden Zamora MD Referring Provider First Name Arden Referring Provider Last Name Sera Referring Provider Speciality Internal edicine Referred Provider Aron Peres Referred Provider Specialty Urology General Notes Oksana Rico 0 10/21/2024 11:57:41 AM > referral info faJacky mandel Annette 11/04/2024 03:06:30 PM >was told patient is aware of appt Referral Priority Routine Referral Appointment Date 01/03/2025 Reason :Proteinuria Diagnosis 1 Proteinuria (R80.9) Referral Organization Arden Zamora MD Referring Provider First Name Arden Referring Provider Last Name Sera Referring Provider Speciality Internal edicine Referred Provider Wander Machuca Referred Provider Specialty Nephrology General Notes Oksana Rico 0 10/21/2024 12:01:04 PM >referral info faJacky mandel Annette 10/28/2024 11:25:12 AM > was told [...] Problem Status W/U Status Risk Notes Problem 88193625 Type 2 diabetes mellitus with other diabetic kidney complication (E11.29) Active confirmed Problem 560529437 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) Active confirmed Problem 28064199 Smoker (F17.200) Active confirmed Problem 79994032 Essential hypertension (I10) Active confirmed Problem 866989609 Acquired hypothyroidism (E03.9) Active confirmed Problem 15831349 Type 2 diabetes, controlled, with neuropathy (E11.40) Active confirmed Problem 254002606 Elevated triglycerides with high cholesterol (E78.2) Active confirmed Problem 091073372 COPD exacerbatio n (J44.1) Active confirmed Problem 05553512 Dysthymia (F34.1) Active confirmed Problem 16131986 Severe episode o f recurrent major depressive disorder, without psychotic features (F33.2) Active confirmed Problem 10286389 DARREN (obstructive sleep apnea) (G47.33) Active confirmed Problem 40658782 Smoker unmotivated to quit (F17.200) Active confirmed Problem 923573637 Toe osteomyelitis, 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) Active confirmed Problem 30231981178090775 Chronic ulcer of toe of right foot [...] Arden Zamora MD [address] [place] [id number] 03/08/2024 Arden Zamora Acquired hypothyroidism E03.9 Arden Zamora MD [address] [place] [address] [id number] 05/13/2024 Arden Zamora Acquired hypothyroidism E03.9 Arden Zamora MD [address] [place] [address] [id number] 06/13/2024 Arden Zamora Type 2 diabetes mellitus with other diabetic kidney complication E11.29 Arden Zamora MD [address] [place] [address] [id number] 09/05/2024 Ardenelias Reedardidenise Type 2 diabetes mellitus with other diabetic kidney complication E11.29 ; Acquired hypothyroidism E03.9 ; Type 2 diabetes, controlled, with neuropathy E11.40 ; Essential hypertension I10 and Annual physical exam Z00.00 Arden Zamora MD [address] [place] [address] [id number] 01/26/2024 Arden Zamora Type 2 diabetes, controlled, with neuropathy E11.40 and Acquired hypothyroidism E03.9 Arden Zamora MD [address] [place] [address] [id number] 03/15/2024 Arden Zamora Type 2 diabetes mellitus with other diabetic kidney complication E11.29 and Acquired hypothyroidism E03.9 Arden Zamora MD [address] [place] [address] [id number] 05/03/2024 Arden Zamora Type 2 diabetes, controlled, with neuropathy E11.40 and Acquired hypothyroidism E03.9 Arden Zamora MD [address] [place] [address] [id number] 07/05/2024 Arden Zamora Type 2 diabetes mellitus with other diabetic kidney complication E11.29 ; Essential hypertension I10 ; Acquired hypothyroidism E03.9 and Type 2 diabetes, controlled, with neuropathy E11.40 Arden Zamora MD [address] [place] [address] [id number] 09/20/2024 Arden Zamora Annual physical exam Z00.00 ; Type 2 diabetes, controlled, with neuropathy E11.40 ; Essential hypertension I10 ; Smoker unmotivated to quit F17.200 ; Acquired hypothyroidism E03.9 and Abscess L02.91 Arden Zamora MD [address] [place] [address] [id number] 10/21/2024 Arden Zamora Proteinuria R80.9 an d Hematuria R31.9 Arden Zamora MD [address] [place] [address] [id number] 07/15/2024 Arden Zamora Elevated triglycerid es with high cholesterol E78.2 Arden Zamora MD [address] [facility] [place], [place] [id number] 12/02/2024 Arden Zamora Assessments Encounter Date Diagnosis (ICD Code) Assessment Notes Treatment Notes Treatment Clinical Notes Section Notes 03/08/2024 Acquired hypothyroidism (ICD-10 - E03.9) 05/13/2024 Acquired hypothyroidism (ICD-10 - E03.9) 06/13/2024 Type 2 diabetes mellitus with other diabetic kidney complication (ICD-10 - E11.29) 09/05/2024 Type 2 diabetes mellitus with other diabetic kidney complication (ICD-10 - E11.29) 09/05/2024 Acquired hypothyroidism (ICD-10 - E03.9) 01/26/2024 Type 2 diabetes, controlled, with neuropathy [...] 10/21/2024 Proteinuria (ICD-10 - R80.9) referral to prehemmer 10/21/2024 Hematuria (ICD-10 - R31.9) had some gross painful urine in early september/ needs referral to urology dr peres 07/15/2024 Elevated triglycerides with high cholesterol (ICD-10 - E78.2) 09/05/2024 Type 2 diabetes, controlled, with neuropathy (ICD-10 - E11.40) 05/03/2024 Acquired hypothyroidism (ICD-10 - E03.9) stable, will continue current regiment 07/05/2024 Essential hypertension (ICD-10 - I10) doing well 09/20/2024 Essential hypertension (ICD-10 - I10) stable, will cpntinue current regiment 09/05/2024 Essential hypertension (ICD-10 - I10) 07/05/2024 Acquired hypothyroidism (ICD-10 - E03.9) is on 200 mcg for one month. started it after the last draw, will continue to monitor 09/20/2024 Smoker unmotivated to quit (ICD-10 - F17.200) advised to quit 09/05/2024 Annual physical exam (ICD-10 - Z00.00) 07/05/2024 Type 2 diabetes, controlled, with neuropathy (ICD-10 - E11.40) starting to take his meds, will continue to monitor 09/20/2024 Acquired hypothyroidism (ICD-10 - E03.9) stable, will continue current regiment 09/20/2024 Abscess (ICD-10 - L02.91) is draining and he says that once it drains it gets better. will put on ab and if not better will get surgery Plan Of Treatment Pending Test Test Name Order Date Glucose, finger stick 05/03/2024 Microalbumin, Random 09/05/2024 UA ClnCatch+Micro w/rflx Cult 09/05/2024 Next Appt Details Provider Name:Arden mae, 12/20/2024 10:00:00 AM, [address] [place] [address], [address] [place] [address], [phone], Provider Name:Arden mae, 03/14/2025 07:30:00 AM, [address] [place] [address], Suite [facility], [place], [place], [id number], Provider Name:Arden mae, 03/21/2025 10:00:00 AM, [address] [place] [address], [address] [place] [address], [id number], Provider Name:Arden mae, 09/19/2025 07:00:00 AM, [address] [facility] [address], [address], [place], [place], [phone], Provider Name:Ardenelias mae, 09/26/2025 09:30:00 AM, [address] [facility], [address], [place], [place], [phone], Insurance Providers Payer Name Payer Address Payer Phone Subscriber Number Group Number Insured Name Patient Relationship to Insured Coverage Start Date Coverage End Date [facility] [address] [employer], [place] [id number] Jeyson Evans Self - patient is the insured Medical (General) History Medical History History ICD Code got diarrhea on metformin 01/13/22 Colonoscopy repeat one year
--- OUTSIDE RECORDS SUMMARY | 2024-12-16 15:54 | XMS_ITS | Clinical Summary ---
Author Organization [facility] Address [address] [address] Phone Care Team Providers Care Photographic Lithographer Name Role Phone Arden Zamora MD Primary [...] you interested in more education? Not on olw e 10/15/2023 Are you concerned about learning? [...] topic Medical Devices Not on file Insurance [facility] OUT OF STATE PPO BLUE CROSS OUT OF STATE PPO BLUE CROSS OUT OF STATE PPO BLUE CROSS OUT OF STATE PPO BLUE CROSS OUT OF STATE PPO BLUE CROSS OUT OF STATE PPO Care Teams Photographic Lithographer Relationship Specialty Start Date End Date Arden Zamora MD [address] [place] [address] [place] [address] PCP - General Internal Medicine 10/15/23 Additional Source Comments The information contained in this document represents components of the legal health record. It is not the complete legal health record.[facility]
[2024-12-16 16:04] LABS: Anion Gap 10 (12-20); Blood Urea Nitrogen 18 mg/dL (9-16); Calcium 8.5 mg/dL (8.4-10.2); Carbon Dioxide 26 mmol/L (22-29); Chloride 107 mmol/L (96-108); Estimated Glomerular Filt Rate > 60; Potassium 3.9 mmol/L (3.3-5.1); Sodium 139 mmol/L (135-145)
[2024-12-16 18:18] LABS: Total Protein Urine Random 622 mg/dL (<12)
[2024-12-19 18:49] LABS: Prot Elec - Albumin 3.8 g/dL (3.8-4.8); Prot Elec - Alpha1 0.3 g/dL (0.2-0.3); Prot Elec - Alpha2 0.8 g/dL (0.5-0.9); Prot Elec - Beta 1 0.5 g/dL (0.4-0.6); Prot Elec - Beta 2 0.4 g/dL (0.2-0.5); Prot Elec - Gamma 0.9 g/dL (0.8-1.7); Prot Elec - Total Protein 6.7 g/dL (6.1-8.1)
== END 2024-12-16 13:15 | disposition home or self-care (01) ==
LOC: HO.LAB 13:14
PROVIDERS: PCP Internal Medicine; Visit Provider Internal Medicine Hypertension Specialist
DX: R80.9 Proteinuria, unspecified (principal)
CPT/HCPCS: 36415; 80048; 81001; 81003; 82570; 84156; 84165

== ENCOUNTER 2024-12-20 15:47 | Outpatient (AMB) | payer BC, SELFPAY ==
--- OUTSIDE RECORDS SUMMARY | 2024-06-13 03:30 | XMS_ITS ---
Author Organization Arden Zamora MD Address [address] [place] [phone] Care Team Providers Care Ice Maker Name Role Phone Arden Zamora Primary Care Provider Results Component Value Reference Range Notes TSH reflex Free T4 Reviewed date:07/07/2024 07:52:47 AM Interpretation:CBACK 5/6 TSH Performing Lab:[facility], [address] [place] [phone] Notes/Report: TSH reflex Free T4 29.59 0.32-4.0 uIU/mL REASON FOR VISIT TSH Encounters Encounter Location Date Provider Diagnosis Arden Zamora MD [address] [place] [phone] 06/13/2024 Arden Zamora Type 2 diabetes mellitus with other diabetic kidney complication E11.29 Assessments Encounter Date Diagnosis (ICD Code) Assessment Notes Treatment Notes Treatment Clinical Notes Section Notes 06/13/2024 Type 2 diabetes mellitus with other diabetic kidney complication (ICD-10 - E11.29) Plan Of Treatment Next Appt Details Provider Name:Arden mae 03/14/2025 07:30:00 AM, [address], [address], [place], [phone], Provider Name:Arden mae, 03/21/2025 10:00:00 AM, [address], [address], [place], [phone], Provider Name:Arden Wilcox ier, 09/19/2025 07:00:00 AM, [address], [address], [place], [phone], Provider Name:Arden Wilcox ier, 09/26/2025 09:30:00 AM, [address], [address], [place], [place], [phone], Progress Notes * Geronimo CALVOOB:1975 (49 yo M)Acc No.[id number]:06/13/2024 Progress Note Patient: Khari RODRÍGUEZ Jeyson Provider: Reinaldo Zamora MD :1975 A ge:48 Y S ex:Male Date:06/13/2024 Address:[address] [place] [address], [id number] Subjective: * Chief Complaints: * 1 . [...] MD Date: 0 06/13/2024 Generated for Ulises garcia/Jarvis/eTivasmitting on: 08:44 PM EDT
--- OUTSIDE RECORDS SUMMARY | 2024-07-05 06:00 | XMS_ITS ---
Author Organization Arden Zamora MD Address [address] [place] [phone] Care Team Providers Care Cold Roll Inspector Name Role Phone Arden Zamora Primary Care [...] kg/m2 07/05/2024 weight is down 6 pounds [facility] e 05-03-24 Encounters Encounter Location Date Provider Diagnosis Ardne Zamora MD [address] [place], [place] [phone] 07/05/2024 Arden Zamora Type 2 diabetes mellitus [...] Provider Name:Arden mae, 03/14/2025 07:30:00 AM, [address], [address], [place], [place], [phone], Provider Name:Arden Wilcox ier, 03/21/2025 10:00:00 AM, [address], [address], [place], [phone], Provider Name:Arden Wilcox ier, 09/19/2025 07:00:00 AM, [address], [address], [place], [phone], Provider Name:Arden Wilcox ier, 09/26/2025 09:30:00 AM, [address], [address], [place], [phone], Progress Notes * Geronimo CALVOOB:1975 (48 yo M)Acc No.[id number]:07/05/2024 Patient: Jeyson ANDERSON Provider: Reinaldo Zamora MD :1975 A ge:48 Y S ex:Male Date:07/05/2024 Address:[address] [place] [address], [id number] Subjective: * Chief Complaints: * 2 monthCBACK [...] 07/05/2024 Generated for Ulises garcia/Jarvis/eTransmitting on: 1 08:46 PM EDT History and Physical Notes * [...]
--- OUTSIDE RECORDS SUMMARY | 2024-07-15 11:18 | XMS_ITS ---
Author Organization Arden Zamora MD Address [address] [place] [phone] Care Team Providers Care Pricing Intern Name Role Phone Arden Zamora Primary Care Provider Medications Medication SIG (Take, Route, Frequency, Duration) Notes Start Date End Date Status Atorvastatin Calcium 40 MG TAKE 1 TABLET BY MOUTH EVERY DAY Orally Once a day for 90 days Active Encounters Encounter Location Date Provider Diagnosis Arden Zamora MD [address] [place] [address] Drive [address] [place] [phone] 07/15/2024 Arden Zamora Elevated triglycerides with high [...] Details Provider Name:Arden mae, 03/14/2025 07:30:00 AM, [address] [place] [address], [address], [place], [place], [phone], Provider Name:Arden Wilcox ier, 03/21/2025 10:00:00 AM, [address], [address], [place], [phone], Provider Name:Arden Wilcox ier, 09/19/2025 07:00:00 AM, [address], [address], [place], [phone], Provider Name:Arden Wilcox ier, 09/26/2025 09:30:00 AM, [address], [address], [place], [phone], Progress Notes * Geronimo CALVOOB:1975 (48 yo M)Acc No.[id number]:07/15/2024 Patient: Khari MARCOSGregoriown :1975 A ge:48 Y S ex:Male Address:[facility] [address] , [place], [address] * Refills Refill Atorvastatin Calcium Tablet, 40 MG, Orally, 90, TAKE 1 TABLET BY MOUTH EVERY DAY, Once a day, 90 days, Refills=3 * true * Date: Generated for Ulises garcia/Jarvis/eTivasmitting on: 08:47 PM EDT
--- OUTSIDE RECORDS SUMMARY | 2024-09-05 03:45 | XMS_ITS ---
Author Organization Arden Zamora MD Address [address] [place] [phone] Care Team Providers Care Steam Trap Worker Name Role Phone Arden Zamora Primary Care Provider [phone] Results Component Value Reference Range Notes Complete Blood Count Auto Di ff Reviewed date:09/06/2024 12:45:34 PM Interpretation: Performing Lab:[facility], [address] [place] [phone] Notes/Report: White Blood Count 7.8 4.8-10.8 X10*3/uL [...] NRBC Abs Auto 0.000 0.0-0.012 X10*3/uL Comprehensive [place]. Panel Fa st Reviewed date:09/06/2024 12:42:48 PM Interpretation: Performing Lab:[facility], [address] [place] [phone] Notes/Report: Sodium 140 135-145 mmol/L Potassium 4.4 [...] (Free>4and<10) Reviewed date:09/05/2024 12:39:35 PM Interpretation: Performing Lab:[address] [phone] Notes/Report: PSA,Total (Free>4and<10) 0.41 0.00-4.00 ng/mL A [...] T4 Reviewed date:09/05/2024 03:18:59 PM Interpretation: Performing Lab:[facility], [address] [place] [phone] Notes/Report: TSH reflex Free T4 4.10 0.32-4.0 uIU/mL Hemoglobin A1c Reviewed date:09/05/2024 12:40:04 PM Interpretation: Performing Lab:[facility], [address] [place] [phone] Notes/Report: Hemoglobin A1c % 11.9 <6.0 % [...] average glucose, using the formula of the A7R-Wnlhjpr Average Glucose study (ADAG), Diabetes Care, Vol.31,#8, [...] Location Date Provider Diagnosis Arden Zamora MD [address] [place] [address] [place] [phone] 09/05/2024 Arden Zamora Type 2 diabetes mellitus [...] Details Provider Name:Arden mae, 03/14/2025 07:30:00 AM, [address] [place] [address], Suite [facility], [place], [place], [phone], Provider Name:Arden mae, 03/21/2025 10:00:00 AM, [address] [place] [address], [address], [place], [place], [phone], Provider Name:Arden Wilcox ier, 09/19/2025 07:00:00 AM, [address], [address], [place], [phone], Provider Name:Arden Wilcox ier, 09/26/2025 09:30:00 AM, [address], [address], [place], [phone], Progress Notes * Jonathan CALVOManuelOB:1975 (49 yo M)Acc No.[id number]:09/05/2024 Progress Note Patient: Jeyson ANDERSON Provider: Reinaldo Zamora MD :1975 A ge:48 Y S ex:Male Date:09/05/2024 Address:[address] [place] [address], [facility] Subjective: * Chief Complaints: * 1 . [...] - 09/05/2024 07:45 AM) L AB: Comprehensive [place]. Panel Fast (Collection Date & Time - [...] - 09/05/2024 07:45 AM) L AB: Comprehensive [place]. Panel Fast (Collection Date & Time - 09/05/2024 07:45 AM) L AB: PSA,Total (Free>4and<10) (Collection Date & Time - 09/05/2024 07:45 AM) 5. A nnual physical exam L AB: Microalbumin, Random L AB: UA ClnCatch+Micro w/rflx Cult L AB: Complete Blood Count Auto Diff (Collection Date & Time - 09/05/2024 07:45 AM) L AB: Comprehensive [place]. Panel Fast (Collection Date & Time - [...] Zamora MD Date: 0 09/05/2024 Generated for Printi ng/Faxing/eTransmitting on: 1 08:47 PM EDT
--- OUTSIDE RECORDS SUMMARY | 2024-09-12 12:00 | XMS_ITS ---
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 Assessments Encounter Date Diagnosis (ICD Code) Assessment Notes Treatment Notes Treatment Clinical Notes Section Notes 09/12/2024 Type 2 diabetes, controlled, with neuropathy (ICD-10 - E11.40) Plan Of Treatment Pending Test Test Name Order Date Glucose, finger stick 09/12/2024 Next Appt Details Provider Name:Arden mae, 03/14/2025 07:30:00 AM, [facility], Suite [facility], [place], [place], [phone], Provider Name:Arden mae, 03/21/2025 10:00:00 AM, [address], [address], [place], [place], [phone], Provider Name:Arden Wilcox ier, 09/19/2025 07:00:00 AM, [address], [address], [place], [phone], Provider Name:Arden Wilcox ier, 09/26/2025 09:30:00 AM, [address], [address], [place], [phone], Progress Notes * Geronimo CALVOOB:1975 (49 yo M)Acc No.[id number]:09/12/2024 Progress Notes Patient: Jeyson ANDERSON Provider: Reinaldo Zamora MD :1975 A ge:48 Y S ex:Male Date:09/12/2024 Address:[address] [place] [address], [facility] Subjective: * Chief Complaints: * 1 . [...] Generated for Ulises garcia/Jarvis/Mary Jane on: 1 08:44 PM EDT
--- OUTSIDE RECORDS SUMMARY | 2024-09-13 03:15 | XMS_ITS ---
Author Organization Arden Zamora MD Address [address] [place] [phone] Care Team Providers Care Irish Moss Gatherer Name Role Phone Arden Zamora Primary Care Provider [phone] REASON FOR VISIT yearly fasting labs Encounters Encounter Location Date Provider Diagnosis Arden Zamora MD [address] [place] [phone] 09/13/2024 Arden Zamora Blood tests for routine [...] Complete Blood Count Auto Diff 5 [facility] [place]. Panel Fast Lipid Panel 09/13/2024 PSA,Total (Free>4and<10) 09/13/2024 TSH reflex Free T4 09/13/2024 Microalbumin, Random 09/13/2024 Hemoglobin A1c 09/13/2024 UA ClnCatch+Micro w/rflx Cult 09/13/2024 Next Appt Details Provider Name:Arden Villalba Jeri ier, 03/14/2025 07:30:00 AM, [address], Suite [facility], [place], [place], [phone], Provider Name:Arden Villalba Jeri ier, 03/21/2025 10:00:00 AM, [address] [place] [address], Suite [facility], [place], [place], [phone], Provider Name:Arden Villalba Jeri ier, 09/19/2025 07:00:00 AM, [address], [address], [place], [place], [phone], Provider Name:Arden Villalba Derekjairo ier, 09/26/2025 09:30:00 AM, [address], Suite [facility], [place], [place], [phone], Progress Notes * Geronimo CALVOOB:1975 (49 yo M)Acc No.[id number]:09/13/2024 Progress Note Patient: Jonathan ANDERSONn Provider: Reinaldo Zamora MD :1975 A ge:48 Y S ex:Male Date:09/13/2024 Address:[address] [place] [address], [id number] Subjective: * Chief Complaints: * 1 . [...] Blood Count Auto Diff L AB: [facility] [place]. Panel Fast L AB: Lipid Panel L AB: PSA,Total (Free>4and<10) L AB: TSH reflex Free T4 L AB: Microalbumin, Random L AB: Hemoglobin A1c L AB: UA ClnCatch+Micro w/rflx Cult 3. A cquired hypothyroidism L AB: Complete Blood Count Auto Diff L AB: [facility] [place]. Panel Fast L AB: Lipid Panel L AB: PSA,Total (Free>4and<10) L AB: TSH reflex Free T4 L AB: Microalbumin, Random L AB: Hemoglobin A1c L AB: UA ClnCatch+Micro w/rflx Cult 4. T ype 2 diabetes, controlled, with neuropathy L AB: Complete Blood Count Auto Diff L AB: [facility] [place]. Panel Fast L AB: Lipid Panel L AB: PSA,Total (Free>4and<10) L AB: TSH reflex Free T4 L AB: Microalbumin, Random L AB: Hemoglobin A1c L AB: UA ClnCatch+Micro w/rflx Cult 5. E levated triglycerides with high cholesterol L AB: Complete Blood Count Auto Diff L AB: [facility] [place]. Panel Fast L AB: Lipid Panel L [...] 09/13/2024 Generated for Ulises garcia/Jarvis/Mary Jane on: 1 08:45 PM EDT
--- OUTSIDE RECORDS SUMMARY | 2024-09-20 05:30 | XMS_ITS ---
Author Organization Arden Zamora MD Address [address] [place], [place] [id number] Care Team Providers Care Bingo Checker Name Role Phone Arden Zamora Primary Care Provider [phone] Allergies No Known Allergies Results Component Value Reference Range Notes Microalbumin, Random Reviewed date:09/20/2024 04:58:27 PM Interpretation: Performing Lab:[facility], [address] [place] [id number] Notes/Report: Creatinine Urine 43.23 Microalbumin Urine 1755.0 Microalbum/Creatinine Ratio Ur 4059.6 <30 ug/mg cr Albumin/Creatinine Ratio Reference Ranges: Normal: < 30 ug/mg creatinine Microalbuminuria: 30 - 300 ug/mg creatinine Clinical Albuminuria: > 300 ug/mg creatinine UA ClnCatch+Micro w/rflx Cul t Reviewed date:10/28/2024 08:41:34 AM Interpretation:10-21-2024 Performing Lab:[facility], [address] [place] [id number] Notes/Report: Urine, Clean Catch Color Urine Yellow Appearance Urine Clear PH 6.0 5.0-9.0 Glucose Urine UA >=1000 Negative mg/dL Urine Blood Small (1+) Negative Specific [place] - Urine 1.025 1.005-1.025 Urine Protein 300 [...] kg/m2 09/20/2024 weight is down 5 pounds [facility] e 07-05-24 Encounters Encounter Location Date Provider Diagnosis Arden Zamora MD [address] [facility] [address] [place], [place] [id number] 09/20/2024 Arden Zamora Annual physical exam Z00.00 [...] 07:30:00 AM, [address], [address], [place], [place], [phone], Provider Name:Arden Wilcox ier, 03/21/2025 10:00:00 AM, [address], [address], [place], [phone], Provider Name:Arden Wilcox ier, 09/19/2025 07:00:00 AM, [address], [address], [place], [phone], Provider Name:Arden Wilcox ier, 09/26/2025 09:30:00 AM, [address], [address] [facility], [place], [phone], Progress Notes * Geronimo CALVOOB:1975 (48 yo M)Acc No.[id number]:09/20/2024 Progress Notes Patient: Khari HAMILTONPAULAGregorio Payanwn Provider: Reinaldo Zamora MD :1975 A ge:48 Y S ex:Male Date:09/20/2024 Address:[address] [place] [address], [id number] Subjective: * Chief Complaints: * A nnual [...] 07-05-24. * P ast Orders: L ab:Comprehensive [place]. Panel Fast (Order Date - 09/05/2024) [...] Zamora MD Date: 0 09/20/2024 Generated for Printi ng/Jarvis/eTransmitting on: 1 08:45 PM EDT History and Physical Notes * [...]
--- OUTSIDE RECORDS SUMMARY | 2024-10-21 06:45 | XMS_ITS ---
Author Organization Arden Zamora MD Address [address] [place], [place] [phone] Care Team Providers Care Form Tamper Operator Name Role Phone Sera Arden Primary Care Provider Allergies No Known Allergies Reason For Referral Reason hematuria Diagnosis 1 Hematuria (R31.9) Referral Organization Arden Zamora MD Referring Provider First Name Arden Referring Provider Last Name Sera Referring Provider Speciality Internal edicine Referred Provider Aron Peres Referred Provider [...] Location Date Provider Diagnosis Arden Zamora MD [address] [place] [address] [place] [phone] 10/21/2024 Arden Zamora Proteinuria R80.9 and Hematuria R31.9 Assessments Encounter Date Diagnosis (ICD Code) Assessment Notes Treatment Notes Treatment Clinical Notes Section Notes 10/21/2024 Proteinuria (ICD-10 - R80.9) referral to hospital scientist 10/21/2024 Hematuria (ICD-10 - R31.9) had some [...] Name:Arden Wilcox ier, 03/14/2025 07:30:00 AM, [address] [facility], [address], [place], [place], [phone], Provider Name:Arden Wilcox ier, 03/21/2025 10:00:00 AM, [address], [address], [place], [place], [phone], Provider Name:Arden Wilcox ier, 09/19/2025 07:00:00 AM, [address] [place] [address], Suite [facility], [place], [place], [phone], Provider Name:Arden Wilcox ier, 09/26/2025 09:30:00 AM, [address] [place] [address], Suite [facility], [place], [place], [phone], Progress Notes * Geronimo CALVOOB:1975 (48 yo M)Acc No.[id number]:10/21/2024 Patient: Jonathan ANDERSONn Provider: Reinaldo Zamora MD :1975 A ge:48 Y S ex:Male Date:10/21/2024 Address:[address] [place] [address], [place], [place] Subjective: * Chief Complaints: * M ust [...] 0 10/21/2024 Generated for Ulises garcia/Jarvis/eTransmitting on: 1 08:45 PM EDT History and [...] Alexander hematur ia 10/21/2024 Arden Zamora Balaji :Protein chinia
--- OUTSIDE RECORDS SUMMARY | 2024-12-02 04:58 | XMS_ITS ---
Author Organization Arden Zamora MD Address [address] [place] [phone] Care Team Providers Care Header Dock Name Role Phone Arden Zamora Primary Care Provider [phone] REASON FOR VISIT refill Encounters Encounter Location Date Provider Diagnosis Arden Zamora MD [address] [place] [address] [place] [address] [phone] 12/02/2024 Arden Zamora Plan Of Treatment Next Appt Details Provider Name:Arden mae, 03/14/2025 07:30:00 AM, [address] [place] [address], [address] [place] [address], [phone], Provider Name:Arden mae, 03/21/2025 10:00:00 AM, [address] [place] [address], [address], [phone], Provider Name:Arden mae, 09/19/2025 07:00:00 AM, [address] [place] [address], [address], [phone], Provider Name:Arden Wilcox ier, 09/26/2025 09:30:00 AM, [address], [address], [place], [phone], Progress Notes * Geronimo CALVOOB:1975 (49 yo M)Acc No.[id number]:12/02/2024 Patient: Jeyson ANDERSON :1975 A ge:49 Y S ex:Male Address:[facility] [address], [place], [address] * true * Date: Generated for Ulises garcia/Jarvis/Sandrasmitting on: 08:44 PM EDT
--- OUTSIDE RECORDS SUMMARY | 2024-12-20 06:00 | XMS_ITS ---
Author Organization Arden Zamora MD Address [address] [place] [phone] Care Team Providers Care Community Engagement Leader Name Role Phone Arden Zamora Primary Care [...] Location Date Provider Diagnosis Arden Zamora MD [address] [place] [address] [place] [phone] 12/20/2024 Ardne Zamora Type 2 diabetes, controlled, with neuropathy [...] 07:30:00 AM, [address], [address], [place], [phone], Provider Name:Arden Wilcox ier, 03/21/2025 10:00:00 AM, [address], [address], [place], [place], [phone], Provider Name:Arden Wilcox ier, 09/19/2025 07:00:00 AM, [address], [address], [place], [place], [phone], Provider Name:Arden Wilcox ier, 09/26/2025 09:30:00 AM, [address], [address], [place], [place], [phone], Progress Notes * Geronimo CALVOOB:1975 (49 yo M)Acc No.[id number]:12/20/2024 Patient: Khari Jeyson RODRÍGUEZ Provider: Reinaldo Zamora MD :1975 A ge:49 Y S ex:Male Date:12/20/2024 Address:[address] [place] [address], [id number] Subjective: * Chief Complaints: * 1 . 3 month/ must see urine. * HPI: S ymptom(s): patient is a [...] metformin, 01/13/22 Colonoscopy repeat one year. * Medications: T aking BD Pen Needle Mini U/F 31G X 5 MM Miscellaneous use with pen once a day for injection sq twice a day , Taking FreeStyle Lite Test - Strip [...] EMPTY STOMACH, FOR 90 DAYS , Not-Taking/PRN Albuterol Sulfate HFA 108 (90 Base) MCG/ACT Aerosol Solution 1 puff as needed Inhalation every 4 hrs , Not-Taking/PRN Sildenafil Citrate 100 MG Tablet 1 tablet Orally Once a day , Medication List reviewed and reconciled with the patient * Allergies: N .K.D.A. Objective: * Vitals: H t: 71, Wt: [...] since last visit/ appt with Dr. Peres [id number]?? * Procedure Codes: 8 2947 ASSAY, GLUCOSE, BLOOD QUANT, Modifiers: QW , 35346 GLYCATED HEMOGLOBIN TEST, Modifiers: QW * Follow Up: 3 Months * * The named appointment provid er may or may not be the originator of this progress note, and it is not deemed complete until electronically signed by the appointment provider. Sign off status: Pending * Provider: Reinaldo Zamora MD Date: Generated for Ulises garcia/Jarvis/Loriitting on: 08:46 PM EDT History and Physical Notes [...]
--- NOTE | 2024-12-20 15:52 | HO.NEPHOV ---
Vital Signs 12/20/24 15:53 12/20/24 16:05 Height 6 ft Weight 243 lb BMI 33.0 BP 156/90 H 140/80 H Blood Pressure Location Rt brachial Lt brachial Position Sitting Sitting Pulse 93 Pulse Source Pulse Oximeter Pulse Oximetry (%) 97 Oxygen Delivery Method Room Air Intake Visit Reasons: 4-5wk f/u w/labs,vm left Net Lead Developer Required: No Accompanied by: Self / Same As Patient Allergies cat dander Allergy (Verified 12/20/24 15:54) Sneezing Medication List - Last Reconciled 12/20/24 by Wander Machuca MD atorvastatin 1 tab PO DAILY insulin glargine (Lantus Solostar U-100 Insulin) 90 units subcut BID levothyroxine 1 tab PO QAM losartan 25 mg PO DAILY sertraline (Zoloft) 100 mg PO DAILY 30 days HPI Comments Details: - The patient is a 49-year-old male presenting with management of hypertension and diabetes mellitus. - Hypertension: Persistently high blood pressure, recent readings 150/90 mmHg and 140 mmHg. - Hypertension: On losartan, dosage to increase to 50 mg. - Diabetes mellitus: 20-year history, HbA1c improved to 10%. - Diabetes mellitus: Contributing to proteinuria. - Proteinuria: Significant, likely due to diabetic nephropathy. - Hematuria: Single episode, possibly due to a passed stone. - Foreign body in eye: Metal removed under local anesthesia and UV light guidance. [facility] Medical History Diabetic ulcer of toe Toe ulcer, right Hyperlipemia Neuropathy associated with endocrine disorder Hypothyroidism HTN (hypertension) Diabetes Anxiety Asthma Depression Surgical History Hx of umbilical hernia repair History of cholecystectomy H/O elbow surgery Social History Household Members: Significant Other Household Members Other:: Mother and brother of girlfriend Housing: House Do you presently have visiting nurse or other home services: No Alcohol intake: never Patient Tobacco Use Status: Current everyday Tobacco user Tobacco use type: Cigarette Cigarette Packs Per Day: 1 Cigarettes Per Day: 20.0 Years Smoked: 30 service: No Physical Exam Vital Signs: Last Vital Signs Pulse 93 12/20/24 15:53 BP 140/80 H 12/20/24 16:05 Pulse Ox 97 12/20/24 15:53 Oxygen Delivery Method Room Air 12/20/24 15:53 BMI result Body Mass Index 33.0 Comfortable Neck supple no JVD. Lungs entry equal no rales. Heart S1-S2 heard no gallop or rub. Abdomen soft nontender. Neuro alert awake oriented. No asterixis. Extremities no edema. Results Reviewed Nephrology Results: Hgb, (14.0-18.0) 13.8 g/dl L 09/05/24 WBC, (4.8-10.8) 7.8 X10*3/uL 09/05/24 Plt Count, (160-400) 189 X10*3/uL Δ 09/05/24 Sodium, (135-145) 139 mmol/L 12/16/24 Potassium, (3.3-5.1) 3.9 mmol/L 12/16/24 Chloride, (96-108) 107 mmol/L 12/16/24 Carbon Dioxide, (22-29) 26 mmol/L 12/16/24 BUN, (9-16) 18 mg/dL H 12/16/24 Creatinine, (0.5-1.4) 0.93 mg/dL 12/16/24 Calcium, (8.4-10.2) 8.5 mg/dL 12/16/24 Urine Protein, (Neg-Trace) >=1000 (4+) mg/dL H 12/16/24 Urine Creatinine 107.71 mg/dL 12/16/24 Assessment & Plan Assessment & Plan (1) Asymptomatic proteinuria: Code(s): R80.9 - Proteinuria, unspecified Category: Medical Plan 1. Proteinuria - Increase losartan 25 mg daily. Serology ordered 2. Diabetes Mellitus - Stress glycemic control importance. - Encourage smoking cessation. 3. Hematuria - follow with urology. 4. Tobacco Use Disorder - Advise smoking cessation. Orders: Orders Anti DNA DS Antibody 3 Months R80.9 - Proteinuria, unspecified Complement C3 3 Months R80.9 - Proteinuria, unspecified Basic Metabolic Panel 3 Months R80.9 - Proteinuria, unspecified Creatinine Urine 3 Months R80.9 - Proteinuria, unspecified Total Protein Urine Random 3 Months R80.9 - Proteinuria, unspecified Complement C4 3 Months R80.9 - Proteinuria, unspecified Phospholipase A2 Receptor Pnl 3 Months R80.9 - Proteinuria, unspecified Protein Electrophoresis, Serum 3 Months R80.9 - Proteinuria, unspecified Neutrophil Cytoplasma Ab 3 Months R31.9 - Hematuria, unspecified, R80.9 - Proteinuria, unspecified Medications: Changed From losartan 25 mg PO DAILY 90 tabs 0RF To losartan 50 mg PO DAILY 90 tabs 0RF Coding Level of Care Code Est Pt Level 4 (68817) Diagnoses Asymptomatic proteinuria R80.9
[2024-12-20 15:53] VITALS: BP 156/90; PULSE 93; O2SAT 97; BMI 33.0
[2024-12-20 16:05] VITALS: BP 140/80
--- OUTSIDE RECORDS SUMMARY | 2024-12-20 20:45 | XMS_ITS | Patient Health Record ---
Author Organization Arden Zamora MD Address [address] [place], [place] [id number] Care Team Providers Care Roustabout Supervisor Name Role Phone Arden Zamora Primary Care Provider Allergies No Known Allergies Results Component Value Reference Range Notes Hemoglobin A1c Reviewed date:12/20/2024 10:01:31 AM Interpretation: Performing Lab: Notes/Report: Hemoglobin A1c 10.0 Hemoglobin A1c Reviewed date:03/15/2024 09:22:37 AM Interpretation: Performing Lab: Notes/Report: Hemoglobin A1c 13.2 Hemoglobin A1c Reviewed date:07/05/2024 09:57:43 AM Interpretation: Performing Lab: Notes/Report: Hemoglobin A1c >14.0 TSH reflex Free T4 Reviewed date:03/17/2024 01:08:42 PM Interpretation:ARUNA 03/15 Performing Lab:[facility], [address] [place] [phone] Notes/Report: TSH reflex Free T4 71.54 0.32-4.0 uIU/mL TSH reflex Free T4 Reviewed date:05/13/2024 05:05:01 PM Interpretation: Performing Lab:[facility], [address] [place] [phone] Notes/Report: TSH reflex Free T4 24.28 0.32-4.0 uIU/mL TSH reflex Free T4 Reviewed date:07/07/2024 07:52:47 AM Interpretation:CBACK 5/6 TSH Performing Lab:[facility], [address] [place] [phone] Notes/Report: TSH reflex Free T4 29.59 0.32-4.0 uIU/mL Complete Blood Count Auto Di ff Reviewed date:09/06/2024 12:45:34 PM Interpretation: Performing Lab:[facility], [address] [place] [phone] Notes/Report: White Blood Count 7.8 4.8-10.8 X10*3/uL [...] NRBC Abs Auto 0.000 0.0-0.012 X10*3/uL Comprehensive [place]. Panel [facility] Reviewed date:09/06/2024 12:42:48 PM Interpretation: Performing Lab:[facility], [address] [place] [phone] Notes/Report: Sodium 140 135-145 mmol/L Potassium 4.4 [...] (Free>4and<10) Reviewed date:09/05/2024 12:39:35 PM Interpretation: Performing Lab:[facility], [address] [place] [phone] Notes/Report: PSA,Total (Free>4and<10) 0.41 0.00-4.00 ng/mL A [...] date:09/05/2024 03:18:59 PM Interpretation: Performing Lab:[facility], [address] [place] [phone] Notes/Report: TSH reflex Free T4 4.10 0.32-4.0 uIU/mL Hemoglobin A1c Reviewed date:09/05/2024 12:40:04 PM Interpretation: Performing Lab:[facility], [address] [place] [phone] Notes/Report: Hemoglobin A1c % 11.9 <6.0 % [...] average glucose, using the formula of the I0V-Nswhffb Average Glucose study (ADAG), Diabetes Care, Vol.31,#8, 2007 Glucose, finger stick Reviewed date:12/20/2024 09:55:18 AM Interpretation: Performing Lab: Notes/Report: Value 120 Glucose, finger stick Reviewed date:03/15/2024 09:15:45 AM Interpretation: Performing Lab: Notes/Report: Value 310 Glucose, finger stick (Not y et reviewed by provider) Interpretation: Performing Lab: Notes/Report: Value 297 Microalbumin, Random Reviewed date:09/20/2024 04:58:27 PM Interpretation: Performing Lab:[facility], [address] [place] [phone] Notes/Report: Creatinine Urine 43.23 Microalbumin Urine 1755.0 Microalbum/Creatinine Ratio Ur 4059.6 <30 ug/mg cr Albumin/Creatinine Ratio Reference Ranges: Normal: < 30 ug/mg creatinine Microalbuminuria: 30 - 300 ug/mg creatinine Clinical Albuminuria: > 300 ug/mg creatinine UA ClnCatch+Micro w/rflx Cul t Reviewed date:10/28/2024 08:41:34 AM Interpretation:8-22-2025 Performing Lab:[facility], [address] [place] [phone] Notes/Report: Urine, Clean Catch Color Urine Yellow Appearance Urine Clear PH 6.0 5.0-9.0 Glucose Urine UA >=1000 Negative mg/dL Urine Blood Small (1+) Negative Specific [place] - Urine 1.025 1.005-1.025 Urine Protein 300 (3+) Neg-Trace mg/dL Urine Ketones Negative Negative mg/dL Nitrite Urine Negative Negative Leukocyte Esterase Urine Negative Negative RBC Urine 6-10 0-2 /HPF WBC Urine 0-5 0-5 /HPF Squamous Epithelial Cell Urine 0-2 0-2 /HPF Bacteria Urine None Seen None Seen Hyaline Casts Urine 0-2 0-2 /LPF Free T4 (Free Thyroxine) Reviewed date:03/08/2024 04:24:12 PM Interpretation: Performing Lab:[facility], [address] [place] [phone] Notes/Report: Free T4 (Free Thyroxine) < 0.42 0.71-1.85 ng/dL Maximiliano Alvarez Reviewed date:03/08/2024 12:43:13 PM Interpretation: Performing Lab:[facility], [address] [place] [phone] Notes/Report: Maximiliano Alvarez See Note Specimen held untested for 24 hours; Call to request Chemistry testing. Free T4 (Free Thyroxine) Reviewed date:05/13/2024 05:03:18 PM Interpretation: Performing Lab:[facility], [address] [place] [phone] Notes/Report: Free T4 (Free Thyroxine) 0.79 0.71-1.85 ng/dL Maximiliano Alvarez Reviewed date:05/13/2024 05:03:26 PM Interpretation: Performing Lab:[facility], [address] [place] [phone] Notes/Report: Maximiliano Alvarez See Note Specimen held untested for 24 hours; Call to request Chemistry testing. Free T4 (Free Thyroxine) Reviewed date:06/13/2024 06:25:45 PM Interpretation: Performing Lab:[facility], [address] [place] [phone] Notes/Report: Free T4 (Free Thyroxine) 0.72 0.71-1.85 ng/dL Hold Gold Reviewed date:06/13/2024 11:05:01 AM Interpretation: Performing Lab:[facility], [address] [place] [phone] Notes/Report: Maximiliano Alvarez See Note Specimen held untested for 24 hours; Call to request Chemistry testing. Free T4 (Free Thyroxine) Reviewed date:09/05/2024 03:20:45 PM Interpretation: Performing Lab:[facility], [address] [place] [phone] Notes/Report: Free T4 (Free Thyroxine) 0.85 0.71-1.85 ng/dL Urinalysis and Microscopic Reviewed date:12/20/2024 11:46:08 AM Interpretation:12-20-2024 Performing Lab:[address] [phone] Notes/Report: Color Urine Yellow Appearance Urine Clear PH 6.0 5.0-9.0 Glucose Urine UA >=1000 Negative mg/dL Urine Blood Moderate (2+) Negative Specific [place] - Urine >= 1.030 1.005-1.025 Urine Protein >=1000 (4+) Neg-Trace mg/dL Urine Ketones Negative Negative mg/dL Nitrite Urine Negative Negative Leukocyte Esterase Urine Negative Negative RBC Urine 11-20 0-2 /HPF WBC Urine 0-5 0-5 /HPF Squamous Epithelial Cell Urine 0-2 0-2 /HPF Bacteria Urine None Seen None Seen Hyaline Casts Urine 0-2 0-2 /LPF Basic Metabolic Panel Reviewed date:12/18/2024 11:13:30 AM Interpretation: Performing Lab:[address] [phone] Notes/Report: Sodium 139 135-145 mmol/L Potassium 3.9 3.3-5.1 mmol/L Chloride 107 96-108 mmol/L Carbon Dioxide 26 22-29 mmol/L Anion Gap 10 12-20 Blood Urea Nitrogen 18 9-16 mg/dL Creatinine 0.93 0.5-1.4 mg/dL Estimated Glomerular Filt Rate > 60 Chronic Kidney Disease: Estimated GFR < 60 mL/min/1.73m2 Severe Kidney Disease: Estimated GFR < 15 mL/min/1.73m2 Glucose Random 291 60-115 mg/dL Calcium 8.5 8.4-10.2 mg/dL Creatinine Urine Reviewed date:12/18/2024 11:13:05 AM Interpretation: Performing Lab:[facility], [address] [place] [phone] Notes/Report: Creatinine Urine 107.71 Total Protein Urine Random Reviewed date:12/18/2024 11:12:57 AM Interpretation: Performing Lab:[address] [phone] Notes/Report: Total Protein Urine Random 622 <12 mg/dL Protein Electrophoresis, Ser um Reviewed date:12/20/2024 12:27:31 PM Interpretation: Performing Lab:[address] [phone] Notes/Report: Prot Elec - Total Protein 6.7 6.1-8.1 g/dL Prot Elec - Albumin 3.8 3.8-4.8 g/dL Prot Elec - Alpha1 0.3 0.2-0.3 g/dL Prot Elec - Alpha2 0.8 0.5-0.9 g/dL Prot Elec - Beta 1 0.5 0.4-0.6 g/dL Prot Elec - Beta 2 0.4 0.2-0.5 g/dL Prot Elec - Gamma 0.9 0.8-1.7 g/dL PES - Abn Protein Band 1 TNP PES-Abn Protein Band 2 TNP PES-Abn Protein Band 3 TNP Prot Elec - Interpretation SEE NOTE Normal Serum Protein Electrophoresis Pattern. No abnormal protein bands (M-protein) detected. THIS TEST WAS PERFORMED AT: [facility] [address] [place] [phone] STEPH WU MD Reason For Referral Reason hematuria Diagnosis 1 [...] INJECT 90 UNITS SUBCUTANEOUSLY TWICE DAILY. Active Levothyroxine Sodium 200 MCG TAKE 1 TABLET BY MOUTH ONCE EVERY DAY IN THE MORNING ON AN EMPTY STOMACH, FOR 90 DAYS for 90 Active Sertraline HCl 100 MG TAKE 1 TABLET BY M OUTH EVERY DAY for 30 Active Atorvastatin Calcium 40 MG TAKE 1 TABLET BY MOUTH EVERY DAY Orally Once a day for 90 days Active BD Pen Needle Mini U/F 31G X 5 MM use with pen once a day for injection sq twice a day for 90 days Active FreeStyle Lite Test - USE TO TEST BLOOD SUGAR TWICE A DAY for 30 days Active Immunizations Vaccine Route Administration Date [...] Problem Status W/U Status Risk Notes Problem 55865675 Type 2 diabetes mellitus with other diabetic kidney complication (E11.29) Active confirmed Problem 073612193 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) Active confirmed Problem 08247517 Smoker (F17.200) Active confirmed Problem 32677799 Essential hypertension (I10) Active confirmed Problem 074423906 Acquired hypothyroidism (E03.9) Active confirmed Problem 06056665 Type 2 diabetes, controlled, with neuropathy (E11.40) Active confirmed Problem 862839012 Elevated triglycerides with high cholesterol (E78.2) Active confirmed Problem 246774375 COPD exacerbatio n (J44.1) Active confirmed Problem 97644861 Dysthymia (F34.1) Active confirmed Problem 98581563 Severe episode o f recurrent major depressive disorder, without psychotic features (F33.2) Active confirmed Problem 83682337 DARREN (obstructive sleep apnea) (G47.33) Active confirmed Problem 96487584 Smoker unmotivated to quit (F17.200) Active confirmed Problem 640673196 Toe osteomyelitis, 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) Active confirmed Problem 15387868027422957 Chronic ulcer of toe of right foot with fat layer exposed (L97.512) Active confirmed Vital Signs Blood pressure diastolic 84 mm Hg 12/20/2024 yoly ght is up 9 pounds since 10-21-24 Height 71 in 12/20/2024 weight is up 9 pounds since 10-21-24 Blood pressure systolic 142 mm Hg 12/20/2024 weig ht is up 9 pounds since 10-21-24 Weight 242 lbs 12/20/2024 weight is up 9 pounds since 10-21-24 BMI 33.75 kg/m2 12/20/2024 weight is up 9 pounds since 10-21-24 Encounters Encounter Location Date Provider Diagnosis Arden Zamora MD [address] [place] [id number] 03/08/2024 Arden Zamora Acquired hypothyroidism E03.9 Arden Zamora MD [address] [place] [address] [address] [id number] 05/13/2024 Arden Zamora Acquired hypothyroidism E03.9 Arden Zamora MD [address] [place] [address] [address] [id number] 06/13/2024 Arden Zamora Type 2 diabetes mellitus with other diabetic kidney complication E11.29 Arden Zamora MD [address] [id number] 09/05/2024 Arden Zamora Type 2 diabetes mellitus with other diabetic kidney complication E11.29 ; Acquired hypothyroidism E03.9 ; Type 2 diabetes, controlled, with neuropathy E11.40 ; Essential hypertension I10 and Annual physical exam Z00.00 Arden Zamora MD [address] [id number] 12/20/2024 Arden Zamora Type 2 diabetes, controlled, with neuropathy E11.40 ; Smoker unmotivated to quit F17.200 and Hematuria R31.9 Arden Zamora MD [address] [place] [id number] 01/26/2024 Arden Zamora Type 2 diabetes, controlled, with neuropathy E11.40 and Acquired hypothyroidism E03.9 Arden Zamora MD [address] [id number] 03/15/2024 Arden Zamora Type 2 diabetes mellitus with other diabetic kidney complication E11.29 and Acquired hypothyroidism E03.9 Arden Zamora MD [address] [id number] 05/03/2024 Arden Zamora Type 2 diabetes, controlled, with neuropathy E11.40 and Acquired hypothyroidism E03.9 Arden Zamora MD [address] [place] [id number] 07/05/2024 Arden Zamora Type 2 diabetes mellitus with other diabetic kidney complication E11.29 ; Essential hypertension I10 ; Acquired hypothyroidism E03.9 and Type 2 diabetes, controlled, with neuropathy E11.40 Arden Zamora MD [address] [place] [address] [address] [id number] 09/20/2024 Arden Zamora Annual physical exam Z00.00 ; Type 2 diabetes, controlled, with neuropathy E11.40 ; Essential hypertension I10 ; Smoker unmotivated to quit F17.200 ; Acquired hypothyroidism E03.9 and Abscess L02.91 Arden Zamora MD [address] [place] [address] [address] [id number] 10/21/2024 Arden Zamora Proteinuria R80.9 an d Hematuria R31.9 Arden Zamora MD [address] [place] [id number] 07/15/2024 Arden Zamora Elevated triglycerid es with high cholesterol E78.2 Arden Zamora MD [address] [place] [address] [address] [id number] 12/02/2024 Arden Zamora Assessments Encounter Date Diagnosis (ICD Code) Assessment Notes Treatment Notes Treatment Clinical Notes Section Notes 03/08/2024 Acquired hypothyroidism (ICD-10 - E03.9) 05/13/2024 Acquired hypothyroidism (ICD-10 - E03.9) 06/13/2024 Type 2 diabetes mellitus with other diabetic kidney complication (ICD-10 - E11.29) 09/05/2024 Type 2 diabetes mellitus with other diabetic kidney complication (ICD-10 - E11.29) 09/05/2024 Acquired hypothyroidism (ICD-10 - E03.9) 12/20/2024 Type 2 diabetes, controlled, with neuropathy (ICD-10 - E11.40) had a1c over 14 last time and down to 10, will continue to monitor 12/20/2024 Smoker unmotivated to quit (ICD-10 - F17.200) can't get him to stop, advised on issues related to smoking 01/26/2024 Type 2 diabetes, controlled, with neuropathy [...] 10/21/2024 Proteinuria (ICD-10 - R80.9) referral to operations associate 10/21/2024 Hematuria (ICD-10 - R31.9) had some gross painful urine in early september/ needs referral to urology dr peres 07/15/2024 Elevated triglycerides with high cholesterol (ICD-10 - E78.2) 09/05/2024 Type 2 diabetes, controlled, with neuropathy (ICD-10 - E11.40) 12/20/2024 Hematuria (ICD-10 - R31.9) needs appt with dr peres. has not received his appt since last visit/ appt with Dr. Peres is 01-03-2025 05/03/2024 Acquired hypothyroidism (ICD-10 - E03.9) stable, [...] Details Provider Name:Arden mae, 03/14/2025 07:30:00 AM, [address] [place] [address], [address], [phone], Provider Name:Arden mae, 03/21/2025 10:00:00 AM, [address] [place] [address], [address], [phone], Provider Name:Arden sorianor, 09/19/2025 07:00:00 AM, [address] [place] [address], [address], [phone], Provider Name:Arden sorianor, 09/26/2025 09:30:00 AM, [address] [place] [address], [address], [phone], Insurance Providers Payer Name Payer Address Payer Phone Subscriber Number Group Number Insured Name Patient Relationship to Insured Coverage Start Date Coverage End Date [employer] [address] [place], [place] [id number] Jeyson Evans Self - patient is the insured Medical (General) History Medical History History ICD Code got diarrhea on metformin 01/13/22 Colonoscopy repeat one year
== END 2024-12-20 16:09 | disposition home or self-care (01) ==
LOC: HO.HKA 15:47
PROVIDERS: PCP Internal Medicine; Visit Provider Internal Medicine Hypertension Specialist
DX: R80.9 Proteinuria, unspecified (principal)
CPT/HCPCS: 99214

== ENCOUNTER 2025-01-03 08:54 | Outpatient (REF) | payer BC, SELFPAY | END 2025-01-03 08:55 | disposition home or self-care (01) | LOC: HO.LAB 08:54 | PROVIDERS: PCP Internal Medicine; Visit Provider Nurse Practitioner Family | DX: R31.29 Other microscopic hematuria (principal); R31.0 Gross hematuria | CPT/HCPCS: 51798; 81003; 88112 ==

== ENCOUNTER 2025-01-03 08:54 | Outpatient (AMB) | payer BC, SELFPAY ==
--- OUTSIDE RECORDS SUMMARY | 2024-06-13 02:30 | XMS_ITS ---
Author Organization Arden Zamora MD Address [address] [place] [phone] Care Team Providers Care Wharf Helper Name Role Phone Arden Zamora Primary Care Provider [phone] Results Component Value Reference Range Notes TSH reflex Free T4 Reviewed date:07/07/2024 07:52:47 AM Interpretation:CBACK 5/6 TSH Performing Lab:[facility], [address] [place] [phone] Notes/Report: TSH reflex Free T4 29.59 0.32-4.0 uIU/mL REASON FOR VISIT TSH Encounters Encounter Location Date Provider Diagnosis Arden Zamora MD [address] [place] [phone] 06/13/2024 Arden Zamora Type 2 diabetes mellitus with other diabetic kidney complication E11.29 Assessments Encounter Date Diagnosis (ICD Code) Assessment Notes Treatment Notes Treatment Clinical Notes Section Notes 06/13/2024 Type 2 diabetes mellitus with other diabetic kidney complication (ICD-10 - E11.29) Plan Of Treatment Next Appt Details Provider Name:Arden mae 03/14/2025 07:30:00 AM, [address], [address], [place], [phone], Provider Name:Arden sorianor, 03/21/2025 10:00:00 AM, [address], [address], [place], [phone], Provider Name:Arden Wilcox ier, 09/19/2025 07:00:00 AM, [address], [address], [place], [phone], Provider Name:Arden Wilcox ier, 09/26/2025 09:30:00 AM, [address], [address], [place], [place], [phone], Progress Notes * Geronimo CALVOOB:1975 (49 yo M)Acc No.[id number]:06/13/2024 Progress Note Patient: Khari RODRÍGUEZ Jeyson Provider: Reinaldo Zamora MD :1975 A ge:48 Y S ex:Male Date:06/13/2024 Address:[address] [place] [address], [id number] Subjective: * Chief Complaints: * 1 . TSH. * Medical History: Objective: * Vitals: Assessment: * Assessment: 1. T ype 2 diabetes mellitus with other diabetic kidney complication - E11.29 (Primary) ? Plan: * Treatment: * Procedure Codes: 3 6415 VENIPUNCT, ROUTINE* * * The named appointment provid er may or may not be the originator of this progress note, and it is not deemed complete until electronically signed by the appointment provider. Sign off status: Pending * Provider: Reinaldo Zamora MD Date: 0 06/13/2024 Generated for Ulises garcia/Jarvis/Sandrasmitting on: 03/05/2024 09:31 AM EST
--- OUTSIDE RECORDS SUMMARY | 2024-07-05 05:00 | XMS_ITS ---
Author Organization Arden Zamora MD Address [address] [place] [phone] Care Team Providers Care Security Test Engineer Name Role Phone Arden Zamora Primary Care Provider [phone] Allergies No Known Allergies Results Component Value Reference Range Notes Hemoglobin A1c Reviewed date:07/05/2024 09:57:43 AM Interpretation: Performing Lab: Notes/Report: Hemoglobin A1c >14.0 REASON FOR VISIT 2 month, CBACK TSH, Blood sugar is 146 per Tila Medications Medication SIG (Take, Route, Frequency, Duration) Notes Start Date End Date Status FreeStyle Lite Test - USE TO TEST BLOOD SUGAR TWICE A DAY for 30 days Active Sildenafil Citrate 100 MG 1 tablet Orall y Once a day for 30 Not-Taking Atorvastatin Calcium 40 MG TAKE 1 TABLET BY MOUTH EVERY DAY for 90 Active Sertraline HCl 100 MG TAKE 1 TABLET BY M OUTH EVERY DAY for 30 Active Lantus SoloStar 100 UNIT/ML 80 units Subcutaneous bid for 30 days Active Levothyroxine Sodium 200 MCG TAKE 1 TABLET BY MOUTH ONCE EVERY DAY IN THE MORNING ON AN EMPTY STOMACH, FOR 90 DAYS Active BD Pen Needle Mini U/F 31G X 5 MM use with pen once a day for injection sq twice a day for 90 days Active Albuterol Sulfate HFA 108 (90 Base) MCG/ACT 1 puff as needed Inhalation every 4 hrs for 30 days 11/24/2023 Active Vital Signs Blood pressure systolic 122 mm Hg 07/06/19 25 Blood pressure diastolic 84 mm Hg 025 Height 71 in 07/05/2024 Weight 233 lbs 07/05/2024 BMI 32.49 kg/m2 07/05/2024 weight is down 6 pounds [facility] 05-03-24 Encounters Encounter Location Date Provider Diagnosis Arden Zamora MD [address] [place], [place] [id number] 07/05/2024 Arden Zamora Type 2 diabetes mellitus with other diabetic kidney complication E11.29 ; Essential hypertension I10 ; Acquired hypothyroidism E03.9 and Type 2 diabetes, controlled, with neuropathy E11.40 Assessments Encounter Date Diagnosis (ICD Code) Assessment Notes Treatment Notes Treatment Clinical Notes Section Notes 07/05/2024 Type 2 diabetes mellitus with other diabetic kidney complication (ICD-10 - E11.29) 07/05/2024 Essential hypertension (ICD-10 - I10) doing well 07/05/2024 Acquired hypothyroidism (ICD-10 - E03.9) is on 200 mcg for one month. started it after the last draw, will continue to monitor 07/05/2024 Type 2 diabetes, controlled, with neuropathy (ICD-10 - E11.40) starting to take his meds, will continue to monitor Plan Of Treatment Medication Medication Name Sig Start Date Stop Date Notes Lantus SoloStar 100 UNIT/ML 80 units Sub cutaneous bid for 30 days Levothyroxine Sodium 200 MCG TAKE 1 TABL ET BY MOUTH ONCE EVERY DAY IN THE MORNING ON AN EMPTY STOMACH, FOR 90 DAYS Treatment Notes Assessment Notes Essential hypertension doing well Acquired hypothyroidism is on 200 mcg fo r one month. started it after the last draw, will continue to monitor Type 2 diabetes, controlled, with neurop athy starting to take his meds, will continue to monitor Next Appt Details Follow Up: 2 Months, Reason: Provider Name:Arden mae, 03/14/2025 07:30:00 AM, [address], [address], [place], [place], [phone], Provider Name:Arden Wilcox ier, 03/21/2025 10:00:00 AM, [address], [address], [place], [phone], Provider Name:Arden Wilcox ier, 09/19/2025 07:00:00 AM, [address], [address], [place], [phone], Provider Name:Arden Wilcox ier, 09/26/2025 09:30:00 AM, [address], [address], [place], [phone], Progress Notes * Geronimo CALVOOB:1975 (48 yo M)Acc No.[id number]:07/05/2024 Patient: Jeyson ANDERSON Provider: Reinaldo Zamora MD :1975 A ge:48 Y S ex:Male Date:07/05/2024 Address:[address] [place] [address], [id number] Subjective: * Chief Complaints: * 2 monthCBACK TSHBlood sugar is 146 per Tila * HPI: S ymptom(s): patient is a 48 yo male here for 2 month follow up visit/ finally got his tila and is doing better. started to take insulin as his sugar was over 500. * ROS: G eneral/Constitutional: Denies C hills. D enies F atigue. D enies F ever. D enies H eadache. E NT: Denies S ore throat. E ndocrine: Admits D ifficulty sleeping. D enies D izziness.?Denies E xcessive sweating. A dmits E xcessive thirst. A dmits F requent urination. R espiratory: Denies C ough. D enies S hortness of breath at rest. D enies S hortness of breath with exertion. G astrointestinal: Denies D iarrhea. D enies N ausea. * Medical History: * Surgical History: * Hospitalization/Major Diagno stic Procedure: * Medications: T akingBD Pen Needle Mini U/F 31G X 5 MM Miscellaneous use with pen once a day for injection sq twice a day Albuterol Sulfate HFA 108 (90 Base) MCG/ACT Aerosol Solution 1 puff as needed Inhalation every 4 hrs FreeStyle Lite Test - Strip USE TO TEST BLOOD SUGAR TWICE A DAY Atorvastatin Calcium 40 MG Tablet TAKE 1 TABLET BY MOUTH EVERY DAY Levothyroxine Sodium 200 MCG Tablet TAKE 1 TABLET BY MOUTH ONCE EVERY DAY IN THE MORNING ON AN EMPTY STOMACH, FOR 90 DAYS Lantus SoloStar 100 UNIT/ML Solution Pen-injector 80 units Subcutaneous bid Sertraline HCl 100 MG Tablet TAKE 1 TABLET BY MOUTH EVERY DAY Taking BD Pen Needle Mini U/F 31G X 5 MM Miscellaneous use with pen once a day for injection sq twice a day Taking Albuterol Sulfate HFA 108 (90 Base) MCG/ACT Aerosol Solution 1 puff as needed Inhalation every 4 hrs Taking FreeStyle Lite Test - Strip USE TO TEST BLOOD SUGAR TWICE A DAY Taking Atorvastatin Calcium 40 MG Tablet TAKE 1 TABLET BY MOUTH EVERY DAY Taking Levothyroxine Sodium 200 MCG Tablet TAKE 1 TABLET BY MOUTH ONCE EVERY DAY IN THE MORNING ON AN EMPTY STOMACH, FOR 90 DAYS Taking Lantus SoloStar 100 UNIT/ML Solution Pen-injector 80 units Subcutaneous bid Taking Sertraline HCl 100 MG Tablet TAKE 1 TABLET BY MOUTH EVERY DAY Not-Taking/PRNSildenafil Citrate 100 MG Tablet 1 tablet Orally Once a day Not-Taking/PRN Sildenafil Citrate 100 MG Tablet 1 tablet Orally Once a day * Allergies: N .K.D.A.yes[Allergies Verified] Objective: * Vitals: H t: 71, Wt: 233, BMI:32.49, BP:122/84, Wt-k.69. weight is down 6 pounds since 05-03-24. * P ast Orders: L ab:Free T4 (Free Thyroxine) (Order Date - 06/13/2024) (Collection Date & Time - 06/13/2024 07:30 AM) Value Reference Range Free T4 (Free Thyroxine) 0.72 0.71-1.85 - ng/ dL * Examination: G eneral Examination: GENERAL APPEARANCE: p leasant, in no acute distress. HEAD: n ormocephalic. SKIN: g ood turgor. HEART: r egular rate and rhythm, no murmurs, rubs, gallops.? LUNGS: n o wheezes, rales, rhonchi, good air movement, clear to auscultation bilaterally. Assessment: * Assessment: 1. T ype 2 diabetes mellitus with other diabetic kidney complication - E11.29 (Primary) ? 2 . E ssential hypertension - I10 3 . A cquired hypothyroidism - E03.9 4 . T ype 2 diabetes, controlled, with neuropathy - E11.40 Plan: * Treatment: Value Reference Range H emoglobin A1c >14.0 ?LAB: TSH reflex Free T4 (Ordered for 09/04/2024) ?LAB: Hemoglobin A1c (Ordered for 09/04/2024)2.?Essential hypertension? Notes: doing well??3.?Acquired hypothyroidism? Continue Levothyroxine Sodium Tablet, 200 MCG, TAKE 1 TABLET BY MOUTH ONCE EVERY DAY IN THE MORNINGON AN EMPTY STOMACH, FOR 90 DAYS.?LAB: TSH reflex Free T4 (Ordered for 09/04/2024) Notes: is on 200 mcg for one month. started it after the last draw, will continue to monitor? 4.?Type 2 diabetes, controlled, with neuropathy?LAB: Hemoglobin A1c (Ordered for 09/04/2024) Notes: starting to take his meds, will continue to monitor?? * Procedure Codes: 8 3036 GLYCATED HEMOGLOBIN TEST, Modifiers: QW * Follow Up: 2 Months * * Sign off status: Completed true * Provider: Reinaldo Zamora MD Date: 0 07/05/2024 Generated for Ulises garcia/Jarvis/eTransmitting on: 1 03/05/2024 09:33 AM EST History and Physical Notes * HPI (History of Present Illness) Category Sub-Category Detail Notes Category Not es Symptom(s) patient is a 48 yo male here for 2 month follow up visit/ finally got his tila and is doing better. started to take insulin as his sugar was over 500 Examination Category Sub-Category Detail Notes Category Not es General Examination GENERAL APPEARANCE: pleasant, in n o acute distress HEAD: normocephalic HEART: regular rate and rhy thm, no murmurs, rubs, gallops LUNGS: no wheezes, rales, r honchi, good air movement, clear to auscultation bilaterally SKIN: good turgor
--- OUTSIDE RECORDS SUMMARY | 2024-07-15 10:18 | XMS_ITS ---
Author Organization Arden Zamora MD Address [address] [place] [phone] Care Team Providers Care Pipe Foreman Name Role Phone Arden Zamora Primary Care Provider Medications Medication SIG (Take, Route, Frequency, Duration) Notes Start Date End Date Status Atorvastatin Calcium 40 MG TAKE 1 TABLET BY MOUTH EVERY DAY Orally Once a day for 90 days Active Encounters Encounter Location Date Provider Diagnosis Arden Zamora MD [address] [place] [address] Drive [address] [place] [phone] 07/15/2024 Arden Zamora Elevated triglycerides with high cholesterol E78.2 Assessments Encounter Date Diagnosis (ICD Code) Assessment Notes Treatment Notes Treatment Clinical Notes Section Notes 07/15/2024 Elevated triglycerides with high cholesterol (ICD-10 - E78.2) Plan Of Treatment Medication Medication Name Sig Start Date Stop Date Notes Atorvastatin Calcium 40 MG TAKE 1 TABLET BY MOUTH EVERY DAY Orally Once a day for 90 days Next Appt Details Provider Name:Arden mae, 03/14/2025 07:30:00 AM, [address] [place] [address], [address], [place], [place], [phone], Provider Name:Arden Wilcox ier, 03/21/2025 10:00:00 AM, [address], [address], [place], [phone], Provider Name:Arden Wilcox ier, 09/19/2025 07:00:00 AM, [address], [address], [place], [phone], Provider Name:Arden Wilcox ier, 09/26/2025 09:30:00 AM, [address], [address], [place], [phone], Progress Notes * Geronimo CALVOOB:1975 (48 yo M)Acc No.[id number]:07/15/2024 Patient: Khari HAMILTONABRAHAMGregoriown :1975 A ge:48 Y S ex:Male Address: [address], [place], [address] * Refills Refill Atorvastatin Calcium Tablet, 40 MG, Orally, 90, TAKE 1 TABLET BY MOUTH EVERY DAY, Once a day, 90 days, Refills=3 * true * Date: Generated for Ulises garcia/Jarvis/eTivasmitting on: 03/05/2024 09:33 AM EST
--- OUTSIDE RECORDS SUMMARY | 2024-09-05 02:45 | XMS_ITS ---
Author Organization Arden Zamora MD Address [address] [place] [phone] Care Team Providers Care Guitar Technician Name Role Phone Arden Zamora Primary Care Provider [phone] Results Component Value Reference Range Notes Complete Blood Count Auto Di ff Reviewed date:09/06/2024 12:45:34 PM Interpretation: Performing Lab:[facility], [address] [place] [phone] Notes/Report: White Blood Count 7.8 4.8-10.8 X10*3/uL Red Blood Count 4.78 4.60-5.80 X10*6/uL Hemoglobin 13.8 14.0-18.0 g/dl Hematocrit 40.9 42.0-52.0 % Mean Corpuscular Volume 85.6 80.0-98.0 fL Mean Corpuscular Hemoglobin 28.9 27.0-33.0 pg Mean Corpuscular HGB Conc 33.7 31.0-36.0 g/dl Red Cell Distribution Width 12.9 11.0-16.0 % Platelet Count 189 160-400 X10*3/uL Mean Platelet Volume 11.4 9.4-12.4 fL Neutrophils Percent Auto 58.2 45-73 % Imm Gran Pct Auto 0.6 0.0-0.4 % Lymphocytes Percent Auto 30.5 20-40 % Monocytes Percent Auto 6.9 2-11 % Eosinophils Percent Auto 3.0 0-4 % Basophils Percent Auto 0.8 0-2 % NRBC Pct Auto 0.0 0.0-0.2 /100WBC Neutrophils Absolute Auto 4.5 2.0-8.3 x10*3/u L Imm Gran Abs Auto 0.05 0.00-0.03 X10*3/uL Lymphocytes Absolute Auto 2.4 1.2-4.9 X10*3/u L Monocytes Absolute Auto 0.5 0.1-1.2 X10*3/uL Eosinophils Absolute Auto 0.2 0.0-0.4 X10*3/u L Basophils Absolute Auto 0.1 0.0-0.2 X10*3/uL NRBC Abs Auto 0.000 0.0-0.012 X10*3/uL Comprehensive [place]. Panel Fa st Reviewed date:09/06/2024 12:42:48 PM Interpretation: Performing Lab:[facility], [address] [place] [phone] Notes/Report: Sodium 140 135-145 mmol/L Potassium 4.4 3.3-5.1 mmol/L Chloride 109 96-108 mmol/L Carbon Dioxide 23 22-29 mmol/L Anion Gap 12 12-20 Blood Urea Nitrogen 19 9-16 mg/dL Creatinine 1.04 0.5-1.4 mg/dL Estimated Glomerular Filt Rate > 60 Chronic Kidney Disease: Estimated GFR < 60 mL/min/1.73m2 Severe Kidney Disease: Estimated GFR < 15 mL/min/1.73m2 Glucose Fasting 218 60-99 mg/dL A fasting glucose of 126 mg/dl or greater on more than one occasion is considered diagnostic of diabetes. Calcium 8.2 8.4-10.2 mg/dL Bilirubin Total 0.2 0.0-1.0 mg/dL Aspartate Amino Transferase 25 5-37 U/L Alanine Aminotransferase 30 0-40 U/L Total Protein 6.8 6.5-8.0 g/dL Albumin Level 3.9 3.5-5.0 g/dL Alkaline Phosphatase 117 39-117 U/L PSA,Total (Free>4and<10) Reviewed date:09/05/2024 12:39:35 PM Interpretation: Performing Lab:[address] [phone] Notes/Report: PSA,Total (Free>4and<10) 0.41 0.00-4.00 ng/mL A Free PSA was not [...] Immunoassay (CMIA) TSH reflex Free T4 Reviewed date:09/05/2024 03:18:59 PM Interpretation: Performing Lab:[facility], [address] [place] [phone] Notes/Report: TSH reflex Free T4 4.10 0.32-4.0 uIU/mL Hemoglobin A1c Reviewed date:09/05/2024 12:40:04 PM Interpretation: Performing Lab:[facility], [address] [place] [phone] Notes/Report: Hemoglobin A1c % 11.9 <6.0 % Hemoglobin A1C Reference Range Adults: 4.8 - 6.0 % Non diabetic: < 6.0 % Goal: < 7.0 % Additional Action Suggested: > 8.0 % Note: Hemoglobin A1c results are invalid for patients with abnormal amounts of HbF. Blood transfusions may impact the HbA1c concentration in the patient sample. Estimated Average Glucose 295 eAG = Estimated average glucose which is %A1C expressed as average glucose, using the formula of the [id number] Average Glucose study (ADAG), Diabetes Care, Vol.31,#8, 2007 REASON FOR VISIT A1C, TSH Medications Medication SIG (Take, Route, Frequency, Duration) Notes Start Date End Date Status Albuterol Sulfate HFA 108 (90 Base) MCG/ACT 1 puff as needed Inhalation every 4 hrs for 30 days 11/24/2023 Active FreeStyle Lite Test - USE TO TEST BLOOD SUGAR TWICE A DAY for 30 days Active Sildenafil Citrate 100 MG 1 tablet Orally Once a day for 30 Not-Taking Levothyroxine Sodium 200 MCG TAKE 1 TABLET BY MOUTH ONCE EVERY DAY IN THE MORNING ON AN EMPTY STOMACH, FOR 90 DAYS for 90 Active BD Pen Needle Mini U/F 31G X 5 MM use with pen once a day for injection sq twice a day for 90 days Active Lantus SoloStar 100 UNIT/ML INJECT 90 UNITS SUBCUTANEOUSLY TWICE DAILY. 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 ; Essential hypertension I10 and Annual physical exam Z00.00 Assessments Encounter Date Diagnosis (ICD Code) Assessment Notes Treatment Notes Treatment Clinical Notes Section Notes 09/05/2024 Type 2 diabetes mellitus with other diabetic kidney complication (ICD-10 - E11.29) 09/05/2024 Acquired hypothyroidism (ICD-10 - E03.9) 09/05/2024 Type 2 diabetes, controlled, with neuropathy (ICD-10 - E11.40) 09/05/2024 Essential hypertension (ICD-10 - I10) 09/05/2024 Annual physical exam (ICD-10 - Z00.00) Plan Of Treatment Pending Test Test Name Order Date Microalbumin, Random 09/05/2024 UA ClnCatch+Micro w/rflx Cult 09/05/2024 Next Appt Details Provider Name:Arden mae, 03/14/2025 07:30:00 AM, [address] [place] [address], Suite [facility], [place], [place], [phone], Provider Name:Arden mae, 03/21/2025 10:00:00 AM, [address] [place] [address], [address], [place], [place], [phone], Provider Name:Arden Wilcox ier, 09/19/2025 07:00:00 AM, [address], [address], [place], [phone], Provider Name:Arden Wilcox ier, 09/26/2025 09:30:00 AM, [address], [address], [place], [phone], Progress Notes * Jonathan CALVOManuelOB:1975 (49 yo M)Acc No.[id number]:09/05/2024 Progress Note Patient: Jeyson ANDERSON Provider: Reinaldo Zamora MD :1975 A ge:48 Y S ex:Male Date:09/05/2024 Address:[address] [place] [address], [facility] Subjective: * Chief Complaints: * 1 . A1C, TSH. * Medical History: * Medications: T aking BD Pen Needle Mini U/F 31G X 5 MM Miscellaneous use with pen once a day for injection sq twice a day , Taking Albuterol Sulfate HFA 108 (90 Base) MCG/ACT Aerosol Solution 1 puff as needed Inhalation every 4 hrs , Taking FreeStyle Lite Test - Strip USE TO TEST BLOOD SUGAR TWICE A DAY , Taking Sertraline HCl 100 MG Tablet TAKE 1 TABLET BY MOUTH EVERY DAY , Taking Atorvastatin Calcium 40 MG Tablet TAKE 1 TABLET BY MOUTH EVERY DAY Orally Once a day , Taking Lantus SoloStar 100 UNIT/ML Solution Pen-injector INJECT 90 UNITS SUBCUTANEOUSLY TWICE DAILY. , Taking Levothyroxine Sodium 200 MCG Tablet TAKE 1 TABLET BY MOUTH ONCE EVERY DAY IN THE MORNING ON AN EMPTY STOMACH, FOR 90 DAYS , Not-Taking/PRN Sildenafil Citrate 100 MG Tablet 1 tablet Orally Once a day Objective: * Vitals: Assessment: * Assessment: 1. T ype 2 diabetes mellitus with other diabetic kidney complication - E11.29 (Primary) ? 2 . A cquired hypothyroidism - E03.9 3 . T ype 2 diabetes, controlled, with neuropathy - E11.40 4 . E ssential hypertension - I10 5 . A nnual physical exam - Z00.00 Plan: * Treatment: 2. A cquired hypothyroidism L AB: Microalbumin, Random L AB: UA ClnCatch+Micro w/rflx Cult L AB: Complete Blood Count Auto Diff (Collection Date & Time - 09/05/2024 07:45 AM) L AB: Comprehensive [place]. Panel Fast (Collection Date & Time - 09/05/2024 07:45 AM) L AB: PSA,Total (Free>4and<10) (Collection Date & Time - 09/05/2024 07:45 AM) L AB: TSH reflex Free T4 (Collection Date & Time - 09/05/2024 07:45 AM) 3. T ype 2 diabetes, controlled, with neuropathy L AB: Hemoglobin A1c (Collection Date & Time - 09/05/2024 07:45 AM) 4. E ssential hypertension L AB: Microalbumin, Random L AB: UA ClnCatch+Micro w/rflx Cult L AB: Complete Blood Count Auto Diff (Collection Date & Time - 09/05/2024 07:45 AM) L AB: Comprehensive [place]. Panel Fast (Collection Date & Time - 09/05/2024 07:45 AM) L AB: PSA,Total (Free>4and<10) (Collection Date & Time - 09/05/2024 07:45 AM) 5. A nnual physical exam L AB: Microalbumin, Random L AB: UA ClnCatch+Micro w/rflx Cult L AB: Complete Blood Count Auto Diff (Collection Date & Time - 09/05/2024 07:45 AM) L AB: Comprehensive [place]. Panel Fast (Collection Date & Time - 09/05/2024 07:45 AM) L AB: PSA,Total (Free>4and<10) (Collection Date & Time - 09/05/2024 07:45 AM) * Procedure Codes: 3 6415 VENIPUNCT, ROUTINE* * * The named appointment provid er may or may not be the originator of this progress note, and it is not deemed complete until electronically signed by the appointment provider. Sign off status: Pending * Provider: Reinaldo Zamora MD Date: 0 09/05/2024 Generated for Ngoci ng/Gregg/eTransmitting on: 1 03/05/2024 09:33 AM EST
--- OUTSIDE RECORDS SUMMARY | 2024-09-12 11:00 | XMS_ITS ---
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 Assessments Encounter Date Diagnosis (ICD Code) Assessment Notes Treatment Notes Treatment Clinical Notes Section Notes 09/12/2024 Type 2 diabetes, controlled, with neuropathy (ICD-10 - E11.40) Plan Of Treatment Pending Test Test Name Order Date Glucose, finger stick 09/12/2024 Next Appt Details Provider Name:Arden mae, 03/14/2025 07:30:00 AM, [address] [facility], Suite [facility], [place], [place], [phone], Provider Name:Arden mae, 03/21/2025 10:00:00 AM, [address], [address], [place], [place], [phone], Provider Name:Arden Wilcox ier, 09/19/2025 07:00:00 AM, [address], [address], [place], [phone], Provider Name:Arden Wilcox ier, 09/26/2025 09:30:00 AM, [address], [address], [place], [phone], Progress Notes * Geronimo CALVOOB:1975 (49 yo M)Acc No.[id number]:09/12/2024 Progress Notes Patient: Jeyson ANDERSON Provider: Reinaldo Zamora MD :1975 A ge:48 Y S ex:Male Date:09/12/2024 Address:[address] [place] [address], [facility] Subjective: * Chief Complaints: * 1 . 2 month. * ROS: G eneral/Constitutional: Denies C hills. D enies F atigue. D enies F ever. D enies H eadache. E NT: Denies S ore throat. R espiratory: Denies C ough. D enies S hortness of breath at rest. D enies S hortness of breath with exertion. G astrointestinal: Denies D iarrhea. D enies N ausea. * Medical History: G ot diarrhea on metformin, 01/13/22 Colonoscopy repeat one year. * Allergies: N .K.D.A. Objective: * Vitals: Assessment: * Assessment: 1. T ype 2 diabetes, controlled, with neuropathy - E11.40 (Primary) Plan: * Treatment: * Procedure Codes: 8 2947 ASSAY, GLUCOSE, BLOOD QUANT, Modifiers: QW * * The named appointment provid er may or may not be the originator of this progress note, and it is not deemed complete until electronically signed by the appointment provider. Sign off status: Pending * Provider: Reinaldo Zamora MD Date: 0 09/12/2024 Generated for Ulises garcia/Jarvis/Mary Jane on: 1 03/05/2024 09:32 AM EST
--- OUTSIDE RECORDS SUMMARY | 2024-09-13 02:15 | XMS_ITS ---
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 and Elevated triglycerides with high cholesterol E78.2 Assessments Encounter Date Diagnosis (ICD Code) Assessment Notes Treatment Notes Treatment Clinical Notes Section Notes 09/13/2024 Blood tests for routine general physical examination (ICD-10 - Z00.00) 09/13/2024 Essential hypertension (ICD-10 - I10) 09/13/2024 Acquired hypothyroidism (ICD-10 - E03.9) 09/13/2024 Type 2 diabetes, controlled, with neuropathy (ICD-10 - E11.40) 09/13/2024 Elevated triglycerides with high cholesterol (ICD-10 - E78.2) Plan Of Treatment Pending Test Test Name Order Date Complete Blood Count Auto Diff 5 Comprehensive [place]. Panel Fast Lipid Panel 09/13/2024 PSA,Total (Free>4and<10) 09/13/2024 TSH reflex Free T4 09/13/2024 Microalbumin, Random 09/13/2024 Hemoglobin A1c 09/13/2024 UA ClnCatch+Micro w/rflx Cult 09/13/2024 Next Appt Details Provider Name:Arden Villalba Jeri ier, 03/14/2025 07:30:00 AM, [address], Suite [facility], [place], [place], [phone], Provider Name:Arden Villalba Jeri ier, 03/21/2025 10:00:00 AM, [address] [place] [address], Suite [facility], [place], [place], [phone], Provider Name:Arden Villalba Jeri ier, 09/19/2025 07:00:00 AM, [address], [place], [place], [phone], Provider Name:Arden Villalba Derekjairo ier, 09/26/2025 09:30:00 AM, [address], Suite [facility], [place], [place], [phone], Progress Notes * Geronimo CALVOOB:1975 (49 yo M)Acc No.[id number]:09/13/2024 Progress Note Patient: Jonathan ANDERSONn Provider: Reinaldo Zamora MD :1975 A ge:48 Y S ex:Male Date:09/13/2024 Address:[address] [place] [address], [id number] Subjective: * Chief Complaints: * 1 . Yearly fasting labs. * Medical History: Objective: * Vitals: Assessment: * Assessment: 1. B lood tests for routine general physical examination - Z00.00 (Primary) 2 .?Essential hypertension - I10 3 . A cquired hypothyroidism - E03.9 ? 4 . T ype 2 diabetes, controlled, with neuropathy - E11.40 5 . E levated triglycerides with high cholesterol - E78.2 Plan: * Treatment: 2. E ssential hypertension L AB: Complete Blood Count Auto Diff L AB: Comprehensive [place]. Panel Fast L AB: Lipid Panel L AB: PSA,Total (Free>4and<10) L AB: TSH reflex Free T4 L AB: Microalbumin, Random L AB: Hemoglobin A1c L AB: UA ClnCatch+Micro w/rflx Cult 3. A cquired hypothyroidism L AB: Complete Blood Count Auto Diff L AB: Comprehensive [place]. Panel Fast L AB: Lipid Panel L AB: PSA,Total (Free>4and<10) L AB: TSH reflex Free T4 L AB: Microalbumin, Random L AB: Hemoglobin A1c L AB: UA ClnCatch+Micro w/rflx Cult 4. T ype 2 diabetes, controlled, with neuropathy L AB: Complete Blood Count Auto Diff L AB: Comprehensive [place]. Panel Fast L AB: Lipid Panel L AB: PSA,Total (Free>4and<10) L AB: TSH reflex Free T4 L AB: Microalbumin, Random L AB: Hemoglobin A1c L AB: UA ClnCatch+Micro w/rflx Cult 5. E levated triglycerides with high cholesterol L AB: Complete Blood Count Auto Diff L AB: Comprehensive [place]. Panel Fast L AB: Lipid Panel L AB: PSA,Total (Free>4and<10) L AB: TSH reflex Free T4 L AB: Microalbumin, Random L AB: Hemoglobin A1c L AB: UA ClnCatch+Micro w/rflx Cult * * The named appointment provid er may or may not be the originator of this progress note, and it is not deemed complete until electronically signed by the appointment provider. Sign off status: Pending * Provider: Reinaldo Zamora MD Date: 0 09/13/2024 Generated for Ulises garcia/Jarvis/Mary Jane on: 03/05/2024 09:32 AM EST
--- OUTSIDE RECORDS SUMMARY | 2024-09-20 04:30 | XMS_ITS ---
Author Organization Arden Zamora MD Address [address] [place], [place] [id number] Care Team Providers Care Steamboat Captain Name Role Phone Arden Zamora Primary Care Provider Allergies No Known Allergies Results Component Value Reference Range Notes Microalbumin, Random Reviewed date:09/20/2024 04:58:27 PM Interpretation: Performing Lab:[facility], [address] [place] [id number] Notes/Report: Creatinine Urine 43.23 Microalbumin Urine 1755.0 Microalbum/Creatinine Ratio Ur 4059.6 <30 ug/mg cr Albumin/Creatinine Ratio Reference Ranges: Normal: < 30 ug/mg creatinine Microalbuminuria: 30 - 300 ug/mg creatinine Clinical Albuminuria: > 300 ug/mg creatinine UA ClnCatch+Micro w/rflx Cul t Reviewed date:10/28/2024 08:41:34 AM Interpretation:10-21-2024 Performing Lab:[facility], [address] [place] [phone] Notes/Report: Urine, Clean Catch Color Urine Yellow Appearance Urine Clear PH 6.0 5.0-9.0 Glucose Urine UA >=1000 Negative mg/dL Urine Blood Small (1+) Negative Specific [place] - Urine 1.025 1.005-1.025 Urine Protein 300 (3+) Neg-Trace mg/dL Urine Ketones Negative Negative mg/dL Nitrite Urine Negative Negative Leukocyte Esterase Urine Negative Negative RBC Urine 6-10 0-2 /HPF WBC Urine 0-5 0-5 /HPF Squamous Epithelial Cell Urine 0-2 0-2 /HPF Bacteria Urine None Seen None Seen Hyaline Casts Urine 0-2 0-2 /LPF REASON FOR VISIT annual visit Medications Medication SIG (Take, Route, Frequency, Duration) Notes Start Date End Date Status Lantus SoloStar 100 UNIT/ML INJECT 90 UNITS SUBCUTANEOUSLY TWICE DAILY. for 25 Active Levothyroxine Sodium 200 MCG TAKE 1 TABLET BY MOUTH ONCE EVERY DAY IN THE MORNING ON AN EMPTY STOMACH, FOR 90 DAYS for 90 Active Sildenafil Citrate 100 MG 1 tablet Orally Once a day for 30 Not-Taking Atorvastatin Calcium 40 MG TAKE 1 TABLET BY MOUTH EVERY DAY Orally Once a day for 90 days Active Cephalexin 750 MG 1 capsule Orally thad ry 8 hrs for 10 day(s) 09/20/2024 Active Sertraline HCl 100 MG TAKE 1 TABLET BY M OUTH EVERY DAY for 30 Active FreeStyle Lite Test - USE TO TEST BLOOD SUGAR TWICE A DAY for 30 days Active BD Pen Needle Mini U/F 31G X 5 MM use with pen once a day for injection sq twice a day for 90 days Active Albuterol Sulfate HFA 108 (90 Base) MCG/ACT 1 puff as needed Inhalation every 4 hrs for 30 days 11/24/2023 Not-Taking Social History Tobacco Use: Social History Observation [...] Notes: Patient smokes 2 packs a day Vital Signs Blood pressure systolic 122 mm Hg 09/21/19 25 Blood pressure diastolic 78 mm Hg 025 Height 71 in 09/20/2024 Weight 228 lbs 09/20/2024 BMI 31.8 kg/m2 09/20/2024 weight is down 5 pounds [facility] e 07-05-24 Encounters Encounter Location Date Provider Diagnosis Arden Zamora MD [address] [facility] [address] [place], [place] [phone] 09/20/2024 Arden Zamora Annual physical exam Z00.00 ; Type 2 diabetes, controlled, with neuropathy E11.40 ; Essential hypertension I10 ; Smoker unmotivated to quit F17.200 ; Acquired hypothyroidism E03.9 and Abscess L02.91 Assessments Encounter Date Diagnosis (ICD Code) Assessment Notes Treatment Notes Treatment Clinical Notes Section Notes 09/20/2024 Annual physical exam (ICD-10 - Z00.00) labs reviewed and discussed with patient 09/20/2024 Type 2 diabetes, controlled, with neuropathy (ICD-10 - E11.40) stable, will continue current regiment 09/20/2024 Essential hypertension (ICD-10 - I10) stable, will cpntinue current regiment 09/20/2024 Smoker unmotivated to quit (ICD-10 - F17.200) advised to quit 09/20/2024 Acquired hypothyroidism (ICD-10 - E03.9) stable, will continue current regiment 09/20/2024 Abscess (ICD-10 - L02.91) is draining and he says that once it drains it gets better. will put on ab and if not better will get surgery Plan Of Treatment Medication Medication Name Sig Start Date Stop Date Notes Cephalexin 750 MG 1 capsule Orally thad ry 8 hrs for 10 day(s) 09/20/2024 Treatment Notes Assessment Notes Annual physical exam labs reviewed and d iscussed with patient Type 2 diabetes, controlled, with neurop athy stable, will continue current regiment Essential hypertension stable, will cpnt inue current regiment Smoker unmotivated to quit advised to qu it Acquired hypothyroidism stable, will con tinue current regiment Abscess is draining and he s ays that once it drains it gets better. will put on ab and if not better will get surgery Next Appt Details Follow Up: 3 Months, Reason: Provider Name:Arden mae, 03/14/2025 07:30:00 AM, [address], [address], [place], [place], [id number], Provider Name:Arden Wilcox ier, 03/21/2025 10:00:00 AM, [address], [address], [place], [id number], Provider Name:Arden Wilcox ier, 09/19/2025 07:00:00 AM, [address], [address], [place], [id number], Provider Name:Arden Wilcox ier, 09/26/2025 09:30:00 AM, [address], [address] [facility], [place], [id number], Progress Notes * Geronimo CALOVOB:1975 (48 yo M)Acc No.[id number]:09/20/2024 Progress Notes Patient: Khari HAMILTONPAULAGregorio Payanwn Provider: Reinaldo Zamora MD :1975 A ge:48 Y S ex:Male Date:09/20/2024 Address:[address] [place] [address], [id number] Subjective: * Chief Complaints: * A nnual visit * HPI: D epression Screening: PHQ-9 L ittle interest or pleasure in doing things N ot at all, F eeling down, depressed, or hopeless N ot at all, T rouble falling or staying asleep, or sleeping too much N ot at all, F eeling tired or having little energy N ot at all, P oor appetite or overeating N ot at all, F eeling bad about yourself or that you are a failure, or have let yourself or your family down N ot at all, T rouble concentrating on things, such as reading the newspaper or watching television N ot at all, M oving or speaking so slowly that other people could have noticed; or the opposite, being so fidgety or restless that you have been moving around a lot more than usual N ot at all, T houghts that you would be better off or of hurting yourself in some way N ot at all, T otal Score 0 . I nterpretation and Intervention D epression Screening Findings N egative, F ollow-Up for Depression : review of PHQ-9 found negative result, no follow-up needed. C ommunication Needs: Communication Needs D oes the patient have a hearing impairment N o, D oes the patient have a vision impairment? Y es, I f yes, what is the vision impairment? G lasses, D oes the patient have a cognition impairment? N o. S CAROLE Questions: SDOH Questions I n the past year have you been worried about losing housing? N o, I n the past year have you or any family members you live with been unable to get any of the following when it was really needed? Check all that apply: N one. S ymptom(s): eliz gordon is a 48 yo male here for yearly visit with review of recent labs and follow up of chronic issues, . not taking insulin. * ROS: G eneral/Constitutional: Change in appetite d enies. C hills d enies. F ever d enies. O phthalmologic: Blurred vision d enies. D ischarge d enies. P ain d enies. E NT: Decreased hearing d enies. S ore throat d enies.?Swollen glands d enies. E ndocrine: Cold intolerance d enies. E xcessive thirst d enies. H eat intolerance d enies. W eight loss d enies. R espiratory: Cough d enies. S hortness of breath at rest d enies. S hortness of breath with exertion d enies. W heezing d enies. C ardiovascular: Chest pain at rest d enies. C hest pain with exertion?denies. I rregular heartbeat d enies. S hortness of breath d enies. ? G astrointestinal: Abdominal pain d enies. C hange in bowel habits d enies. D iarrhea d enies. N ausea d enies. R ectal bleeding d enies. V omiting d enies . G enitourinary: Blood in urine d enies. D ifficulty urinating d enies. F requent urination d enies. M usculoskeletal: Painful joints d enies. W eakness d enies. ? S kin: Dry skin d enies. I tching d enies. D enies?Mole(s), changes in moles, new moles or any lesions of concern. D enies P hotosensitivity. R pamela d enies. N eurologic: Dizziness d enies. F ainting d enies. H eadache?denies. * Medical History: * Surgical History: * Hospitalization/Major Diagno stic Procedure: * Family History: F ather: 70 yrs, diagnosed with Hypertension, Diabetes, Asthma. M other: 56 yrs. 1 brother(s) . . Mother in her sleep father-Cardiac, Denies mental health/substance abuse family history, Denies mental health/substance abuse family history, Denies mental health/substance abuse family history, Denies mental health/substance abuse family history, Denies mental health/substance abuse family history, Denies mental health/substance abuse family history. * Social History: T obacco Use: T obacco Use/Smoking P evan is a c urrent smoker, H ow often do you smoke cigarettes? e very day, H ow many cigarettes a day do you smoke? 3 1 or more, H ow soon after you wake up do you smoke your first cigarette? w ithin 5 minutes, A dditional Findings: Tobacco User C urrent cigarette smoker, not currently using another form of tobacco. D rugs/Alcohol: A lcohol Screen D id you have a drink containing alcohol in the past year? N o, P oints 0 , I nterpretation N egative. M iscellaneous: C affeine: no. Children: no. Exercise: no. Home smoke detector use: yes. Housing: renting. Living with: alone. Occupation: works part-time. Pets: none. Travel outside of the [place]: no. P atient smokes 2 packs a day. * Medications: T akingBD Pen Needle Mini U/F 31G X 5 MM Miscellaneous use with pen once a day for injection sq twice a day FreeStyle Lite Test - Strip USE TO TEST BLOOD SUGAR TWICE A DAY Sertraline HCl 100 MG Tablet TAKE 1 TABLET BY MOUTH EVERY DAY Atorvastatin Calcium 40 MG Tablet TAKE 1 TABLET BY MOUTH EVERY DAY Orally Once a day Lantus SoloStar 100 UNIT/ML Solution Pen-injector INJECT 90 UNITS SUBCUTANEOUSLY TWICE DAILY. Levothyroxine Sodium 200 MCG Tablet TAKE 1 TABLET BY MOUTH ONCE EVERY DAY IN THE MORNING ON AN EMPTY STOMACH, FOR 90 DAYS Taking BD Pen Needle Mini U/F 31G X 5 MM Miscellaneous use with pen once a day for injection sq twice a day Taking FreeStyle Lite Test - Strip USE TO TEST BLOOD SUGAR TWICE A DAY Taking Sertraline HCl 100 MG Tablet TAKE 1 TABLET BY MOUTH EVERY DAY Taking Atorvastatin Calcium 40 MG Tablet TAKE 1 TABLET BY MOUTH EVERY DAY Orally Once a day Taking Lantus SoloStar 100 UNIT/ML Solution Pen-injector INJECT 90 UNITS SUBCUTANEOUSLY TWICE DAILY. Taking Levothyroxine Sodium 200 MCG Tablet TAKE 1 TABLET BY MOUTH ONCE EVERY DAY IN THE MORNING ON AN EMPTY STOMACH, FOR 90 DAYS Not-Taking/PRNAlbuterol Sulfate HFA 108 (90 Base) MCG/ACT Aerosol Solution 1 puff as needed Inhalation every 4 hrs Sildenafil Citrate 100 MG Tablet 1 tablet Orally Once a day Medication List reviewed and reconciled with the patientNot-Taking/PRN Albuterol Sulfate HFA 108 (90 Base) MCG/ACT Aerosol Solution 1 puff as needed Inhalation every 4 hrs Not-Taking/PRN Sildenafil Citrate 100 MG Tablet 1 tablet Orally Once a day Medication List reviewed and reconciled with the patient * Allergies: N .K.D.A.yes[Allergies Verified] Objective: * Vitals: H t: 71, Wt: 228, BMI:31.8, BP:122/78, Wt-k.42. weight is down 5 pounds since 07-05-24. * P ast Orders: L ab:Comprehensive [place]. Panel Fast (Order Date - 09/05/2024) (Collection Date & Time - 09/05/2024 07:45 AM) Value Reference Range Sodium 140 135-145 - mmol/L Bilirubin Total 0.2 0.0-1.0 - mg/dL Aspartate Amino Transferase 25 5-37 - U/L Alanine Aminotransferase 30 0-40 - U/L Total Protein 6.8 6.5-8.0 - g/dL Albumin Level 3.9 3.5-5.0 - g/dL Alkaline Phosphatase 117 39-117 - U/L Potassium 4.4 3.3-5.1 - mmol/L Chloride 109 H 96-108 - mmol/L Carbon Dioxide 23 22-29 - mmol/L Anion Gap 12 12-20 - Blood Urea Nitrogen 19 H 9-16 - mg/dL Creatinine 1.04 0.5-1.4 - mg/dL Estimated Glomerular Filt Rate > 60 - Glucose Fasting 218 H 60-99 - mg/dL Calcium 8.2 L 8.4-10.2 - mg/dL L ab:PSA,Total (Free>4and<10) (Order Date 09/05/2024) (Collection Date & Time 09/05/2024 07:45 AM) Value Reference Range PSA,Total (Free>4and<10) 0.41 0.00-4.00 - ng/ mL L ab:TSH reflex Free T4 (Order Date - 09/05/2024) (Collection Date & Time - 09/05/2024 07:45 AM) Value Reference Range TSH reflex Free T4 4.10 H 0.32-4.0 - uIU/mL L ab:Hemoglobin A1c (Order Date 09/05/2024) (Collection Date & Time - 09/05/2024 07:45 AM) Value Reference Range Hemoglobin A1c % 11.9 H <6.0 - % Estimated Average Glucose 295 - mg/dL L ab:Free T4 (Free Thyroxine) (Order Date - 09/05/2024) (Collection Date & Time - 09/05/2024 07:45 AM) Value Reference Range Free T4 (Free Thyroxine) 0.85 0.71-1.85 - ng/ dL L ab:Complete Blood Count Auto Diff (Order Date 09/05/2024) (Collection Date & Time 09/05/2024 07:45 AM) Value Reference Range White Blood Count 7.8 4.8-10.8 - X10*3/uL Red Blood Count 4.78 4.60-5.80 - X10*6/uL Hemoglobin 13.8 L 14.0-18.0 - g/dl Hematocrit 40.9 L 42.0-52.0 - % Mean Corpuscular Volume 85.6 80.0-98.0 - fL Mean Corpuscular Hemoglobin 28.9 27.0-33.0 - pg Mean Corpuscular HGB Conc 33.7 31.0-36.0 - g/ dl Red Cell Distribution Width 12.9 11.0-16.0 - % Platelet Count 189 160-400 - X10*3/uL Mean Platelet Volume 11.4 9.4-12.4 - fL Neutrophils Percent Auto 58.2 45-73 - % Imm Gran Pct Auto 0.6 H 0.0-0.4 - % Lymphocytes Percent Auto 30.5 20-40 - % Monocytes Percent Auto 6.9 2-11 - % Eosinophils Percent Auto 3.0 0-4 - % Basophils Percent Auto 0.8 0-2 - % NRBC Pct Auto 0.0 0.0-0.2 - /100WBC Neutrophils Absolute Auto 4.5 2.0-8.3 - x10* 3/uL Imm Gran Abs Auto 0.05 H 0.00-0.03 - X10*3/uL Lymphocytes Absolute Auto 2.4 1.2-4.9 - X10* 3/uL Monocytes Absolute Auto 0.5 0.1-1.2 - X10*3/ uL Eosinophils Absolute Auto 0.2 0.0-0.4 - X10* 3/uL Basophils Absolute Auto 0.1 0.0-0.2 - X10*3/ uL NRBC Abs Auto 0.000 0.0-0.012 - X10*3/uL * Examination: G eneral Examination: GENERAL APPEARANCE: w ell developed, well nourished, in no acute distress. HEAD: n ormocephalic, atraumatic. EYES: p upils equal, round, reactive to light and accommodation, sclera non-icteric. EARS: n ormal. ORAL CAVITY: m ucosa moist. THROAT: c lear. NECK/THYROID: n shira supple, full range of motion, no cervical lymphadenopathy, no bruits. SKIN: w arm and dry, no suspicious lesions, abnormal with abscess in left axilla. HEART: r egular rate and rhythm, S1, S2 normal, no murmurs.? LUNGS: c lear to auscultation bilaterally. ABDOMEN: s oft, nontender, nondistended, bowel sounds present, normal, no organomegaly , no masses palpable. RECTAL EXAM: n ormal tone, no external hemorrhoids, no masses palpable, prostate normal, stool guaiac negative. MALE GENITOURINARY: n ot examined. EXTREMITIES: n o clubbing, cyanosis, or edema. NEUROLOGIC: n onfocal, motor strength normal upper and lower extremities, sensory exam intact. PODIATRIC: n ormal pulse, normal pinprick and normal light touch. FOOT EXAM: . Assessment: * Assessment: 1. A nnual physical exam - Z00.00 (Primary) 2 . T ype 2 diabetes, controlled, with neuropathy - E11.40 3 . E ssential hypertension - I10 4 . S moker unmotivated to quit - F17.200 5 . A cquired hypothyroidism - E03.9? 6. A bscess - L02.91 Plan: * Treatment: 2. T ype 2 diabetes, controlled, with neuropathy L AB: UA ClnCatch+Micro w/rflx Cult (Collection Date & Time - 09/20/2024 09:30 AM) L AB: Microalbumin, Random (Collection Date & Time - 09/20/2024 09:30 AM) Notes: stable, will continue current regiment 3. E ssential hypertension Notes: stable, will cpntinue current regiment 4. S annelise unmotivated to quit Notes: advised to quit 5. A cquired hypothyroidism Notes: stable, will continue current regiment 6. A bscess Start Cephalexin Capsule, 750 MG, 1 capsule, Orally, every 8 hrs, 10 day(s), 30. Notes: is draining and he says that once it drains it gets better. will put on ab and if not better will get surgery * Procedure Codes: * Preventive Medicine: Diabetes Care Plan: P atient Lifestyle Goals N eeds to maintain diet control.?Treatment Goals A 1C< 7. B arriers N eeds better diet control. S elf-Managment Plan I ncrease light exercise to 3 times a week for 30 minutes. E xpected Outcome m aintaining stable blood sugar levels within a target range. * Follow Up: 3 Months * * Sign off status: Completed true * Provider: Reinaldo Zamora MD Date: 0 09/20/2024 Generated for Ulises garcia/Jarvis/eTransmitting on: 1 03/05/2024 09:32 AM EST History and Physical Notes * HPI (History of Present Illness) Category Sub-Category Detail Notes Category Not es Symptom(s) patient is a 48 yo male here for yearly visit with review of recent labs and follow up of chronic issues, . not taking insulin Depression Screening PHQ-9 Little inte rest or pleasure in doing things: Not at all Feeling down, depressed, or hopeless: No t at all Trouble falling or staying asleep, or sl eeping too much: Not at all Feeling tired or having little energy: N ot at all Poor appetite or overeating: Not at all Feeling bad about yourself o r that you are a failure, or have let yourself or your family down: Not at all Trouble concentrating on thi ngs, such as reading the newspaper or watching television: Not at all Moving or speaking so slowly that other people could have noticed; or the opposite, being so fidgety or restless that you have been moving around a lot more than usual: Not at all Thoughts that you would be b bisi off or of hurting yourself in some way: Not at all Total Score: 0 Interpretation and Intervention Depression Ronak castaneda Findings: Negative Follow-Up for Depression: : review of PH Q-9 found negative result, no follow-up needed SDOH Questions SDOH Questions In the past year have you been worried about losing housing?: No In the past year have you or any family members you live with been unable to get any of the following when it was really needed? Check all that apply:: None Communication Needs Communication Needs Does the patient have a hearing impairment: No Does the patient have a vision impairmen t?: Yes If yes, what is the vision impairment?: Glasses Does the patient have a cognition impair ment?: No Examination Category Sub-Category Detail Notes Category Not es General Examination GENERAL APPEARANCE: well dev eloped, well nourished, in no acute distress HEAD: normocephalic, atrau matic EYES: pupils equal, round, reactive to light and accommodation, sclera non-icteric EARS: normal THROAT: clear NECK/THYROID: neck supple, full ra nge of motion, no cervical lymphadenopathy, no bruits HEART: regular rate and rhy thm, S1, S2 normal, no murmurs LUNGS: clear to auscultatio n bilaterally ABDOMEN: soft, nontender, non distended, bowel sounds present, normal, no organomegaly , no masses palpable NEUROLOGIC: nonfocal, motor stre ngth normal upper and lower extremities, sensory exam intact SKIN: warm and dry, no micaela picious lesions, abnormal with abscess in left axilla EXTREMITIES: no clubbing, cyanosi s, or edema MALE GENITOURINARY: not examined RECTAL EXAM: normal tone, no exte rnal hemorrhoids, no masses palpable, prostate normal, stool guaiac negative ORAL CAVITY: mucosa moist FOOT EXAM: Date: 09/20/2024 normal pinprick . normal pulse. normal light touch. PODIATRIC: normal pulse, normal pinprick and normal light touch
--- OUTSIDE RECORDS SUMMARY | 2024-10-21 05:45 | XMS_ITS ---
Author Organization Arden Zamora MD Address [address] [place], [place] [phone] Care Team Providers Care Trading Assistant Name Role Phone Sera Arden Primary Care Provider Allergies No Known Allergies Reason For Referral Reason hematuria Diagnosis 1 Hematuria (R31.9) Referral Organization Arden Zamora MD Referring Provider First Name Arden Referring Provider Last Name Sera Referring Provider Speciality Internal M edicine Referred Provider Aron Peres Referred Provider Specialty Urology General Notes Oksana Rico 0 10/21/2024 11:57:41 AM > referral info faxed, Oksana Rico 11/04/2024 03:06:30 PM >was told patient is aware of appt Referral Priority Routine Referral Appointment Date 01/03/2025 Reason :Proteinuria Diagnosis 1 Proteinuria (R80.9) Referral Organization Arden Zamora MD Referring Provider First Name Arden Referring Provider Last Name Sera Referring Provider Speciality Internal M edicine Referred Provider Wander Machuca Referred Provider Specialty Nephrology General Notes Oksana Rico 0 10/21/2024 12:01:04 PM >referral info faxed, Oksana Rico 10/28/2024 11:25:12 AM > was told patient is aware of appt Referral Priority Routine Referral Appointment Date 11/15/2024 REASON FOR VISIT must see go over urine results, Blood sugar is 324 Medications Medication SIG (Take, Route, Frequency, Duration) Notes Start Date End Date Status Albuterol Sulfate HFA 108 (90 Base) MCG/ACT 1 puff as needed Inhalation every 4 hrs for 30 days 11/24/2023 Not-Taking Levothyroxine Sodium 200 MCG TAKE 1 [...] Once a day for 90 days Active Lantus SoloStar 100 UNIT/ML INJECT 90 UNITS SUBCUTANEOUSLY TWICE DAILY. for 25 Active FreeStyle Lite Test - USE TO TEST BLOOD SUGAR TWICE A DAY for 30 days Active Sertraline HCl 100 MG TAKE 1 TABLET BY M OUTH EVERY DAY for 30 Active Vital Signs Blood pressure systolic 132 mm Hg 10/22/19 25 Blood pressure diastolic 86 mm Hg 025 Height 71 in 10/21/2024 Weight 233 lbs 10/21/2024 BMI 32.49 kg/m2 10/21/2024 weight is up 5 pounds since 09-20-24 Encounters Encounter Location Date Provider Diagnosis Arden Zamora MD [address] [place] [address] [place] [phone] 10/21/2024 Arden Zamora Proteinuria R80.9 and Hematuria R31.9 Assessments Encounter Date Diagnosis (ICD Code) Assessment Notes Treatment Notes Treatment Clinical Notes Section Notes 10/21/2024 Proteinuria (ICD-10 - R80.9) referral to hot worker 10/21/2024 Hematuria (ICD-10 - R31.9) had some gross painful urine in early september/ needs referral to urology dr peres Plan Of Treatment Treatment Notes Assessment Notes Proteinuria referral to nephrolo gist Hematuria had some gross painf ul urine in early september/ needs referral to urology dr peres Referrals Referral Date Details 10/21/2024 10/21/2024, Aron palomo 10/21/2024 10/21/2024, :Quentin vasquez, Wander Machuca Next Appt Details Provider Name:Arden Wilcox ier, 03/14/2025 07:30:00 AM, [address] [facility], [address], [place], [place], [phone], Provider Name:Arden Wilcox ier, 03/21/2025 10:00:00 AM, [address], [place], [place], [phone], Provider Name:Arden Wilcox ier, 09/19/2025 07:00:00 AM, [address] [place] [address], Suite [facility], [place], [place], [phone], Provider Name:Arden Wilcox ier, 09/26/2025 09:30:00 AM, [address] [place] [address], Suite [facility], [place], [place], [phone], Progress Notes * Geronimo CALVOOB:1975 (48 yo M)Acc No.[id number]:10/21/2024 Patient: Jonathan ANDERSONn Provider: Reinaldo Zamora MD :1975 A ge:48 Y S ex:Male Date:10/21/2024 Address:[address] [place] [address], [place], [place] Subjective: * Chief Complaints: * M ust see go over urine resultsBlood sugar is 324 * HPI: S ymptom(s): patient is a 48 yo male here for follow up visit to discuss recent lab test. * ROS: G eneral/Constitutional: Denies C hills. D enies F atigue. D enies F ever. D enies H eadache. E NT: Denies S ore throat. E ndocrine: Denies D ifficulty sleeping. D enies D izziness.?Admits E xcessive sweating. A dmits E xcessive thirst. A dmits F requent urination. R espiratory: Denies C ough. D encorina S hortness of breath at rest. D enies S hortness of breath with exertion. G astrointestinal: Alpesh Auguste iarrhea. D encorina N ausea. * Medical History: * Surgical [...] 1 tablet Orally Once a day Not-Taking/PRN Albuterol Sulfate HFA 108 (90 Base) MCG/ACT Aerosol Solution 1 puff as needed Inhalation every 4 hrs Not-Taking/PRN Sildenafil Citrate 100 MG Tablet 1 tablet Orally Once a day DiscontinuedCephalexin 750 MG Capsule 1 capsule Orally every 8 hrs Medication List reviewed and reconciled with the patientDiscontinued Cephalexin 750 MG Capsule 1 capsule Orally every 8 hrs Medication List reviewed and reconciled with the patient * Allergies: N .K.D.A.yes[Allergies Verified] Objective: * Vitals: H t: 71, Wt: 233, BMI:32.49, BP:132/86, Wt-k.69. weight is up 5 pounds since 09-20-24. * P ast Orders: L ab:Microalbumin, Random (Order Date - 09/20/2024) (Collection Date & Time - 09/20/2024 09:30 AM) Value Reference Range Creatinine Urine 43.23 - mg/dL Microalbumin Urine 1755.0 - mg/L Microalbum Creatinine Ratio Ur 4059.6 H <30 - ug/ mg cr * Examination: G eneral Examination: GENERAL APPEARANCE: a lert, well hydrated, in no distress.? HEAD: n ormocephalic. SKIN: g ood turgor. HEART: r egular rate and rhythm, no murmurs, rubs, gallops.? LUNGS: n o wheezes, rales, rhonchi, good air movement, clear to auscultation bilaterally. Assessment: * Assessment: 1. P roteinuria - R80.9 (Primary) 2 . H ematuria - R31.9 Plan: * Treatment: 2. H ematuria Notes: had some gross painful urine in early september/ needs referral to urology dr peres ? Referral To:[facility] Reason:hematuria * Procedure Codes: * * Sign off status: Completed true * Provider: Reinaldo Zamora MD Date: 0 10/21/2024 Generated for Ulises garcia/Jarvis/eTransmitting on: 03/05/2024 09:32 AM EST History and Physical Notes * HPI (History of Present Illness) Category Sub-Category Detail Notes Category Not es Symptom(s) patient is a 48 yo male here for follow up visit to discuss recent lab test Examination Category Sub-Category Detail Notes Category Not es General Examination GENERAL APPEARANCE: alert, w ell hydrated, in no distress HEAD: normocephalic HEART: regular rate and rhy thm, no murmurs, rubs, gallops LUNGS: no wheezes, rales, r honchi, good air movement, clear to auscultation bilaterally SKIN: good turgor Consultation Request Notes Referral Date Referring Provider Referred Provider Not es 10/21/2024 Arden Zamora Alexander hematur ia 10/21/2024 Arden Zamora Balaji :Quentin vasquez
--- OUTSIDE RECORDS SUMMARY | 2024-12-02 03:58 | XMS_ITS ---
Author Organization Arden Zamora MD Address [address] [place] [phone] Care Team Providers Care Roofing Contractor Name Role Phone Arden Zamora Primary Care Provider [phone] REASON FOR VISIT refill Encounters Encounter Location Date Provider Diagnosis Arden Zamora MD [address] [place] [address] [address] [place] [address] [phone] 12/02/2024 Arden Zamora Plan Of Treatment Next Appt Details Provider Name:Arden mae, 03/14/2025 07:30:00 AM, [address] [place] [address], [address] [place] [address], [phone], Provider Name:Arden mae, 03/21/2025 10:00:00 AM, [address] [place] [address], [address], [phone], Provider Name:Arden mae, 09/19/2025 07:00:00 AM, [address] [place] [address], [address], [phone], Provider Name:Arden Wilcox ier, 09/26/2025 09:30:00 AM, [address], [address], [place], [phone], Progress Notes * Geronimo CALVOOB:1975 (49 yo M)Acc No.[id number]:12/02/2024 Patient: Jeyson ANDERSON :1975 A ge:49 Y S ex:Male Address:[facility] [address], [place], [address] * true * Date: Generated for Ulises garcia/Jarvis/Sandrasmitting on: 03/05/2024 09:31 AM EST
--- OUTSIDE RECORDS SUMMARY | 2024-12-20 05:00 | XMS_ITS ---
Author Organization Arden Zamora MD Address [address] [place] [phone] Care Team Providers Care Equipment Sales Specialist Name Role Phone Arden Zamora Primary Care Provider [phone] Allergies No Known Allergies Results Component Value Reference Range Notes Hemoglobin A1c Reviewed date:12/20/2024 10:01:31 AM Interpretation: Performing Lab: Notes/Report: Hemoglobin A1c 10.0 Glucose, finger stick Reviewed date:12/20/2024 09:55:18 AM Interpretation: Performing Lab: Notes/Report: Value 120 REASON FOR VISIT 3 month/ must see urine Medications Medication SIG (Take, Route, Frequency, Duration) Notes Start Date End Date Status Albuterol Sulfate HFA 108 (90 Base) MCG/ACT 1 puff as needed Inhalation every 4 hrs for 30 days 11/24/2023 Not-Taking Sildenafil Citrate 100 MG 1 tablet Orally Once a day for 30 Not-Taking Lantus SoloStar 100 UNIT/ML INJECT 90 UNITS SUBCUTANEOUSLY TWICE DAILY. Active BD Pen Needle Mini U/F 31G X 5 MM use with pen once a day for injection sq twice a day for 90 days Active FreeStyle Lite Test - USE TO TEST BLOOD SUGAR TWICE A DAY for 30 days Active Levothyroxine Sodium 200 MCG TAKE 1 TABLET BY MOUTH ONCE EVERY DAY IN THE MORNING ON AN EMPTY STOMACH, FOR 90 DAYS for 90 Active Sertraline HCl 100 MG TAKE 1 TABLET BY M OUTH EVERY DAY for 30 Active Atorvastatin Calcium 40 MG TAKE 1 TABLET BY MOUTH EVERY DAY Orally Once a day for 90 days Active Vital Signs Blood pressure systolic 142 mm Hg 12/21/19 25 Blood pressure diastolic 84 mm Hg 025 Height 71 in 12/20/2024 Weight 242 lbs 12/20/2024 BMI 33.75 kg/m2 12/20/2024 weight is up 9 pounds since 10-21-24 Encounters Encounter Location Date Provider Diagnosis Arden Zamora MD [address] [place] [address] [place] [phone] 12/20/2024 Arden Zamora Type 2 diabetes, controlled, with neuropathy E11.40 ; Smoker unmotivated to quit F17.200 and Hematuria R31.9 Assessments Encounter Date Diagnosis (ICD Code) Assessment Notes Treatment Notes Treatment Clinical Notes Section Notes 12/20/2024 Type 2 diabetes, controlled, with neuropathy (ICD-10 - E11.40) had a1c over 14 last time and down to 10, will continue to monitor 12/20/2024 Smoker unmotivated to quit (ICD-10 - F17.200) can't get him to stop, advised on issues related to smoking 12/20/2024 Hematuria (ICD-10 - R31.9) needs appt with dr peres. has not received his appt since last visit/ appt with Dr. Peres is 01-03-2025 Plan Of Treatment Medication Medication Name Sig Start Date Stop Date Notes Lantus SoloStar 100 UNIT/ML INJECT 90 UN ITS SUBCUTANEOUSLY TWICE DAILY. Treatment Notes Assessment Notes Type 2 diabetes, controlled, with neurop athy had a1c over 14 last time and down to 10, will continue to monitor Smoker unmotivated to quit can't get him to stop, advised on issues related to smoking Hematuria needs appt with dr diana pathak. has not received his appt since last visit/ appt with Dr. Peres is 01-03-2025 Next Appt Details Follow Up: 3 Months, Reason: Provider Name:Arden Wilcox ier, 03/14/2025 07:30:00 AM, [address], [address], [place], [phone], Provider Name:Arden Wilcox ier, 03/21/2025 10:00:00 AM, [address], [address], [place], [place], [phone], Provider Name:Arden Wilcox ier, 09/19/2025 07:00:00 AM, [address], [address], [place], [place], [phone], Provider Name:Arden Wilcox ier, 09/26/2025 09:30:00 AM, [address], [address], [place], [place], [phone], Progress Notes * Geronimo CALVOOB:1975 (49 yo M)Acc No.[id number]:12/20/2024 Patient: Jeyson ANDERSON Provider: Reinaldo Zamora MD :1975 A ge:49 Y S ex:Male Date:12/20/2024 Address:[address] [place] [address], [id number] Subjective: * Chief Complaints: * 3 month/ must see urine * HPI: S ymptom(s): patient is a 49 yo male here for 3 month follow up visit/ sugars are doing better because shena 3 is better/ also taking meds and insujlin. * ROS: G eneral/Constitutional: Denies C hills. D enies F atigue. D enies F ever. D enies H eadache. E NT: Denies S ore throat. E ndocrine: Denies D ifficulty sleeping. D enies D izziness.?Denies [...] Objective: * Vitals: H t: 71, Wt: 242, BMI:33.75, BP:142/84, Repeat BP:130/96, Wt-k.77. weight is up 9 pounds since 10-21-24. * Examination: G eneral Examination: GENERAL APPEARANCE: a lert, well hydrated, in no distress.? HEAD: n ormocephalic. SKIN: g ood turgor. HEART: r egular rate and rhythm, no murmurs, rubs, gallops.? LUNGS: n o wheezes, rales, rhonchi, good air movement, clear to auscultation bilaterally. ABDOMEN: s oft, nontender, nondistended, no rebound tenderness, no organomegaly. Assessment: * Assessment: 1. T ype 2 diabetes, controlled, with neuropathy - E11.40 (Primary) 2 . S moker unmotivated to quit - F17.200 3 . H ematuria - R31.9 Plan: * Treatment: Value Reference Range H emoglobin A1c 10.0 ?LAB: Glucose, finger stick (Collection Date & Time - 12/20/2024)* Value Reference Range V alue 120 Notes: had a1c over 14 last time and down to 10, will continue to monitor?? 2.?Smoker unmotivated to quit? Notes: can't get him to stop, advised on issues related to smoking??3.?Hematuria ? Notes: needs appt with dr peres. has not received his appt since last visit/ appt with Dr. Peres [id number]?? * Procedure Codes: 8 2947 ASSAY, GLUCOSE, BLOOD QUANT, Modifiers: QW 27842 GLYCATED HEMOGLOBIN TEST, Modifiers: QW * Follow Up: 3 Months * * Sign off status: Completed true * Provider: Reinaldo Zamora MD Date: Generated for Ulises garcia/Jarvis/eTransmitting on: 03/05/2024 09:33 AM EST History and Physical Notes * HPI (History of Present Illness) Category Sub-Category Detail Notes Category Not es Symptom(s) patient is a 49 yo male here for 3 month follow up visit/ sugars are doing better because shena 3 is better/ also taking meds and insujlin Examination Category Sub-Category Detail Notes Category Not es General Examination GENERAL APPEARANCE: alert, w ell hydrated, in no distress HEAD: normocephalic HEART: regular rate and rhy thm, no murmurs, rubs, gallops LUNGS: no wheezes, rales, r honchi, good air movement, clear to auscultation bilaterally ABDOMEN: soft, nontender, non distended, no rebound tenderness, no organomegaly SKIN: good turgor
--- NOTE | 2025-01-03 08:57 | A.OFFVIS_ITS ---
Intake Visit Reasons: microscopic hematuria Intake Note: New Patient is present for Microscopic Hematuria Urology Med: None Antibiotic Allergy: None Blood Thinner: None PVR: 0ml Employee Development Director Required: No Accompanied by: Self / Same As Patient Allergies cat dander Allergy (Verified 01/03/25 09:30) Sneezing Medication List - Last Reconciled 01/03/25 by JAMES Jacobson atorvastatin 1 tab PO DAILY blood-glucose sensor (FreeStyle Tila 3 Plus Sensor device) As directed insulin glargine (Lantus Solostar U-100 Insulin) 90 units subcut BID levothyroxine 200 mcg PO QAM losartan 50 mg PO DAILY sertraline (Zoloft) 100 mg PO DAILY 30 days HPI Comments Details: Jeyson is a pleasant 49-year-old male patient of Dr. Zamora. 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 He presents to the office today as a new patient for gross hematuria. In discussion with the patient today he does report noting 1 episode of gross hematuria a few months ago that has since subsided. In review of patient's chart it does appear patient with a longstanding history of microscopic hematuria. When asked he does report approximately a 30 year smoking history. He reports smoking approximately 2 packs of cigarettes per day. He denies any known workplace chemical exposure. When asked he does report episodes of nocturia however relates this to his uncontrolled diabetes. He reports noting when sugars are within 90-100 mg/dL urinary issues. We did discussed correlation of uncontrolled diabetes in relation to urological health as well as overall health and well-being. In review of patient's chart it appears most recent A1c 09/23 11.9. We did discussed potential causes of gross hematuria as well as further interventions/ workup and risks and benefits of these interventions. We also discussed urinalysis noting 3+ protein. He reports he has recently established care with Nephrology here at [facility] in his due to undergo further workup. He reports previously following up with Dr. Dove many years ago for erectile dysfunction. He denies incontinence, dysuria, foul smelling urine, changes to urinary stream, flank pain, fever, and or chills. He is happy with his current voiding parameters. All questions were answered. He otherwise offers no other issues or concerns at this time. In review of patient's chart it appears PSA 09/23 0.4. PFSH Medical History Combined arterial insufficiency and corporo-venous occlusive erectile dysfunction Type 2 diabetes mellitus with other diabetic kidney complication Diabetes mellitus, type II DARREN (obstructive sleep apnea) Chronic ulcer of great toe of right foot with fat layer exposed Diabetic ulcer of toe Toe ulcer, right Hyperlipemia Neuropathy associated with endocrine disorder Hypothyroidism HTN (hypertension) Diabetes Anxiety Asthma Depression Surgical History History of colonoscopy Hx of umbilical hernia repair History of cholecystectomy H/O elbow surgery Social History Household Members: Significant Other Household Members Other:: Mother and brother of girlfriend Housing: House Do you presently have visiting nurse or other home services: No Alcohol intake: never Patient Tobacco Use Status: Current everyday Tobacco user Tobacco use type: Cigarette Cigarette Packs Per Day: 1 Cigarettes Per Day: 20.0 Years Smoked: 30 service: No Review of Systems Const All systems reviewed & are unremarkable except as noted in HPI and below Physical Exam Const General: cooperative, healthy appearing, comfortable, no acute distress, well developed, alert and awake Nutritional Appearance: overweight Orientation/consciousness: patient oriented x3 Limitations: no limitations HEENT Head: Yes normal to inspection, Yes normocephalic and Yes atraumatic Ears: hearing grossly normal bilaterally Eyes General: appearance normal, both eyes and all related structures Neck Neck: Yes normal visual inspection and Yes trachea midline Chest Chest palpation & inspection: normal inspection of the chest Resp Effort & Inspection: normal respiratory effort and able to speak in complete sentences Cardio Rate: regular rate GI Inspection: Yes normal to inspection General: Yes no CVA tenderness Back/Spine/Pelvis Back: no CVA tenderness Skin General skin exam: no rashes or lesions noted Neuro General: patient oriented x3 Extrem General: Yes normal to inspection Psych Appearance: grossly normal and well kempt Mental Status: mental status grossly normal Speech and movement: Normal speech and movement present and Clear speech present Affect: normal affect Attitude: cooperative Thought process: Normal thought process present Thought content: Normal thought content present Insight: Fair insight present (Psych) Judgement: Fair judgement present (Psych) Office Procedures Post Void Residual Post Residual Void Post Void Residual (PVR): 0 [id number] Void Residual by ultrasound Results AMB Urinalysis, Automated UA Leukoctes 0 Davey/uL Last Edit by Daisy Brito [facility] on 01/03/25 09:13 UA Nitrite Negative Last Edit by Daisy Brito, [facility] on 01/03/25 09:13 UA Urobilinogen 0.2 mg/dL Last Edit by Daisy Brito, A on 01/03/25 09:1 3 UA Protein 300 mg/dL Last Edit by Daisy Brito A on 01/03/25 09:13 UA pH 6.0 Last Edit by Daisy Brito, A on 01/03/25 09:13 UA Blood 80 [place]mer/uL Last Edit by Daisy Brito [facility] on 01/03/25 09:13 UA Specific [place] 1.020 Last Edit by Daisy Brito [facility] on 01/03/25 09: 13 UA Ketone Negative Last Edit by Daisy Brito, [facility] on 01/03/25 09:13 UA Bilirubin 0 mg/dL Last Edit by Daisy Brito, [facility] on 01/03/25 09:13 UA Glucose 1000 mg/dL Last Edit by Daisy Brito, [facility] on 01/03/25 09:13 Assessment & Plan Assessment & Plan (1) Hematuria: Code(s): R31.9 - Hematuria, unspecified Category: Medical (2) Nocturia: Code(s): R35.1 - Nocturia Category: Medical Plan In office urinalysis results reviewed with the patient today; as noted above; will send for urine cytology. PVR 0 mL We did discussed at length potential causes of microscopic and gross hematuria; we did discussed further interventions and risks and benefits of these interventions. Discussed, educated, and stressed the importance of limiting/quitting nicotine dependence for overall health and well-being. We discussed the importance of management and diabetes for improvement in urological health as well as overall health and well-being. All questions were answered. Will obtain CT urogram for further assessment evaluation. BUN and creatinine ordered for imaging. Follow-up next available in office cystoscopy with imaging and labs to be completed prior; or sooner with any issues, concerns, and or questions. Orders: Orders AMB Post Void Residual by ultrasound Today R31.9 - Hematuria, unspecified CT urogram Today R31.0 - Gross hematuria Blood Urea Nitrogen Today R39.15 - Urgency of urination AMB Urinalysis Automated Today R31.9 - Hematuria, unspecified, Z13.9 - Encounter for screening, unspecified Urine Cytology Today R31.9 - Hematuria, unspecified Creatinine Today R39.15 - Urgency of urination Coding Level of Care Code New Pt Level 3 (19544) Diagnoses Hematuria R31.9 Nocturia R35.1 CPT Codes Post Residual Void - PVR CPT Code: 93681-Lwbp Void Residual by ultrasound ([id number])
--- OUTSIDE RECORDS SUMMARY | 2025-01-03 09:33 | XMS_ITS | Patient Health Record ---
Author Organization Arden Zamora MD Address [address] [place], [place] [id number] Care Team Providers Care Payroll And Benefits Analyst Name Role Phone Arden Zamora Primary Care Provider [phone] Allergies No Known Allergies Results Component Value Reference Range Notes Hemoglobin A1c Reviewed date:03/15/2024 09:22:37 AM Interpretation: Performing Lab: Notes/Report: Hemoglobin A1c 13.2 Hemoglobin A1c Reviewed date:07/05/2024 09:57:43 AM Interpretation: Performing Lab: Notes/Report: Hemoglobin A1c >14.0 Hemoglobin A1c Reviewed date:12/20/2024 10:01:31 AM Interpretation: Performing Lab: Notes/Report: Hemoglobin A1c 10.0 TSH reflex Free T4 Reviewed date:03/17/2024 01:08:42 PM Interpretation:ARUNA 03/15 Performing Lab:[facility], [address] [place] [phone] Notes/Report: TSH reflex Free T4 71.54 0.32-4.0 uIU/mL TSH reflex Free T4 Reviewed date:05/13/2024 05:05:01 PM Interpretation: Performing Lab:[facility], [address] [place] [phone] Notes/Report: TSH reflex Free T4 24.28 0.32-4.0 uIU/mL TSH reflex Free T4 Reviewed date:07/07/2024 07:52:47 AM Interpretation:CBACK 5/6 TSH Performing Lab:[facility], [address] [place] [phone] Notes/Report: TSH reflex Free T4 29.59 0.32-4.0 uIU/mL Complete Blood Count Auto Di ff Reviewed date:09/06/2024 12:45:34 PM Interpretation: Performing Lab:[facility], [address] [place] [phone] Notes/Report: White Blood Count 7.8 4.8-10.8 X10*3/uL [...] NRBC Abs Auto 0.000 0.0-0.012 X10*3/uL Comprehensive [place]. Panel [facility] Reviewed date:09/06/2024 12:42:48 PM Interpretation: Performing Lab:[facility], [address] [place] [phone] Notes/Report: Sodium 140 135-145 mmol/L Potassium 4.4 [...] (Free>4and<10) Reviewed date:09/05/2024 12:39:35 PM Interpretation: Performing Lab:[facility], [address] [place] [phone] Notes/Report: PSA,Total (Free>4and<10) 0.41 0.00-4.00 ng/mL A [...] T4 Reviewed date:09/05/2024 03:18:59 PM Interpretation: Performing Lab:[address] [phone] Notes/Report: TSH reflex Free T4 4.10 0.32-4.0 uIU/mL Hemoglobin A1c Reviewed date:09/05/2024 12:40:04 PM Interpretation: Performing Lab:[facility], [address] [place] [phone] Notes/Report: Hemoglobin A1c % 11.9 <6.0 % [...] average glucose, using the formula of the [id number]-[id number] Average Glucose study (ADAG), Diabetes Care, Vol.31,#8, 2007 Glucose, finger stick Reviewed date:03/15/2024 09:15:45 AM Interpretation: Performing Lab: Notes/Report: Value 310 Glucose, finger stick (Not y et reviewed by provider) Interpretation: Performing Lab: Notes/Report: Value 297 Microalbumin, Random Reviewed date:09/20/2024 04:58:27 PM Interpretation: Performing Lab:[facility], [address] [place] [phone] Notes/Report: Creatinine Urine 43.23 Microalbumin Urine 1755.0 Microalbum/Creatinine Ratio Ur 4059.6 <30 ug/mg cr Albumin/Creatinine Ratio Reference Ranges: Normal: < 30 ug/mg creatinine Microalbuminuria: 30 - 300 ug/mg creatinine Clinical Albuminuria: > 300 ug/mg creatinine UA ClnCatch+Micro w/rflx Cul t Reviewed date:10/28/2024 08:41:34 AM Interpretation:10-21-2024 Performing Lab:[address] [phone] Notes/Report: Urine, Clean Catch Color Urine Yellow Appearance Urine Clear PH 6.0 5.0-9.0 Glucose Urine UA >=1000 Negative mg/dL Urine Blood Small (1+) Negative Specific Thiells - Urine 1.025 1.005-1.025 Urine Protein 300 (3+) Neg-Trace mg/dL Urine Ketones Negative Negative mg/dL Nitrite Urine Negative Negative Leukocyte Esterase Urine Negative Negative RBC Urine 6-10 0-2 /HPF WBC Urine 0-5 0-5 /HPF Squamous Epithelial Cell Urine 0-2 0-2 /HPF Bacteria Urine None Seen None Seen Hyaline Casts Urine 0-2 0-2 /LPF Glucose, finger stick Reviewed date:12/20/2024 09:55:18 AM Interpretation: Performing Lab: Notes/Report: Value 120 Free T4 (Free Thyroxine) Reviewed date:03/08/2024 04:24:12 PM Interpretation: Performing Lab:[facility], [address] [place] [phone] Notes/Report: Free T4 (Free Thyroxine) < 0.42 0.71-1.85 ng/dL Maximiliano Alvarez Reviewed date:03/08/2024 12:43:13 PM Interpretation: Performing Lab:[facility], [address] [place] [phone] Notes/Report: Maximiliano Alvarez See Note Specimen held untested for 24 hours; Call to request Chemistry testing. Free T4 (Free Thyroxine) Reviewed date:05/13/2024 05:03:18 PM Interpretation: Performing Lab:[facility], [address] [place] [phone] Notes/Report: Free T4 (Free Thyroxine) 0.79 0.71-1.85 ng/dL Maximiliano Alvarez Reviewed date:05/13/2024 05:03:26 PM Interpretation: Performing Lab:[facility], [address] [place] [phone] Notes/Report: Maximiliano Alvarez See Note Specimen held untested for 24 hours; Call to request Chemistry testing. Free T4 (Free Thyroxine) Reviewed date:06/13/2024 06:25:45 PM Interpretation: Performing Lab:[facility], [address] [place] [phone] Notes/Report: Free T4 (Free Thyroxine) 0.72 0.71-1.85 ng/dL Hold Gold Reviewed date:06/13/2024 11:05:01 AM Interpretation: Performing Lab:[facility], [address] [place] [phone] Notes/Report: Maximiliano Alvarez See Note Specimen held untested for 24 hours; Call to request Chemistry testing. Free T4 (Free Thyroxine) Reviewed date:09/05/2024 03:20:45 PM Interpretation: Performing Lab:[facility], [address] [place] [phone] Notes/Report: Free T4 (Free Thyroxine) 0.85 0.71-1.85 ng/dL Urinalysis and Microscopic Reviewed date:12/20/2024 11:46:08 AM Interpretation:12-20-2024 Performing Lab:[address] [phone] Notes/Report: Color Urine Yellow Appearance Urine Clear PH 6.0 5.0-9.0 Glucose Urine UA >=1000 Negative mg/dL Urine Blood Moderate (2+) Negative Specific Thiells - Urine >= 1.030 1.005-1.025 Urine Protein >=1000 (4+) Neg-Trace mg/dL Urine Ketones Negative Negative mg/dL Nitrite Urine Negative Negative Leukocyte Esterase Urine Negative Negative RBC Urine 11-20 0-2 /HPF WBC Urine 0-5 0-5 /HPF Squamous Epithelial Cell Urine 0-2 0-2 /HPF Bacteria Urine None Seen None Seen Hyaline Casts Urine 0-2 0-2 /LPF Basic Metabolic Panel Reviewed date:12/18/2024 11:13:30 AM Interpretation: Performing Lab:[address] [phone] Notes/Report: Sodium 139 135-145 mmol/L Potassium 3.9 [...] Urine Reviewed date:12/18/2024 11:13:05 AM Interpretation: Performing Lab:[facility], [address] [place] [phone] Notes/Report: Creatinine Urine 107.71 Total Protein Urine Random Reviewed date:12/18/2024 11:12:57 AM Interpretation: Performing Lab:[address] [phone] Notes/Report: Total Protein Urine Random 622 <12 mg/dL Protein Electrophoresis, Ser um Reviewed date:12/20/2024 12:27:31 PM Interpretation: Performing Lab:[address] [phone] Notes/Report: Prot Elec - Total Protein 6.7 [...] (M-protein) detected. THIS TEST WAS PERFORMED AT: [facility] [address] [place] [phone] STEPH WU MD Reason For Referral Reason [...] Problem Status W/U Status Risk Notes Problem 04355773 Type 2 diabetes mellitus with other diabetic kidney complication (E11.29) Active confirmed Problem 945386464 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) Active confirmed Problem 43538561 Smoker (F17.200) Active confirmed Problem 47080789 Essential hypertension (I10) Active confirmed Problem 094787605 Acquired hypothyroidism (E03.9) Active confirmed Problem 63854531 Type 2 diabetes, controlled, with neuropathy (E11.40) Active confirmed Problem 995936684 Elevated triglycerides with high cholesterol (E78.2) Active confirmed Problem 617426470 COPD exacerbatio n (J44.1) Active confirmed Problem 42583136 Dysthymia (F34.1) Active confirmed Problem 75384309 Severe episode o f recurrent major depressive disorder, without psychotic features (F33.2) Active confirmed Problem 02808821 DARREN (obstructive sleep apnea) (G47.33) Active confirmed Problem 05914023 Smoker unmotivated to quit (F17.200) Active confirmed Problem 590138907 Toe osteomyelitis, 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) Active confirmed Problem 80561124210812988 Chronic ulcer of toe of right foot [...] Arden Zamora MD [address] [place] [id number] 03/08/2024 Arden Zamora Acquired hypothyroidism E03.9 Arden Zamora MD [address] [place] [id number] 05/13/2024 Arden Zamora Acquired hypothyroidism E03.9 Arden Zamora MD [address] [id number] 06/13/2024 Arden Reedardier Type 2 diabetes mellitus with other diabetic kidney complication E11.29 Arden Zamora MD [address] [place] [id number] 09/05/2024 Arden Reedardidenise Type 2 diabetes mellitus with other diabetic kidney complication E11.29 ; Acquired hypothyroidism E03.9 ; Type 2 diabetes, controlled, with neuropathy E11.40 ; Essential hypertension I10 and Annual physical exam Z00.00 Arden Zamora MD [address] [place] [id number] 01/26/2024 Arden Reedardier Type 2 diabetes, controlled, with neuropathy E11.40 and Acquired hypothyroidism E03.9 Arden Zamora MD [address] [place] [id number] 03/15/2024 Arden Reedardier Type 2 diabetes mellitus with other diabetic kidney complication E11.29 and Acquired hypothyroidism E03.9 Arden Zamora MD [address] [place] [id number] 05/03/2024 Arden Reedardier Type 2 diabetes, controlled, with neuropathy E11.40 and Acquired hypothyroidism E03.9 Arden Zamora MD [address] [place] [id number] 07/05/2024 Arden Zamora Type 2 diabetes mellitus with other diabetic kidney complication E11.29 ; Essential hypertension I10 ; Acquired hypothyroidism E03.9 and Type 2 diabetes, controlled, with neuropathy E11.40 Arden Zamora MD [address] [place] [id number] 09/20/2024 Arden Zamora Annual physical exam Z00.00 ; Type 2 diabetes, controlled, with neuropathy E11.40 ; Essential hypertension I10 ; Smoker unmotivated to quit F17.200 ; Acquired hypothyroidism E03.9 and Abscess L02.91 Arden Zamora MD [address] [place] [id number] 10/21/2024 Arden Zamora Proteinuria R80.9 an d Hematuria R31.9 Arden Zamora MD [address] [place] [address] Drive [address] [place] [id number] 12/20/2024 Arden Zamora Type 2 diabetes, controlled, with neuropathy E11.40 ; Smoker unmotivated to quit F17.200 and Hematuria R31.9 Arden Zamora MD [address] [place] [address] [id number] 07/15/2024 Arden Zamora Elevated triglycerid es with high cholesterol E78.2 Arden Zamora MD [address] [place] [id number] 12/02/2024 Arden Zamora Assessments Encounter Date Diagnosis [...] 10/21/2024 Proteinuria (ICD-10 - R80.9) referral to distribution collection operator 10/21/2024 Hematuria (ICD-10 - R31.9) had some gross painful urine in early september/ needs referral to urology dr peres 12/20/2024 Type 2 diabetes, controlled, with neuropathy (ICD-10 - E11.40) had a1c over 14 last time and down to 10, will continue to monitor 12/20/2024 Smoker unmotivated to quit (ICD-10 - F17.200) can't get him to stop, advised on issues related to smoking 07/15/2024 Elevated triglycerides with high cholesterol (ICD-10 - E78.2) 09/05/2024 Type 2 diabetes, controlled, with neuropathy (ICD-10 - E11.40) 05/03/2024 Acquired hypothyroidism (ICD-10 - E03.9) stable, will continue current regiment 07/05/2024 Essential hypertension (ICD-10 - I10) doing well 09/20/2024 Essential hypertension (ICD-10 - I10) stable, will cpntinue current regiment 12/20/2024 Hematuria (ICD-10 - R31.9) needs appt with dr peres. has not received his appt since last visit/ appt with Dr. Peres is 01-03-2025 09/05/2024 Essential hypertension (ICD-10 - I10) 07/05/2024 [...] Details Provider Name:Arden mae, 03/14/2025 07:30:00 AM, [address] [place] [address], [address], [phone], Provider Name:Arden mae, 03/21/2025 10:00:00 AM, [address] [place] [address], [address], [phone], Provider Name:Arden sorianor, 09/19/2025 07:00:00 AM, [address] [place] [address], [address], [phone], Provider Name:Arden sorianor, 09/26/2025 09:30:00 AM, [address] [place] [address], [address], [phone], Insurance Providers Payer Name Payer Address Payer Phone Subscriber Number Group Number Insured Name Patient Relationship to Insured Coverage Start Date Coverage End Date [employer] [address] [place], [place] [id number] Jeyson Evans Self - patient is the insured Medical (General) History Medical History History ICD Code got diarrhea on metformin 01/13/22 Colonoscopy repeat one year
--- OUTSIDE RECORDS SUMMARY | 2025-01-03 09:34 | XMS_ITS | Clinical Summary ---
Author Organization [facility] Address [address] [address] Phone Care Team Providers Care Reach Lift Truck Driver Name Role Phone Arden Zamora MD Primary [...] topic Medical Devices Not on file Insurance [facility] OUT OF STATE PPO [employer] OUT OF STATE PPO [employer] OUT OF STATE PPO [employer] OUT OF STATE PPO BL[employer]OSS OUT OF STATE PPO [employer] OUT OF STATE PPO Care Teams Reach Lift Truck Driver Relationship Specialty Start Date End Date Arden Zamora MD [address] [place] [address] [place] [address] PCP - General Internal Medicine 10/15/23 Additional Source Comments The information contained in this document represents components of the legal health record. It is not the complete legal health record.[facility]
== END 2025-01-03 09:26 | disposition home or self-care (01) ==
LOC: HO.HUSH 08:54
PROVIDERS: PCP Internal Medicine; Visit Provider Nurse Practitioner Family
DX: Z13.9 Encounter for screening, unspecified (principal); R31.9 Hematuria, unspecified; R35.1 Nocturia
CPT/HCPCS: 99203

== ENCOUNTER 2025-01-17 10:47 | Outpatient (REF) | payer BC, SELFPAY ==
--- NOTE | ~2025-01-17 | US_ITS ---
CLINICAL HISTORY: R31.9 - Hematuria, unspecified US of kidneys Comparison: None provided Findings: Right kidney is normal in size, echogenicity and morphology, 13.1 cm in length. No calculus, mass or hydronephrosis. Left kidney is normal in size, echogenicity and morphology, 12.5 cm in length. No calculus or hydronephrosis. Homogeneously hyperechoic nonshadowing avascular lesion 1.0 x 0.9 x 0.9 cm in the upper pole cortex. Limited color Doppler demonstrates unremarkable bilateral blood flow. 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 This document has been electronically signed by: Susan Boucher MD on 01/17/2025 16:29:42
== END 2025-01-17 10:48 | disposition home or self-care (01) ==
LOC: HO.HMGCX 10:47
PROVIDERS: PCP Internal Medicine; Visit Provider Internal Medicine Hypertension Specialist
DX: R31.9 Hematuria, unspecified (principal)
CPT/HCPCS: 76775

== ENCOUNTER → 2025-01-17 11:08 | Outpatient (BNV) | payer BC, SELFPAY | PROVIDERS: PCP Internal Medicine; Visit Provider Radiology Diagnostic Radiology | DX: R31.9 Hematuria, unspecified (principal) | CPT/HCPCS: 76775 ==